=== PATIENT | female | born 2005 | race Caucasian/White ===

== ENCOUNTER 2024-08-23 22:00 | Emergency (ER) | payer BC, SELFPAY ==
[2024-08-23 22:05] VITALS: BP 144/83; PULSE 94; RESP 18; TEMP 36.3; O2SAT 98
--- NOTE | 2024-08-23 22:34 | ED.GENADUL_ITS ---
Discharge Plan Disposition Patient Disposition: Home Condition: Stable Discharge Details Clinical Impression: Allergic reaction Primary Care Provider: МарияLocal ED Provider: Alexandrea Castrejon Home Meds and New Rx's Prescriptions: No Action amitriptyline 50 mg tablet 50 mg PO QHS clomipramine 50 mg capsule 100 mg PO ONCE Discharge Instructions Instructions: Allergic Reaction ED Additional Instructions: You were seen in the emergency department today for evaluation of allergic reaction symptoms likely due to ingestion of gluten. In our department you have a full physical examination performed, received medications for your symptoms and had improvement while observed. It is safe for you to go home and we have provided you with an EpiPen to be used if you have worsening of symptoms such as shortness of breath, hives or rash, vomiting or stomach upset. If you use your EpiPen you need to be seen at an emergency department immediately after to ensure that your symptoms do not come back. I have also provided you with a prescription for an EpiPen which she can fill at your home pharmacy. You need to follow-up with an child development specialist, and have a plan to make a phone call to do that on Sunday. Of course, if your symptoms worsen, you can always return to the emergency department for reevaluation. Thank you for allowing us to be part of your care. HPI General Mode of arrival: ambulatory . Date/Time Provider Initiated Documentation: 08/23/24 22:04 . Limitations to Documentation: no limitations . Information obtained by: patient, family and old records reviewed . HPI Narrative: HPI: This is a 19-year-old female patient with a past medical history significant for gluten allergy as well as a family history of anaphylaxis to bees, who is presenting for evaluation of an allergic reaction. The patient reports that approximately half an hour to 45 minutes prior to arrival at our facility she ate a bite of food and did not realize that it had gluten in it. She states that she was able to spit it out, but developed a sensation of tightness and swelling in her throat and mouth, some shortness of breath, and some abdominal upset in the epigastric region. She reports that she has noted a worsening of her reaction to gluten over time, with symptoms that have increased in severity, especially the throat tightness, as well as duration. She states that she took 50 mg of Benadryl prior to arrival, states that typically this resolves the symptoms but today it did not, and she has not experienced any improvement in her symptoms since being in the emergency department. The patient has not noted any itching or hives, has not had any change in responsiveness. She had a plan to call to make an appointment with an nutrition club ambassador on Sunday. She has historically had a EpiPen as a precaution given her family history of anaphylaxis to bees, has not ever used epi and did not try it to night. Prior to this event the patient was in her normal state of health. She reports that initially she was not sure if she was just feeling anxious over the exposure as she has had similar symptoms in the setting of anxiety, but states that she expected the symptoms to have improved if this was anxiety. Exam: Gen: Awake and alert, in no apparent distress HEENT: Non-icteric sclera, conjunctiva noninjected. Posterior pharynx without erythema, exudate, or other lesions. No significant uvular or posterior pharyngeal swelling. No stridor auscultated. Neck: Supple Lungs: No apparent respiratory distress, normal respiratory effort. Lung sounds clear and equal bilaterally without wheezes, rhonchi, rales CV: Appears well perfused, heart with regular rate and rhythm, no murmurs auscultated Abdomen: Non-distended, soft, minimal tenderness to palpation in the epigastric region without rigidity, rebound, or guarding MSK: Moves 4 extremities without apparent limitation in ROM Skin: Visualized skin without rashes, cyanosis. Neuro: Normal Gait, no obvious focal deficits or facial asymmetry. Speaks in full, clear sentences. Psych: Appropriate for situation. MDM: This is a 19-year-old female patient presenting for evaluation of an allergic reaction. My differential includes but is not limited to anaphylaxis, allergic reaction, sensitivity. Gluten is the leading concerns of the patient recognizes that she will require allergy testing to determine the exact cause of the symptoms. Reassuringly, I see no evidence of angioedema, airway compromise, or hemodynamic instability/shock. I had an extended shared decision-making conversation with the patient and her parents, regarding the next steps in management. The patient does have symptoms relating to 2 organ systems which increases my concern for anaphylaxis (airway involvement with throat swelling, abdominal discomfort) though she is exceptionally well-appearing and has a reassuring physical examination. She is desiring to avoid immediate epinephrine administration, and so we will start treatment with 20 mg famotidine and 125 mg Solu-Medrol, and will monitor here in the emergency department for improvement or worsening of her symptoms. Based on the duration of her symptoms and her physical examination I do not see any indication to proceed with advanced imaging or laboratory studies at this time. ED Course: The patient was observed in our emergency department for 2 hours, and had improvement of her symptoms with no worsening and continued reassuring physical exam and vital signs with no evidence of airway obstruction, shock. The patient was provided with a take-home EpiPen and teaching for how to utilize this medication, including the need to return to the emergency department if it is utilized. I also provided her with a paper prescription for EpiPen as she is returning home to [place] in the next day or so. The patient will reach out to schedule an appointment with an nutrition club ambassador and understands to return to the emergency department if she has recurrence or worsening of her symptoms. At this time, the patient has had a full medical evaluation and is safe for discharge to home. They are hemodynamically stable, ambulatory, and tolerating PO. They are understanding of the follow-up plan and return precautions. They left our facility without incident. Alexandrea Castrejon MD Related Data Home Medications ?Medication ?Instructions ?Recorded ?Confirmed amitriptyline 50 mg tablet 50 mg PO QHS 08/23/24 08/23/24 clomipramine 50 mg capsule 100 mg PO ONCE 08/23/24 08/23/24 Allergies Allergy/AdvReac Type Severity Reaction Status Date / Time gluten Allergy Mild Swelling/Ed Verified 08/23/24 22:04 luda General Stated Complaint: Allergic RAYNA: 3 Course Vital Signs Vital signs: Vital Signs Temperature 36.3 C L 08/23/24 22:05 Pulse 94 H 08/23/24 22:05 Respiratory Rate 18 08/23/24 22:05 Blood Pressure 144/83 H 08/23/24 22:05 Pulse Oximetry 98 08/23/24 22:05 Temperature 36.3 C L 08/23/24 22:05 Temperature Source Temporal Artery Scan 08/23/24 22:05 Pulse 94 H 08/23/24 22:05 Respiratory Rate 18 08/23/24 22:05 Respiratory Effort Normal 08/23/24 22:09 Respiratory Pattern Normal 08/23/24 22:09 Blood Pressure 144/83 H 08/23/24 22:05 Blood Pressure Position Sitting 08/23/24 22:05 Pulse Oximetry 98 08/23/24 22:05 Oxygen Delivery Method Room Air 08/23/24 22:05 Oxygen Flow Rate 0 08/23/24 22:05 Pain Level 0 08/23/24 22:05 Medical Decision Making Quality:SDOH Health Related Social Needs: No Data to Display PFSH All Active Problems (Updated 08/24/24 @ 00:03 by Alexandrea Castrejon MD) Allergic reaction (Acute) Social History Smoking/Tobacco Use Status: Never Smoking risk assessment performed?: Yes Alcohol Intake: current Alcohol Intake frequency: a few times a month Drug use: Never Substance use type: does not use Do you feel safe at home: Yes Do you feel safe in your relationship?: Yes
[2024-08-23] MEDS: methylPREDNISolone SUCC 125 MG VIAL IVP (22:59)
[2024-08-23] MEDS: Famotidine 20 MG/2 ML VIAL IVP (23:00)
--- OUTSIDE RECORDS SUMMARY | 2024-08-23 23:18 | XMS_ITS | Encounter Summary ---
Author Organization [facility] Address [address] [place] [address] Care Team Providers Care Instructional Resource Teacher Name Role Phone No, Pcp LICENSED OPTICAL DISPENSER Primary Care Provider Unavailabl e Reason for Visit * Reason Comments Cough Encounter Details Date Type Department Care Team (Late st Contact Info) Description 08/05/2016 12:35 PM EST Office Visit [id number] [place] [address] Dana Cox NP [address] [place] [address] Acute suppurative otitis media of both ears without spontaneous rupture of tympanic membranes, recurrence not specified (Primary Dx); Upper respiratory infection, acute Social History Tobacco Use Types Packs/Day Years Used Date Smoking Tobacco: Never Alcohol Use Standard Drinks/Week Comments Not Asked 0 (1 standard drink = 0.6 oz pur e alcohol) Comments No Sex and Gender Information Value Date Recorded Sex Assigned at Not on file Legal Sex Female 1:02 PM EST Gender Identity Not on file Sexual Orientation Not on file documented as of this encounter Last Filed Vital Signs Vital Sign Reading Time Taken Comments Blood Pressure 118/68 08/05/2016 12:41 PM EST Pulse 87 08/05/2016 12:41 PM EST Temperature 37.1 ??C (98.7 ??F) 08/05/2016 12:[address] Respiratory Rate 18 08/05/2016 12:41 PM EST Oxygen Saturation 98% 08/05/2016 12:41 PM EST Inhaled Oxygen Concentration - - Weight - - Height - - Body Mass Index - - documented in this encounter Functional Status * Is the person deaf or does he/she have serious difficulty hearing? Answer Date of Assessment Author * Is this person blind or does he/she have serious difficulty seeing even when wearing glasses? Answer Date of Assessment Author * Does this person have serious difficulty walking or climbing stairs? Answer Date of Assessment Author * Does this person have difficulty dressing or bathing? Answer Date of Assessment Author * Because of a physical, mental, or emotional condition, does this person have difficulty doing errands alone such as visiting a doctor's office or shopping? Answer Date of Assessment Author documented as of this encounter Mental Status * Because of a physical, mental, or emotional condition, does this person have serious difficulty concentrating, remembering, or making decisions? Answer Entry Date Author documented in this encounter Patient Instructions * Patient Instructions* Dana Cox NP - 08/05/2016 12:51 PM EST Acute Otitis Media: Follow up with primary care provider immediately if symptoms worsen or if symptoms do not improve in 3-5 days. Seek IMMEDIATE medical attention if you have difficulty breathing, wheezing, chest tightness, high fever, or stiff neck. /[id number] Otitis Media Otitis Media What is Otitis Media (OM)? Otitis media is a viral or bacterial inflammation of the middle ear located behind your ear drum. It is common in children between the ages of 6 months and 3 years, but can occur at any age. It is most often seen during the winter months. What causes OM? Otitis media is often diagnosed after you or your child has had a cold or allergies. Other risk factors include: ? Exposure to cigarette smoke ? Daycare attendance ? Recent antibiotic use ? Facial abnormalities, such as a cleft palate ? Problems with the Eustachian tube (a small passageway that connects the middle ear to the top of the throat) What are the signs/symptoms of otitis media? ? Rapid onset of ear pain ? pulling on ears for younger children ? Fever ? Nose congestion ? Headache ? Lethargy (listlessness) ? Irritability (increased fussiness) ? Difficulty sleeping ? Cough ? Decreased appetite (poor feeding) ? Vomiting and/or diarrhea ? Full sensation in the ear or ear ???popping?? ? Dizziness ? Hearing loss How is otitis media treated? Treatment depends on several factors - age, symptoms, and physical exam. If an antibiotic is prescribed, make sure to take all the pills even if feeling better. In some cases, you may be given a prescription to fill at a later date if symptoms do not improve. This is called a Wait and See prescription. Fill the prescription if your symptoms don???t improve in a day or two. What are the warning signs I should watch for? If any of the following symptoms develop, seek immediate medical attention at an emergency room: ? Temperature over 103.9??F ? Severe ear pain without relief ? Inability to fully open the jaw ? Stiff neck ? Unable to drink or hold fluids down What if I don???t feel better? If you have filled your prescription, and you or your child still does not feel better, you should follow-up with your primary care provider in 48-72 hours. If you were given a Wait and See Prescription, fill the prescription and take as indicated. Other remedies that may help reduce the symptoms include: 1. Apply warm compresses to your ear. Heat will help decrease the pain. 2. Elevate the head of the bed. This helps reduce ear pressure from building up. Raise the head of the crib for infants or use pillows for older children and adults. 3. Consider using nasal saline spray. For both adults and children, squirt two to four sprays into each nostril 3-4 times a day. This helps thin nasal secretions and reduces ear pressure. 4. Distraction often provides relief. Try playing a game or watching a move to redirect your attention. 5. Hold or rock children that are having ear pain. This helps to soothe and comfort the child. 6. Try xzdf-mgh-ueqjohi pain relievers. Acetaminophen (Tylenol??) or ibuprofen (Motrin?? or Advil??) are safe medicines to use. Follow the directions printed on the box. How can I decrease the risk of developing recurrent otitis media? There are several ways to diminish the risk factors for otitis media including the following: ? Feed a child upright if bottle fed ? Avoid pacifier use after 10 months of age ? Limit exposure to large groups of children when possible ? Practice careful hand washing technique ? Avoid exposure to cigarette smoke. If you smoke, quit. ? Keep immunizations up-to-date, including influenza (Flu) and pneumococcal (Prevnar/Pneumovax) Sources: National Institutes of Health, www.nih.gov, [place] [employer], www.aap.org www[facility] I.866.389.NIKI (2727) Rev. 4/ Seek immediate emergency medical attention if you experience severe or worsening abdominal pain, difficulty swallowing, stiff neck, shortness of breath, coughing or vomiting up blood, chest pain, increased fever, unexplained weight loss, or blood in stool. If you are taking rpby-xlw-nsqrspq medication(s) follow the dosing instructions included in the packaging, unless otherwise instructed by your provider. It is important to notify your primary care provider of all medications you are taking, including jlhq-cwm-uwoqrlo medications. Follow up PCP: Follow up with your primary care provider if symptoms worsen within 7 days. /[id number] Upper Respiratory Infection (URI) What is an Upper Respiratory Infection? An Upper Respiratory Infection (URI), sometimes called a ???cold,?? occurs when viruses attack thenose, throat and chest. A URI usually runs its course in 2-14 days, although most people feel better in about a week. Do I need antibiotics? What if my mucus is green? When germs that cause colds first infect the nose and sinuses, the nose makes clear mucus. This helps wash the germs from the nose and sinuses. After two or three days, the body's immune cells fight back, changing the mucus to a white or yellow color. As the bacteria that live in the nose grow back, they may also be found in the mucus, which changes the mucus to a greenish color. This is normal and does not mean you or your child needs antibiotics. Antibiotics are needed only if your healthcare provider tells you that you have a bacterial infection. Your healthcare provider may prescribe other medicine or give tips to help with a cold's symptoms, but antibiotics are not needed to treat a cold or runny nose. How do I prevent spreading a URI to others? To prevent spreading to others, try the following: ??? Stay at home while you are sick ??? Avoid close contact with others, such as hugging, kissing, or shaking hands ??? Move away from people before coughing or sneezing ??? Cough and sneeze into a tissue then throw it away, or cough and sneeze into your upper shirt sleeve, completely covering your mouth and nose ??? Wash your hands after coughing, sneezing, or blowing your nose ??? Disinfect frequently touched surfaces, and objects such as toys and doorknobs How is a URI treated? There is no cure for the common cold. For relief, try ??? Getting plenty of rest ??? Drinking fluids ??? Gargling with warm salt water and using cough drops or throat sprays ??? Taking talb-kgp-pvyfrlj pain or cold medicines. However: o Do not give aspirin to children. And do not give cough medicine to children under four. o Nffb-jcw-ayicfxu medicines may help ease symptoms but will not make your cold go away faster. o ALWAYS read the label and use medications as directed. What if I don???t feel better? Follow up with your primary care provider if: ??? Unusually severe cold symptoms or symptoms that last more than 10 days ??? High fever (greater than 100.4??F) ??? Ear pain or sinus type headache ??? Cough that gets worse while other cold symptoms improve ??? Flare-up of any chronic lung problem, such as asthma ??? If you develop any of the following you should go to the nearest urgent care center or emergency room: o shortness of breath, pain or pressure in the chest, high fever that doesn???t get better with fever reducing medicine, confusion, fainting, severe vomiting, and/or severe facial pain. For more information, visit: ??? U.S. National Library of Medicine: http://www.nlm.nih.gov/medlineplus/ ??? Centers for Disease Control: http://www.cdc.gov/getsmart/antibiotic-use/uri/ Sources: http://www.nlm.nih.gov/medlineplus/commoncold.html and http://www.cdc.gov/getsmart/antibiotic-use/URI/colds.html documented in this encounter Progress Notes * Dana Cox NP - 08/05/2016 12:35 PM EST Subjective: Patient ID: Raine Taylor is a 11 y.o. female. HPI Cough The problem is new. The current episode started 2 weeks. This problem occurs constantly. Since onset, the problem has been gradually worsening. The cough is productive of sputum. Not alleviated by : Advil, homeopathic cough suppressant. Associated symptoms include sore throat, nasal congestion and ear pain (right more paiful than left). Negative for nausea, headaches, vomiting, shortness of breath, rash, paroxysmal nocturnal dyspnea, appetite change, malaise/fatigue, sweats, arthralgias, heartburn/ regurgitation, unintentional weight loss, myalgias, chest pain, epigastric pain, wheezing, chest tightness, sinus pain, post-nasal drip, edema and fever. Last edited by Dana Cox NP on 08/05/2016 12:40 PM. (History) Flu Offering: Have you had your flu shot this year?: No My recommendation would be that we go ahead and immunize you today as part of your healthcare plan:Patient declines ROS Positive for: Constitutional, HENT Last edited by Dana Cox NP on 08/05/2016 12:40 PM. (History) History Smoking Status ??? Never Smoker Smokeless Tobacco ??? Not on file Past Medical History Diagnosis Date ??? Allergic rhinitis History reviewed. No pertinent past surgical history. History reviewed. No pertinent family history. Objective: Physical Exam Constitutional: She appears well-developed and well-nourished. No distress. HENT: Head: Normocephalic and atraumatic. Right Ear: External ear normal. No drainage, swelling or tenderness. Tympanic membrane is bulging. Tympanic membrane is not injected and not erythematous. Tympanic membrane mobility is abnormal. Left Ear: External ear normal. No drainage, swelling or tenderness. Tympanic membrane is erythematous and bulging. Tympanic membrane is not injected. Tympanic membrane mobility is abnormal. Nose: Nose normal. Right sinus exhibits no maxillary sinus tenderness and no frontal sinus tenderness. Left sinus exhibits no maxillary sinus tenderness and no frontal sinus tenderness. Mouth/Throat: Posterior oropharyngeal edema and posterior oropharyngeal erythema present. No oropharyngeal exudate. Neck: Normal range of motion. Neck supple. No JVD (b/l cervical adenopathy; tenderness on palpation. ) present. No tracheal deviation present. No thyromegaly present. Cardiovascular: Normal rate, regular rhythm and normal heart sounds. Exam reveals no gallop and no friction rub. No murmur heard. Pulmonary/Chest: Effort normal and breath sounds normal. No stridor. No respiratory distress. She has no wheezes. She has no rales. Lymphadenopathy: She has cervical adenopathy. Skin: Skin is warm and dry. No rash noted. She is not diaphoretic. No erythema. Assessment/Plan: Acute otitis media Clinical presentation significant for bacterial infection. Antibiotics prescribed in accordance with [facility] guidelines. documented in this encounter Plan of Treatment Not on file documented as of this encounter Visit Diagnoses Diagnosis Acute suppurative otitis media of both ears without spontaneous rupture of tympanic membranes, recurrence not specified- Primary Upper respiratory infection, acute documented in this encounter Care Teams Instructional Resource Teacher Relationship Specialty Start Date End Date No, Pcp, LICENSED OPTICAL DISPENSER N/A Do not use PCP - General 08/05/16 08/31/19 documented as of this encounter
--- OUTSIDE RECORDS SUMMARY | 2024-08-23 23:18 | XMS_ITS | Encounter Summary ---
Author Organization [facility] Address [phone] [facility] [place] [address] Care Team Providers Care Combination Presser Name Role Phone Yamileth Wagner CNP Primary Care Provider Yamileth Wagner FARM PLANNER Unavailable [phone] Reason for Visit * Reason Onset Date Comments Referral To Behavioral Health 06/23/2024 Encounter Details Date Type Department Care Team (Late st Contact Info) Description 06/23/2024 Telephone [facility] [phone] Ethel Isidro [address] [place] [address] [email or web address] Referral To Behavioral Health Social History Tobacco Use Types Packs/Day Years Used Date Smoking Tobacco: Never Smokeless Tobacco: Never Alcohol Use Standard Drinks/Week Comments Yes 0 (1 standard drink = 0.6 oz pur e alcohol) 1x/mo Education Answer Date Recorded Are you interested in more education? Not on jonathan e 12/14/2022 Are you concerned about learning? Not on file 12/14/2022 No 12/14/2022 No 12/14/2022 Digital Access Answer Date Recorded No 01/10/2023 No 01/10/2023 Reliable internet access at home? Not on file 01/10/2023 Device with a working camera? Not on file Intimate Partner Violence Answer Date R ecorded Are you denied basic needs s uch as food, clothing, or medical care? No 06/03/2024 In the past 12 months have y ou been in a relationship with a person who hurts, threatens, or tries to control you? No 06/03/2024 Are you denied basic needs s uch as food, clothing, or medical care? No 06/03/2024 In the past 12 months have y ou been in a relationship with a person who hurts, threatens, or tries to control you? No 06/03/2024 Sex and Gender Information Value Date Recorded Sex Assigned at Not on file Gender Identity Not on file Sexual Orientation Not on file documented as of this encounter Progress Notes * Ethel Isidro - 06/23/2024 7:42 PM EST Update: [facility] was referred by Primary Care team to [facility]. MEDICATION MANAGEMENT- PATIENT UNABLE TO BE REACHED: [facility] Med Services team made outgoing calls to patient to try to schedule an appointment for medication management. Patient did not sampler pickup the phone. [facility] left voicemails with [facility] contact information. Patient has also received letter at time of referral with an overview of [facility] services and contact information. This referral is closed out at this time. Patient may also contact [facility] directly at [phone] (Press 1 for Intake department) to schedule a medication management appointment. *With follow-up questions on referral and services, patient may contact the [facility] Intake team directly at [phone]. documented in this encounter Plan of Treatment Upcoming Encounters Date Type Department Care Team (Late st Contact Info) Description 12/15/2024 9:00 AM EDT Telemedicine [facility] Nikole Harry [address] [facility] [place] [address] Yamileth Wagner, BETTE [address] [facility] [id number] 06/11/2025 1:40 PM EDT Office Visit [facility] Nikole Harry [address] [facility] [place] [address] Yamileth Wagner CNP [address], [place] [address] [email or web address] documented as of this encounter Visit Diagnoses Not on filedocumented in this encounter Additional Health Concerns Assessment Noted Time PHQ-9 Depression Total Score: 16 024 10:58 PM EDT PHQ-2 Depression Total Score: 3 06/03/20 24 10:58 PM EDT documented as of this encounter Care Teams Combination Presser Relationship Specialty Start Date End Date Yamileth Wagner CNP [address] [place] [address] PCP - General Family Medicine 06/28/17 Yamileth Wagner CNP [address] [facility] [place], [place] [address] [email or web address] Insurance Assigned Provider 02/23/24 07/30/24 documented as of this encounter Additional Source Comments The information contained in this document represents components of the legal health record. It is not the complete legal health record.[facility]
--- OUTSIDE RECORDS SUMMARY | 2024-08-23 23:18 | XMS_ITS | Clinical Summary ---
Author Organization [facility] Address [address] [place] [address] Care Team Providers Care Computer Information Systems Instructor Name Role Phone No, Pcp CO FOUNDER AND CHIEF STRATEGY OFFICER Primary Care Provider Unavailabl e Allergies Active Allergy Reactions Criticality Noted Date Comments Lactase GI Intolerance 08/08/2019 Milk Containing Products (Dairy) High 04/2016 Medications clindamycin-iris zoyl peroxide gel APPLY TOPICALLY ONCE FOR 1 DOSE. 1 6 Active VENTOLIN HFA 90 mcg/actuation inhaler INHALE 1-2 PUFFS EVERY 4-6 HOURS NEEDED FOR WHEEZING. DISPENSE SPACER NEEDED. 1 7 Active albuterol (PROVENTIL HFA;VENTOLIN HFA) 90 mcg/actuation inhaler Inhale 1 puff every 6 (six) hours as needed. 9 Active amitriptyline (ELAVIL) 50 MG tablet TAKE 1 TABLET BY MOUTH NIGHTLY AT BEDTIME Active fluticasone propionate (FLONASE) 50 mcg/actuation nasal spray Instill 2 sprays into each nostril daily 4 12/20/19 25 Active Social History Tobacco Use Types Packs/Day Years Used Date Smoking Tobacco: Never Passive Smoke Exposure: Never Smokeless Tobacco: Never Tobacco Cessation:Counseling Given: Not Answered Alcohol Use Standard Drinks/Week Comments Not Asked 0 (1 standard drink = 0.6 oz pur e alcohol) Comments No Sex and Gender Information Value Date Recorded Sex Assigned at Not on file Legal Sex Female 1:02 PM EST Gender Identity Not on file Sexual Orientation Not on file Last Filed Vital Signs Vital Sign Reading Time Taken Comments Blood Pressure 116/72 12/20/2023 10:43 AM EDT Pulse 93 12/20/2023 10:43 AM EDT Temperature 36.7 ??C (98.1 ??F) 12/20/2023 10:43 AM E DT Respiratory Rate 20 12/20/2023 10:43 AM EDT Oxygen Saturation 100% 12/20/2023 10:43 AM EDT Inhaled Oxygen Concentration - - Weight 61 kg (134 lb 8 oz) 08/08/2019 8:24 AM ES T Height 165.1 cm (5' 5) 08/08/2019 8:24 AM EST Body Mass Index 22.38 08/08/2019 8:24 AM EST Plan of Treatment Health Maintenance Due Date Last Done Comments Pneumococcal Vaccination Scr eening: Pts 0-19 & 19-64 yrs of age ([facility]) (1 of 2 - PCV) 2009 Depression: Screening Annual ly using PHQ-2/9 in Adults 18 yrs or above (or HM Modifier)([facility]) 2021 Hepatitis C Virus Infection in Adolescents and Adults: Screening (or Modifier) ([facility]) 2021 Human Immunodeficiency Virus (HIV) Infection: Screening Annually (or Modifier)([facility]) 2021 SDOH Screening Reminder: Glendy geovannyy for all adults ([facility]) 2021 Lipid Screening: Once for Wo men aged 20 to 45 yrs ([facility]) 2023 Cervical Cancer Screenin 1-65 yrs of age (or Modifier) 02/07/2024 Cervical Cancer Screening: P ap every 3 yrs pts age 21-65 02/07/2024 Cervical Cancer: Pap Screeni ng with Modifier timing ([facility]) 02/07/2024 Cervical Cancer: hrHPV alone or with cotesting Pap for Pts 30-65yrs screening every 5yrs ([facility]) 02/07/2024 Flu Vaccination: Yearly for ages 18mos through 64 years (or Modifier)([facility]) 03/20/2024 COVID-19 Vaccine Screening: Initial Series and Booster Status ([facility]) (3 - 2023- season) 2024 12/27/2020, 11/29/2020 DTaP/Tdap/Td Vaccines ([facility]) (2 - Td or Tdap) 05/21/2029 05/21/2019 Zoster/Shingles Vaccine Seri es Screening: Adults aged 18+ yrs (or HM Modifiers)([facility]) (1 of 2) 2053 06/28/2021, 02/11/2021 Medical Devices Not on file Insurance [facility] Care Teams Computer Information Systems Instructor Relationship Specialty Start Date End Date No, Pcp, CO FOUNDER AND CHIEF STRATEGY OFFICER N/A Do not use PCP - General Family Medicine 09/01/19
--- OUTSIDE RECORDS SUMMARY | 2024-08-23 23:18 | XMS_ITS | Encounter Summary ---
Author Organization [facility] Address [address] [place] [address] Care Team Providers Care Lead Burner Name Role Phone No, Pcp RN RECRUITMENT Primary Care Provider Unavailabl e Reason for Visit * Reason Comments Sore Throat Encounter Details Date Type Department Care Team (Late st Contact Info) Description 04/12/2017 4:40 PM EDT Office Visit [facility] [address] [place] [address] Dana Cox NP [address] [place] [address] Acute pharyngitis, unspecified etiology (Primary Dx); Upper respiratory infection, acute Social [...] Sign Reading Time Taken Comments Blood Pressure 112/78 04/12/2017 4:42 PM EDT Pulse 66 04/12/2017 4:42 PM EDT Temperature 37.6 ??C (99.6 ??F) 04/12/2017 4:42 PM ED T Respiratory Rate 18 04/12/2017 4:42 PM EDT Oxygen Saturation 99% 04/12/2017 4:42 PM EDT Inhaled Oxygen Concentration - - Weight - [...] encounter Patient Instructions * Patient Instructions* Dana oCx NP - 04/12/2017 4:50 PM EDT Seek immediate emergency medical attention if you experience severe or worsening abdominal pain, difficulty swallowing, stiff neck, shortness of breath, coughing or vomiting up blood, chest pain, increased fever, unexplained weight loss, or blood in stool. If you are taking laqw-kid-bddlmwc medication(s) follow the dosing instructions included in the packaging, unless otherwise instructed by your provider. It is important to notify your primary care provider of all medications you are taking, including ryca-eyw-sugdmqr medications. Follow up PCP: Follow up with your primary care provider if symptoms worsen within 7 days. /[id number] Upper Respiratory Infection (URI) What is an [...] cough drops or throat sprays ??? Taking dica-clk-easmiff pain or cold medicines. However: o Do not give aspirin to children. And do not give cough medicine to children under four. o Nckn-mtg-vvgndua medicines may help ease symptoms but will [...] Progress Notes * Dana Cox NP - 04/12/2017 4:40 PM EDT Subjective: Patient ID: Raine Taylor is a 12 y.o. female. HPI Sore Throat The problem location is generalized. Sore throat is described as aching. The level of severity moderate. Onset was sudden. This problem has existed for 4 days. This problem occurs constantly. Since onset, the problem has been gradually worsening. The problem is new. Ineffective treatment: Elderberry spray, advil. Associated symptoms include sinus congestion, headaches, voice change, ear pain (worse on right) and cough (productive at times). Negative for fever, neck stiffness, drooling, abdominal pain, swollen glands, oral lesion, adenopathy, heartburn/ regurgitation, rhinorrhea, rash, fatigue, chest pain, chills, trouble swallowing, postnasal drip, eye discharge and arthralgia. Risk factorsinclude exposure to illness. Last edited by Dana Cox NP on 04/12/2017 4:41 PM. (History) Flu Offering: Have you had your flu shot this year?: No ROS Positive for: Constitutional, HENT Last edited by Dana Cox NP on 04/12/2017 4:41 PM. (History) History Smoking Status ??? Never Smoker Smokeless Tobacco ??? Not on file Past Medical History: Diagnosis Date ??? Allergic rhinitis History reviewed. No pertinent surgical history. History reviewed. No pertinent family history. Objective: Physical Exam Constitutional: She appears well-developed and well-nourished. No distress. HENT: Head: Normocephalic and atraumatic. Right Ear: External ear normal. Tympanic membrane is not erythematous and not bulging. Tympanic membrane mobility is normal. No middle ear effusion. Left Ear: External ear normal. Tympanic membrane is injected. Tympanic membrane is not erythematousand not bulging. Tympanic membrane mobility is normal. No middle ear effusion. Nose: Right sinus exhibits maxillary sinus tenderness. Right sinus exhibits no frontal sinus tenderness. Left sinus exhibits maxillary sinus tenderness. Left sinus exhibits no frontal sinus tenderness. Mouth/Throat: Posterior oropharyngeal erythema present. No oropharyngeal exudate or posterior oropharyngeal edema. Neck: Normal range of motion. Neck supple. No tracheal deviation present. No thyromegaly present. Cardiovascular: Normal rate, regular rhythm and normal heart sounds. Exam reveals no gallop and no friction rub. No murmur heard. Pulmonary/Chest: Effort normal and breath sounds normal. No stridor. No respiratory distress. She has no wheezes. She has no rales. Lymphadenopathy: Cervical adenopathy: b/l cervical adenopathy; tenderness on palpation b/l. Skin: Skin is warm and dry. No rash noted. She is not diaphoretic. No erythema. Assessment/Plan: URI Clinical presentation significant for viral infection. Self-care and symptomatic treatment recommended in accordance with [facility] guidelines. documented in this encounter Plan of Treatment Not on file documented as of this encounter Procedures Procedure Name Priority Date/Time Associated Diagnosis Comments STREP RAPID ANTIGEN DETECTION POCT Routine 04/12/2017 4:50 PM EDT Acute pharyngitis, unspecified etiology documented in this encounter Results * Rapid strep A (04/12/2017 4:50 PM EDT) Rapid Strep A Screen Negative Negative INTERNAL CONTROLS VALID Yes--Test working appropriately Expiration Date Lot Number [id number] Throat 04/12/2017 4:50 PM EDT Dana Cox NP POINT OF CARE TEST ORDERABLES Fi nal Result documented in this encounter Visit Diagnoses Diagnosis Acute pharyngitis, unspecified etiology- Primary Upper respiratory infection, acute documented in this encounter Care Teams Lead Burner Relationship Specialty Start Date End Date No, Pcp, RN RECRUITMENT N/A Do not use PCP - General 08/05/16 08/31/19 documented as of this encounter
--- OUTSIDE RECORDS SUMMARY | 2024-08-23 23:18 | XMS_ITS | Encounter Summary ---
Author Organization [facility] Address [phone] [facility] [place] [address] Care Team Providers Care Sales Floor Team Member Name Role Phone Yamileth Wagner DIAGNOSTIC CARDIAC SONOGRAPHER Primary Care Provider Yamileth Wagner DIAGNOSTIC CARDIAC SONOGRAPHER Unavailable [phone] Reason for Visit * Reason Comments Medication Refill Encounter Details Date Type Department Care Team ([facility] st Contact Info) Description 07/09/2024 Refill [facility] [address] [place] [address] Yamileth Wagner, DIAGNOSTIC CARDIAC SONOGRAPHER [address] [place] [address] [email or web address] Medication Refill Social History Tobacco Use Types Packs/Day Years [...] on file documented as of this encounter Plan of Treatment Upcoming Encounters Date Type Department Care Team (Late st Contact Info) Description 12/15/2024 9:00 AM EDT [facility] [address] [place] [address] Yamileth Wagner CNP [address] [facility], [place] [address] [email or web address] 06/11/2025 1:40 PM EDT [facility] [address] [place] [place] [address] Yamileth Wagner CNP [address] [facility], [place] [address] documented as of this encounter Visit Diagnoses Not on filedocumented in this encounter Additional Health Concerns Assessment Noted Time PHQ-9 Depression Total Score: 16 024 10:58 PM EDT PHQ-2 Depression Total Score: 3 06/03/20 24 10:58 PM EDT documented as of this encounter Care Teams Sales Floor Team Member Relationship Specialty Start Date End Date Yamileth Wagner CNP [address] [place] [address] PCP - General Family Medicine 06/28/17 Yamileth Wagner, DIAGNOSTIC CARDIAC SONOGRAPHER [address] [facility], [place] [address] [email or web address] Insurance Assigned Provider 02/23/24 07/30/24 documented as of this encounter Additional Source Comments The information contained in this document represents components of the legal health record. It is not the complete legal health record.[facility]
--- OUTSIDE RECORDS SUMMARY | 2024-08-23 23:18 | XMS_ITS | Encounter Summary ---
Author Organization [facility] Address [address] [address] Care Team Providers Care Master [employer] Y[employer] Name Role Phone No, Pcp SUPERVISOR REFINING Primary Care Provider Unavailabl e Reason for Visit * Reason Comments or Rectal Encounter Details Date Type Department Care Team (Late st Contact Info) Description 09/01/2019 9:20 AM EST Office Visit [facility] [address] [place] [address] Lori Kwon, MIRELLA [address] [place] [phone] Urinary tract infection without hematuria, site unspecified (Primary Dx) Social History Tobacco Use Types Packs/Day Years [...] Sign Reading Time Taken Comments Blood Pressure 110/60 09/01/2019 9:24 AM EST Pulse 62 09/01/2019 9:24 AM EST Temperature 37.4 ??C (99.4 ??F) 09/01/2019 9:24 AM ES T Respiratory Rate 18 09/01/2019 9:24 AM EST Oxygen Saturation 97% 09/01/2019 9:24 AM EST Inhaled Oxygen Concentration - - Weight [...] this encounter Patient Instructions * Patient Instructions* Lori Kwon NP - 09/01/2019 9:20 AM EST Seek immediate emergency medical attention if you experience severe or worsening abdominal pain, difficulty swallowing, stiff neck, shortness of breath, coughing or vomiting up blood, chest pain, increased fever, unexplained weight loss, or blood in stool. Report to the nearest emergency department for any of the following: Fever >99.9??F, flank pain,nausea/vomiting, or abdominal pain. If symptoms do not improve within 2-3 days of treatment or do not fully resolve return to [facility] or primary care provider for re-evaluation. /[id number] Bladder Infection What is a Urinary Tract Infection (Bladder Infection)? UTI stands for Urinary Tract Infection. This means that there are bacteria that have grown on the bladder or urethra (the tube that leads from the bladder to the outside). Those bacteria cause the tissues to become swollen and tender. When the bladder is inflamed, it can feel like you need to go tothe bathroom more often than is really needed, and it is often uncomfortable. Women are more susceptible to UTI???s than men because the urethra is shorter and the opening to the bladder is more exposed. What are the signs and symptoms of Bladder Infection? After urinating, you still feel urgency ??? Burning or pain when going to the bathroom ??? Low-grade fever ??? Mild aching of lower back ??? Mild fullness in the lower part of abdomen ??? Need to ???go?? frequently ??? Small amount of blood on toilet paper How is a bladder infection diagnosed? In most cases, a dipstick urinalysis is performed during the visit, to quickly assess if you have abladder infection. For some patients, a urine culture will also be sent to an outside laboratory. How is a Bladder Infection treated? An antibiotic medication will be prescribed to treat your infection. Take the entire prescription as directed. ??? If you are taking or have taken an oral urinary tract analgesic agent for relief of dysuria, along with antibiotics, for bacterial cystitis, and you think is helping, there is probably no harm tocontinue taking. Follow OTC package directions carefully. ??? Increase a glass of water each waking hour and urinate frequently to help clean out your bladder. ??? Avoid caffeine and alcohol during treatment as these can irritate the bladder lining. What if you still don???t feel better? See your primary provider, nearest urgent care center or emergency room immediately if you develop a high fever, back or pelvic pain or vomiting. ??? If your symptoms do not improve after 3 days, or if you have any symptoms when your antibiotic is finished, please follow up with your primary care provider. ??? If you had blood in your urine at any time, follow up with your primary care provider. How can I prevent Bladder Infections in the future? Drink plenty of fluids and empty your bladder (go to the bathroom) every 2-4 hours. ??? Wear cotton underwear. ??? Avoid bubble baths and take showers instead of tub baths. ??? Empty your bladder after sexual activity to clean the urethra and to prevent infection. If taking topical/injectable/oral contraceptives, use a back up method if prescribed antibiotics. Due to the nature of your medical condition, you are being referred to the nearest Emergency Department for immediate evaluation and management. documented in this encounter Progress Notes * Lori Kwon NP - 09/01/2019 9:20 AM EST Subjective: Patient ID: Raine Taylor is a 14 y.o. female. Pt reports she began experiencing burning with voiding since Sunday. She also reports flank pain since Sunday. Took advil with some effect. 9/10 pain today. Does not report any abnormal vaginal discharge. Unsure if she has had fevers. Does not recall history of UTIs. Review of Systems Social History Tobacco Use Smoking Status Never Smoker Smokeless Tobacco Never Used Past Medical History: Diagnosis Date ??? Allergic rhinitis ??? Asthma History reviewed. No pertinent surgical history. No family history on file. Objective: Physical Exam Constitutional: She is oriented to person, place, and time. She appears well- developed and well-nourished. No distress. Cardiovascular: Normal rate, regular rhythm and normal heart sounds. Pulmonary/Chest: Effort normal and breath sounds normal. Abdominal: There is tenderness. There is CVA tenderness. Neurological: She is alert and oriented to person, place, and time. Skin: Skin is warm and dry. Psychiatric: She has a normal mood and affect. Her behavior is normal. Judgment and thought contentnormal. Assessment/Plan: Clinical presentation significant for bacterial infection. Antibiotics prescribed in accordance with [facility] guidelines. documented in this encounter Plan of Treatment Scheduled Orders Name Type Priority Associated Diagnoses Orde r Schedule Routine Urine and Sensitivity Microbiology Routine Urinary tract infection without hematuria, site unspecified Ordered: 09/01/2019 documented as of this encounter Procedures Procedure Name Priority Date/Time Associated Diagnosis Comments POCT URINALYSIS DIPSTICK Routine 09/01/2019 9:41 AM EST Urinary tract infection without hematuria, site unspecified documented in this encounter Results * (ABNORMAL) POCT urinalysis dipstick (09/01/2019 9:41 AM EST) Color, UA Yellow Clarity, UA Cloudy Glucose, UA Negative <=100 Bilirubin, UA Negative <=0.03 Ketones, UA Negative <=10 Spec Grav, UA 1.015 Blood, UA 6. Hem. Moderate <=0.030 pH, UA 5.0 4.6 - 8.0 Protein, UA 3+ Urobilinogen, UA Normal Nitrite, UA Negative Leukocytes, UA 2+ INTERNAL CONTROLS VALID Yes--Test working appropriately Expiration Date 06/19/20 Lot Number [id number] TEST BRAND NAME _ UA Siemens Multistix 10SG Urine 09/01/2019 9:41 AM EST Lori Kwon NP POINT OF CARE TEST OR DERABLES Final Result documented in this encounter Visit Diagnoses Diagnosis Urinary tract infection without hematuria, site unspecified- Primary documented in this encounter Care Teams Master [employer] Relationship Specialty Start Date End Date No, Pcp, SUPERVISOR REFINING N/A Do not use PCP - General Family Medicine 09/01/19 documented as of this encounter
--- OUTSIDE RECORDS SUMMARY | 2024-08-23 23:18 | XMS_ITS | Encounter Summary ---
Author Organization [facility] Address [address] [place] [address] Care Team Providers Care Fermenter Wine Name Role Phone Joaquina Brunner MD Primary Care Provider [phone] Reason for Visit * Reason Comments Skin complaint Encounter Details Date Type Department Care Team (Late st Contact Info) Description 04/04/2015 11:35 AM EDT Office Visit [facility] [address] [place] [address] Dana Cox NP [address] [place] [address] Impetigo (Primary Dx) Social History Tobacco Use Types Packs/Day Years Used Date Smoking Tobacco: Never Tobacco Cessation:Counseling Given: Yes Alcohol Use Standard Drinks/Week Comments Not Asked [...] Sign Reading Time Taken Comments Blood Pressure 110/68 04/04/2015 11:36 AM EDT Pulse 87 04/04/2015 11:36 AM EDT Temperature 37.1 ??C (98.7 ??F) 04/04/2015 11:36 AM E DT Respiratory Rate 18 04/04/2015 11:36 AM EDT Oxygen Saturation 98% 04/04/2015 11:36 AM EDT Inhaled Oxygen Concentration - - [...] * Patient Instructions* Dana Cox NP - 04/04/2015 11:42 AM EDT Seek immediate emergency medical attention: Seek immediate emergency medical attention for changes in vision, eye pain, sensitivity to light, increased drainage, difficulty swallowing, stiff neck, shortness of breath, coughing up blood, chest pain or increased fever. Follow up with primary care provider or urgent care in 72 hours if no improvement or sooner if symptoms worsen (e.g., fever, purulent drainage, pain). /[id number] Impetigo What is impetigo? Impetigo is a skin infection caused by bacteria. These bacteria enter tiny breaks in the skin and forms sores that crust, scab and often itch. Impetigo can be spread easily from person to person. It is seen more often during the summer months and is more common in children. How is impetigo treated? Treatment of impetigo depends on how severe the infection is. Antibiotic medicine is often prescribed, either as a cream or pills. Other helpful hints include the following: ??? Practice good skin care. Wash twice a day with a mild soap and water. This helps to reduce the amount of bacteria on the skin. ??? Avoid harsh scrubbing of the lesions or crusts. This will cause more skin irritation. ??? If you were prescribed an antibiotic cream, gently soak the crusted sores before applying. Holda wet compress over the affected area and then gently wash to remove the crusts. This allows the cream to be absorbed into the skin. ??? Wash hands frequently. Use a mild, preferably hypoallergenic, soap or cleanser. ??? Trim fingernails short. This prevents scratching and prevents spread of the infection. ??? Do not share personal care products, towels, clothing or razors with other family members. Using your own items prevents the spread of infection to others. ??? Do not return to school or work until 24 hours after treatment has started. You are able to spread the bacteria easily until you start antibiotics. When should I follow up? Follow up with primary care provider or urgent care in 72 hours if no improvement or sooner if symptoms worsen (e.g., fever, pus, pain). Where can I find more information? National Library of Medicine: www.nlm.nih.gov/medlineplus/ency/article/928249.htm ??? National [place] of Allergy and Infectious Diseases: www3.niaid.nih.gov/topics/impetigo/ ??? Kidshealth: http://kidshealth.org/parent/infections/bacterial_viral/impetigo.html documented in this encounter Progress Notes * Dana Cox NP - 04/04/2015 11:40 AM EDT Images from the original note were not included. Subjective: Patient ID: Raine Taylor is a 10 y.o. female. HPI Rash The problem is new. The current episode started 3 days ago. Since onset, the problem has been gradually worsening. Affected locations include face. Symptom characteristics include redness and vesicles. Associated symptoms include Negative for non-blanching rash, cough, fatigue, joint pain, nail changes, shortness of breath, swollen glands, vomiting , sore throat, painful lesions, malaise, fever, diarrhea, anorexia, congestion, facial edema, headache, myalgias, rhinorrhea and stiff neck. Treatments tried: neosporin. Treatments provided no relief. PMH includes Negative for diabetes, psoriasis ,allergies, varicella series, eczema, strep, immunocompromised, MRSA, asthma and mmr series. ROS Positive for: Skin Negative for: Constitutional Objective: Physical Exam Constitutional: She appears well-developed and well-nourished. No distress. Neck: Normal range of motion. Neck supple. No rigidity or adenopathy. Neurological: She is alert. Skin: Skin is warm. Rash: Vesicular rash on right corner of mouth linera, honey crusted color with minimal drainage measuring at 4 in and round vesicular rash above the right corner of upper lip measuring at 2cm. She is not diaphoretic. Assessment/Plan: Impetigo Clinical presentation consistent with bacterial infection. Antibiotics prescribed in accordance with [facility] guidelines. documented in this encounter Plan of Treatment Not on file documented as of this encounter Visit Diagnoses Diagnosis Impetigo- Primary documented in this encounter Care Teams Fermenter Wine Relationship Specialty Start Date End Date Joaquina Brunner MD [address] [place] [address] PCP - General Pediatrics 04/04/15 08/04/16 documented as of this encounter
--- OUTSIDE RECORDS SUMMARY | 2024-08-23 23:18 | XMS_ITS | Encounter Summary ---
Author Organization [facility] Address [address] [place] [address] Care Team Providers Care Private Detective Name Role Phone No, Pcp SOUND RANGING CREWMEMBER Primary Care Provider Unavailabl e Reason for Visit * Reason Comments Sore Throat Encounter Details Date Type Department Care Team (Late st Contact Info) Description 07/04/2018 2:50 PM EST Office Visit [facility] [address] [place] [address] Dana Cox NP [address] [place] [address] Acute pharyngitis, unspecified etiology (Primary Dx); Upper [...] Sign Reading Time Taken Comments Blood Pressure 110/70 07/04/2018 2:57 PM EST Pulse 88 07/04/2018 2:57 PM EST Temperature 37 ??C (98.6 ??F) 07/04/2018 2:57 PM EST Respiratory Rate 18 07/04/2018 2:57 PM EST Oxygen Saturation 96% 07/04/2018 2:57 PM EST Inhaled Oxygen Concentration - - [...] * Patient Instructions* Dana Cox NP - 07/04/2018 2:50 PM EST Seek immediate emergency medical attention if you experience severe or worsening abdominal pain, difficulty swallowing, stiff neck, shortness of breath, coughing or vomiting up blood, chest pain, increased fever, unexplained weight loss, or blood in stool. If you are taking glkw-rfh-gzhbdny medication(s) follow the dosing instructions included in the packaging, unless otherwise instructed by your provider. It is important to notify your primary care provider of all medications you are taking, including zqaq-ryb-xvijvvq medications. Follow up PCP: Follow up with your primary care provider if symptoms worsen within 7 days. /[id number]/[id number] Upper Respiratory Infection (URI) What is an [...] cough drops or throat sprays ??? Taking iqdh-oef-ehksowp pain or cold medicines. However: o Do not give aspirin to children. And do not give cough medicine to children under four. o Qhgg-fub-qsqsrpq medicines may help ease symptoms but will [...] Progress Notes * Dana Cox NP - 07/04/2018 2:50 PM EST Subjective: Patient ID: Raine Taylor is a 13 y.o. female. HPI Sore Throat The problem location is generalized. Sore throat is described as aching. The level of severity moderate. Onset was sudden. This problem has existed for 2 days. This problem occurs constantly. Since onset, the problem has been gradually worsening. The problem is new. Ineffective treatment: advil. Ass ociated symptoms include sinus congestion, headaches, cough (productive), fever, voice change and ear pain. Negative for abdominal pain, drooling, neck stiffness, oral lesion, adenopathy, arthralgia,eye discharge, postnasal drip, trouble swallowing, rash, fatigue, chest pain, shortness of breath, heartburn/ regurgitation, rhinorrhea, chills and swollen glands (b/l.). Risk factors include exposure to illness (schoolmates). Last edited by Dana Cox NP on 07/04/2018 2:55 PM. (History) ROS Positive for: HENT Negative for: Constitutional Last edited by Dana Cox NP on 07/04/2018 2:55 PM. (History) Flu Offering: Flu Offer Have you had your flu shot this season (March 2018-October 2018)?: No Social History Tobacco Use Smoking Status Never Smoker Smokeless Tobacco Never Used Past Medical History: Diagnosis Date ??? Allergic rhinitis History reviewed. No pertinent surgical history. History reviewed. No pertinent family history. Objective: Physical Exam Constitutional: She appears well-developed and well-nourished. No distress. HENT: Head: Normocephalic and atraumatic. Right Ear: External ear normal. No middle ear effusion. Left Ear: External ear normal. No middle ear effusion. Nose: Right sinus exhibits no maxillary sinus tenderness [...] has no wheezes. She has no rales. Genitourinary: No vaginal discharge found. Lymphadenopathy: She has cervical adenopathy (b/l cervical adenopathy; tenderness on palpation). Skin: Skin is warm and dry. No rash noted. She is not diaphoretic. No erythema. Assessment/Plan: Acute Pharyngitis Clinical presentation significant for viral infection. Self-care and symptomatic treatment recommended in accordance with [facility] guidelines. documented in this encounter Plan of Treatment Not on file documented as of this encounter Procedures Procedure Name Priority Date/Time Associated Diagnosis Comments STREP RAPID ANTIGEN DETECTION POCT Routine 07/04/2018 3:04 PM EST Acute pharyngitis, unspecified etiology documented in this encounter Results * Rapid strep A (07/04/2018 3:04 PM EST) Rapid Strep A Screen Negative Negative INTERNAL CONTROLS VALID Yes--Test working appropriately Expiration Date 08/19/2019 Lot Number [id number] Throat 07/04/2018 3:04 PM EST Dana Cox NP POINT OF CARE TEST ORDERABLES Fi nal Result documented in this encounter Visit Diagnoses Diagnosis Acute pharyngitis, unspecified etiology- Primary Upper respiratory infection, acute documented in this encounter Care Teams Private Detective Relationship Specialty Start Date End Date No, Pcp, SOUND RANGING CREWMEMBER N/A Do not use PCP - General 08/05/16 08/31/19 documented as of this encounter
--- OUTSIDE RECORDS SUMMARY | 2024-08-23 23:18 | XMS_ITS | Encounter Summary ---
Author Organization [facility] Address [address] [place] [address] Care Team Providers Care Beck Operator Name Role Phone Joaquina Brunner MD Primary Care Provider [phone] Reason for Visit * Reason Comments Nasal Congestion Encounter Details Date Type Department Care Team ([facility] st Contact Info) Description 03/11/2016 5:05 PM EDT Office Visit [facility] [address] [place] [address] Kendra Billings, HOTBED OPERATOR [address] [place] [address] Mild intermittent asthma without complication (Primary Dx); Epigastric pain Social History Tobacco Use Types Packs/Day Years [...] Sign Reading Time Taken Comments Blood Pressure 90/58 03/11/2016 5:16 PM EDT Pulse 88 03/11/2016 5:16 PM EDT Temperature 37.1 ??C (98.8 ??F) 03/11/2016 5:16 PM ED T Respiratory Rate 14 03/11/2016 5:16 PM EDT Oxygen Saturation 98% 03/11/2016 5:16 PM EDT Inhaled Oxygen Concentration - - [...] this encounter Patient Instructions * Patient Instructions* Kendra Brown, MIRELLA - 03/11/2016 5:33 PM EDT Seek immediate emergency medical attention if you experience severe or worsening abdominal pain, difficulty swallowing, stiff neck, shortness of breath, coughing or vomiting up blood, chest pain, increased fever, unexplained weight loss, or blood in stool. If you are taking over-the counter medication(s): If you are taking coyg-nlo-lzawkoc medication(s) follow the dosing instructions included in the packaging, unless otherwise instructed by your provider. It is important to notify your primary care provider of all medications you are taking, including uicn-pyr-ozwlywx medications. If your symptoms do not improve within 72 hours, follow up with your primary care provider. /[id number] Bronchitis Instructions ?? If your symptoms do not improve within 72 hours, follow up with your primary care provider. Bronchitis Facts What is bronchitis? Bronchitis is inflammation in the tubes (bronchial tubes) that carry air to your lungs. When you get bronchitis, the tubes become irritated and mucus (a thick fluid) is made. Bronchitis usually lasts10 days to 2 weeks, although a slight cough can last longer because of the irritation of the breathing tubes. What causes bronchitis? Most bronchitis (90%) is caused by viral infections that go away on their own. Only 10% is caused by bacteria (antibiotics only work against bacterial infections, not viral ones). Bronchitis may occur just when you think you are getting over a cold, since the same viruses that cause colds can also cause bronchitis. How is bronchitis spread? Bronchitis is spread when the germs are sprayed into the air or onto people???s hands when they cough or sneeze. You can get bronchitis by breathing in the germs or by touching an object or person that is coated with the germs and then touching your nose or mouth. If you smoke or are exposed to smoke or toxic fumes, you are more likely to get bronchitis and have it longer. What are the signs and symptoms of bronchitis? ?? Coughing with or without phlegm ?? Pain with breathing ?? Wheezing (whistling when you breathe) ?? Fever <100.4??F (usually lasts 48 hrs) ?? Cold-like symptoms: stuffy or runny nose, sore or scratchy throat, or muscle aches How is bronchitis treated? Antibiotics are not needed for most people with bronchitis. Treating the symptoms is the best way to feel better. Some self-care remedies include: 1. Try iskf-wzv-dysfkui pain and fever relievers. Acetaminophen (Tylenol??) or ibuprofen (Motrin?? or Advil??) may help reduce pain and low-grade fevers. Follow the directions and precautions printedon the box. Do not take acetaminophen if you also take any other medicine that contains acetaminophen. Never give children aspirin because of its link to Juan???s syndrome. 2. Use a cool mist humidifier. This helps to keep the air moist. Doing so helps thin out your mucus, making it easier to cough it up. Clean the humidifier daily to prevent bacteria and/or fungus fromgrowing. 3. Get extra rest. Sleep helps your body fight the infection. 4. Unless your doctor told you to limit fluid intake, try to drink 8-10 (soda- can sized) glasses ofliquids each day while awake. This helps thin the mucus so it can be coughed up more easily. Avoid caffeinated liquids. 5. Wash your hands frequently and cover your mouth while coughing or sneezing. This will help prevent the spread of infection to other people. 6. Avoid exposure to irritants, such as tobacco smoke. Wear a mask when the air is polluted, or if you???re exposed to irritants at work. How can I prevent bronchitis? ?? Avoid smoking and exposure to secondhand smoke. Smoke prevents your lungs from fighting infection, it raises your risk of getting lung disease such as emphysema and harms the heart and lungs. If you are having trouble quitting, ask your primary care provider or [facility] practitioner for help. ?? Get a flu shot every year. Many cases of bronchitis result from influenza viruses. Getting a flushot every year can help protect you from getting the flu, and in turn, may reduce your risk of bronchitis. ?? Consider getting a pneumonia shot. If you are 65 or older, smoke, or have risk factors such as heart disease, diabetes, asthma or emphysema, the pneumonia shot may help prevent complications from bronchitis. What if I don???t feel better? Bronchitis can turn into a more serious condition such as pneumonia. Follow up with your primary care provider within 72 hours if symptoms do not improve or sooner if any new symptoms develop. Seek immediate medical care if the following symptoms develop: ?? Worsening cough ?? Shortness of breath ?? Difficulty breathing ?? Chest pain ?? Temperature is greater than 100.4??F ?? Breathing fast (24 breaths/min or faster) ?? Heart rate is greater than 100 documented in this encounter Progress Notes * Kendra Brown NP - 03/11/2016 5:25 PM EDT Subjective: Patient ID: Raine Taylor is a 11 y.o. female. HPI Nasal Congestion The patient reports mild pain. This problem occurs intermittently. The problem is recurrent. Symptoms are worsened by activity. PMH includes allergies . Comments C/o inability to breathe with exercise. 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 Also has intermittent epigastric painx 1 1/2- 2 years. Last edited by Kendra Brown NP on 03/11/2016 5:15 PM. (History) ROS Positive for: Respiratory (feeling of air cut off with exercise. ) Negative for: Constitutional, Skin Last edited by Kendra Brown NP on 03/11/2016 5:15 PM. (History) History Smoking Status ??? Never Smoker Smokeless Tobacco ??? Not on file Past Medical History Diagnosis Date ??? Allergic rhinitis History reviewed. No pertinent past surgical history. History reviewed. No pertinent family history. Objective: Physical Exam Constitutional: She appears well-developed and well-nourished. No distress. HENT: Head: Normocephalic. Right Ear: Tympanic membrane, external ear and ear canal normal. Left Ear: Tympanic membrane, external ear and ear canal normal. Nose: Nose normal. Right sinus exhibits no maxillary sinus tenderness and no frontal sinus tenderness. Left sinus exhibits no maxillary sinus tenderness and no frontal sinus tenderness. Mouth/Throat: Uvula is midline, oropharynx is clear and moist and mucous membranes are normal. Neck: Trachea normal and normal range of motion. Neck supple. No edema present. Cardiovascular: Normal rate, regular rhythm and normal heart sounds. Pulmonary/Chest: Effort normal. Abdominal: Soft. Bowel sounds are normal. She exhibits no distension. There is no hepatosplenomegaly. There is no rigidity, no rebound and no guarding. + epigastric tenderness to palpation. Lymphadenopathy: She has no cervical adenopathy. Skin: Skin is warm and dry. No rash noted. Assessment/Plan: Exercise induced asthma Epigastric pain Trial of albuterol inhaler. Patient should F/U with PCP for further evaluation for possible asthma and to evaluate epigastric pain. documented in this encounter Plan of Treatment Not on file documented as of this encounter Visit Diagnoses Diagnosis Mild intermittent asthma without complication (HHS/HCC)- Primary Epigastric pain Abdominal pain, epigastric documented in this encounter Care Teams Beck Operator Relationship Specialty Start Date End Date Joaquina Brunner MD [address] [place] [address] [address] [place] [address] PCP - General Pediatrics 04/04/15 08/04/16 documented as of this encounter
--- OUTSIDE RECORDS SUMMARY | 2024-08-23 23:18 | XMS_ITS | Encounter Summary ---
Author Organization [facility] Address [phone] [facility]ly [facility] [place] [address] Care Team Providers Care Regulatory Analyst Name Role Phone Yamileth Wagner CNP Primary Care Provider Yamileth Wagner WEED THINNER Unavailable [phone] Encounter Details Date Type Department Care Team (Late Contact Info) Description 06/04/2024 E-Consult [facility] [address] [place] [address] Tuyet Carrillo [address] [place] [address] [email or web address] Social History Tobacco Use Types Packs/Day Years [...] as of this encounter Progress Notes * Tuyet Carrillo - 06/04/2024 1:32 PM EDT Referral to [facility] Patient was referred to [facility] for integrated behavioral health ([facility]). Referral sent viae-fax to [facility]. Fax #: Integrated [email or web address]: [email or web address] will contact patient via telephone within 1-2 business days to schedule an initial appointment. Patient may contact [email or web address] directly at [phone] to discuss referral or to schedule appointment. Letter sent to patient via PG letter with overview of [employer] services and contact information. documented in this encounter Plan of Treatment Upcoming Encounters Date Type Department Care Team (Late st Contact Info) Description 12/15/2024 9:00 AM EDT [facility] Nikole Harry [address] [place] [address] Yamileth Wagner CNP [address] [place] [address] [email or web address] 06/11/2025 1:40 PM EDT [facility] Nikole Harry [address] [place] [address] Yamileth Wagner CNP [address] [place] [address] documented as of this encounter Visit Diagnoses Not on filedocumented in this encounter Additional Health Concerns Assessment Noted Time PHQ-9 Depression Total Score: 16 024 10:58 PM EDT PHQ-2 Depression Total Score: 3 06/03/20 24 10:58 PM EDT documented as of this encounter Care Teams Regulatory Analyst Relationship Specialty Start Date End Date Yamileth Wagner CNP [address] [facility], [facility] [place] [place] [address] [email or web address] PCP - General Family Medicine 06/28/17 Yamileth Wagner CNP [address] [facility], [facility] [place] [address] [email or web address] Insurance Assigned Provider 02/23/24 07/30/24 documented as of this encounter Additional Source Comments The information contained in this document represents components of the legal health record. It is not the complete legal health record.[facility]
--- OUTSIDE RECORDS SUMMARY | 2024-08-23 23:18 | XMS_ITS | Clinical Summary ---
Author Organization [facility] Address [phone] Counts include 234 beds at the [facility] [place] [address] Care Team Providers Care Conceptor Name Role Phone BernardYamileth yan Hunter AMOS Primary Care Provider Janette Jules MD Unavailable [phone] Allergies Active Allergy Reactions Criticality Noted Date Comments Milk Containing Products (Dairy) High 04/2016 Medications Medication Sig Dispensed Refills Start Date End Date Status SUMAtriptan (IMITREX) 50 MG tablet Take 1 tablet (50 mg total) by mouth once as needed for migraine. Can repeat dose in 2 hours if needed. Do not exceed 2 doses in a 24 hour period. Max dose 200mg/ day 9 tablet 04/05/2023 Active ibuprofen (ADVIL,MOTRIN) 800 MG tablet Take 1 tablet (800 mg total) by mouth every 6 (six) hours as needed for pain (specific location in comments). 30 tablet 3 04/25/2023 Active butalbital-acetamin ophen-caffeine (FIORICET, ESGIC) 50-325-40 mg per tablet Take 1 tablet by mouth every 4 (four) hours as needed for headache. 20 tablet 2 09/10/2023 Active ondansetron (ZOFRAN) 4 MG tablet Take 1 tablet (4 mg total) by mouth every 8 (eight) hours as needed for nausea. 30 tablet 12/04/2023 Active doxycycline monohydrate (MONODOX) 100 MG capsule TAKE ONE PILL BY MOUTH TWICE DAILY WITH FULL BEVERAGE AND FOOD. AVOID LAYING DOWN FOR 30 MINUTES AFTER TAKING. AVOID TAKING WITH DAIRY. USE SUN PROTECTION. 180 capsule 3 01/30/2024 Active amitriptyline (ELAVIL) 50 MG tablet Take 1 tablet (50 mg total) by mouth nightly at bedtime. 90 tablet 3 03/05/2024 Active EPINEPHrine 0.3 mg/0.3 mL auto-injector Inject 0.3 mL (0.3 mg total) into the muscle as needed for anaphylaxis. 1 each 2 04/02/2024 Active adapalene (DIFFERIN) 0.3 % gel APPLY TOPICALLY NIGHTLY AT BEDTIME. 45 g 3 07/09/2024 Active Active Problems Problem Noted Date Diagnosed Date Left wrist pain 07/16/2024 Weight gain 06/04/2024 Assessment & Plan (06/04/2024 2:01 PM EDT): Diet and exercise as outlined above This is causing her a lot of personal distress Wt Readings from Last 3 Encounters: 06/04/24 83 kg (183 lb) 12/03/23 85.3 kg (188 lb) 04/25/23 81.2 kg (179 lb) Body mass index is 30.45 kg/m??. A/p Discussed individualized goals for patient to maximize wellness and improve obesity-related co-morbidities as outlined in this note She is metabolically healthy but we did decide to check some other metabolic labs today Rec she also continue to work with nutrition and therapy on this We will re-evaluate at next visit. F/u 6 months Complicated migraine 04/05/2023 Overview (06/02/2024): ED visit 04/11 Started Amitriptyline, Imitrex, Fioret prn for severe Dr Sumner Assessment & Plan (06/04/2024 1:59 PM EDT): Last visit Dr Sumner 09/12 Sx: Much better on Amitriptyline Continue current management Pt will let me know if there is any change with this condition F/u neuro Assessment & Plan (04/25/2023 1:58 PM EDT): Sx: Had LOYD for 5 days after Slept through it Has not tried the Amitriptyline - concerned about the s/e rec she try the Enavil - might provide some mood benefit and sleep benefit as well F/u DR Sumner FD to book F/u MRI 4-6 mos Anxiety and depression 11/05/2018 Overview (12/03/2023): Prozac 60 Failed Zoloft a lot of s/e Ativan prn added at [facility] [place] 07/11 Started Buproprion 07/11 Therapy @ [facility] Switched to Lexapro 09/11 Lexapro stopped 05/13 for migraines Assessment & Plan (06/04/2024 1:59 PM EDT): Images from the original note were not included. Mood a lot worse very situational Lost her aunt who she was close to one month ago No longer in therapy due to financial concerns No feelings of self-harm Has been doing more self-care - exercise and meals Which has improved Avoiding drugs and alcohol as this was making her depressed Supports - family at home, friends at school are awesome Has a partner currently who is very supportive 12/03/2023 4:08 PM 06/03/2024 10:56 PM 06/04/2024 1:04 PM Generalized Anxiety Disorder Scale SHE-7 Total Score 19 18 18 04/25/2023 12:23 PM 12/03/2023 4:12 PM 06/03/2024 10:58 PM PHQ Depression Screening Score Little interest or pleasure in doing things Several days Several days Several days Feeling down, depressed, or hopeless Several days Nearly every day More than half of the days Trouble falling or staying asleep, or sleeping too much Nearly every day More than half the days More than half the days Feeling tired or having little energy More than half the days Several days Nearly every day Poor appetite or overeating Not at all Nearly every day More than half the days Feeling bad about yourself - or that you are a failure or have let yourself or your family down Nearly every day Nearly every day Nearly every day Trouble concentrating on things, such as reading the newspaper or watching television Nearly every day More than half the days More than half the days Moving or speaking so slowly that other people could have noticed. Or the opposite - being so fidgety or restless that you have been moving around a lot more than usual More than half the days Several days Several days Thoughts that you would be better off , or of hurting yourself in some way Not at all Not at all Not at all If you checked off any problems, how difficult have these problems made it for you to do your work, take care of things at home, or get along with other people? Very difficult Extremely difficult Extremely difficult PHQ-9 Total Score 15 16 16 A/p Severe anxiety/depression continues She is off the Lexapro per Dr Sumner due to migraines I am placing a referral to for BH, med management and neuropsych Good supports and no suicidality/homocidality by history or exam. Reinforced strengths and offered support Discussed at length role of lifestyle changes including exercise, sleep and diet as well as positive relationship. Close f/u 6 mos Assessment & Plan (12/03/2023 5:31 PM EDT): Images from the original note were not included. Still home on leave of absence from school Still a lot of anxiety Mom and dad both lost their job so a lot of financial stress Busy working and taking online classes Found a therapist - likes her a lot No feelings of self-harm Has been doing more self-care - exercise and meals Which has improved Avoiding drugs and alcohol as this was making her depressed Supports - family at home, friends at school are awesome Has a partner currently who is very supportive 09/21/2022 11:55 AM 04/25/2023 12:23 PM 12/03/2023 4:08 PM Generalized Anxiety Disorder Scale SHE-7 Total Score 9 21 19 09/21/2022 11:55 AM 04/25/2023 12:23 PM 12/03/2023 4:08 PM Generalized Anxiety Disorder Scale SHE-7 Total Score 9 21 19 09/21/2022 11:53 AM 04/25/2023 12:23 PM 12/03/2023 4:12 PM PHQ Depression Screening Score Little interest or pleasure in doing things Several days Several days Several days Feeling down, depressed, or hopeless Several days Several days Nearly every day Trouble falling or staying asleep, or sleeping too much Nearly every day Nearly every day More than half the days Feeling tired or having little energy Nearly every day More than half the days Several days Poor appetite or overeating Several days Not at all Nearly every day Feeling bad about yourself - or that you are a failure or have let yourself or your family down Several days Nearly every day Nearly every day Trouble concentrating on things, such as reading the newspaper or watching television More than half the days Nearly every day More than half the days Moving or speaking so slowly that other people could have noticed. Or the opposite - being so fidgety or restless that you have been moving around a lot more than usual Several days More than half the days Several days Thoughts that you would be better off , or of hurting yourself in some way Not at all Not at all Not at all If you checked off any problems, how difficult have these problems made it for you to do your work, take care of things at home, or get along with other people? Somewhat difficult Very difficult Extremely difficult PHQ-9 Total Score 13 15 16 A/p Severe anxiety/depression now possibly causing somatic sx She is off the Lexapro per Dr Sumner due to migraines Consider Celexa since Lexapro was helpful If neuro thinks any SSRI would cause migraines consider Duloxetine Cont Amitryptyline Good supports and no suicidality/homocidality by history or exam. Reinforced strengths and offered support Discussed at length role of lifestyle changes including exercise, sleep and diet as well as positive relationship. Continue therapy Close f/u 4 weeks Assessment & Plan (04/25/2023 1:57 PM EDT): Images from the original note were not included. Taking a semester off at least from school for mental health and complex migraines Feels good about decision and already feeling better A lot of trauma last year Busy working and taking online classes Found a therapist - likes her a lot No feelings of self-harm Has been doing more self-care - exercise and meals Which has improved Avoiding drugs and alcohol as this was making her depressed Supports - family at home, friends at school are awesome Has a partner currently who is very supportive 08/23/2022 10:58 AM 09/21/2022 11:55 AM 04/25/2023 12:23 PM Generalized Anxiety Disorder Scale SHE-7 Total Score 21 9 21 08/23/2022 10:58 AM 09/21/2022 11:53 AM 04/25/2023 12:23 PM PHQ Depression Screening Score Little interest or pleasure in doing things Nearly every day Several days Several days Feeling down, depressed, or hopeless Nearly every day Several days Several days Trouble falling or staying asleep, or sleeping too much Nearly every day Nearly every day Nearly every day Feeling tired or having little energy Nearly every day Nearly every day More than half the days Poor appetite or overeating Nearly every day Several days Not at all Feeling bad about yourself - or that you are a failure or have let yourself or your family down Nearly every day Several days Nearly every day Trouble concentrating on things, such as reading the newspaper or watching television Nearly every day More than half the days Nearly every day Moving or speaking so slowly that other people could have noticed. Or the opposite - being so fidgety or restless that you have been moving around a lot more than usual Nearly every day Several days More than half the days Thoughts that you would be better off , or of hurting yourself in some way Not at all Not at all Not at all If you checked off any problems, how difficult have these problems made it for you to do your work, take care of things at home, or get along with other people? Extremely difficult Somewhat difficult Very difficult PHQ-9 Total Score 24 13 15 A/p Doing a lot better with the decision to defer school for a semester Will hold on this regimen for now but patient believes Dr Sumner thought the Lexapro might be contributing to her HAs Will reach out to him to determine what he would recommend Rec she start the Amitriptyline - she might gain some therapeutic benefit Good supports and no suicidality/homocidality by history or exam. Reinforced strengths and offered support Discussed at length role of lifestyle changes including exercise, sleep and diet as well as positive relationship. Continue therapy Close f/u 4 weeks Assessment & Plan (01/17/2023 3:34 PM EDT): Images from the original note were not included. Feels better on the Lexapro Still some anxiety but much more manageable Some panic but less Rare ativan Plans to look for therapist when she feels better No feelings of self-harm Has been doing more self-care - exercise and meals Which has improved Avoiding drugs, does drink socially with friends No binge drinking Supports - family at home, friends at school are awesome Has a partner currently NO self harm Has been exercising regularly - swimming and walking helps but has not been able to Rock climbing every day before that 08/09/2022 11:02 AM 08/23/2022 10:58 AM 09/21/2022 11:55 AM Generalized Anxiety Disorder Scale SHE-7 Total Score 18 21 9 08/09/2022 11:02 AM 08/23/2022 10:58 AM 09/21/2022 11:53 AM PHQ Depression Screening Score Little interest or pleasure in doing things More than half of the days Nearly every day Several days Feeling down, depressed, or hopeless Nearly every day Nearly every day Several days Trouble falling or staying asleep, or sleeping too much Nearly every day Nearly every day Nearly every day Feeling tired or having little energy Nearly every day Nearly every day Nearly every day Poor appetite or overeating Nearly every day Nearly every day Several days Feeling bad about yourself - or that you are a failure or have let yourself or your family down Nearly every day Nearly every day Several days Trouble concentrating on things, such as reading the newspaper or watching television Nearly every day Nearly every day More than half the days Moving or speaking so slowly that other people could have noticed. Or the opposite - being so fidgety or restless that you have been moving around a lot more than usual Nearly every day Nearly every day Several days Thoughts that you would be better off , or of hurting yourself in some way Not at all Not at all Not at all If you checked off any problems, how difficult have these problems made it for you to do your work, take care of things at home, or get along with other people? Extremely difficult Somewhat difficult PHQ-9 Total Score 23 24 13 A/p Doing a lot better Will hold on this regimen for now Good supports and no suicidality/homocidality by history or exam. Reinforced strengths and offered support Discussed at length role of lifestyle changes including exercise, sleep and diet as well as positive relationship. Also discussed the role of therapy. More resources given For short term will use a benzodiazepine for acute anxiety and panic. Discussed risks/benefits/habit forming/sedating nature of that. F/u in 3 weeks for check in and medication titration, call sooner if problems. Assessment & Plan (09/21/2022 12:01 PM EST): Feels better on the Lexapro Still some anxiety but much more manageable Some panic but less Using Ativan 1-2x/week Plans to look for therapist when she feels better No feelings of self-harm Has been doing more self-care - exercise and meals Which has improved Avoiding drugs, does drink socially with friends No binge drinking Supports - family at home, friends at school are awesome Has a partner currently NO self harm Has been exercising regularly - swimming and walking helps but has not been able to Rock climbing every day before that Generalized Anxiety Disorder Scale 08/09/2022 08/23/2022 09/21/2022 SHE-7 Total Score 18 21 9 PHQ Depression Screening Score 08/09/2022 08/23/2022 09/21/2022 Little interest or pleasure in doing things More than half of the days Nearly every day Several days Little interest or pleasure in doing things - - - Feeling down, depressed, or hopeless Nearly every day Nearly every day Several days Feeling down, depressed, or hopeless - - - Trouble falling or staying asleep, or sleeping too much Nearly every day Nearly every day Nearly every day Feeling tired or having little energy Nearly every day Nearly every day Nearly every day Poor appetite or overeating Nearly every day Nearly every day Several days Feeling bad about yourself - or that you are a failure or have let yourself or your family down Nearly every day Nearly every day Several days Trouble concentrating on things, such as reading the newspaper or watching television Nearly every day Nearly every day More than half the days Moving or speaking so slowly that other people could have noticed. Or the opposite - being so fidgety or restless that you have been moving around a lot more than usual Nearly every day Nearly every day Several days Thoughts that you would be better off , or of hurting yourself in some way - - - Thoughts that you would be better off , or of hurting yourself in some way Not at all Not at all Not at all PHQ-9 Total Score - - - If you checked off any problems, how difficult have these problems made it for you to do your work, take care of things at home, or get along with other people? - Extremely difficult Somewhat difficult PHQ-9 Total Score 23 24 13 A/p Doing a lot better Will hold on this regimen for now Good supports and no suicidality/homocidality by history or exam. Reinforced strengths and offered support Discussed at length role of lifestyle changes including exercise, sleep and diet as well as positive relationship. Also discussed the role of therapy. More resources given For short term will use a benzodiazepine for acute anxiety and panic. Discussed risks/benefits/habit forming/sedating nature of that. F/u in 3 weeks for check in and medication titration, call sooner if problems. Assessment & Plan (08/23/2022 1:14 PM EST): Feels a lot worse No change in circumstance Still having same issues at school No improvement on the Buproprion No ability to find a therapist Family wont pay for online therapy Feels really drained No feelings of self-harm A lot of anxiety- tightness in chest all the time A lot of panic attacks - multiple times per day sometimes just 1 Feels indifferent on existence numb Talking about a partial hospitalization with her mom Has been doing more self-care - exercise and meals Which has improved Avoiding drugs, does drink socially with friends No binge drinking Supports - family at home, friends at school are awesome Has a partner currently NO self harm Has a therapist at [facility] but that keeps getting rescheduled Has been exercising regularly - swimming and walking helps Generalized Anxiety Disorder Scale 07/10/2022 08/09/2022 08/23/2022 SHE-7 Total Score 18 18 21 PHQ Depression Screening Score 07/10/2022 08/09/2022 08/23/2022 Little interest or pleasure in doing things Several days More than half of the days Nearly every day Little interest or pleasure in doing things - - - Feeling down, depressed, or hopeless More than half of the days Nearly every day Nearly every day Feeling down, depressed, or hopeless - - - Trouble falling or staying asleep, or sleeping too much Nearly every day Nearly every day Nearly every day Feeling tired or having little energy Nearly every day Nearly every day Nearly every day Poor appetite or overeating Several days Nearly every day Nearly every day Feeling bad about yourself - or that you are a failure or have let yourself or your family down More than half the days Nearly every day Nearly every day Trouble concentrating on things, such as reading the newspaper or watching television Nearly every day Nearly every day Nearly every day Moving or speaking so slowly that other people could have noticed. Or the opposite - being so fidgety or restless that you have been moving around a lot more than usual Not at all Nearly every day Nearly every day Thoughts that you would be better off , or of hurting yourself in some way - - - Thoughts that you would be better off , or of hurting yourself in some way Not at all Not at all Not at all PHQ-9 Total Score - - - If you checked off any problems, how difficult have these problems made it for you to do your work, take care of things at home, or get along with other people? - - Extremely difficult PHQ-9 Total Score 15 23 24 A/p Acute anxiety with depression - worse from last visit Very teary today Good supports and no suicidality/homocidality by history or exam. Reinforced strengths and offered support Discussed at length role of lifestyle changes including exercise, sleep and diet as well as positive relationship. Also discussed the role of therapy. More resources given Medication options discussed at length. Will use dual approach. Will switch SSRI to Lexapro to better target anxiety Risks/benefits/side effects of SSRI medication class were discussed, including risk of : nausea, wt gain or loss, rare suicidal thoughts, increased risk of bleeding, insomnia or sedation, possible drug interactions, anxiety, agitation, discontinuation. pt expressed understanding and wishes to proceed w/ tx. For short term will use a benzodiazepine for acute anxiety and panic. Discussed risks/benefits/habit forming/sedating nature of that. F/u in 3 weeks for check in and medication titration, call sooner if problems. Assessment & Plan (08/09/2022 11:37 AM EST): 60mg Prozac No s/e But has not noticed much improvement No change here A lot of anxiety - issues with roommate and neighbor She needs to find new living situation Buspar which was started last month is helping for a short time after she takes it No panic attacks Supports - family at home, friends at school are awesome Has a partner currently NO self harm Has a therapist at [facility] but that keeps getting rescheduled Has been exercising regularly - swimming and walking helps Generalized Anxiety Disorder Scale 04/13/2022 07/10/2022 08/09/2022 SHE-7 Total Score 12 18 18 PHQ Depression Screening Score 04/13/2022 07/10/2022 08/09/2022 Little interest or pleasure in doing things Several days Several days More than half of the days Little interest or pleasure in doing things - - - Feeling down, depressed, or hopeless Several days More than half of the days Nearly every day Feeling down, depressed, or hopeless - - - Trouble falling or staying asleep, or sleeping too much Not at all Nearly every day Nearly every day Feeling tired or having little energy Not at all Nearly every day Nearly every day Poor appetite or overeating Not at all Several days Nearly every day Feeling bad about yourself - or that you are a failure or have let yourself or your family down Not at all More than half the days Nearly every day Trouble concentrating on things, such as reading the newspaper or watching television Nearly every day Nearly every day Nearly every day Moving or speaking so slowly that other people could have noticed. Or the opposite - being so fidgety or restless that you have been moving around a lot more than usual Not at all Not at all Nearly every day Thoughts that you would be better off , or of hurting yourself in some way - - - Thoughts that you would be better off , or of hurting yourself in some way Not at all Not at all Not at all PHQ-9 Total Score - - - If you checked off any problems, how difficult have these problems made it for you to do your work, take care of things at home, or get along with other people? - - - PHQ-9 Total Score 5 15 23 A/p A lot of anxiety and depression Feels safe Inc Buspar to 10mg TID Work on therapy F/u 2 weeks Check in over PG if any issues Support offered Pt agreed with plan Assessment & Plan (07/10/2022 3:17 PM EST): Inc to 60mg Prozac No s/e But has not noticed much improvement A lot of anxiety - issues with roommate and neighbor Having panic attacks that last days which has been very difficult Cant eat Feeling of tightness in chest Very unpleasant Supports - family at home, friends at school are awesome Has a partner currently NO self harm Just started therapy at [facility], next session in a few weeks Has been exercising regularly - swimming and walking helps Generalized Anxiety Disorder Scale 09/29/2021 04/13/2022 07/10/2022 SHE-7 Total Score 7 12 18 PHQ Depression Screening Score 04/13/2022 04/13/2022 07/10/2022 Little interest or pleasure in doing things Not at all Several days Several days Little interest or pleasure in doing things - - - Feeling down, depressed, or hopeless Several days Several days More than half of the days Feeling down, depressed, or hopeless - - - Trouble falling or staying asleep, or sleeping too much - Not at all Nearly every day Feeling tired or having little energy - Not at all Nearly every day Poor appetite or overeating - Not at all Several days Feeling bad about yourself - or that you are a failure or have let yourself or your family down - Not at all More than half the days Trouble concentrating on things, such as reading the newspaper or watching television - Nearly every day Nearly every day Moving or speaking so slowly that other people could have noticed. Or the opposite - being so fidgety or restless that you have been moving around a lot more than usual - Not at all Not at all Thoughts that you would be better off , or of hurting yourself in some way - - - Thoughts that you would be better off , or of hurting yourself in some way - Not at all Not at all PHQ-9 Total Score - - - If you checked off any problems, how difficult have these problems made it for you to do your work, take care of things at home, or get along with other people? - - - PHQ-9 Total Score - 5 15 A/p A lot of anxiety with panic We discussed the Ativan in a phone call last week and I have asked her to limit her use of this medication for severe panic We will start Buspar for anxiety 5mg TID Reviewed instructions how to take, warnings, side effects, precautions of prescribed medications Pt expressed understanding Cont exercise Feels safe Has upcoming therapy appointment F/u 4 weeks Check in over PG in 9 days Pt agreed with plan Assessment & Plan (04/13/2022 3:32 PM EDT): Taking 40mg Prozac No s/e Summer was a little high anxiety as she had a stressfuljob and there were difficult dynamics excited to be headed back to school Supports - family at home, friends at school are awesome NO self harm NO therapist currently - cannot find one that will work in [place] Has been exercising more - works at [employer] and has been working out after very active this summer Walking around campus Generalized Anxiety Disorder Scale 08/23/2021 09/29/2021 04/13/2022 SHE-7 Total Score 14 7 12 PHQ Depression Screening Score 09/29/2021 04/13/2022 04/13/2022 Little interest or pleasure in doing things Not at all Not at all Several days Little interest or pleasure in doing things - - - Feeling down, depressed, or hopeless Several days Several days Several days Feeling down, depressed, or hopeless - - - Trouble falling or staying asleep, or sleeping too much More than half the days - Not at all Feeling tired or having little energy Nearly every day - Not at all Poor appetite or overeating Not at all - Not at all Feeling bad about yourself - or that you are a failure or have let yourself or your family down Several days - Not at all Trouble concentrating on things, such as reading the newspaper or watching television Nearly every day - Nearly every day Moving or speaking so slowly that other people could have noticed. Or the opposite - being so fidgety or restless that you have been moving around a lot more than usual Not at all - Not at all Thoughts that you would be better off , or of hurting yourself in some way - - - Thoughts that you would be better off , or of hurting yourself in some way Not at all - Not at all PHQ-9 Total Score - - - If you checked off any problems, how difficult have these problems made it for you to do your work, take care of things at home, or get along with other people? 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 Supports - family at home, friends at school are awesome NO self harm NO therapist currently - [place] find one that [place] in [place] On a wait list for school therapist - all virtual Has been exercising more - works at [employer] and has been working out after Walking around campus Generalized Anxiety Disorder Scale 02/11/2021 08/23/2021 09/29/2021 SHE-7 Total Score 5 14 7 PHQ Depression Screening Score 02/11/2021 08/23/2021 09/29/2021 Little interest or pleasure in doing things Not at all More than half of the days Not at all Little interest or pleasure in doing things - - - Feeling down, depressed, or hopeless Not at all More than half of the days Several days Feeling down, depressed, or hopeless - - - Trouble falling or staying asleep, or sleeping too much Not at all Nearly every day More than half the days Feeling tired or having little energy Not at all Nearly every day Nearly every day Poor appetite or overeating Not at all Several days Not at all Feeling bad about yourself - or that you are a failure or have let yourself or your family down Not at all More than half the days Several days Trouble concentrating on things, such as reading the newspaper or watching television Not at all More than half the days Nearly every day Moving or speaking so slowly that other people could have noticed. Or the opposite - being so fidgety or restless that you have been moving around a lot more than usual Several days Several days Not at all Thoughts that you would be better off , or of hurting yourself in some way - - - Thoughts that you would be better off , or of hurting yourself in some way Not at all Not at all Not at all PHQ-9 Total Score - - - If you checked off any problems, how difficult have these problems made it for you to do your work, take care of things at home, or get along with other people? - - - PHQ-9 Total Score 1 16 10 A/p Much better on Prozac 60mg Stable Exercising feeling good On wait list for therapist Support offered She is safe F/u 3 mos Assessment & Plan (08/23/2021 10:01 AM EST): Taking 40mg Prozac now, that was the dose she is given ester went really well really fun Towards the end of a lot of pressure and COVID now delayed Transition just hitting her now Supports - family at home, friends at school are awesome Eating and sleeping well now end of was crazy NO self harm NO therapist currently - did have a therapist for a year before she left but got a little more stagnant towards the end Not exercising Generalized Anxiety Disorder Scale 11/10/2019 02/11/2021 08/23/2021 SHE-7 Total Score 2 5 14 PHQ Depression Screening Score 02/11/2021 02/11/2021 08/23/2021 Little interest or pleasure in doing things Not at all Not at all More than half of the days Little interest or pleasure in doing things - - - Feeling down, depressed, or hopeless Not at all Not at all More than half of the days Feeling down, depressed, or hopeless - - - Trouble falling or staying asleep, or sleeping too much - Not at all Nearly every day Feeling tired or having little energy - Not at all Nearly every day Poor appetite or overeating - Not at all Several days Feeling bad about yourself - or that you are a failure or have let yourself or your family down - Not at all More than half the days Trouble concentrating on things, such as reading the newspaper or watching television - Not at all More than half the days Moving or speaking so slowly that other people could have noticed. Or the opposite - being so fidgety or restless that you have been moving around a lot more than usual - Several days Several days Thoughts that you would be better off , or of hurting yourself in some way - - - Thoughts that you would be better off , or of hurting yourself in some way - Not at all Not at all PHQ-9 Total Score - - - If you checked off any problems, how difficult have these problems made it for you to do your work, take care of things at home, or get along with other people? - - - PHQ-9 Total Score - 1 16 A/p Mood is worse at home now but she had dropped down inadvertently to 40mg from 60mg We will go back up to 60mg She will start exercising and will look for a therapist Support offered She is safe F/u 4-6 weeks Assessment & Plan (02/11/2021 1:00 PM EDT): PHQ Depression Screening Score 10/01/2020 02/11/2021 02/11/2021 Little interest or pleasure in doing things Several days Not at all Not at all Little interest or pleasure in doing things - - - Feeling down, depressed, or hopeless Several days Not at all Not at all Feeling down, depressed, or hopeless - - - Trouble falling or staying asleep, or sleeping too much More than half the days - Not at all Feeling tired or having little energy Several days - Not at all Poor appetite or overeating Not at all - Not at all Feeling bad about yourself - or that you are a failure or have let yourself or your family down Several days - Not at all Trouble concentrating on things, such as reading the newspaper or watching television Several days - Not at all Moving or speaking so slowly that other people could have noticed. Or the opposite - being so fidgety or restless that you have been moving around a lot more than usual Not at all - Several days Thoughts that you would be better off , or of hurting yourself in some way - - - Thoughts that you would be better off , or of hurting yourself in some way Not at all - Not at all PHQ-9 Total Score - - - If you checked off any problems, how difficult have these problems made it for you to do your work, take care of things at home, or get along with other people? - - - PHQ-9 Total Score 7 - 1 Doing much better combo medication and no longer in school College in Fall very excited No side effects to meds No therapy No self-harm No substances Sleep has been great - has been on a regular schedule A/p Improved on 60mg Prozac Will hold on this dose for now F/u 46 mos She will ekuk back if worse Assessment & Plan (10/28/2020 3:28 PM EST): PHQ Depression Screening Score 08/25/2020 09/16/2020 10/01/2020 Little interest or pleasure in doing things - Several days Several days Little interest or pleasure in doing things More than half the days - - Feeling down, depressed, or hopeless - Several days Several days Feeling down, depressed, or hopeless Several days - - Trouble falling or staying asleep, or sleeping too much Nearly every day Several days More than half the days Feeling tired or having little energy Nearly every day Nearly every day Several days Poor appetite or overeating Several days Not at all Not at all Feeling bad about yourself - or that you are a failure or have let yourself or your family down More than half the days More than half the days Several days Trouble concentrating on things, such as reading the newspaper or watching television Nearly every day More than half the days Several days Moving or speaking so slowly that other people could have noticed. Or the opposite - being so fidgety or restless that you have been moving around a lot more than usual Not at all Not at all Not at all Thoughts that you would be better off , or of hurting yourself in some way Not at all - - Thoughts that you would be better off , or of hurting yourself in some way - Not at all Not at all PHQ-9 Total Score 15 - - If you checked off any problems, how difficult have these problems made it for you to do your work, take care of things at home, or get along with other people? - - - PHQ-9 Total Score - 10 7 Doing much better Still some depression symptoms but feels manageable Hopeful about the future - planning to go the [facility] Trying to get out a little Dog is helping with anxiety and negative thoughts a lot A/p Improved on 60mg Prozac Will hold on this dose for now F/u 4 mos CPX She will ekuk back if worse Assessment & Plan (10/01/2020 4:59 PM EST): PHQ Depression Screening Score 08/25/2020 09/16/2020 10/01/2020 Little interest or pleasure in doing things - Several days Several days Little interest or pleasure in doing things More than half the days - - Feeling down, depressed, or hopeless - Several days Several days Feeling down, depressed, or hopeless Several days - - Trouble falling or staying asleep, or sleeping too much Nearly every day Several days More than half the days Feeling tired or having little energy Nearly every day Nearly every day Several days Poor appetite or overeating Several days Not at all Not at all Feeling bad about yourself - or that you are a failure or have let yourself or your family down More than half the days More than half the days Several days Trouble concentrating on things, such as reading the newspaper or watching television Nearly every day More than half the days Several days Moving or speaking so slowly that other people could have noticed. Or the opposite - being so fidgety or restless that you have been moving around a lot more than usual Not at all Not at all Not at all Thoughts that you would be better off , or of hurting yourself in some way Not at all - - Thoughts that you would be better off , or of hurting yourself in some way - Not at all Not at all PHQ-9 Total Score 15 - - If you checked off any problems, how difficult have these problems made it for you to do your work, take care of things at home, or get along with other people? - - - PHQ-9 Total Score - 10 7 Doing much better Still some depression symptoms but feels manageable Hopeful about the future - planning college visits Trying to get out a little A/p Improved on 60mg Prozac Will hold on this dose for now F/u 4 mos CPX She will ekuk back if worse Assessment & Plan (09/30/2020 2:42 PM EST): PHQ Depression Screening Score 11/10/2019 08/25/2020 09/16/2020 Little interest or pleasure in doing things Not at all - Several days Little interest or pleasure in doing things - More than half the days - Feeling down, depressed, or hopeless Not at all - Several days Feeling down, depressed, or hopeless - Several days - Trouble falling or staying asleep, or sleeping too much More than half the days Nearly every day Several days Feeling tired or having little energy Not at all Nearly every day Nearly every day Poor appetite or overeating Not at all Several days Not at all Feeling bad about yourself - or that you are a failure or have let yourself or your family down Not at all More than half the days More than half the days Trouble concentrating on things, such as reading the newspaper or watching television Several days Nearly every day More than half the days Moving or speaking so slowly that other people could have noticed. Or the opposite - being so fidgety or restless that you have been moving around a lot more than usual Not at all Not at all Not at all Thoughts that you would be better off , or of hurting yourself in some way - Not at all - Thoughts that you would be better off , or of hurting yourself in some way Not at all - Not at all PHQ-9 Total Score - 15 - If you checked off any problems, how difficult have these problems made it for you to do your work, take care of things at home, or get along with other people? Not difficult at all - - PHQ-9 Total Score 3 - 10 Not sure whether much improvement on the inc dose 3 weeks on this dose Reached out to therapist never heard back Some exercise Great supports A/p Not much improvement on 60-mg Prozac Will give this another 2 weeks Inc exercise Reach out to therapist again F/u 2 weeks virtual to see if concerted efforts above improve mood If no improvement will switch to another agent or add Pt agreed with plan Assessment & Plan (09/16/2020 4:05 PM EST): PHQ Depression Screening Score 11/10/2019 08/25/2020 09/16/2020 Little interest or pleasure in doing things Not at all - Several days Little interest or pleasure in doing things - More than half the days - Feeling down, depressed, or hopeless Not at all - Several days Feeling down, depressed, or hopeless - Several days - Trouble falling or staying asleep, or sleeping too much More than half the days Nearly every day Several days Feeling tired or having little energy Not at all Nearly every day Nearly every day Poor appetite or overeating Not at all Several days Not at all Feeling bad about yourself - or that you are a failure or have let yourself or your family down Not at all More than half the days More than half the days Trouble concentrating on things, such as reading the newspaper or watching television Several days Nearly every day More than half the days Moving or speaking so slowly that other people could have noticed. Or the opposite - being so fidgety or restless that you have been moving around a lot more than usual Not at all Not at all Not at all Thoughts that you would be better off , or of hurting yourself in some way - Not at all - Thoughts that you would be better off , or of hurting yourself in some way Not at all - Not at all PHQ-9 Total Score - 15 - If you checked off any problems, how difficult have these problems made it for you to do your work, take care of things at home, or get along with other people? Not difficult at all - - PHQ-9 Total Score 3 - 10 Not sure whether much improvement on the inc dose 3 weeks on this dose Reached out to therapist never heard back Some exercise Great supports A/p Not much improvement on 60-mg Prozac Will give this another 2 weeks Inc exercise Reach out to therapist again F/u 2 weeks virtual to see if concerted efforts above improve mood If no improvement will switch to another agent or add Pt agreed with plan Assessment & Plan (08/26/2020 1:43 PM EST): PHQ Depression Screening Score 09/22/2019 11/10/2019 08/25/2020 Little interest or pleasure in doing things - Not at all - Little interest or pleasure in doing things Several days - More than half the days Feeling down, depressed, or hopeless - Not at all - Feeling down, depressed, or hopeless More than half the days - Several days Trouble falling or staying asleep, or sleeping too much Nearly every day More than half the days Nearly every day Feeling tired or having little energy Nearly every day Not at all Nearly every day Poor appetite or overeating Not at all Not at all Several days Feeling bad about yourself - or that you are a failure or have let yourself or your family down Nearly every day Not at all More than half the days Trouble concentrating on things, such as reading the newspaper or watching television More than half the days Several days Nearly every day Moving or speaking so slowly that other people could have noticed. Or the opposite - being so fidgety or restless that you have been moving around a lot more than usual Not at all Not at all Not at all Thoughts that you would be better off , or of hurting yourself in some way Not at all - Not at all Thoughts that you would be better off , or of hurting yourself in some way - Not at all - PHQ-9 Total Score 14 - 15 If you checked off any problems, how difficult have these problems made it for you to do your work, take care of things at home, or get along with other people? - Not difficult at all - PHQ-9 Total Score - 3 - Generalized Anxiety Disorder Scale 02/17/2019 09/22/2019 11/10/2019 SHE-7 Total Score 17 17 2 A/p Worsening mood in the setting of COVID We discussed med options at length - switching vs inc We will inc to 60mg Prozac Also strongly rec she restart therapy and inc her activity Pt certainly safe, no red flags Good supports and good relationships F/u 3 weeks Pt agreed with plan Assessment & Plan (11/10/2019 2:23 PM EDT): Taaking meds daily - tolerating well Prozac 40mg Mood much better - saran being out of school Eating and sleeping fine No self-harm Seeing a therapist once per week Still connecting with friends on [employer] She denies any use of illicit drugs, etoh or smoking Sexually active x1 No desire or thoughts to harm self or others PHQ Depression Screening Score 02/17/2019 09/22/2019 11/10/2019 Little interest or pleasure in doing things Not at all Several days - Feeling down, depressed, or hopeless Not at all More than half the days - Trouble falling or staying asleep, or sleeping too much Not at all Nearly every day More than half the days Feeling tired or having little energy Several days Nearly every day Not at all Poor appetite or overeating Not at all Not at all Not at all Feeling bad about yourself - or that you are a failure or have let yourself or your family down Not at all Nearly every day Not at all Trouble concentrating on things, such as reading the newspaper or watching television Several days More than half the days Several days Moving or speaking so slowly that other people could have noticed. Or the opposite - being so fidgety or restless that you have been moving around a lot more than usual More than half the days Not at all Not at all Thoughts that you would be better off , or of hurting yourself in some way Not at all Not at all - PHQ-9 Total Score 4 14 - If you checked off any problems, how difficult have these problems made it for you to do your work, take care of things at home, or get along with other people? - - Not difficult at all PHQ-9 Total Score - - 3 Generalized Anxiety Disorder Scale 02/17/2019 09/22/2019 11/10/2019 SHE-7 Total Score 17 17 2 A/p Much improved on Prozac S/p neuropsych - felt SHE and ADHD [place] treat SHE first and then ADHD if sx not controlled Strongly rec immediate neuropsych evaluation Discussed with mom and patient why this would be helpful to drive treatment options Names given for neuropsych - can also call insurance Also strongly rec therapy Names given - can also call insurance Pt certainly safe, no red flags Good supports and good relationships [place] back if no improvement Mom and patient agree with this plan Assessment & Plan (11/05/2018 3:19 PM EDT): Some inc anxiety related to social issues (had to change friend groups, new friends constitution party and this makes her left out) and school issues (grades in C range, having difficulty focusing) She has not had issues with school in the past Last year was a little bit harder but this year much worse Spaces out when she does not understand the content and then sometimes even when she does but mostly feels she does not understand the content Across all subjects She reached out to her guidance counselor Her mom was also supposed to talk to guidance No meetings yet but mom planning on it Also was disappointed that she cannot go back to her camp as she was not accepted into the [employer] program Things at home are better - she gets along with her parents well [employer]jo[employer] crew - she had taken the winter season off bc of knee pain Plans to re-start Feels her mood and focus are better when she does this Eating and sleeping fine No self-harm Did go to a therapist a few times but was not that helpful so she stopped Has a very good friend through crew, which has been helpful Those kids do not constitution party, which makes her more comfortable But those kids do no go to her school She denies any use of illicit drugs, etoh or smoking Is not sexually active No desire or thoughts to harm self or others 5 on internalizing PSC 17 and 9 on attention PSC 17. A/p Inc anxiety/depression possible ADHD contributing Hard to tell which is influencing which Strongly rec immediate neuropsych evaluation Discussed with mom and patient why this would be helpful to drive treatment options Names given for neuropsych - can also call insurance Also strongly rec therapy Names given - can also call insurance Pt certainly safe, no red flags Good supports and good relationships [place] back if no improvement Mom and patient agree with this plan Acne vulgaris 06/28/2016 Overview (11/05/2018): OCPs and benzoin helped significantly, much improved Assessment & Plan (06/04/2024 1:56 PM EDT): Better off OCP and on Doxy Would like to trial off Doxy Rec she go every other day and then stop and let us know Continue current management Pt will let me know if there is any change with this condition Assessment & Plan (04/25/2023 1:35 PM EDT): Better off OCP Continue current management Pt will let me know if there is any change with this condition Assessment & Plan (01/17/2023 3:33 PM EDT): She thinks the higher dose OCP is making things worse We reviewed that she is on the OCP most recommended for acne control We discussed a trial of Spironalactone or Minocycline She will think about it For now she will continue current management Pt will let me know if there is any change with this condition Assessment & Plan (04/13/2022 3:28 PM EDT): Skin doing well using Doxy and topicals Continue current management Pt will let me know if there is any change with this condition Assessment & Plan (02/11/2021 11:22 AM EDT): Skin doing well Continue with both OCPs and benzoin. Assessment & Plan (11/10/2019 2:19 PM EDT): Skin doing well Continue with both OCPs and benzoin. Assessment & Plan (11/05/2018 10:39 AM EDT): Continue with both OCPs and benzoin. Assessment & Plan (06/28/2017 1:08 PM EST): Resolved on duac and dietary changes Cont to monitor Assessment & Plan (06/28/2016 2:14 PM EST): See HPI A/p Acne vulgaris present throughout face, upper back, chest Reviewed multiple options Currently using benzoyl/salicytic acid - ineffective plus a lot of dry spots Stop current treatments Will refrain from retin-A since skin is very dry, from pool Will try duac gel once daily, thin layer Wash and moisterize face daily Consider minocycline or OCPs in the future Mom and pt expressed understanding Unimmunized 06/28/2016 Assessment & Plan (06/04/2024 2:00 PM EDT): Currently underimmunized Reviewed plan for immunization, importance of immunization and the risks of not immunizing, including communicable disease that can cause severe injury or Recommend: Gardasil, DTaP, Flu, COVID She is refusing all except tdap today Assessment & Plan (04/25/2023 1:52 PM EDT): Currently underimmunized Reviewed plan for immunization, importance of immunization and the risks of not immunizing, including communicable disease that can cause severe injury or Recommend: Gardasil, DTaP, Flu She is refusing today but has agreed to do at 6 month mood f/u Assessment & Plan (04/13/2022 3:29 PM EDT): Currently underimmunized Reviewed plan for immunization, importance of immunization and the risks of not immunizing, including communicable disease that can cause severe injury or Recommend: Gardasil, DTaP She is refusing today but has agreed to do at 6 month mood f/u Assessment & Plan (02/11/2021 1:01 PM EDT): Currently underimmunized Reviewed plan for immunization, importance of immunization and the risks of not immunizing, including communicable disease that can cause severe injury or Recommend: Gardasil, DTaP Varicella done today She will discuss with parents and book NV to start series Assessment & Plan (10/01/2020 5:00 PM EST): Currently underimmunized Reviewed plan for immunization, importance of immunization and the risks of not immunizing, including communicable disease that can cause severe injury or Recommend: Menactra, Gardasil, Varicella - Menactra and Varicella will likely be required for college She will discuss with parents and book NV to start series Assessment & Plan (11/10/2019 2:19 PM EDT): Currently underimmunized Reviewed plan for immunization, importance of immunization and the risks of not immunizing, including communicable disease that can cause severe injury or Recommend: Menactra, Gardasil before 14th bday (January) - will book TDAP, IPV - Summer 2019 Patient and family will discuss this plan and call for scheduling as desired. Assessment & Plan (11/05/2018 3:21 PM EDT): Currently unimmunized Long discussion again today Mom Would Like to discuss with dad Reviewed plan for immunization, importance of immunization and the risks of not immunizing, including communicable disease that can cause severe injury or Recommend: MMR and guardasil before bday (January) Menactra and TDaP over the summer 2018 IPV, MMR2 next year Patient and family will discuss this plan and call for scheduling as desired. Assessment & Plan (06/28/2017 1:09 PM EST): Mom unclear on reasons behind lack of immunizations Doesn't feel good about either decision Feels like decision should be made by pt Feels like the safety is an issue but less so now that patient is 11 and not a baby Definitely concerned about so many vaccinations especially when she was a baby Pt has had no immunizations Released from last perfumer due to refusal to immunize A/p ellicited concerns and answered questions Strongly encouraged starting an immunization schedule, saran for MMR, Gardisil, tdap, menacta, flu Handouts given on all immunizations Mom and pt to consider and will call for nurse visits Information given to take home Assessment & Plan (06/28/2016 2:18 PM EST): Mom unclear on reasons behind lack of immunizations Doesn't feel good about either decision Feels like decision should be made by pt Feels like the safety is an issue but less so now that patient is 11 and not a baby Definitely concerned about so many vaccinations especially when she was a baby Pt has had no immunizations Released from last perfumer due to refusal to immunize A/p ellicited concerns and answered questions Strongly encouraged starting an immunization schedule, saran for MMR, Gardisil Mom and pt to consider Information given to take home Dysmenorrhea 06/28/2016 Overview (06/02/2024): Better on OCP but now on progesterone only Pelvic u/s 05/12 UTERUS: The uterus measures 6.2 cm long axis. The endometrial echocomplex measures 1.1 cm. No focal myometrial or endometrial lesion. OVARIES/ADNEXA: Age-appropriate appearance of bilateral ovaries. No extraovarian adnexal mass. PELVIS: Trace free fluid, within normal limits for premenopausal patient. Assessment & Plan (06/04/2024 1:59 PM EDT): Sx: no issues Treatments none Continue current management Pt will let me know if there is any change with this condition Assessment & Plan (04/25/2023 1:59 PM EDT): Since 10 yrs Severe cramping every period NO heavy bleeding just cramping Also b/l leg numbness No associated GI sx On OCP better but not completely Now needs to go off E2 OCP due to complex migraine with aura She is wondering about a work up for this A/p Chronic dysmenorrhea Check labs and pelvic u/s Switch to Micronor for contraception 800mg ibuprofen for pain Reviewed instructions how to take, warnings, side effects, precautions of prescribed medications Pt expressed understanding Consider gyne consult Pt agreed with plan Assessment & Plan (04/13/2022 3:30 PM EDT): More BTB and cramping last 6 months Was working well before Takes every day within 20 min No N/V No LOYD No calf or chest pain Inc estrogen strength Reviewed instructions how to take, warnings, side effects, precautions of prescribed medications Pt expressed understanding F/u 4 mos as planned Assessment & Plan (08/23/2021 10:00 AM EST): More cramping again LMP 7 days ago Down for a whole day Which has not happened in a while Has been doing the w/d bleed every month rec she give it another month before we inc the dose She has been stable on this dose for a while We will recheck in 4 weeks at our mood f/u scheduled Assessment & Plan (02/11/2021 11:22 AM EDT): Continue on APRI Assessment & Plan (11/09/2019 5:05 PM EDT): Continue on APRI Assessment & Plan (11/05/2018 10:38 AM EDT): Continue on APRI Assessment & Plan (06/28/2017 1:08 PM EST): Resolved with dietary changes Doing well with this Cont to monitor Assessment & Plan (06/28/2016 2:20 PM EST): Heavy periods since started 3 yrs ago Started on a supplement that has helped a lot got through chiropractor Chiropractor very involved in treatment Takes advil menstrual during most severe cramping Heat, rest A/p Cont treatments that are effective Consider start advil 1 day prior to onset of period Consider OCPs at some point if continuing to be difficult Pt and mom agreed Resolved Problems Problem Noted Date Diagnosed Date Resolved Date Loss of appetite 12/03/2023 06/02/2024 Assessment & Plan (12/03/2023 5:27 PM EDT): Suspect secondary to severe anxiety Possible some gastritis/GERD but no acid/no epigastric pain Normal belly exam Check labs Start PPI/probiotics BRAT diet with slow progression Push fluids Treat anxiety - separate note Other chest pain 12/03/2023 06/02/2024 Assessment & Plan (12/03/2023 5:32 PM EDT): Normal EKG No cardiac risk factors and given age do not suspect ACS Suspect anxiety Support offered Acute pain of left knee 04/25/202305/20 Assessment & Plan (06/02/2024 10:46 AM EDT): Interior knee Fell on a dock about 1 mos ago KNee was very bruised from top of calf to lower thigh on inside of knee Still slightly bruised Still a little painful in the knee Exam shows stable joint Likely hematoma Check knee xray Ice, rest Assessment & Plan (04/25/2023 1:59 PM EDT): Interior knee Fell on a dock about 1 mos ago KNee was very bruised from top of calf to lower thigh on inside of knee Still slightly bruised Still a little painful in the knee Exam shows stable joint Likely hematoma Check knee xray Ice, rest Pain in joint of right shoulder 01/18/2018 04/25/2023 Overview (02/11/2021): Tore both rotator cuffs a few years ago, was having trouble with the R + accupuncture Not 100% Assessment & Plan (04/13/2022 8:05 AM EDT): Cont to monitor Assessment & Plan (02/11/2021 11:30 AM EDT): Cont to monitor Assessment & Plan (11/10/2019 2:20 PM EDT): Had been doing PT but with COVID quarantine Now home PT Still hurts Assessment & Plan (11/05/2018 10:25 AM EDT): Now has full rotation back in both shoulders Encounters Date Type Department Care Team Description 08/02/2024 Refill Jabari Sumner M.D. [address] [address] Jabari Sumner MD Medication Refill 07/16/2024 8:00 PM EST Office Visit [facility] - [address] [address] Abimael Camarillo PA-C Left wrist pain (Primary Dx) 07/09/2024 Refill [facility] [address] [place], [place] [id number] Yamileth Wagner CNP Medication Refill 06/23/2024 Telephone [facility] [address] [place] [address] Ethel Isidro Referral To Behavioral Health 06/04/2024 1:00 PM EDT Office Visit [facility] [address] [place] [address] Yamileth Wagner CNP Routine general medical examination at a health care facility (Primary Dx); Acne vulgaris; Acute pain of left knee; Anxiety and depression; Complicated migraine; Dysmenorrhea; Screening for human immunodeficiency virus; Weight gain; Unimmunized 06/04/2024 E-Consult [facility] [address] [place], [place] [phone] Tuyet Carrillo 06/04/2024 E-Consult [facility] [address] [place] [address] Tuyet Carrillo from Last 3 Months Immunizations Name Administration Dates Next Due COVID-19 (Pre-06/11) Pfizer Vaccine, mRNA, PF 12/27/2020,11/29/2020 HPV9 11/02/2020(Deferred: Other - Patient is getting another day) MMR 09/22/2019,01/23/2019 Meningococcal MCV4P 11/02/2020 Tdap 06/04/2024,05/21/2019 Varicella 06/28/2021,,11/02/2020(Defer red: Other - Patient will be getting another day) Family History Medical History Relation Comments Hypertension Father No Known Problems Mother Relation Status Comments Father Alive Mother Alive Social History Tobacco Use Types Packs/Day Years Used Date Smoking Tobacco: Never Smokeless Tobacco: Never Tobacco Cessation:Counseling Given: Not Answered Alcohol Use Standard Drinks/Week Comments Yes 0 [...] Sign Reading Time Taken Comments Blood Pressure 120/74 06/04/2024 1:02 PM EDT Pulse 83 07/16/2024 7:53 PM EST Temperature 36.8 ??C (98.3 ??F) 07/16/2024 7:53 PM ES T Respiratory Rate 20 04/05/2023 7:45 AM EDT Oxygen Saturation 100% 07/16/2024 7:53 PM EST Inhaled Oxygen Concentration - - Weight 70.3 kg (155 lb) 07/16/2024 7:53 PM EST Height 165.1 cm (5' 5) 07/16/2024 7:53 PM EST Body Mass Index 25.79 07/16/2024 7:53 PM EST Plan of Treatment Upcoming Encounters Date Type Department Care Team (Late st Contact Info) Description 12/15/2024 9:00 AM EDT Tele[facility]icine [facility] Nikole Harry [address] [facility] [place] [address] Yamileth Wagner, RN DIGESTIVE [address] [place] [address] 06/11/2025 1:40 PM EDT [facility] [address] [facility] [place] [address] Yamileth Wagner, RN DIGESTIVE [address] [facility], [place] [address] [email or web address] Health Maintenance Due Date Last Done Comments HPV VACCINES (1 - 3-dose series) 2018 HEPATITIS C SCREENING 2021 HIV ONE-TIME SCREENING (18-6 5 YEARS) 2021 HEPATITIS B VACCINES (1 of 3 - 19+ 3-dose series) 2022 INFLUENZA VACCINE (#1) 2024 COVID-19 VACCINE (4 - 2023-2 5 season) 2024 08/17/2021, 12/27/2020, 11/29/2020 REPEAT PHQ 07/04/2024 06/03/2024, 06/03/2024 COMBINED DTaP,Tdap,Td (3 - T d or Tdap) 12/03/2024 06/04/2024, 05/21/2019 DEPRESSION SCREENING 06/03/2025 06/03/2024, 06/03/2024 CHLAMYDIA SCREENING 06/04/2025 06/04/2024, 09/01/2019 SMOKING Hx and SMOKELESS TOBACCO SCREENING 06/04/2025 06/04/2024 PAP SMEAR 06/04/2027 06/04/2024 Adult Td,Tdap Booster 06/04/2034 06/04/2024 , 05/21/2019 MMR VACCINES Completed 09/22/2019, 01/23/2019 MENINGOCOCCAL VACCINES (ACWY) Completed 11/02/2020 ADOLESCENT UNIVERSAL LIPID SCREENING Completed 02/11/2021 HEPATITIS A VACCINES Aged Out No long er eligible based on patient's age to complete this topic HIB VACCINES Aged Out No longer eligi ble based on patient's age to complete this topic PNEUMOCOCCAL VACCINES (0-49 years) Aged Out No longer eligible b ased on patient's age to complete this topic Medical Devices Not on file Procedures Procedure Name Priority Date/Time Associated Diagnosis Comments THINPREP TIS PAP RFX HR HPV DNA AND C. TRACHOMATIS AND N. GONORRHOEAE Routine 06/04/2024 4:07 PM EDT Routine general medical examination at a health care facility LIPID PANEL Routine 02/11/2021 12:11 PM EDT Annual physical exam from Last 3 Months or Most Recently Relevant to Health Maintenance Results * Thinprep Tis Pap Rfx HR HPV DNA And C. Trachomatis And N. Gonorrhoeae (06/04/2024 4:07 PM EDT) Clinical Information: SEE COMMENT [facility] Comment:APOHR,APOHRNG LMP: SEE COMMENT [facility] Comment:NONE GIVEN Prev. Pap: SEE COMMENT [facility] Comment:NONE GIVEN Prev. Bx: SEE COMMENT [facility] Comment:NONE GIVEN Source: SEE COMMENT [facility] Comment:None given Statement of Adequacy SEE COMMENT [facility] Comment: Satisfactory for evaluation. Endocervical/transformation zone component absent. Interpretation/Resu lt SEE COMMENT [facility] Comment: Cytology Results: Negative for intraepithelial lesion or malignancy. Comment SEE COMMENT [facility] Comment: This Pap test has been evaluated with computer assisted technology. Rabbler SEE COMMENT [facility] Comment: ASD, CT(ASCP) CT screening location: ??[facility] [place] [address] Slide preparation performed at: [facility], [address] [place] [id number] CLIA No. ??[id number] Comment SEE COMMENT [facility] Comment: EXPLANATORY NOTE: The Pap is a screening test for cervical cancer. It is not a diagnostic test and is subject to false negative and false positive results. It is most reliable when a satisfactory sample, regularly obtained, is submitted with relevant clinical findings and history, and when the Pap result is evaluated along with historic and current clinical information. Chlamydia trachomatis RNA, TMA NOT DETECTED NOT DETECTED [facility] Neisseria gonorrhoeae RNA, TMA NOT DETECTED NOT DETECTED [facility] (Always message) SEE COMMENT [facility] Comment: The analytical performance characteristics of this assay, when used to test SurePath(TM) specimens have been determined by [facility]. The modifications have not been cleared or approved by the FDA. This assay has been validated pursuant to the CLIA regulations and is used for clinical purposes. For additional information, please refer to https://education.AMSC/faq/BNC286 (This link is being provided for information/ educational purposes only.) 06/04/2024 4:07 PM EDT 06/05/2024 8:56 PM EDT Narrative [facility] - 06/10/2024 12:13 PM EDT FASTING:UNKNOWN FASTING: UNKNOWN Yamileth Wagner RN DIGESTIVE CYTOLOGY ORDER JANELLE [facility] [address] [address], [facility] [phone] [facility] [address], [address] [place] [phone] [facility] [phone] * Lipid panel (02/11/2021 12:11 PM EDT) CHOLESTEROL 180 140 - 200 mg/dL [facility] Comment: Desirable: <200 Borderline: 200-239 High: >239 TRIGLYCERIDES 40 0 - 149 mg/dL [facility] Comment: Normal ?<150 mg/dL Border-High ? 150-199 mg/dL High Triglycerides ?200-499 mg/dL Very High Triglycerides ? >=500 mg/dL HDL 81 >40 mg/dL [facility] Comment: Recommendations according to the National Cholesterol Education Program Guidelines: <40 mg/dL: Low (Major risk factor for CHD) >= 60 mg/dL: High (Negative risk factor for CHD) CALCULATED LDL 91 0 - 129 mg/dL [facility] Comment: LDL levels in terms of risk for coronary heart disease: <100 mg/dL: Optimal 100-129 mg/dL: Near or above optimal 130-159 mg/dL: Borderline high 160-189 mg/dL: High >190 mg/dL: Very High NON-HDL CHOLESTEROL 99 mg/dL [facility] CARDIAC RISK RATIO 2.2 0 - 4.4 N [facility] 02/11/2021 12:1 1 PM EDT 02/11/2021 3:47 PM EDT Yamileth Wagner RN DIGESTIVE LAB BLOOD ORDE SARAH [facility] [address] [place] [address] from Last 3 Months or Most Recently Relevant to Health Maintenance Raine Taylor Personal/Family Self [address] [place] [address] Rylan Taylorjohanna Eaton Personal/Family Mother [address] [place] [address] ANA TAYLOR Personal/Family Father [address] [place] [address] ANA TAYLOR Personal/Family Father [address] [place] [address] ANA TAYLOR Personal/Family Father [address] [place] [address] ANA TAYLOR Personal/Family Father [address] [place] [address] REN TAYLOR [employer] Liability Mother 11/22/1965 [address] [place] [address] BrandonRaine piña Personal/Family Self 2003 [address] [place] [address] Advance Directives Documents on File Type Date Recorded Patient Body Technician/Painter Expl anation Healthcare Proxy 02/11/2021 Healthcare proxy Care Teams Conceptor Relationship Specialty Start Date End Date Yamileth Wagner CNP [address] [place] [phone] [email or web address] PCP - General Family Medicine 06/28/17 Janette Jules MD [address] [place] [id number] Insurance Assigned Provider 07/30/24 Additional Source Comments The information contained in this document represents components of the legal health record. It is not the complete legal health record.[facility]
--- OUTSIDE RECORDS SUMMARY | 2024-08-23 23:18 | XMS_ITS | Encounter Summary ---
Author Organization [facility] Address [address] [place] [address] Care Team Providers Care Supervising Airplane Pilot Name Role Phone No, Pcp BIN CLEANER Primary Care Provider Unavailabl e Reason for Visit * Reason Comments Mouth or throat complaint Encounter Details Date Type Department Care Team (Late st Contact Info) Description 12/20/2023 11:10 AM EDT Office Visit [facility] [place] [address] Swati Horta NP [address] [place] [phone] Acute non-recurrent maxillary sinusitis (Primary Dx); Acute bronchitis, unspecified organism Social History Tobacco Use Types Packs/Day Years [...] this encounter Patient Instructions * Patient Instructions* Swati Horta NP - 12/20/2023 11:10 AM EDT Seek immediate emergency medical attention if you experience severe or worsening abdominal pain, difficulty swallowing, stiff neck, shortness of breath, coughing or vomiting up blood, chest pain, increased fever, unexplained weight loss, or blood in stool. If your symptoms do not improve within 72 hours, follow up with [facility] or your primary care provider. If your symptoms are not resolved within 2 weeks, follow up with your primary care provider. If you are taking osxn-gdw-wkvesby medication(s), follow the dosing instructions included in the packaging, unless otherwise instructed by your provider. It is important to notify your primary care provider of all medications you are taking, including qojh-ppz-ywkogaa medications. /[id number] Sinusitis What is a Sinusitis? Sinusitis is redness, soreness and inflammation (or swelling) of the sinuses. The sinuses are air pockets within the bones of your face (above and below your eyes and in the middle of your forehead).Mucus normally drains out of the sinus space and air circulates through by way of your nose. The inflammation with sinusitis traps the air and mucus allowing bacterial and other germs to grow and possibly cause an infection. Causes of sinusitis Most sinus infections are caused by viruses (colds, upper respiratory infections) or allergies. Less common are infections caused by bacteria. Symptoms of sinusitis The symptoms of sinusitis (facial pain or pressure, headache, cough, feeling tired, etc) are similar if your condition is caused by a viral or bacterial infection. Treatment of sinusitis Most cases of sinusitis are related to a viral infection and resolve on their own within 10 days. Viral infections do not require antibiotic treatment however over the counter medications may be recommended to help relieve symptoms such as acetaminophen or ibuprofen for pain, saline sprays to moisten and clean the sinuses and/or decongestants. Take these medicines only as directed by your health care provider. REMEMBER: Do not give aspirin to children because of the association with Juan???s syndrome and decongestants such as pseudoephedrine (i.e. Sudafed) should not be taken if you have high blood pressure, heart disease, or a history of stroke. Sinusitis caused by a bacterial infection is treated with an antibiotic. These are medicines that will help kill the bacteria causing the infection. Home Care Recommendations: Rest and drink plenty of water/fluids (unless your doctor has told you otherwise) Use a humidifier or run a hot shower to create steam 3-4 times a day for approximately 10 minutes at a time (This helps lessen congestion) Use salt water sprays (saline sprays) as directed Apply a warm, moist washcloth to your face 3-4 times a day If you were prescribed an antibiotic finish it all even if you start to feel better Avoid tobacco smoke and other environmental irritants Seek Medical Care Immediately from your primary care doctor, urgent care center or emergency room, if: You have increasing pain or severe headaches You have nausea, vomiting, or drowsiness You have swelling around your face You have vision problems You have a stiff neck You have trouble breathing You develop a fever of 101.2 or higher. Follow up with your primary care provider if your symptoms get worse or do not improve within 3 to 5 days. Seek immediate emergency medical attention if you experience severe or worsening abdominal pain, difficulty swallowing, stiff neck, shortness of breath, coughing or vomiting up blood, chest pain, increased fever, unexplained weight loss, or blood in stool. If you are taking jegh-qbt-asaayyi medication(s) follow the dosing instructions included in the packaging, unless otherwise instructed by your provider. It is important to notify your primary care provider of all medications you are taking, including juwk-auo-ejcklnm medications. If your symptoms do not improve within 72 hours or if increasing frequency or severity of symptoms occurs, follow up with your primary care provider. Honey is a traditional cough suppressant that may have some benefits for mild coughs. You may consider using it as needed. It is not recommended to give honey to children under 1 year of age. /[id number] Bronchitis Instructions If your symptoms do not improve within [...] are the signs and symptoms of bronchitis? Coughing with or without phlegm Pain with breathing Wheezing (whistling when you breathe) Fever <100.4??F (usually lasts 48 hrs) Cold-like symptoms: stuffy or runny nose, sore or scratchy throat, or muscle aches How is bronchitis treated? Antibiotics are not needed for most people with bronchitis. Treating the symptoms is the best way to feel better. Some self-care remedies include: Try rufg-lbl-yaoeldg pain and fever relievers. Acetaminophen (Tylenol??) or ibuprofen (Motrin?? or Advil??) may help reduce pain and low-grade fevers. Follow the directions and precautions printed onthe box. Do not take acetaminophen if you also take any other medicine that contains acetaminophen. Never give children aspirin because of its link to Juan???s syndrome. Use a cool mist humidifier. This helps to keep the air moist. Doing so helps thin out your mucus, making it easier to cough it up. Clean the humidifier daily to prevent bacteria and/or fungus from growing. Get extra rest. Sleep helps your body fight the infection. Unless your doctor told you to limit fluid intake, try to drink 8-10 (soda-can sized) glasses of liquids each day while awake. This helps thin the mucus so it can be coughed up more easily. Avoid caffeinated liquids. Wash your hands frequently and cover your mouth while coughing or sneezing. This will help prevent the spread of infection to other people. Avoid exposure to irritants, such as tobacco smoke. Wear a mask when the air is polluted, or if you???re exposed to irritants at work. How can I prevent bronchitis? Avoid smoking and exposure to secondhand smoke. Smoke prevents your lungs from fighting infection, it raises your risk of getting lung disease such as emphysema and harms the heart and lungs. If you are having trouble quitting, ask your primary care provider or [facility] practitioner for help. Get a flu shot every year. Many cases of bronchitis result from influenza viruses. Getting a flu shot every year can help protect you from getting the flu, and in turn, may reduce your risk of bronchitis. Consider getting a pneumonia shot. If you [...] medical care if the following symptoms develop: Worsening cough Shortness of breath Difficulty breathing Chest pain Temperature is greater than 100.4??F Breathing fast (24 breaths/min or faster) Heart rate is greater than 100 documented in this encounter Progress Notes * Swati Horta NP - 12/20/2023 11:10 AM EDT Images from the original note were not included. Subjective: Patient ID: Raine Taylor is a 18 y.o. female. Chief Complaint Patient presents with Mouth or throat complaint HPI Pt presenting with cough, sore throat from coughing, nasal congestion, increasing sinus pressure, and ear pain in both ears over the last week. 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 Pt reports she has been on and off sick over the last 2 months. But feels like sx are not improving. Coughing hurts and having more chest pain because of it. Denies any palpitations. Also has hx of asthma, has been using inhaler which has helped. Does not feel like she is having any asthma exacerbation. Mouth or throat complaint Primary Symptom: Fever/Constitutional Symptoms Duration of current symptoms: 1 week Onset quality: slowly over time Associated symptoms: nasal congestion, cough, ear pain, fatigue, a fever (100.6F), headaches, rhinorrhea, chest pain (with coughing), chest tightness and sore throat Associated symptoms: no myalgias, no chills, no appetite change, no diaphoresis, no swollen glands,no postnasal drip, no shortness of breath, no wheezing, no nausea, no diarrhea, no vomiting and no numbness Treatments tried: lygr-kos-rkdgjns medication Treatments tried comment: Maria Eugenia Response to Treatment: Relieved symptoms Relief: Mild relief Special considerations: exposure to illness Review of Systems Constitutional: Positive for fatigue and fever (100.6F). Negative for activity change, appetite change, chills and diaphoresis. HENT: Positive for congestion, ear pain, rhinorrhea, sinus pressure and sore throat. Negative for postnasal drip. Eyes: Negative. Respiratory: Positive for cough and chest tightness. Negative for shortness of breath and wheezing. Cardiovascular: Positive for chest pain (with coughing). Gastrointestinal: Negative. Negative for diarrhea, nausea and vomiting. Musculoskeletal: Negative. Negative for myalgias. Neurological: Positive for headaches. Negative for dizziness, facial asymmetry, light-headedness and numbness. Social History Tobacco Use Smoking Status Never Passive exposure: Never Smokeless Tobacco Never Past Medical History: Diagnosis Date Allergic rhinitis Asthma Past Surgical History: Procedure Laterality Date WISDOM TOOTH EXTRACTION No family history on file. Objective: Physical Exam Constitutional: General: She is not in acute distress. Appearance: Normal appearance. She is not ill-appearing, toxic-appearing or diaphoretic. HENT: Head: Normocephalic and atraumatic. Right Ear: Ear canal and external ear normal. No drainage, swelling or tenderness. A middle ear effusion is present. There is no impacted cerumen. No mastoid tenderness. Tympanic membrane is not injected, erythematous or bulging. Left Ear: Ear canal and external ear normal. No drainage, swelling or tenderness. A middle ear effusion is present. There is no impacted cerumen. No mastoid tenderness. Tympanic membrane is not injected, erythematous or bulging. Nose: Congestion present. Right Sinus: Maxillary sinus tenderness present. No frontal sinus tenderness. Left Sinus: Maxillary sinus tenderness present. No frontal sinus tenderness. Mouth/Throat: Mouth: Mucous membranes are moist. Pharynx: No pharyngeal swelling, oropharyngeal exudate, posterior oropharyngeal erythema or uvula swelling. Tonsils: No tonsillar exudate. Comments: +post-nasal drip Eyes: General: Right eye: No discharge. Left eye: No discharge. Conjunctiva/sclera: Conjunctivae normal. Cardiovascular: Rate and Rhythm: Normal rate and regular rhythm. Pulmonary: Effort: Pulmonary effort is normal. No tachypnea, bradypnea, accessory muscle usage or respiratory distress. Breath sounds: Normal breath sounds and air entry. No stridor. No decreased breath sounds, wheezing, rhonchi or rales. Comments: LS clear and equal bilaterally, no respiratory distress, no use of accessory muscles, no adventitious sounds noted. O2 sat >100% on RA. Chest: Chest wall: Tenderness present. No mass. Comments: Reproducible pain with palpation as noted above Musculoskeletal: Cervical back: Normal range of motion. No rigidity or tenderness. Lymphadenopathy: Head: Right side of head: Submandibular adenopathy present. No submental, tonsillar, preauricular, posterior auricular or occipital adenopathy. Left side of head: Submandibular adenopathy present. No submental, tonsillar, preauricular, posterior auricular or occipital adenopathy. Cervical: No cervical adenopathy. Right cervical: No superficial, deep or posterior cervical adenopathy. Left cervical: No superficial, deep or posterior cervical adenopathy. Neurological: General: No focal deficit present. Mental Status: She is alert and oriented to person, place, and time. Psychiatric: Mood and Affect: Mood normal. Behavior: Behavior normal. Behavior is cooperative. Thought Content: Thought content normal. Judgment: Judgment normal. Assessment/Plan: HPI provided by Self Based on today's visit:history and physical exam only, as no relevant testing deemed necessary patient's visit diagnosis is/includes 1. Acute non-recurrent maxillary sinusitis 2. Acute bronchitis, unspecified organism Patient has a history of chronic conditions and those listed in the visit diagnoses were reviewed today. They are currently stable on medications. Treatment plan includes: Orders Placed: No orders of the defined types were placed in this encounter. Medications ordered this visit Signed Prescriptions Disp Refills fluticasone propionate (FLONASE) 50 mcg/actuation nasal spray Sig: Instill 2 sprays into each nostril daily guaiFENesin (MUCINEX) 600 mg Ta12 Sig: Take 600-1,200 mg by mouth 2 (two) times a day as needed (cough) for up to 7 days Max daily dose: 2400mg. pseudoephedrine (SUDAFED) 60 MG tablet Sig: Take 1 tablet (60 mg total) by mouth every 6 (six) hours as needed for congestion for up to 3 days amoxicillin-clavulanate (AUGMENTIN) 875-125 mg tablet 10 tablet 0 Sig: Take 1 tablet by mouth 2 (two) times a day for 5 days benzonatate (TESSALON) 100 MG capsule 30 capsule 0 Sig: Swallow whole one (100mg) capsule by mouth 3 times a day as needed.Do not break, chew, dissolve, cut or crush. Current medication list and any new medications prescribed or recommended today were reviewed with the patient and specific instructions were provided Yes Provider Recommendations Declined testing in office as only exposure to sick contacts was her miguel angel family and they all tested negative for COVID, strep, and flu. Clinical manifestations and presentation consistent with sinus infection likely bacterial at this time given timeline and sx manifestations. Antibiotics prescribed per guidelines and symptom management advised such as: Saline nasal sprays or a neti pot. Use humidifier or steam to moisten air Put a warm pad or damp towels over your nose, cheeks, and eyes. Sleep with the head of the bed raised up. Stay away from tobacco smoke or cold air. Do not drink alcohol. Try to stay away from high altitudes, such as flying. Drink plenty of fluids to stay hydrated and help thin out phlegm Flonase and OTC decongestants also advised per guidelines. Follow up with PCP if symptoms do not improve or worsen after 48-72 hours. Report to emergency department if symptoms severe, have any difficulty breathing, inability to swallow fluids or drooling saliva from the mouth, temperature > 103F, change in vision, stiff neck or sensitivity to light, facial swelling. Clinical findings and presentation consistent with acute bronchitis. Educated that bronchitis not typically treated with antibiotics as it is typically caused by viral infection and will go away within 1-2 weeks. Can try expectorant and use tessalon perles sparingly. To trial mucinex-D. Symptom management advised: Drink plenty of fluids and get plenty of rest. If inhaler is prescribed take it exactly as prescribed by medical provider. Use a cool mist humidifier in your home, especially at night during sleep. OTC Antihistamines, decongestants, nasal sprays as needed to help with congestion. OTC cough suppressants as needed for cough. OTC motrin or tylenol as needed for pain or fever. Smoking Cessation Recommended if applicable. Proper hand hygiene Avoid sick contacts Get yearly flu shot and pneumonia vaccines Follow up with PCP if symptoms do not improve or worsen. Follow up in ED or UC if: Worsening cough Shortness of breath or breathing fast (24 breaths per minute or faster) Chest pain or fast heart rate (100 beats per minute or faster) Are coughing up blood Have a high fever (greater than 100.4??F) or shaking chills Follow up care instructions were provided and reviewed?with the Patient. All questions were answered. Patient verbalized understanding of plan of care today. documented in this encounter Plan of Treatment Not on file documented as of this encounter Visit Diagnoses Diagnosis Acute non-recurrent maxillary sinusitis- Primary Acute bronchitis, unspecified organism documented in this encounter Care Teams Supervising Airplane Pilot Relationship Specialty Start Date End Date No, Pcp, BIN CLEANER N/A Do not use PCP - General Family Medicine 09/01/19 documented as of this encounter
--- OUTSIDE RECORDS SUMMARY | 2024-08-23 23:18 | XMS_ITS | Encounter Summary ---
Author Organization [facility] Address [phone] [facility] [employer] [place] [address] Care Team Providers Care It Application Support Analyst Name Role Phone Yamileth Wagner Hunter AMOS Primary Care Provider Janette Jules MD Unavailable [phone] Reason for Visit * Reason Comments Medication Refill Encounter Details Date Type Department Care Team ([facility] Contact Info) Description 08/02/2024 Refill Jabari Sumner M.D. [address] [place] [id number] Jabari Sumner MD [address] [place] [id number] [email or web address] Medication Refill Social History Tobacco Use Types [...] Description 12/15/2024 9:00 AM EDT Telemedicine [facility] Nikole Harry [address] [place] [address] Yamileth Wagner CNP [address] [place] [address] 06/11/2025 1:40 PM EDT [facility] Nikole Harry [address] [place] [address] Yamileth Wagner CNP [address] [place] [address] documented as of this encounter Visit Diagnoses Not on filedocumented in this encounter Additional Health Concerns Assessment Noted Time PHQ-9 Depression Total Score: 16 024 10:58 PM EDT PHQ-2 Depression Total Score: 3 06/03/20 24 10:58 PM EDT documented as of this encounter Care Teams It Application Support Analyst Relationship Specialty Start Date End Date Yamileth Wagner CNP [address] [place] [address] PCP - General Family Medicine 06/28/17 Janette Jules MD [address] [place] [address]. [address] [place] [address] Insurance Assigned Provider 07/30/24 documented as of this encounter Additional Source Comments The information contained in this document represents components of the legal health record. It is not the complete legal health record.[facility]
--- OUTSIDE RECORDS SUMMARY | 2024-08-23 23:18 | XMS_ITS | Encounter Summary ---
Author Organization [facility] Address [phone] [facility] [place] [address] Care Team Providers Care Die Maker Electronic Name Role Phone Yamileth Wagner CNP Primary Care Provider Yamileth Wagner IT HELP DESK ASSOCIATE Unavailable [phone] Encounter Details Date Type Department Care Team (Late Contact Info) Description 06/04/2024 E-Consult [facility] [address] [place] [address] Tuyet Carrillo [address] [place] [address] [email or web address] Social History Tobacco Use Types Packs/Day Years [...] as of this encounter Progress Notes * Gerardo Tuyet Shahla - 06/04/2024 1:43 PM EDT Referral to [facility] Patient was referred to [facility] for outpatient medication management and outpatient neuropsych testing. Referral sent via e-fax to [facility]. Fax #: Medication management: [email or web address] Intake department will contact patient via telephone to schedule [facility]. Patient may contact [facility] directly at [phone] and Press 1 to be connected to the Intake department., Neuropsych testing: [email or web address] Intake department will contact patient via telephone within 4 weeks to schedule appointment. If patient has no heard from [email or web address] after 4 weeks, patient may reach out to [facility] directly at [phone]. When prompted please press 1, then 6, then 1 (if patient is calling for an adult referral) or 2 (if you are calling about a pediatric referral). If you contact [facility] directly, please let [facility] know that your Primary Care Provider has already submitted a referral for you and that your Primary Care Provider is affiliated with [facility]. Letter sent to patient via PG letter with overview of [email or web address] services and contact information. documented in this encounter Plan of Treatment Upcoming Encounters Date Type Department Care Team (Late st Contact Info) Description 12/15/2024 9:00 AM EDT Telemedicine [facility] [address] [facility] [place] [address] Yamileth Wagner, IT HELP DESK ASSOCIATE [address] [place] [address] 06/11/2025 1:40 PM EDT [facility] [address] [facility] [place] [address] Yamileth Wagner CNP [address], [place] [address] documented as of this encounter Visit Diagnoses Not on filedocumented in this encounter Additional Health Concerns Assessment Noted Time PHQ-9 Depression Total Score: 16 024 10:58 PM EDT PHQ-2 Depression Total Score: 3 06/03/20 24 10:58 PM EDT documented as of this encounter Care Teams Die Maker Electronic Relationship Specialty Start Date End Date Yamileth Wagner CNP [address], [place] [address] PCP - General Family Medicine 06/28/17 Yamileth Wagner CNP [address], [place] [address] Insurance Assigned Provider 02/23/24 07/30/24 documented as of this encounter Additional Source Comments The information contained in this document represents components of the legal health record. It is not the complete legal health record.[facility]
--- OUTSIDE RECORDS SUMMARY | 2024-08-23 23:18 | XMS_ITS | Encounter Summary ---
Author Organization [facility] Address [address] [place] [address] Care Team Providers Care Voice Over Announcer Name Role Phone No, Pcp FAMILY CONSUMER SCIENTIST Primary Care Provider Unavailabl e Reason for Visit * Reason Comments Ear Complaint Encounter Details Date Type Department Care Team (Late st Contact Info) Description 08/08/2019 8:05 AM EST Office Visit [id number] [address] [place] [address] Shaylee Howell, MIRELLA [address] [place] [id number] Non-recurrent acute serous otitis media of left ear (Primary Dx) Social History Tobacco Use Types [...] Sign Reading Time Taken Comments Blood Pressure 110/78 08/08/2019 8:15 AM EST Pulse 78 08/08/2019 8:15 AM EST Temperature 36.8 ??C (98.3 ??F) 08/08/2019 8:15 AM ES T Respiratory Rate 14 08/08/2019 8:15 AM EST Oxygen Saturation 98% 08/08/2019 8:15 AM EST Inhaled Oxygen Concentration - - Weight 61 kg (134 lb 8 oz) 08/08/2019 8:24 AM ES T Height 165.1 cm (5' 5) 08/08/2019 8:24 AM EST Body Mass Index 22.38 08/08/2019 8:24 AM EST Body Mass Index Percentile 68.86% 08/08/2019 8:2 4 AM EST Growth Chart: [facility] (Girls, 2- 20 Years) documented in this encounter Functional Status * [...] this encounter Patient Instructions * Patient Instructions* Shaylee Howell NP - 08/08/2019 8:05 AM EST For Otitis Media with Effusion: Follow up with Primary Care Provider immediately if symptoms increase, in 2 weeks if symptoms do not improve or in 4-6 weeks for reevaluation to ensure resolution of effusion. Otitis Media with Effusion Otitis media with effusion (OME) is thick or sticky fluid behind the eardrum in the middle ear. It occurs without an ear infection. What causes OME? The Eustachian tube connects the inside of the ear to the back of the throat. This tube helps drainfluid to prevent it from building up in the ear. The fluid drains from the tube and is swallowed. Otitis media with effusion (OME) and ear infections are connected in two ways: ??? After most ear infections have been treated, fluid (an effusion) remains in the middle ear for a few days or weeks. ??? When the Eustachian tube is partially blocked, fluid builds up in the middle ear. Bacteria inside the ear become trapped and begin to grow. This may lead to an ear infection. The following can cause swelling of the Eustachian tube lining that leads to increased fluid: ??? Allergies ??? Irritants (especially cigarette smoke) ??? Respiratory infections The following can cause the Eustachian tube to close or become blocked: ??? Drinking while lying on your back ??? Sudden increases in air pressure (such as descending in an airplane or on a mountain road) Getting water in a baby's ears will not lead to a blocked tube. OME is most common in winter or early spring, but it can occur at any time of year. It can affect people of any age. It occurs most often in children under age 2, but is rare in newborns. Younger children get OME more often than older children or adults for several reasons: ??? The tube is shorter, more horizontal, and straighter, making it easier for bacteria to enter. ??? The tube is floppier, with a tinier opening that's easy to block. ??? Young children get more colds because it takes time for the immune system to be able to recognize and kulkarni off cold viruses. The fluid in OME is often thin and watery. In the past, it was thought that the fluid got thicker the longer it was present in the ear. However, fluid thickness is now thought to be related to the ear itself, rather than to how long the fluid is present. What are the symptoms of OME? Unlike children with an ear infection, children with OME do not act sick. ??? OME often does not have obvious symptoms. ??? Older children and adults often complain of muffled hearing or a sense of fullness in the ear. Younger children may turn up the television volume because of hearing loss. How is OME treated? Most health care providers will not treat OME at first, unless there are also signs of an infection. Instead, they will recheck the problem in 2 to 3 months. Some children who have had repeat ear infections may receive a small, daily dose of antibiotics to prevent new infections. You can make the following changes to help clear up the fluid behind the eardrum: ??? Avoid cigarette smoke ??? Encourage infants to breastfeed ??? Treat allergies by staying away from triggers (such as dust). Adults and older children may be given allergy medications. Most often the fluid will clear on its own. You doctor may suggest watching the condition for a while to see if it is getting worse before recommending treatment. When to Contact a Medical Professional Call your health care provider if new symptoms develop during or after treatment for this disorder. Rev 02/2015 www.[employer] 1.866.389.NIKI (1934) For Otitis Media with Effusion: Follow up with Primary Care Provider immediately if symptoms increase, in 2 weeks if symptoms do not improve or in 4-6 weeks for reevaluation to ensure resolution of effusion. Otitis Media with Effusion Otitis media with effusion (OME) is thick or sticky fluid behind the eardrum in the middle ear. It occurs without an ear infection. What causes OME? The Eustachian tube connects the inside of the ear to the back of the throat. This tube helps drainfluid to prevent it from building up in the ear. The fluid drains from the tube and is swallowed. Otitis media with effusion (OME) and ear infections are connected in two ways: ??? After most ear infections have been treated, fluid (an effusion) remains in the middle ear for a few days or weeks. ??? When the Eustachian tube is partially blocked, fluid builds up in the middle ear. Bacteria inside the ear become trapped and begin to grow. This may lead to an ear infection. The following can cause swelling of the Eustachian tube lining that leads to increased fluid: ??? Allergies ??? Irritants (especially cigarette smoke) ??? Respiratory infections The following can cause the Eustachian tube to close or become blocked: ??? Drinking while lying on your back ??? Sudden increases in air pressure (such as descending in an airplane or on a mountain road) Getting water in a baby's ears will not lead to a blocked tube. OME is most common in winter or early spring, but it can occur at any time of year. It can affect people of any age. It occurs most often in children under age 2, but is rare in newborns. Younger children get OME more often than older children or adults for several reasons: ??? The tube is shorter, more horizontal, and straighter, making it easier for bacteria to enter. ??? The tube is floppier, with a tinier opening that's easy to block. ??? Young children get more colds because it takes time for the immune system to be able to recognize and kulkarni off cold viruses. The fluid in OME is often thin and watery. In the past, it was thought that the fluid got thicker the longer it was present in the ear. However, fluid thickness is now thought to be related to the ear itself, rather than to how long the fluid is present. What are the symptoms of OME? Unlike children with an ear infection, children with OME do not act sick. ??? OME often does not have obvious symptoms. ??? Older children and adults often complain of muffled hearing or a sense of fullness in the ear. Younger children may turn up the television volume because of hearing loss. How is OME treated? Most health care providers will not treat OME at first, unless there are also signs of an infection. Instead, they will recheck the problem in 2 to 3 months. Some children who have had repeat ear infections may receive a small, daily dose of antibiotics to prevent new infections. You can make the following changes to help clear up the fluid behind the eardrum: ??? Avoid cigarette smoke ??? Encourage infants to breastfeed ??? Treat allergies by staying away from triggers (such as dust). Adults and older children may be given allergy medications. Most often the fluid will clear on its own. You doctor may suggest watching the condition for a while to see if it is getting worse before recommending treatment. When to Contact a Medical Professional Call your health care provider if new symptoms develop during or after treatment for this disorder. Rev 02/2015 www.[employer] 1.866.389.NIKI (2727) documented in this encounter Progress Notes * Shaylee Howell NP - 08/08/2019 8:05 AM EST Subjective: Patient ID: Raine Taylor is a 14 y.o. female. Pt reports fevers Mon-Wed of this week (5 days ago). Those have resolved but still feels achy and now with new ear pain. Ear Complaint Laterality: Bilateral (R>L) Mastoid: No abnormality Quality: Throbbing, pressure and dull Pain severity: Moderate pain Onset quality: Gradual Duration: 2 days Frequency: Constant Progression: Gradually worsening Chronicity: New Context comment: None Relieved by: nothing. Associated symptoms: dizziness, ear pain, headaches, sore throat and ringing in ear Associated symptoms: no bleeding from ear, no congestion, no cough, no ear discharge, no elevation change, no fever, no foreign body, no hearing loss, no loud noise, no neck pain, no ear redness, no ear tubes, no rash and no ear swelling Associated symptoms comment: blocked feeling Risk factors: recent illness Review of Systems Constitutional: Negative for fever. HENT: Positive for ear pain, sore throat and tinnitus. Negative for congestion, ear discharge and hearing loss. Respiratory: Negative for cough. Musculoskeletal: Negative for neck pain. Skin: Negative for rash. Neurological: Positive for dizziness and headaches. Social History Tobacco Use Smoking Status Never Smoker Smokeless Tobacco Never Used Past Medical History: Diagnosis Date ??? Allergic rhinitis ??? Asthma History reviewed. No pertinent surgical history. History reviewed. No pertinent family history. Objective: Physical Exam Constitutional: Vital signs are normal. She appears well-developed and well-nourished. HENT: Right Ear: Hearing, tympanic membrane, external ear and ear canal normal. Tympanic membrane is not erythematous and not bulging. No middle ear effusion. Left Ear: Hearing, external ear and ear canal normal. Tympanic membrane is not erythematous and notbulging. A middle ear effusion is present. Nose: Nose normal. Mouth/Throat: Uvula is midline and mucous membranes are normal. No oropharyngeal exudate, posteriororopharyngeal edema, posterior oropharyngeal erythema or tonsillar abscesses. No sinus tenderness Cardiovascular: Normal rate and regular rhythm. Pulmonary/Chest: Breath sounds normal. No accessory muscle usage. No respiratory distress. She has no decreased breath sounds. She has no wheezes. She has no rhonchi. She has no rales. Lymphadenopathy: Head (right side): No tonsillar, no preauricular and no posterior auricular adenopathy present. Head (left side): No tonsillar, no preauricular and no posterior auricular adenopathy present. She has no cervical adenopathy. Neurological: She is alert. Skin: Skin is warm, dry and intact. Assessment/Plan: 1. Non-recurrent acute serous otitis media of left ear - acetaminophen (TYLENOL) 500 MG tablet; Take 1-2 tablets (500-1,000 mg total) by mouth every 6 (six) hours as needed for fever for up to 7 days. Dispense: 30 tablet; Refill: 0 - ibuprofen (ADVIL,MOTRIN) 200 MG tablet; Take 1 tablet (200 mg total) by mouth every 6 (six) hoursas needed for mild pain or fever for up to 7 days. Max 2,400 mg/day. Dispense: 30 tablet; Refill: 0 - fluticasone propionate (FLONASE) 50 mcg/actuation nasal spray; 1 spray into each nostril daily. Dispense: 16 g; Refill: 12 - loratadine (CLARITIN) 10 mg tablet; Take 1 tablet (10 mg total) by mouth daily for 30 days. Dispense: 30 tablet; Refill: 0 Follow-up with PCP or [facility] if symptoms persists or worsen documented in this encounter Plan of Treatment Not on file documented as of this encounter Visit Diagnoses Diagnosis Non-recurrent acute serous otitis media of left ear- Primary documented in this encounter Care Teams Voice Over Announcer Relationship Specialty Start Date End Date No, Pcp, FAMILY CONSUMER SCIENTIST N/A Do not use PCP - General 08/05/16 08/31/19 documented as of this encounter
--- OUTSIDE RECORDS SUMMARY | 2024-08-23 23:19 | XMS_ITS | Encounter Summary ---
Author Organization [facility] Address [phone] [facility] [place] [address] Care Team Providers Care Main Line Station Engineer Name Role Phone Yamileth Wagner MACHINE I ENGRAVER Primary Care Provider Janette Jules MD Unavailable [phone] Reason for Visit * Reason Comments Medication Refill Encounter Details Date Type Department Care Team ([facility] st Contact Info) Description 01/30/2024 Refill [facility] [address] [place] [address] Yamileth Wagner, MACHINE I ENGRAVER [address] [place] [address] [email or web address] Medication Refill Social History Tobacco Use Types Packs/Day Years Used Date Smoking Tobacco: Never Smokeless Tobacco: Never Alcohol Use Standard Drinks/Week Comments Never 0 (1 standard drink = 0.6 oz pur e alcohol) Education Answer Date Recorded Are you interested in more education? Not on jonathan e 12/14/2022 Are you concerned about learning? Not on file 12/14/2022 No 12/14/2022 No 12/14/2022 Digital Access Answer Date Recorded No 01/10/2023 No 01/10/2023 Reliable internet access at home? Not on file 01/10/2023 Device with a working camera? Not on file Sex and Gender Information Value Date Recorded Sex Assigned at Not on file Gender Identity Not on file Sexual Orientation Not on file documented as of this encounter Plan of Treatment Upcoming Encounters Date Type Department Care Team (Late st Contact Info) Description 12/15/2024 9:00 AM EDT Telemedicine [facility] Nikole Harry [address] [place] [address] Yamileth Wagner, BETTE [address], [place] [address] 06/11/2025 1:40 PM EDT Office Visit [facility] Nikole Harry [address] [facility] [place] [address] Yamileth Wagner CNP [address] [place] [address] documented as of this encounter Visit Diagnoses Not on filedocumented in this encounter Additional Health Concerns Assessment Noted Time PHQ-9 Depression Total Score: 16 024 4:12 PM EDT PHQ-2 Depression Total Score: 4 12/03/19 24 4:12 PM EDT documented as of this encounter Care Teams Main Line Station Engineer Relationship Specialty Start Date End Date Yamileth Wagner [place] [address] PCP - General Family Medicine 06/28/17 Janette Jules MD [address] [place] [address] [address] [place] [address] Insurance Assigned Provider 11/24/23 02/23/24 documented as of this encounter Additional Source Comments The information contained in this document represents components of the legal health record. It is not the complete legal health record.[facility]
--- OUTSIDE RECORDS SUMMARY | 2024-08-23 23:19 | XMS_ITS | Encounter Summary ---
Author Organization [facility] Address [phone] [facility] [place] [address] Care Team Providers Care Sleeve Wheel Maker Name Role Phone Yamileth Wagner CNP Primary Care Provider Yamileth Wagner COOPERER Unavailable [phone] Encounter Details Date Type Department Care Team (Late Contact Info) Description 03/05/2024 Orders Only Jabari Sumner M.D. [address] [place] [id number] Jabari Smuner MD [address] [place] [id number] [email or web address] Social History Tobacco Use Types Packs/Day Years [...] Info) Description 12/15/2024 9:00 AM EDT Telemedicine [facility] Nikole Harry [address] [facility] [place] [address] Yamileth Wagner CNP [address], [place] [address] 06/11/2025 1:40 PM EDT Office Visit [facility] Nikole Harry [address] [place] [address] Yamileth Wagner CNP [address], [place] [address] documented as of this encounter Visit Diagnoses Not on filedocumented in this encounter Additional Health Concerns Assessment Noted Time PHQ-9 Depression Total Score: 16 024 4:12 PM EDT PHQ-2 Depression Total Score: 4 12/03/19 24 4:12 PM EDT documented as of this encounter Care Teams Sleeve Wheel Maker Relationship Specialty Start Date End Date Yamileth Wagner CNP [address] [facility], [place] [address] PCP - General Family Medicine 06/28/17 Yamileth Wagner CNP [address] [facility], [place] [address] Insurance Assigned Provider 02/23/24 07/30/24 documented as of this encounter Additional Source Comments The information contained in this document represents components of the legal health record. It is not the complete legal health record.[facility]
--- OUTSIDE RECORDS SUMMARY | 2024-08-23 23:20 | XMS_ITS | Encounter Summary ---
Author Organization [facility] Address [phone] [facility] [place] [address] [address] Prov[address] Care Court Security Officer Name Role Phone Hermelindo Lozano CNP Primary Care Provider Janette Jules MD Unavailable [phone] Reason for Visit * Reason Comments Loss of Appetite Nausea Vomiting Chest Pain Encounter Details Date Type Department Care Team (Late st Contact Info) Description 12/03/2023 4:00 PM EDT Office Visit [facility] [address] [place] [address] Hermelindo Lozano, SENIOR INTERIOR DESIGNER [address] [place] [address] [email or web address] Nausea and vomiting, unspecified vomiting type (Primary Dx); Anxiety and depression; Loss of appetite; Other chest pain Social History Tobacco Use Types Packs/Day [...] Sign Reading Time Taken Comments Blood Pressure 120/76 12/03/2023 4:08 PM EDT Pulse 108 12/03/2023 4:08 PM EDT Temperature 36.4 ??C (97.5 ??F) 12/03/2023 4:08 PM ED T Respiratory Rate - - Oxygen Saturation 99% 12/03/2023 4:08 PM EDT Inhaled Oxygen Concentration - - Weight 85.3 kg (188 lb) 12/03/2023 4:08 PM EDT Height - - Body Mass Index 31.28 04/25/2023 1:09 PM EDT documented in this encounter Patient Instructions * Patient Instructions* Hermelindo Lozano CNP - 12/03/2023 4:00 PM EDT Omeprazole 20mg Probiotic BRAT diet - bananas, apples rice toast Water NO dairy or red meat for 2 weeks documented in this encounter Progress Notes * Hermelindo Lozano CNP - 12/03/2023 4:00 PM EDTAddended by: HERMELINDO LOZANO on: 12/04/2023 09:20 AM Modules accepted: Orders * Hermelindo Lozano CNP - 12/03/2023 4:00 PM EDT Images from the original note were not included. Cc: Chief Complaint Patient presents with Loss of Appetite Nausea Vomiting Chest Pain Pt presents for acute visit HPI Loss of appetite about one week ago Had started new job and taking online courses about a month ago No appetite and also when she does eat can't keep it down + nausea and vomiting No change to worse in the past week Also feeling really anxious Also having some CP consistently + a lot of loose stool No abd pain Exercising OK Stopped Lexapro bc it was contributing to HAs/migraines Stopped about 6 mos ago Using Fioricet for abortive working well + in therapy Taking the PO Doxy every other day before she got sick Vitals: 12/03/23 1608 BP: 120/76 Pulse: (!) 108 Temp: 36.4 ??C (97.5 ??F) SpO2: 99% Current Outpatient Medications: adapalene (DIFFERIN) 0.3 % gel, Apply topically nightly at bedtime., Disp: 45 g, Rfl: 3, Last Dispense: Unknown (outside pharmacy) amitriptyline (ELAVIL) 50 MG tablet, Take 1 tablet (50 mg total) by mouth nightly at bedtime., Disp: 60 tablet, Rfl: 3, Last Dispense: Unknown (outside pharmacy) nfgyqvwxxc-zbbpdvuesyzff-wfcjmibh (FIORICET, ESGIC) 50-325-40 mg per tablet, Take 1 tablet by mouthevery 4 (four) hours as needed for headache., Disp: 20 tablet, Rfl: 2, Last Dispense: Unknown (outside pharmacy) doxycycline monohydrate (MONODOX) 100 MG capsule, Take one pill by mouth twice daily with full beverage and food. Avoid laying down for 30 minutes after taking. Avoid taking with dairy. Use sun protection. (Patient taking differently: Take 100 mg by mouth daily. Take one pill by mouth twice daily with full beverage and food. Avoid laying down for 30 minutes after taking. Avoid taking with dairy. Use sun protection.), Disp: 180 capsule, Rfl: 3, Last Dispense: Unknown (outside pharmacy) ibuprofen (ADVIL,MOTRIN) 800 MG tablet, Take 1 tablet (800 mg total) by mouth every 6 (six) hours as needed for pain (specific location in comments)., Disp: 30 tablet, Rfl: 3, Last Dispense: Unknown (outside pharmacy) SUMAtriptan (IMITREX) 50 MG tablet, Take 1 tablet (50 mg total) by mouth once as needed for migraine. Can repeat dose in 2 hours if needed. Do not exceed 2 doses in a 24 hour period. Max dose 200mg/ day, Disp: 9 tablet, Rfl: 0, Last Dispense: Unknown (outside pharmacy) Patient Active Problem List Diagnosis Acne vulgaris Unimmunized Dysmenorrhea Anxiety and depression Complicated migraine Acute pain of left knee Loss of appetite Other chest pain PE Well appearing, well dressed/groomed, pleasant, cooperative NAD. Makes good eye contact. Speech is normal in tone and is non -pressured, non-tangential and easily followed. Affect is full. Insight is good. There is no suicidal or homicidal intentions. Thought process appears clear and non-delusional. ?PERRLA, EOMI Neck - supple, no LAD, no thyromegaly Heart - RRR, no murmurs/rubs/gallops Lungs - CTA bilaterally, no wheezes/rhales/rhonchi Abd: NABS, soft, NT, ND, no HSM, no rebound tenderness, [place] negative, no guarding Extremities - WWP, no edema, calves equal and symmetric A/p Problem List Items Addressed This Visit Anxiety and depression Overview Prozac 60 Failed Zoloft a lot of s/e [place] [facility] [place] Started Buproprion 07/11 Therapy @ [facility] Switched to Lexapro 09/11 Lexapro stopped 05/13 for migraines Current Assessment & Plan Still home on leave of absence from [...] Nearly every day Nearly every day More thanhalf the days Feeling tired or having little [...] made it for you to do your work,take care of things at home, or get [...] relationship. Continue therapy Close f/u 4 weeks Loss of appetite Current Assessment & Plan Suspect secondary to severe anxiety Possible some gastritis/GERD but no acid/no epigastric pain Normal belly exam Check labs Start PPI/probiotics BRAT diet with slow progression Push fluids Treat anxiety - separate note Other chest pain Current Assessment & Plan Normal EKG No cardiac risk factors and given age do not suspect ACS Suspect anxiety Support offered Other Visit Diagnoses Nausea and vomiting, unspecified vomiting type - Primary Relevant Orders Comprehensive metabolic panel CBC and differential TSH W/Reflex To FT4 Celiac Disease Diagnostic Panel Urinalysis w/reflex Urine Culture Red flags reviewed Pt to return to office or call if sx worsen or do not improve Pt agreed with plan documented in this encounter Miscellaneous Notes * Assessment & Plan Note - Hermelindo Lozano CNP - 12/03/2023 5:31 PM EDT Associated Problem(s): Other chest pain (Resolved 06/02/2024) Normal EKG No cardiac risk factors and given age do not suspect ACS Suspect anxiety Support offered * Assessment & Plan Note - Hermelindo Lozano CNP - 12/03/2023 5:31 PM EDT Associated Problem(s): Anxiety and depression Images from the original note were not [...] Nearly every day Nearly every day More thanhalf the days Feeling tired or having little [...] made it for you to do your work,take care of things at home, or get [...] relationship. Continue therapy Close f/u 4 weeks * Assessment & Plan Note - Hermelindo Lozano CNP - 12/03/2023 5:27 PM EDT Associated Problem(s): Loss of appetite (Resolved 06/02/2024) Suspect secondary to severe anxiety Possible some gastritis/GERD but no acid/no epigastric pain Normal belly exam Check labs Start PPI/probiotics BRAT diet with slow progression Push fluids Treat anxiety - separate note documented in this encounter Plan of Treatment Upcoming Encounters Date Type Department Care Team (Late st Contact Info) Description 12/15/2024 9:00 AM EDT Telemedicine Nikole Chambers [address] [place] [address] Hermelindo Lozano CNP [address] [place] [address] 06/11/2025 1:40 PM EDT Office Visit Balaji Chambers. [address] [place] [address] Hermelindo Lozano CNP [address] [facility] [place] [address] [email or web address] [email or web address] Orders Name Type Priority Associated Diagnoses Orde r Schedule Urinalysis w/reflex Urine Culture Lab Routine Nausea and vomiting, unspecified vomiting type Expected: 12/03/2023, Expires: 12/02/2024 documented as of this encounter Procedures Procedure Name Priority Date/Time Associated Diagnosis Comments ECG 12-LEAD Routine 12/04/2023 9:20 AM EDT Other chest pain TSH W/REFLEX TO FT4 Routine 12/03/2023 1 2:00 AM EDT Nausea and vomiting, unspecified vomiting type HCG, TOTAL, QL Routine 12/03/2023 12:00 AM EDT CELIAC DISEASE DIAGNOSTIC PANEL Routine 12/03/2023 12:00 AM EDT Nausea and vomiting, unspecified vomiting type COMPREHENSIVE METABOLIC PANEL Routine 12/03/2023 12:00 AM EDT Nausea and vomiting, unspecified vomiting type CBC AND DIFFERENTIAL Routine 12/03/2023 12:00 AM EDT Nausea and vomiting, unspecified vomiting type documented in this encounter Results * ECG 12-LEAD (12/04/2023 9:20 AM EDT) Narrative Hermelindo Lozano CNP - 12/04/2023 9:20 AM EDT Type of EKG: Standard. Global (44589). Notes Normal sinus rhythm, normal axis, normal intervals, no ST elevations, nl P waves, no Q waves, no inverted T's Hermelindo Lozano CNP ECG ORDERABLES * HCG, Total, Ql (12/03/2023 12:00 AM EDT) Pathologist [facility] HCG, total, Qualitative NEGATIVE See Note: [employer] Comment: Reference Range: Reference Range Non-: Negative : ? Positive 12/03/2023 12/03/2023 4:5 4 PM EDT Narrative [employer] [facility] - 12/04/2023 10:14 AM EDT FASTING:NO FASTING: NO Hermelindo Lozano SENIOR INTERIOR DESIGNER LAB BLOOD ORDE SARAH [employer] [address] [place] [address],[place] [address], [facility] [phone] [employer] [place] [facility] [address] [place] [phone] * Celiac Disease Diagnostic Panel (12/03/2023 12:00 AM EDT) Pathologist [facility] Tissue Transglutaminase Ab, IgG <1.0 U/mL [employer] Comment: Value ?Interpretation ----- ? <15.0 ?Antibody not detected > or = 15.0 ?Antibody detected Tissue Transglutaminase Ab, IgA <1.0 U/mL [employer] Comment: Value ?Interpretation ----- ? <15.0 ?Antibody not detected > or = 15.0 ?Antibody detected Gliadin (Deamidated) Antibody (IgA) 2.7 U/mL [employer] Comment: Value ?Interpretation ----- ? <15.0 ?Antibody not detected > or = 15.0 ?Antibody detected Gliadin (Deamidated) Ab (IgG) 3.5 U/mL [employer] [place] [facility] Comment: Value ?Interpretation ----- ? <15.0 ?Antibody not detected > or = 15.0 ?Antibody detected Immunoglobulin A 128 47 - 310 mg/dL [employer] [place] [facility] Blood 12/03/2023 12/03/2023 4:5 5 PM EDT Hermelindo Lozano [facility] LAB BLOOD CANDIDO SMITH Performing Organization Address [facility]/State/[facility] [[email or web address]] Co de Phone Number [employer] [address] [place] [address],[place] [address], [facility] [phone] [employer] [place] [facility] [address] [place] [phone] * TSH W/Reflex To FT4 (12/03/2023 12:00 AM EDT) TSH w/reflex to FT4 1.02 mIU/L [facility] Comment: ?Reference Range ?> or = 20 Years ??0.40-4.50 ? Ranges ?First trimester ?0.26-2.66 ?Second trimester ?? 0.55-2.73 ?Third trimester ?0.43-2.91 Blood 12/03/2023 12/03/2023 4:5 4 PM EDT Narrative [employer] - 12/04/2023 10:14 AM EDT FASTING:NO FASTING: NO Hermelindo Lozano SENIOR INTERIOR DESIGNER LAB BLOOD ORDE SARAH [employer]ys [facility] [address] [facility] [address] [facility] [address], [facility] [phone] [employer] [place] [facility] [address] [place] [phone] * CBC and differential (12/03/2023 12:00 AM EDT) WBC 7.7 3.8 - 10.8 Thousand/ uL [facility] Red Blood Cell 4.38 3.80 - 5.10 Million/u L [facility] Hemoglobin 12.4 11.7 - 15.5 g/dL [facility] Hematocrit 37.7 35.0 - 45.0 % [facility] MCV 86.1 80.0 - 100.0 fL [facility] MCH 28.3 27.0 - 33.0 pg [facility] MCHC 32.9 32.0 - 36.0 g/dL [facility] RDW 12.8 11.0 - 15.0 % [facility] Platelet Count 334 140 - 400 Thousand/ uL [facility] MPV 9.9 7.5 - 12.5 fL [facility] Absolute Neutrophils 4,481 1,500 - 7,800 cells/uL [facility] Absolute Lymphocytes 2,564 850 - 3,900 cells/uL [facility] Absolute Monocytes 562 200 - 950 cells/uL [facility] Absolute Eosinophils 69 15 - 500 cells/uL [facility] Absolute Basophils 23 0 - 200 cells/uL [facility] Neutrophils 58.2 % [facility] Lymphocytes 33.3 % [facility] Monocytes 7.3 % [facility] [employer] [facility] Eosinophils 0.9 % [facility] [place] [facility] Basophils 0.3 % [facility] [place] [employer] Blood 12/03/2023 12/03/2023 4:5 4 PM EDT Narrative [facility] 12/04/2023 10:14 AM EDT FASTING:NO FASTING: NO Hermelindo Lozano SENIOR INTERIOR DESIGNER LAB BLOOD ORDE SARAH Responsys [facility] [address] [address], [facility] [phone] [employer] [place] [employer] [address] [place] [phone] * (ABNORMAL) Comprehensive metabolic panel (12/03/2023 12:00 AM EDT) Glucose 94 65 - 139 mg/dL [facility] Comment: ? Non-fasting reference interval Urea Nitrogen (BUN) 4(L) 7 - 25 mg/dL [facility] Creatinine 0.83 0.50 - 0.96 mg/dL [employer] [facility] [facility] EGFR 103 > OR = 60 mL/min/1. 73m2 [employer] [facility] [employer] [facility] BUN/Creatinine Ratio 5(L) 6 - 22 (calc) [facility] Sodium 139 135 - 146 mmol/L [facility] Potassium 4.1 3.5 - 5.3 mmol/L [employer] [facility] [facility] Chloride 103 98 - 110 mmol/L [employer] [facility] [employer] [facility] Carbon Dioxide 28 20 - 32 mmol/L [employer] [facility] [employer] [facility] Calcium 9.6 8.6 - 10.2 mg/dL [employer] [facility] [employer] [facility] Protein, Total 7.0 6.1 - 8.1 g/dL [facility] [facility] Albumin 4.6 3.6 - 5.1 g/dL [employer] [facility] [facility] Globulin 2.4 1.9 - 3.7 g/dL (calc) [employer] [facility] [employer] [facility] Albumin/Globulin Ratio 1.9 1.0 - 2.5 (calc) [facility] Bilirubin, Total 0.3 0.2 - 1.2 mg/dL [facility] Alkaline Phosphatase 90 31 - 125 U/L [facility] AST 22 10 - 30 U/L [facility] ALT 25 6 - 29 U/L [employer] [facility] Blood 12/03/2023 12/03/2023 4:5 4 PM EDT Narrative [facility] - 12/04/2023 10:14 AM EDT FASTING:NO FASTING: NO Hermelindo Lozano CNP LAB BLOOD KRYSTINE SARAH [employer] [address] [place] [address],[facility] [place] [address], [facility] [phone] [employer] [place] [employer] [facility] [address] [place] [phone] documented in this encounter Visit Diagnoses Diagnosis Nausea and vomiting, unspecified vomiting type- Primary Anxiety and depression Loss of appetite Anorexia Other chest pain documented in this encounter Additional Health Concerns Assessment Noted Time PHQ-9 Depression Total Score: 16 024 4:12 PM EDT PHQ-2 Depression Total Score: 4 12/03/19 24 4:12 PM EDT documented as of this encounter Care Teams Court Security Officer Relationship Specialty Start Date End Date Hermelindo Lozano CNP [address] [place] [address] [place] [address] PCP - General Family Medicine 06/28/17 Janette Jules MD [address] [facility]. [address] [place] [address] Insurance Assigned Provider 11/24/23 02/23/24 documented as of this encounter Additional Source Comments The information contained in this document represents components of the legal health record. It is not the complete legal health record.[facility]
--- OUTSIDE RECORDS SUMMARY | 2024-08-23 23:20 | XMS_ITS | Encounter Summary ---
Author Organization [facility] Address [phone] [facility] [place] [address] Care Team Providers Care Racecar Driver Name Role Phone Yamileth Wagner GASOLINE POWER SHOVEL OPERATOR Primary Care Provider Janette Jules MD Unavailable [phone] Encounter Details Date Type Department Care Team ([facility] st Contact Info) Description 12/03/2023 Telephone [facility] [address] [place] [address] Yamileth Wagner, GASOLINE POWER SHOVEL OPERATOR [address] [place] [address] [email or web address] Social History Tobacco Use [...] as of this encounter Progress Notes * Mounika Garibay RN - 12/03/2023 8:40 AM EDT Please call patient to advise she should be evaluated and help her schedule appt. If she is not in state, she could be seen locally at an Urgent Care. * Kirstin Yousif - 12/03/2023 8:15 AM EDT Patient called stating she has had a loss of appetite since last Sunday, and has been feeling ill.Plz call. documented in this encounter Plan of Treatment Upcoming Encounters Date Type Department Care Team (Late st Contact Info) Description 12/15/2024 9:00 AM EDT Telemedicine [facility] [address] [place] [address] Yamileth Wagner CNP [address] [place] [address] 06/11/2025 1:40 PM EDT Office Visit [facility] [address] [place] [address] Yamileth Wagner CNP [address] [place] [address] documented as of this encounter Visit Diagnoses Not on filedocumented in this encounter Additional Health Concerns Assessment Noted Time PHQ-9 Depression Total Score: 16 024 4:12 PM EDT PHQ-2 Depression Total Score: 4 12/03/19 24 4:12 PM EDT documented as of this encounter Care Teams Racecar Driver Relationship Specialty Start Date End Date Yamileth Wagner CNP [address] [place] [address] [email or web address] PCP - General Family Medicine 06/28/17 Janette Jules MD [address] [place] [address]. [address] [place] [phone] Insurance Assigned Provider 11/24/23 02/23/24 documented as of this encounter Additional Source Comments The information contained in this document represents components of the legal health record. It is not the complete legal health record.[facility]
--- OUTSIDE RECORDS SUMMARY | 2024-08-23 23:20 | XMS_ITS | Encounter Summary ---
Author Organization [facility] Address [phone] [facility] [place] [address] Care Team Providers Care Photographic Aide Name Role Phone Yamileth Wagner Hunter CNA INSTRUCTOR Primary Care Provider Janette Jules MD Unavailable [phone] Yamileth Wagner Hunter CNA INSTRUCTOR Unavailable [phone] Janette Jules MD Unavailable [phone] Encounter Details Date Type Department Care Team (Late st Contact Info) Description 04/04/2023 Procedure Pass [facility] - MRI, Main [place] [address] [place] [address] Social History Tobacco Use Types Packs/Day Years [...] Info) Description 12/15/2024 9:00 AM EDT [facility] [address] [place] [address] Yamileth Wagner CNP [address] [place] [address] [email or web address] 06/11/2025 1:40 PM EDT Office Visit [facility]ole Harry [address] [place] [address] Yamileth Wagner CNP [address] [place] [address] [email or web address] documented as of this encounter Visit Diagnoses Not on filedocumented in this encounter Additional Health Concerns Assessment Noted Time PHQ-9 Depression Total Score: 13 023 11:53 AM EST PHQ-2 Depression Total Score: 2 09/21/19 23 11:53 AM EST documented as of this encounter Care Teams Photographic Aide Relationship Specialty Start Date End Date Yamileth Wagner [place] [address] [email or web address] PCP - General Family Medicine 06/28/17 Janette Jules MD [address] [place] [phone] Insurance Assigned Provider 11/24/23 02/23/24 Yamileth Wagner [place] [address] [email or web address] Insurance Assigned Provider 02/23/24 07/30/24 Janette Jules MD [address] [place] [address] [address] [place] [address] Insurance Assigned Provider 07/30/24 documented as of this encounter Additional Source Comments The information contained in this document represents components of the legal health record. It is not the complete legal health record.[facility]
--- OUTSIDE RECORDS SUMMARY | 2024-08-23 23:20 | XMS_ITS | Encounter Summary ---
Author Organization [facility] Address [phone] [facility] [place] [address] Care Team Providers Care State Director Name Role Phone Yamileth Wagner SLITTER CUT OFF OPERATOR Primary Care Provider Janette Jules MD Unavailable [phone] Yamileth Wagner SLITTER CUT OFF OPERATOR Unavailable Janette Jules MD Unavailable [phone] Encounter Details Date Type Department Care Team (Late st Contact Info) Description 05/06/2023 Ancillary Orders [facility] [address] [place] [address] Yamileth Wagner, SLITTER CUT OFF OPERATOR [address] [place] [address] [email or web address] Pelvic pain Social History Tobacco Use Types Packs/Day [...] Upcoming Encounters Date Type Department Care Team ([facility] st Contact Info) Description 12/15/2024 9:00 AM EDT Telemedicine [facility] [address] [place] [facility] [address] Yamileth Wagner CNP [address] [place] [address] [email or web address] 06/11/2025 1:40 PM EDT [facility] [address] [place] [facility] [place] [address] Yamileth Wagner CNP [address] [place] [address] documented as of this encounter Visit Diagnoses Diagnosis Pelvic pain documented in this encounter Additional Health Concerns Assessment Noted Time PHQ-9 Depression Total Score: 15 023 12:23 PM EDT PHQ-2 Depression Total Score: 2 04/25/20 23 12:23 PM EDT documented as of this encounter Care Teams State Director Relationship Specialty Start Date End Date Yamileth Wagner [place] [address] PCP - General Family Medicine 06/28/17 Janette Jules MD [address] [place] [phone] Insurance Assigned Provider 11/24/23 02/23/24 Yamileth Wagner CNP [address] [place] [address] [email or web address] Insurance Assigned Provider 02/23/24 07/30/24 Janette Jules MD [address] [place] [phone] Insurance Assigned Provider 07/30/24 documented as of this encounter Additional Source Comments The information contained in this document represents components of the legal health record. It is not the complete legal health record.[facility]
--- OUTSIDE RECORDS SUMMARY | 2024-08-23 23:20 | XMS_ITS | Encounter Summary ---
Author Organization [facility] Address [phone] [facility] [place] [address] Care Team Providers Care Diesel Engine Mechanic Apprentice Name Role Phone Yamileth Wagner Hunter AMOS Primary Care Provider Reason for Visit * Reason Comments Aural Fullness Hearing Loss Encounter Details Date Type Department Care Team ([facility] Contact Info) Description 03/13/2023 3:30 PM EDT Evaluation [facility] [address] [address] Nora Strong, [address] [address] [email or web address] Ear fullness, right (Primary Dx) Social History Tobacco Use Types [...] Info) Description 12/15/2024 9:00 AM EDT Telemedicine [facility] Nikole Harry [address] [place] [address] Yamileth Wagner CNP [address] [facility] [place] [address] 06/11/2025 1:40 PM EDT Office Visit [facility] Nikole Harry [address] [place] [address] Yamileth Wagner CNP [facility] [place] [address] Scheduled Orders Name Type Priority Associated Diagnoses Orde r Schedule Hearing Test Audiology Routine Decreased hearing of right ear Blocked ear, right Ordered: 03/01/2023 documented as of this encounter Visit Diagnoses Diagnosis Ear fullness, right- Primary documented in this encounter Additional Health Concerns Assessment Noted Time PHQ-9 Depression Total Score: 13 023 11:53 AM EST PHQ-2 Depression Total Score: 2 09/21/19 23 11:53 AM EST documented as of this encounter Care Teams Diesel Engine Mechanic Apprentice Relationship Specialty Start Date End Date Yamileth Wagner [place] [address] PCP - General Family Medicine 06/28/17 documented as of this encounter Additional Source Comments The information contained in this document represents components of the legal health record. It is not the complete legal health record.[facility]
--- OUTSIDE RECORDS SUMMARY | 2024-08-23 23:20 | XMS_ITS | Encounter Summary ---
Author Organization [facility] Address [phone] [facility] [place] [address] Care Team Providers Care Artist Blacksmith Name Role Phone Yamileth Wagner Hunter AMOS Primary Care Provider Reason for Visit * Reason Onset Date Comments Medication Refill 06/19/2023 Encounter Details Date Type Department Care Team (Late st Contact Info) Description 06/19/2023 Refill [facility] [address] [place] [address] Marisa Kramer MA [email or web address] Medication Refill Social History Tobacco Use Types [...] Description 12/15/2024 9:00 AM EDT Telemedicine [facility] Nikole Colmenares [address] [facility] [place] [address] Yamileth Wagnre CNP [address] [place] [address] 06/11/2025 1:40 PM EDT Office Visit [facility] Nikole Colmenares [address] [facility] [place] [address] Yamileth Wagner CNP [address] [place] [address] documented as of this encounter Visit Diagnoses Not on filedocumented in this encounter Additional Health Concerns Assessment Noted Time PHQ-9 Depression Total Score: 15 023 12:23 PM EDT PHQ-2 Depression Total Score: 2 04/25/20 23 12:23 PM EDT documented as of this encounter Care Teams Artist Blacksmith Relationship Specialty Start Date End Date Yam[place] [address] PCP - General Family Medicine 06/28/17 documented as of this encounter Additional Source Comments The information contained in this document represents components of the legal health record. It is not the complete legal health record.[facility]
--- OUTSIDE RECORDS SUMMARY | 2024-08-23 23:20 | XMS_ITS | Encounter Summary ---
Author Organization [facility] Address [phone] [facility] [place] [address] Care Team Providers Care Unit Support Representative Name Role Phone Yamileth Wagner Hunter AMOS Primary Care Provider Reason for Visit * Reason Onset Date Comments Medication Refill 03/01/2023 Encounter Details Date Type Department Care Team (Late st Contact Info) Description 03/01/2023 Refill [facility] [address] [place] [address] Marisa Kramer MA [email or web address] Medication Refill Social History Tobacco Use Types [...] Description 12/15/2024 9:00 AM EDT Telemedicine [facility] [address] [place] [address] Yamileth Wagner CNP [address] [facility] [place] [address] [email or web address] 06/11/2025 1:40 PM EDT Office Visit [facility] Nikole Colmenares [address] [place] [address] Yamileth Wagner CNP [address] [place] [address] [email or web address] documented as of this encounter Visit Diagnoses Not on filedocumented in this encounter Additional Health Concerns Assessment Noted Time PHQ-9 Depression Total Score: 13 023 11:53 AM EST PHQ-2 Depression Total Score: 2 09/21/19 23 11:53 AM EST documented as of this encounter Care Teams Unit Support Representative Relationship Specialty Start Date End Date Yamileth Wagner CNP [address] [facility] [place] [address] [email or web address] PCP - General Family Medicine 06/28/17 documented as of this encounter Additional Source Comments The information contained in this document represents components of the legal health record. It is not the complete legal health record.[facility]
--- OUTSIDE RECORDS SUMMARY | 2024-08-23 23:20 | XMS_ITS | Encounter Summary ---
Author Organization [facility] Address [phone] [facility] [employer] [place] [address] Care Team Providers Care Cyber Systems Operations Specialist Name Role Phone Yamileth Wagner CNP Primary Care Provider Reason for Visit * Auth/Cert (Routine) Specialty Diagnoses / Procedures Referred By Contac t Referred To Contact Diagnoses Complicated migraine Referral ID Status Reason Start Date Expiration Date Visits Re quested Visits Authorized [id number] 1 1 Encounter Details Date Type Department Care Team ([facility] st Contact Info) Description 04/04/2023 9:07 PM EDT - 04/05/2023 3:40 PM EDT Emergency [facility] [address] [place] [address] Lois Pena MD 2013 [facility] Dept of [place] [address] Janelle Spencer MD 2013 [facility] Department [place] [address] Discharge Disposition: Home or Self Care Social History Tobacco Use Types Packs/Day Years [...] Sign Reading Time Taken Comments Blood Pressure 104/61 04/05/2023 7:45 AM EDT Pulse 50 04/05/2023 7:45 AM EDT Temperature 36.9 ??C (98.4 ??F) 04/05/2023 7:45 AM ED T Respiratory Rate 20 04/05/2023 7:45 AM EDT Oxygen Saturation 99% 04/05/2023 7:45 AM EDT Inhaled Oxygen Concentration - - Weight 63.5 kg (139 lb 15.9 oz) 04/05/2023 3:10 AM EDT Height 165.1 cm (5' 5) 04/05/2023 3:10 AM EDT Body Mass Index 23.3 04/05/2023 3:10 AM EDT documented in this encounter Discharge Summaries * Aidee Leroy MD - 04/05/2023 2:08 PM EDT Images from the original note were not included. Physician Discharge Summary Admit date: 04/04/2023 Discharge date: 04/05/2023 Patient Information Raine Taylor, 18 y.o. female ( = 2005) Home Address: [address] [place] [address] (home) Preferred Language: French Written Language: French Needs Wardrobe Consultant: Type of Advance Care Directive(s): None Does patient have a Health Care Proxy form completed?: Patient declines Health Care Agents There are no Health Care Agents on file. Code Status at Discharge: No Order Discharge Order Discharge Patient Discharge Disposition: Home or Self Care Signed by: Janelle Spencer MD Patient/Family/Caregiver discharge preference/goals : Home Historical information Reason for Admission: Complex Migraines Principal Problem: Complicated migraine Resolved Problems: * No resolved hospital problems. * Principal diagnosis at discharge: Complicated migraine Surgical (OR) Procedures: Surgeries this admission None Procedures this admission None Non (OR) Procedures: Items for Post-Hospitalization Follow-Up: Follow up headaches Follow up with neurology Pending Results None Hospital Course Raine is a 18 year-old female admitted for management of her complex migraine. BRIEF SUMMARY: 18 year old admitted for management of her complex migraine. ADMISSION HPI: HPI: Raine is a 18 year old woman with medical hx significant for anxiety, depression, and headaches who presented to the ED with L sided numbness and difficulty speaking. Was in her usual state of health until this evening, when she was at [employer] with her family at around 8pm. She began to feel a 'strange sensation' and sensed some flashing lights, as well as the onset of a headache. Raine then developed numbness of her L side, starting in her feet and legs, moving up to her arm and eventuallyher face. Could still walk and move normally, but felt strange when doing so. Went home and developed difficulty speaking, where she describes knowing what she wanted to say but was having trouble get ting the words out. At this point her parents called 911 and EMS arrived to transport her to the hospital. Raine and her family both note that Raine had very little food intake today, only drinking 2Starbucks beverages. She has also not been sleeping well in general. Did have a fall on a dock 4 days ago, hitting her legs/feet against the dock, but did not hit her head at that time. No fever or other signs of illness. Since coming to the ED Raine's numbness and difficulty speaking have completely resolved. She continues to have a throbbing headache, at one point 9/10, now 6/10 after IV fluids and Tylenol. She describes having almost daily headaches since restarting her Lexapro in the last 1-2 months. She generally manages them by taking Tylenol or Motrin. She is otherwise very happy with the Lexapro, however, feeling much more herself when she is on it, particularly when compared to other SSRIs she has trialed in the past (Prozac, Zoloft) ED Course: Glucose done on arrival and normal. EKG reportedly normal. Initally hypertensive (165/100) on arrival, given Ativan, normalized to 110/65 shortly thereafter. MRI/MRA/MRV of the head/neck performed which was negative for stroke, mass or bleed. Small (2mm) anterior artery outpouching noted, on discussion with Dr. Sumner of neurology this is felt to be likely related to her headache. HOSPITAL COURSE BY PROBLEM: Complex Migraine 18 year old woman with acute onset of unilateral numbness and difficulty speaking with headache, inthe setting of poor sleep and diet intake. Likely this was a complex migraine, which fits with family history as well. Imaging normal except for 2mm outpouching of artery versus aneurysm. Per ED discussion with Dr. Sumner of neurology, likely to be associated with her headache but he will follow upoutpatient. She was admitted for treatment/monitoring with combination of Reglan/Benadrly/Toradol, which was effective. Dr. Sumner of neurology provided recs after discharge, which included amitryptiline as a prevention and amitrex as an abortive for her headaches in the future and to continue neuro follow up. She can continue her current OCPs. IMAGING STUDIES: MRI Brain Result Date: 04/04/2023 MRI BRAIN WITHOUT CONTRAST, MRI ANGIO BRAIN (ARTERIAL & VENOUS PHASES) WITHOUT CONTRAST, MRI ANGIO NECK WITH CONTRAST TECHNIQUE: MRI BRAIN WITHOUT CONTRAST, MRI ANGIO BRAIN (ARTERIAL & VENOUSPHASES) WITHOUT CONTRAST, MRI ANGIO NECK WITH CONTRAST Multi-sequence, multi-planar MRI of the brain was performed without intravenous contrast. MRA of the head was performed utilizing [id number] technique (no gadolinium). Maximal intensity projection 3D angiographic reformatted images were performed. MRA of the neck was performed after the administration of intravenous contrast utilizing bolus triggering and subtraction techniques. Maximal intensity projection 3D angiographic reformatted images were performed. COMPARISON: None. FINDINGS: Brain Parenchyma: Normal. No evidence of acute infarct, mass lesion, or hemorrhage. Ventricular System and Extra-Axial Spaces: Normal. No evidence of midline shift or hydrocephalus. Extracranial Structures: Arterial flow voids in the skull base are present. MRA HEAD: Anterior Circulation: 2 mm focal outpouching of the anterior communicating artery.Normal flow within the intracranial internal carotid arteries, anterior cerebral arteries and the middle cerebral arteries. No severe stenosis, occlusion, or arteriovenous malformation. Posterior Circulation: Normal. Normal flow within the intracranial vertebral arteries, basilar artery and posterior cerebral arteries. No severe stenosis, occlusion, aneurysm or arteriovenous malformation. MRV HEAD: Dominant right transverse sinus. No evidence of stenosis or thrombosis within the major dural venous sinuses or cortical veins. MRA NECK: Aortic Arch and Origin of Major Cervical Vessels: Normal. There is a left-sided, three-vessel aortic arch. The brachiocephalic artery and bilateral subclavian a rteries are patent. Right Common Carotid Artery: Normal. No stenosis, occlusion or dissection. Right Internal Carotid Artery: Normal. No stenosis, occlusion or dissection. Left Common Carotid Artery:Normal. No stenosis, occlusion or dissection. Left Internal Carotid Artery: Normal. No stenosis, occlusion or dissection. External Carotid Arteries: Normal. No stenosis, occlusion or dissection. Right Vertebral Artery: Normal. No stenosis, occlusion or dissection. Left Vertebral Artery: Normal. No stenosis, occlusion or dissection. CAROTID STENOSIS REFERENCE: -Distal internal carotid artery diameter as the denominator for stenosis measurement: MILD = <50% stenosis. MODERATE = 50-69% stenosis. SEVERE = 70-89% stenosis. HAIRLINE/CRITICAL = 90-99% stenosis. OCCLUDED = 100% stenosis. 1. No acute infarct, mass lesion or hemorrhage. 2. No hemodynamically significant stenosis within the arterial vasculature of the head or neck. 3. No evidence of major dural venous sinuses or cortical vein occlusion. 4. 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 MRI Angio Neck Result Date: 04/04/2023 MRI BRAIN WITHOUT CONTRAST, MRI ANGIO BRAIN (ARTERIAL & VENOUS PHASES) WITHOUT CONTRAST, MRI ANGIO NECK WITH CONTRAST TECHNIQUE: MRI BRAIN WITHOUT CONTRAST, MRI ANGIO BRAIN (ARTERIAL & VENOUSPHASES) WITHOUT CONTRAST, MRI ANGIO NECK WITH CONTRAST Multi-sequence, multi-planar MRI of the brain was performed without intravenous contrast. MRA of the head was performed utilizing [id number] technique (no gadolinium). Maximal intensity projection 3D angiographic reformatted images were performed. MRA of the neck was performed after the administration of intravenous contrast utilizing bolus triggering and subtraction techniques. Maximal intensity projection 3D angiographic reformatted images were performed. COMPARISON: None. FINDINGS: Brain Parenchyma: Normal. No evidence of acute infarct, mass lesion, or hemorrhage. Ventricular System and Extra-Axial Spaces: Normal. No evidence of midline shift or hydrocephalus. Extracranial Structures: Arterial flow voids in the skull base are present. MRA HEAD: Anterior Circulation: 2 mm focal outpouching of the anterior communicating artery.Normal flow within the intracranial internal carotid arteries, anterior cerebral arteries and the middle cerebral arteries. No severe stenosis, occlusion, or arteriovenous malformation. Posterior Circulation: Normal. Normal flow within the intracranial vertebral arteries, basilar artery and posterior cerebral arteries. No severe stenosis, occlusion, aneurysm or arteriovenous malformation. MRV HEAD: Dominant right transverse sinus. No evidence of stenosis or thrombosis within the major dural venous sinuses or cortical veins. MRA NECK: Aortic Arch and Origin of Major Cervical Vessels: Normal. There is a left-sided, three-vessel aortic arch. The brachiocephalic artery and bilateral subclavian a rteries are patent. Right Common Carotid Artery: Normal. No stenosis, occlusion or dissection. Right Internal Carotid Artery: Normal. No stenosis, occlusion or dissection. Left Common Carotid Artery:Normal. No stenosis, occlusion or dissection. Left Internal Carotid Artery: Normal. No stenosis, occlusion or dissection. External Carotid Arteries: Normal. No stenosis, occlusion or dissection. Right Vertebral Artery: Normal. No stenosis, occlusion or dissection. Left Vertebral Artery: Normal. No stenosis, occlusion or dissection. CAROTID STENOSIS REFERENCE: -Distal internal carotid artery diameter as the denominator for stenosis measurement: MILD = <50% stenosis. MODERATE = 50-69% stenosis. SEVERE = 70-89% stenosis. HAIRLINE/CRITICAL = 90-99% stenosis. OCCLUDED = 100% stenosis. 1. No acute infarct, mass lesion or hemorrhage. 2. No hemodynamically significant stenosis within the arterial vasculature of the head or neck. 3. No evidence of major dural venous sinuses or cortical vein occlusion. 4. 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 MRI Angio Brain Result Date: 04/04/2023 MRI BRAIN WITHOUT CONTRAST, MRI ANGIO BRAIN (ARTERIAL & VENOUS PHASES) WITHOUT CONTRAST, MRI ANGIO NECK WITH CONTRAST TECHNIQUE: MRI BRAIN WITHOUT CONTRAST, MRI ANGIO BRAIN (ARTERIAL & VENOUSPHASES) WITHOUT CONTRAST, MRI ANGIO NECK WITH CONTRAST Multi-sequence, multi-planar MRI of the brain was performed without intravenous contrast. MRA of the head was performed utilizing [id number] technique (no gadolinium). Maximal intensity projection 3D angiographic reformatted images were performed. MRA of the neck was performed after the administration of intravenous contrast utilizing bolus triggering and subtraction techniques. Maximal intensity projection 3D angiographic reformatted images were performed. COMPARISON: None. FINDINGS: Brain Parenchyma: Normal. No evidence of acute infarct, mass lesion, or hemorrhage. Ventricular System and Extra-Axial Spaces: Normal. No evidence of midline shift or hydrocephalus. Extracranial Structures: Arterial flow voids in the skull base are present. MRA HEAD: Anterior Circulation: 2 mm focal outpouching of the anterior communicating artery.Normal flow within the intracranial internal carotid arteries, anterior cerebral arteries and the middle cerebral arteries. No severe stenosis, occlusion, or arteriovenous malformation. Posterior Circulation: Normal. Normal flow within the intracranial vertebral arteries, basilar artery and posterior cerebral arteries. No severe stenosis, occlusion, aneurysm or arteriovenous malformation. MRV HEAD: Dominant right transverse sinus. No evidence of stenosis or thrombosis within the major dural venous sinuses or cortical veins. MRA NECK: Aortic Arch and Origin of Major Cervical Vessels: Normal. There is a left-sided, three-vessel aortic arch. The brachiocephalic artery and bilateral subclavian a rteries are patent. Right Common Carotid Artery: Normal. No stenosis, occlusion or dissection. Right Internal Carotid Artery: Normal. No stenosis, occlusion or dissection. Left Common Carotid Artery:Normal. No stenosis, occlusion or dissection. Left Internal Carotid Artery: Normal. No stenosis, occlusion or dissection. External Carotid Arteries: Normal. No stenosis, occlusion or dissection. Right Vertebral Artery: Normal. No stenosis, occlusion or dissection. Left Vertebral Artery: Normal. No stenosis, occlusion or dissection. CAROTID STENOSIS REFERENCE: -Distal internal carotid artery diameter as the denominator for stenosis measurement: MILD = <50% stenosis. MODERATE = 50-69% stenosis. SEVERE = 70-89% stenosis. HAIRLINE/CRITICAL = 90-99% stenosis. OCCLUDED = 100% stenosis. 1. No acute infarct, mass lesion or hemorrhage. 2. No hemodynamically significant stenosis within the arterial vasculature of the head or neck. 3. No evidence of major dural venous sinuses or cortical vein occlusion. 4. 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 ALL RESULTS: Results for orders placed or performed during the hospital encounter of 04/04/23 POCT Glucose Collection Time: 04/04/23 9:23 PM Result Value Ref Range Glucose, POCT 91 70 - 100 mg/dL CBC and differential Collection Time: 04/04/23 9:27 PM Specimen: Blood Result Value Ref Range WBC 9.87 4.0 - 11.0 K/uL RBC 4.43 3.9 - 5.03 M/uL HGB 12.9 12 - 15.5 g/dL HCT 40.1 34.9 - 44.5 % PLT 304 135 - 400 K/uL MCV 90.5 80 - 100 fL MCH 29.1 27 - 34 pg MCHC 32.2 31.5 - 36.5 g/dL RDW 13.2 11.9 - 14.8 % MPV 9.7 9.6 - 12 fl NRBC 0.00 0 /100 WBCs DIFF METHOD Auto NEUTS 59.3 % LYMPHS 32.6 % MONOS 6.3 % EOS 1.5 % BASOS 0.2 % Granulocytes, immature (%) 0.1 % ABSOLUTE NEUTS 5.85 1.8 - 8 K/uL ABSOLUTE LYMPHS 3.22 1.5 - 6.5 K/uL ABSOLUTE MONOS 0.62 0.1 - 0.9 K/uL ABSOLUTE EOS 0.15 0 - 0.4 K/uL ABSOLUTE BASOS 0.02 0 - 0.2 K/uL Granulocytes, immature 0.01 0 - 0.1 K/uL Basic metabolic panel Collection Time: 04/04/23 9:27 PM Specimen: Blood Result Value Ref Range SODIUM 139 136 - 145 mmol/L CHLORIDE 101 95 - 106 mmol/L POTASSIUM 4.0 3.5 - 5.2 mmol/L CO2 26 20 - 31 mmol/L BUN 11 9 - 23 mg/dL CREATININE 0.73 0.50 - 1.30 mg/dL GLUCOSE 100 74 - 106 mg/dL CALCIUM 9.8 8.7 - 10.4 mg/dL EGFR >120 >60 mL/min/1.73m2 ANION GAP 12 3 - 17 mmol/L LFTs (hepatic panel) Collection Time: 04/04/23 9:27 PM Specimen: Blood Result Value Ref Range ALBUMIN 4.5 3.5 - 4.8 g/dL TOTAL BILIRUBIN <0.2 0.0 - 1.0 mg/dL DIRECT BILIRUBIN <0.2 0 - 0.4 mg/dL ALKALINE PHOSPHATASE 92 27 - 129 U/L AST 23 6 - 40 U/L ALT 20 10 - 49 U/L TOTAL PROTEIN 7.0 5.7 - 8.2 g/dL GLOBULIN 2.5 1.9 - 4.1 g/dL HCG (Quantitative, Blood) Collection Time: 04/04/23 9:27 PM Specimen: Blood Result Value Ref Range HCG (Quantitative) <1 IU/L PT-INR Collection Time: 04/04/23 9:27 PM Specimen: Blood Result Value Ref Range PT 11.2 9.4 - 12.5 sec INR 1.0 0.9 - 1.1 PTT Collection Time: 04/04/23 9:27 PM Result Value Ref Range APTT 33.3 25.1 - 36.5 sec ECG 12-LEAD Collection Time: 04/04/23 9:40 PM Result Value Ref Range Ventricular Rate EKG/MIN 86 BPM Atrial Rate 86 BPM WV Interval 130 ms QRS Duration 80 ms QT Interval 372 ms QTC Interval 445 ms P [place] 44 degrees R Wave [place] -4 degrees T Wave [place] 21 degrees MEDICATION CHANGES: New Medication at Discharge: Amitryptiline 25 mg nightly Amitrex 15 mg 9 pills/month PRN ITEMS FOR POST-HOSPITALIZATION FOLLOW-UP: Dispo: Raine Taylor was discharged home with Neurology follow up scheduled for 4-6 weeks. Their PCP was called by Santos Nolan MD prior to discharge. Medications Allergies: Milk containing products (dairy) Prior to Admission Medications Prescriptions EPINEPHrine 0.3 mg/0.3 mL auto-injector Sig: Inject 0.3 mL (0.3 mg total) into the muscle as needed for anaphylaxis. Patient not taking: Reported on 04/05/2023 LORazepam (ATIVAN) 0.5 MG tablet Sig: Take 1 tablet (0.5 mg total) by mouth 2 (two) times a day. adapalene (DIFFERIN) 0.3 % gel Sig: Apply a pea sized amount to face. Start every third night and increase to nightly as tolerated Patient not taking: Reported on 04/05/2023 albuterol 90 mcg/actuation inhaler Sig: Inhale 1 puff into the lungs every 6 (six) hours as needed for wheezing. Patient not taking: Reported on 04/05/2023 clindamycin (CLEOCIN T) 1 % lotion Sig: Apply TWICE DAILY to face after washing with benzoyl peroxide wash Patient not taking: Reported on 04/05/2023 doxycycline monohydrate (MONODOX) 100 MG capsule Sig: Take one pill by mouth twice daily with full beverage and food. Avoid laying down for 30 minutes after taking. Avoid taking with dairy. Use sun protection. escitalopram oxalate (LEXAPRO) 20 MG tablet Sig: Take 1 tablet (20 mg total) by mouth daily. methylPREDNISolone (MEDROL DOSEPACK) 4 mg tablet Sig: follow package directions Patient not taking: Reported on 04/05/2023 norgestimate-ethinyl estradioL (ORTHO-CYCLEN) 0.25-0.035 mg per tablet Sig: Take 1 tablet by mouth daily. Facility-Administered Medications: None Medication List STOP taking these medications adapalene 0.3 % gel Commonly known as: DIFFERIN albuterol 90 mcg/actuation inhaler clindamycin 1 % lotion Commonly known as: CLEOCIN T EPINEPHrine 0.3 mg/0.3 mL auto-injector LORazepam 0.5 MG tablet Commonly known as: ATIVAN methylPREDNISolone 4 mg tablet Commonly known as: MEDROL DOSEPACK TAKE these medications Instructions amitriptyline 25 MG tablet Commonly known as: ELAVIL Take 1 tablet (25 mg total) by mouth nightly at bedtime. doxycycline monohydrate 100 MG capsule Commonly known as: MONODOX Last time this was given: April 05, 2023 9:38 AM Take one pill by mouth twice daily with full beverage and food. Avoid laying down for 30 minutes after taking. Avoid taking with dairy. Use sun protection. escitalopram oxalate 20 MG tablet Commonly known as: LEXAPRO Last time this was given: April 05, 2023 9:39 AM Take 1 tablet (20 mg total) by mouth daily. norgestimate-ethinyl estradioL 0.25-0.035 mg per tablet Commonly known as: ORTHO-CYCLEN Take 1 tablet by mouth daily. SUMAtriptan 50 MG tablet Commonly known as: IMITREX Take 1 tablet (50 mg total) by mouth once as needed for migraine. Can repeat dose in 2 hours if needed. Do not exceed 2 doses in a 24 hour period. Max dose 200mg/ day Where to Get Your Medications These medications were sent to [facility]/pharmacy #[id number] - [place] - [address], [place] [address] ?? amitriptyline 25 MG tablet ?? SUMAtriptan 50 MG tablet Hospital Care Team Service: Pediatrics Inpatient Attending: Janelle Spencer MD Attending [facility] phone: Discharge Unit: [address] Primary Care Physician: Yamileth Wagner CNP [phone] Transitional Plan Scheduled appointments: Scheduled Appointments (maximum listed = 10) Provider Department Dept Phone Center Visit Type 04/25/2023 1:00 PM Yamileth Wagner CNP [facility] [phone] [facility] Signed Discharge Orders (From admission, onward) Ordered 04/05/23 1403 Activity as tolerated Comments: Developmentally Appropriate 04/05/23 1403 Discharge Pediatric Diet Question: Diet Type: Answer: Regular 04/05/23 1403 For immediate questions regarding your hospitalization, your medications, and any pending test results please contact your PCP: Yamileth Wagner CNP at [phone]. Comments: For immediate questions regarding your hospitalization, your medications, and any pendingtest results please contact your PCP: Yamileth Wagner CNP at [phone]. Discharge instructions and important events and results DIAGNOSIS & TREATMENT: Raine was seen at [facility] for management of her complex migraine. She was given acombination of pain medications and fluids to help manage her symptoms, and also underwent brain imaging to rule out more serious causes of her headache. The results were reassuring, and her vital signs and labs were normal. She was seen by our neurology team, who agreed that she is in stable condition for discharge. Please call Dr. Sumner's office for neurology follow up in 4-6 weeks. NEW MEDICATIONS: Amytriptyline 25 mg nightly Sumatriptan 50 mg as needed, at onset of migraine WHEN SHOULD YOU SEEK MEDICAL ATTENTION? If Raine is.. - Consistently waking up due to headache - Having nonstop nausea or vomiting - Showing change in mental status - Having neck stiffness - Any new or concerning symptoms Exam Temperature: 36.9 ??C (04/05/23744) Heart Rate: (!) 50 (04/05/23744) BP: 104/61 (04/05/23744) Respiratory Rate: 20 (04/05/23744) SpO2: 99 % (04/05/23744) O2 Device: None (Room air) (04/05/23744) Weight: 63.5 kg (139 lb 15.9 oz) (04/05/23309) Height: 165.1 cm (5' 5) (04/05/23309) BMI (Calculated): 23.3 (04/05/23309) Discharge Exam Significant Discharge Exam Findings: General: NAD, sitting up HEENT: NCAT, PERRLA, EOM intact Neck: No noticeable or palpable swelling, redness, rash Cardiovascular: RRR, no murmurs Lungs: CTAB, no use of accessory muscles Abdomen: Soft, NT/ND, NBS Skin: WWP, no rashes Extremities: No edema, normal ROM, 5/5 strength, no swollen or erythematous joints Neuro: Alert and oriented x3, CN 2-12 grossly intact, sensation/motor/coordination/reflexes grosslyintact, normal gait Speech: (intermittent word finding difficulty) Disability Identity and Disability Accommodations Comments Disability Identity None Data/Results Results are shown for the following tests if performed (CBC, Chem 7, Mg, Coag). If the patient did not have any of these tests, no results will be shown here. Lab Results Component Value Date/Time WBC 9.87 04/04/20232126 RBC 4.43 04/04/20232126 HGB 12.9 04/04/20232126 HCT 40.1 04/04/20232126 MCH 29.1 04/04/20232126 MCV 90.5 04/04/20232126 PLT 304 04/04/20232126 RDW 13.2 04/04/20232126 Lab Results Component Value Date/Time NA 139 04/04/20232126 K 4.0 04/04/20232126 CL 101 04/04/20232126 CO2 26 04/04/20232126 BUN 11 04/04/20232126 CRE 0.73 04/04/20232126 CA 9.8 04/04/20232126 GLU 100 04/04/20232126 GLUPOC 91 04/04/20232122 Lab Results Component Value Date/Time PT 11.2 04/04/20232126 PTINR 1.0 04/04/20232126 PTT 33.3 04/04/20232126 Associated attestation - Jasmin Weaver MD - 04/05/2023 2:49 PM EDT PEDIATRIC HOSPITALIST ATTESTATION NOTE I have seen and evaluated the patient in conjunction with the medical team. I have examined the patient, and discussed this patient's care with the care team and the family at bedside. I have reviewed and agree with the note written by Dr. Leroy with any additions or modifications noted as below. Briefly, this is a 18 yo F with PMHx depression (on Lexapro) who presented for first episode of complex migraine with symptoms of LOYD, difficulty talking, and sensory changes. ED workup negative for stroke. Her labs and EKG were reassuring. Of note, her MRI/MRA/MRV did show a 2 mm vessel redundancy vs aneurysm at the anterior communicating artery (and was otherwise normal). On history, she also endorsed having had daily headaches since starting Lexapro - but also reported she was responding wellto the Lexapro for her depression symptoms. She denied suicidality. She responded well to a migraine cocktail, please see above for details. Seen by pediatric neurologist Dr Sumner in the hospital, who recommended starting amitryptiline and prescribing amitrex as an abortive. He also discussed the 2 mm vessel vs aneurysm finding on MRI with the family, and will follow up outpatient. She is now back at baseline, with a fully normal neuro exam (that I personally repeated today), drinking and eating well, with no further headache. Plan reviewed with parents at bedside, who express understanding and agree with plan. All questionsanswered. Jasmin Weaver MD Pediatric Hospitalist documented in this encounter Discharge Instructions * Discharge Instructions* Aidee Leroy MD - 04/05/2023 1:55 PM EDT DIAGNOSIS & TREATMENT: Raine was seen at [facility] for management of her complex migraine. She was given acombination of pain medications and fluids to help manage her symptoms, and also underwent brain imaging to rule out more serious causes of her headache. The results were reassuring, and her vital signs and labs were normal. She was seen by our neurology team, who agreed that she is in stable condition for discharge. Please call Dr. Sumner's office for neurology follow up in 4-6 weeks. NEW MEDICATIONS: Amytriptyline 25 mg nightly Sumatriptan 50 mg as needed, at onset of migraine WHEN SHOULD YOU SEEK MEDICAL ATTENTION? If aRine is.. - Consistently waking up due to headache - Having nonstop nausea or vomiting - Showing change in mental status - Having neck stiffness - Any new or concerning symptoms documented in this encounter Medications at Time of Discharge Medication Sig Dispensed Refills Start Date End Date SUMAtriptan (IMITREX) 50 MG tablet Take 1 tablet (50 mg total) by mouth once as needed for migraine. Can repeat dose in 2 hours if needed. Do not exceed 2 doses in a 24 hour period. Max dose 200mg/ day 9 tablet 04/05/2023 doxycycline monohydrate (MONODOX) 100 MG capsule Take one pill by mouth twice daily with full beverage and food. Avoid laying down for 30 minutes after taking. Avoid taking with dairy. Use sun protection. 180 capsule 3 01/22/2023 01/30/2024 escitalopram oxalate (LEXAPRO) 20 MG tablet Take 1 tablet (20 mg total) by mouth daily. 90 tablet 3 03/01/2023 12/03/2023 norgestimate-ethinyl estradioL (ORTHO-CYCLEN) 0.25-0.035 mg per tablet Take 1 tablet by mouth daily. 90 tablet 3 01/17/2023 04/25/2023 amitriptyline (ELAVIL) 25 MG tablet Take 1 tablet (25 mg total) by mouth nightly at bedtime. 30 tablet 04/05/2023 05/31/2023 documented as of this encounter Progress Notes Only the most recent of 3 notes is shown. * Alexandra Mohr RN - 04/05/2023 2:21 PM EDT Discharge Note Discharge Time: 1445 Discharge To: home Discharge With: mother Discharge Inst: reviewed with pt/mother concerning home care and follow up care. See disch sheets for specific instructions given Patient/Family Verbalize and Agree with Discharge Plan of Care Alexandra Mohr RN documented in this encounter H&P Notes * Janelle Spencer MD - 04/04/2023 11:49 PM EDT [facility] Pediatrics Admission Name: Raine Taylor : 2005 DOA: 04/04/2023 9:07 PM Admitting Physician: Janelle Spencer MD Admitting Team: [facility] Pediatric Hospitalist PCP: Yamileth Wagner CNP Reason for admission: Complicated migraine Source of history: Patient, Mother, Father and ED physician Dr. Pena HPI: Raine is a 18 year old woman with medical hx significant for anxiety, depression, and headaches who presented to the ED with L sided numbness and difficulty speaking. Was in her usual state of health until this evening, when she was at [employer] with her family at around 8pm. She began to feel a 'strange sensation' and sensed some flashing lights, as well as the onset of a headache. Raine then developed numbness of her L side, starting in her feet and legs, moving up to her arm and eventuallyher face. Could still walk and move normally, but felt strange when doing so. Went home and developed difficulty speaking, where she describes knowing what she wanted to say but was having trouble get ting the words out. At this point her parents called 911 and EMS arrived to transport her to the hospital. Raine and her family both note that Raine had very little food intake today, only drinking 2Starbucks beverages. She has also not been sleeping well in general. Did have a fall on a dock 4 days ago, hitting her legs/feet against the dock, but did not hit her head at that time. No fever or other signs of illness. Since coming to the ED Raine's numbness and difficulty speaking have completely resolved. She continues to have a throbbing headache, at one point 9/10, now 6/10 after IV fluids and Tylenol. She describes having almost daily headaches since restarting her Lexapro in the last 1-2 months. She generally manages them by taking Tylenol or Motrin. She is otherwise very happy with the Lexapro, however, feeling much more herself when she is on it, particularly when compared to other SSRIs she has trialed in the past (Prozac, Zoloft) ED Course: Glucose done on arrival and normal. EKG reportedly normal. Initally hypertensive (165/100) on arrival, given Ativan, normalized to 110/65 shortly thereafter. MRI/MRA/MRV of the head/neck performed which was negative for stroke, mass or bleed. Small (2mm) anterior artery outpouching noted, on discussion with Dr. Sumner of neurology this is felt to be likely related to her headache. Past Medical history: Anxiety/Depression- No SI/HI/SIB, has trialed multiple SSRIs in the past, happy now with Lexapro with the exception of headaches. Acne-takes doxycycline, OCPs Headaches- see above for details, previously were linked more to her menstrual cycle but since beginning Lexapro have been daily. Family History: Paternal grandmother with complex migraines Social History: Lives at home with parents. Was attending college at [employer], is now taking some time off in order tofocus on her health. Previously enjoyed exercise and was very active, has been less so in recent months. Not sleeping well. No alcohol or drug use. Outpatient Medications Marked as Taking for the 04/04/23 encounter (Hospital Encounter) Medication Sig Dispense Refill Last Dispense ??? doxycycline monohydrate (MONODOX) 100 MG capsule Take one pill by mouth twice daily with full beverage and food. Avoid laying down for 30 minutes after taking. Avoid taking with dairy. Use sun protection. 180 capsule 3 Unknown (outside pharmacy) ??? escitalopram oxalate (LEXAPRO) 20 MG tablet Take 1 tablet (20 mg total) by mouth daily. 90 tablet 3 Unknown (outside pharmacy) ??? norgestimate-ethinyl estradioL (ORTHO-CYCLEN) 0.25-0.035 mg per tablet Take 1 tablet by mouth daily. 90 tablet 3 Unknown (outside pharmacy) Allergies Allergen Reactions ??? Milk Containing Products (Dairy) Exam: BP 110/65 Pulse 80 Temp 37.1 ??C (Oral) Resp 18 SpO2 99% Gen: NAD, alert, oriented, cooperative and pleasant HEENT: mmm. ARRON. EOMI. O/p clear. CV: Normal S1/S2. No m/r/g. Lungs: CTA bilaterally Abd: soft, NT/ND. Ext: WWP. Large bruise on L leg noted. Neuro: 5/5 strength throughout. DTRs intact. JO ANN intact. Relevant Studies/Pertinent Findings: Labs: Admission on 04/04/2023 Component Date Value Ref Range Status ??? WBC 04/04/2023 9.87 4.0 - 11.0 K/uL Final ??? RBC 04/04/2023 4.43 3.9 - 5.03 M/uL Final ??? HGB 04/04/2023 12.9 12 - 15.5 g/dL Final ??? HCT 04/04/2023 40.1 34.9 - 44.5 % Final ??? PLT 04/04/2023 304 135 - 400 K/uL Final ??? MCV 04/04/2023 90.5 80 - 100 fL Final ??? MCH 04/04/2023 29.1 27 - 34 pg Final ??? MCHC 04/04/2023 32.2 31.5 - 36.5 g/dL Final ??? RDW 04/04/2023 13.2 11.9 - 14.8 % Final ??? MPV 04/04/2023 9.7 9.6 - 12 fl Final ??? NRBC 04/04/2023 0.00 0 /100 WBCs Final ??? DIFF METHOD 04/04/2023 Auto Final ??? NEUTS 04/04/2023 59.3 % Final ??? LYMPHS 04/04/2023 32.6 % Final ??? MONOS 04/04/2023 6.3 % Final ??? EOS 04/04/2023 1.5 % Final ??? BASOS 04/04/2023 0.2 % Final ??? Granulocytes, immature (%) 04/04/2023 0.1 % Final ??? ABSOLUTE NEUTS 04/04/2023 5.85 1.8 - 8 K/uL Final ??? ABSOLUTE LYMPHS 04/04/2023 3.22 1.5 - 6.5 K/uL Final ??? ABSOLUTE MONOS 04/04/2023 0.62 0.1 - 0.9 K/uL Final ??? ABSOLUTE EOS 04/04/2023 0.15 0 - 0.4 K/uL Final ??? ABSOLUTE BASOS 04/04/2023 0.02 0 - 0.2 K/uL Final ??? Granulocytes, immature 04/04/2023 0.01 0 - 0.1 K/uL Final ??? SODIUM 04/04/2023 139 136 - 145 mmol/L Final ??? CHLORIDE 04/04/2023 101 95 - 106 mmol/L Final ??? POTASSIUM 04/04/2023 4.0 3.5 - 5.2 mmol/L Final ??? CO2 04/04/2023 26 20 - 31 mmol/L Final ??? BUN 04/04/2023 11 9 - 23 mg/dL Final ??? CREATININE 04/04/2023 0.73 0.50 - 1.30 mg/dL Final ??? GLUCOSE 04/04/2023 100 74 - 106 mg/dL Final ??? CALCIUM 04/04/2023 9.8 8.7 - 10.4 mg/dL Final ? ? EGFR 04/04/2023 >120 >60 mL/min/1.73m2 Final Estimated glomerular filtration rate calculated using the CKD-EPI refit equation. ??? ANION GAP 04/04/2023 12 3 - 17 mmol/L Final ??? ALBUMIN 04/04/2023 4.5 3.5 - 4.8 g/dL Final ? ? TOTAL BILIRUBIN 04/04/2023 <0.2 0.0 - 1.0 mg/dL Final ? ? DIRECT BILIRUBIN 04/04/2023 <0.2 0 - 0.4 mg/dL Final ??? ALKALINE PHOSPHATASE 04/04/2023 92 27 - 129 U/L Final ??? AST 04/04/2023 23 6 - 40 U/L Final ??? ALT 04/04/2023 20 10 - 49 U/L Final ??? TOTAL PROTEIN 04/04/2023 7.0 5.7 - 8.2 g/dL Final ??? GLOBULIN 04/04/2023 2.5 1.9 - 4.1 g/dL Final ? ? HCG (Quantitative) 04/04/2023 <1 IU/L Final Comment: Expected Ranges: Negative Less than 5 IU/L 0-1 Week 5-50 IU/L 1-2 Weeks 50-500 IU/L 2-3 Weeks 100-5,000 IU/L 3-4 Weeks 500-10,000 IU/L 4-5 Weeks 1,000-50,000 IU/L 5-6 Weeks 10,000-100,000 IU/L 6-8 Weeks 15,000-200,000 IU/L 2-3 Months 10,000-100,000 IU/L Other conditions, in addition to , may rarely produce consistently elevated HCG results, these may include interfering substances. Clinical correlation is suggested. Ectopic pregnancies may have HCG levels persistently <25. Method: Lizzeth Vicki [id number] Total HCG assay ??? PT 04/04/2023 11.2 9.4 - 12.5 sec Final ??? INR 04/04/2023 1.0 0.9 - 1.1 Final Therapeutic Range 2.0-3.5 ??? Glucose, POCT 04/04/2023 91 70 - 100 mg/dL Final ??? APTT 04/04/2023 33.3 25.1 - 36.5 sec Final Radiology: MRI Brain Result Date: 04/04/2023 MRI BRAIN WITHOUT CONTRAST, MRI ANGIO BRAIN (ARTERIAL & VENOUS PHASES) WITHOUT CONTRAST, MRI ANGIO NECK WITH CONTRAST TECHNIQUE: MRI BRAIN WITHOUT CONTRAST, MRI ANGIO BRAIN (ARTERIAL & VENOUSPHASES) WITHOUT CONTRAST, MRI ANGIO NECK WITH CONTRAST Multi-sequence, multi-planar MRI of the brain was performed without intravenous contrast. MRA of the head was performed utilizing [id number] technique (no gadolinium). Maximal intensity projection 3D angiographic reformatted images were performed. MRA of the neck was performed after the administration of intravenous contrast utilizing bolus triggering and subtraction techniques. Maximal intensity projection 3D angiographic reformatted images were performed. COMPARISON: None. FINDINGS: Brain Parenchyma: Normal. No evidence of acute infarct, mass lesion, or hemorrhage. Ventricular System and Extra-Axial Spaces: Normal. No evidence of midline shift or hydrocephalus. Extracranial Structures: Arterial flow voids in the skull base are present. MRA HEAD: Anterior Circulation: 2 mm focal outpouching of the anterior communicating artery.Normal flow within the intracranial internal carotid arteries, anterior cerebral arteries and the middle cerebral arteries. No severe stenosis, occlusion, or arteriovenous malformation. Posterior Circulation: Normal. Normal flow within the intracranial vertebral arteries, basilar artery and posterior cerebral arteries. No severe stenosis, occlusion, aneurysm or arteriovenous malformation. MRV HEAD: Dominant right transverse sinus. No evidence of stenosis or thrombosis within the major dural venous sinuses or cortical veins. MRA NECK: Aortic Arch and Origin of Major Cervical Vessels: Normal. There is a left-sided, three-vessel aortic arch. The brachiocephalic artery and bilateral subclavian a rteries are patent. Right Common Carotid Artery: Normal. No stenosis, occlusion or dissection. Right Internal Carotid Artery: Normal. No stenosis, occlusion or dissection. Left Common Carotid Artery:Normal. No stenosis, occlusion or dissection. Left Internal Carotid Artery: Normal. No stenosis, occlusion or dissection. External Carotid Arteries: Normal. No stenosis, occlusion or dissection. Right Vertebral Artery: Normal. No stenosis, occlusion or dissection. Left Vertebral Artery: Normal. No stenosis, occlusion or dissection. CAROTID STENOSIS REFERENCE: -Distal internal carotid artery diameter as the denominator for stenosis measurement: MILD = <50% stenosis. MODERATE = 50-69% stenosis. SEVERE = 70-89% stenosis. HAIRLINE/CRITICAL = 90-99% stenosis. OCCLUDED = 100% stenosis. 1. No acute infarct, mass lesion or hemorrhage. 2. No hemodynamically significant stenosis within the arterial vasculature of the head or neck. 3. No evidence of major dural venous sinuses or cortical vein occlusion. 4. 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 MRI Angio Neck Result Date: 04/04/2023 MRI BRAIN WITHOUT CONTRAST, MRI ANGIO BRAIN (ARTERIAL & VENOUS PHASES) WITHOUT CONTRAST, MRI ANGIO NECK WITH CONTRAST TECHNIQUE: MRI BRAIN WITHOUT CONTRAST, MRI ANGIO BRAIN (ARTERIAL & VENOUSPHASES) WITHOUT CONTRAST, MRI ANGIO NECK WITH CONTRAST Multi-sequence, multi-planar MRI of the brain was performed without intravenous contrast. MRA of the head was performed utilizing [id number]-[id number] technique (no gadolinium). Maximal intensity projection 3D angiographic reformatted images were performed. MRA of the neck was performed after the administration of intravenous contrast utilizing bolus triggering and subtraction techniques. Maximal intensity projection 3D angiographic reformatted images were performed. COMPARISON: None. FINDINGS: Brain Parenchyma: Normal. No evidence of acute infarct, mass lesion, or hemorrhage. Ventricular System and Extra-Axial Spaces: Normal. No evidence of midline shift or hydrocephalus. Extracranial Structures: Arterial flow voids in the skull base are present. MRA HEAD: Anterior Circulation: 2 mm focal outpouching of the anterior communicating artery.Normal flow within the intracranial internal carotid arteries, anterior cerebral arteries and the middle cerebral arteries. No severe stenosis, occlusion, or arteriovenous malformation. Posterior Circulation: Normal. Normal flow within the intracranial vertebral arteries, basilar artery and posterior cerebral arteries. No severe stenosis, occlusion, aneurysm or arteriovenous malformation. MRV HEAD: Dominant right transverse sinus. No evidence of stenosis or thrombosis within the major dural venous sinuses or cortical veins. MRA NECK: Aortic Arch and Origin of Major Cervical Vessels: Normal. There is a left-sided, three-vessel aortic arch. The brachiocephalic artery and bilateral subclavian a rteries are patent. Right Common Carotid Artery: Normal. No stenosis, occlusion or dissection. Right Internal Carotid Artery: Normal. No stenosis, occlusion or dissection. Left Common Carotid Artery:Normal. No stenosis, occlusion or dissection. Left Internal Carotid Artery: Normal. No stenosis, occlusion or dissection. External Carotid Arteries: Normal. No stenosis, occlusion or dissection. Right Vertebral Artery: Normal. No stenosis, occlusion or dissection. Left Vertebral Artery: Normal. No stenosis, occlusion or dissection. CAROTID STENOSIS REFERENCE: -Distal internal carotid artery diameter as the denominator for stenosis measurement: MILD = <50% stenosis. MODERATE = 50-69% stenosis. SEVERE = 70-89% stenosis. HAIRLINE/CRITICAL = 90-99% stenosis. OCCLUDED = 100% stenosis. 1. No acute infarct, mass lesion or hemorrhage. 2. No hemodynamically significant stenosis within the arterial vasculature of the head or neck. 3. No evidence of major dural venous sinuses or cortical vein occlusion. 4. 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 MRI Angio Brain Result Date: 04/04/2023 MRI BRAIN WITHOUT CONTRAST, MRI ANGIO BRAIN (ARTERIAL & VENOUS PHASES) WITHOUT CONTRAST, MRI ANGIO NECK WITH CONTRAST TECHNIQUE: MRI BRAIN WITHOUT CONTRAST, MRI ANGIO BRAIN (ARTERIAL & VENOUSPHASES) WITHOUT CONTRAST, MRI ANGIO NECK WITH CONTRAST Multi-sequence, multi-planar MRI of the brain was performed without intravenous contrast. MRA of the head was performed utilizing [id number]-[id number] technique (no gadolinium). Maximal intensity projection 3D angiographic reformatted images were performed. MRA of the neck was performed after the administration of intravenous contrast utilizing bolus triggering and subtraction techniques. Maximal intensity projection 3D angiographic reformatted images were performed. COMPARISON: None. FINDINGS: Brain Parenchyma: Normal. No evidence of acute infarct, mass lesion, or hemorrhage. Ventricular System and Extra-Axial Spaces: Normal. No evidence of midline shift or hydrocephalus. Extracranial Structures: Arterial flow voids in the skull base are present. MRA HEAD: Anterior Circulation: 2 mm focal outpouching of the anterior communicating artery.Normal flow within the intracranial internal carotid arteries, anterior cerebral arteries and the middle cerebral arteries. No severe stenosis, occlusion, or arteriovenous malformation. Posterior Circulation: Normal. Normal flow within the intracranial vertebral arteries, basilar artery and posterior cerebral arteries. No severe stenosis, occlusion, aneurysm or arteriovenous malformation. MRV HEAD: Dominant right transverse sinus. No evidence of stenosis or thrombosis within the major dural venous sinuses or cortical veins. MRA NECK: Aortic Arch and Origin of Major Cervical Vessels: Normal. There is a left-sided, three-vessel aortic arch. The brachiocephalic artery and bilateral subclavian a rteries are patent. Right Common Carotid Artery: Normal. No stenosis, occlusion or dissection. Right Internal Carotid Artery: Normal. No stenosis, occlusion or dissection. Left Common Carotid Artery:Normal. No stenosis, occlusion or dissection. Left Internal Carotid Artery: Normal. No stenosis, occlusion or dissection. External Carotid Arteries: Normal. No stenosis, occlusion or dissection. Right Vertebral Artery: Normal. No stenosis, occlusion or dissection. Left Vertebral Artery: Normal. No stenosis, occlusion or dissection. CAROTID STENOSIS REFERENCE: -Distal internal carotid artery diameter as the denominator for stenosis measurement: MILD = <50% stenosis. MODERATE = 50-69% stenosis. SEVERE = 70-89% stenosis. HAIRLINE/CRITICAL = 90-99% stenosis. OCCLUDED = 100% stenosis. 1. No acute infarct, mass lesion or hemorrhage. 2. No hemodynamically significant stenosis within the arterial vasculature of the head or neck. 3. No evidence of major dural venous sinuses or cortical vein occlusion. 4. 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 Assessment/Plan: 18 year old woman with acute onset of unilateral numbness and difficulty speaking with headache, inthe setting of poor sleep and diet intake. Symptoms initially concerning for stroke, but negative imaging is reassuring against that. Next on differential would be a complex migraine, which fits withfamily history as well. Imaging normal except for 2mm outpouching of artery, awaiting final read for full characterization. Per ED discussion with Dr. Sumner of neurology, likely to be associated with her headache. Plan to admit for monitoring and treatment of migraine. Will start with combination of Reglan/Benadrly/Toradol and evaluate effectiveness. [facility], Raine would benefit from a preventative medication which will make continuing to take Lexapro more feasible. Would hold on OCPs for now in the setting of a complex migraine. Appreciate neurology input, will discuss further pending clinical progression in AM. I have discussed the diagnosis, plan, and expected hospital course with Raine and her parents at bedside. They express understanding and agreement. Janelle Spencer MD Pediatric Hospitalist Pager [phone] I have spent a total of 80 minutes providing care to this patient. This includes a discussion with previous providers, review of records, pertinent lab data and imaging studies, as well as discussingdiagnostic evaluation and work up, planned therapeutic interventions and future disposition of care. Where indicated, the assessment and plan reflect discussion of patient with consultants, other [facility], family members, and additional research needed to obtain further information in formulating the plan of care of this patient. documented in this encounter Consult Notes Only the most recent of 2 notes is shown. * Marisa Pickard LCSW - 04/05/2023 3:25 PM EDTAssociated Order(s): IP CONSULT TO SOCIAL WORK SOCIAL WORK INITIAL CONSULT NOTE Raine Taylor is a 18 y.o. jordanian speaking female who was admitted on 04/04/2023 with chief complaint of Complicated migraine. Patient was referred to social work for per RN request. Critical Details Type of Advance Care Directive(s): None Health Care Proxy Information: Patient declines Raine Taylor is a 18 y.o. yo female presents with focal neurological deficits and severe headache. ?? Impressions Pt polite and receptive to SW. Pt open with this mortgage or loan underwriter regarding mental health challenges and pasthx with trauma. Pt reports she is safe now. Pt interested in a therapist to address her past traumaand work on herself. pt was able to identify safe people and coping mechanisms with this mortgage or loan underwriter and agreed to lean on these healthy coping mechanisms when experiencing mental health symptoms. Pt denies any active or passive SI, HI, AVH, paranoia, delusions, panic attacks or any manic or hypomanic symptoms. Recommendations SW recommends that pt continue to follow medical course. SW recommends that pt makes calls to get on therapists wait list in her area. SW recommends that pt follow up with PCP 1-2 weeks after discharge. Interventions SW provided pt with comprehensive list of therapists covered by her insurance in her area ([place]). SW participated in active listening and provided emotional support. SW also normalized and validated pt's feelings. SW highlights pt's strengths. Follow-Up Plan No further SW needs. RENNY Hogue, JENNIFER This assessment and subsequent recommendations are based on information documented within the Social Work Assessment and review of the medical record. documented in this encounter ED Notes * Lois Pena MD - 04/04/2023 9:21 PM EDT HPI: 18 y.o. female with a history of migraines, anxiety, presents with sudden onset numbness to the left side of the body with difficulty with speech. She was with her family today. She was hungry this evening so dad took her to [employer]. She went to buy macaroni and cheese. While waiting in line there she started to develop a headache. She felt numbness and tingling climb up her left leg all the way up to her face. Then she had difficulty speaking. Her headache worsened when she got home. Her parents called 911. Earlier today she did hit her head but had no loss of consciousness. Did not eat or drink much today. She also had 2 [employer] beverages. She is on OCPs. She denies drug or alcohol use. Pt's immunizations are UTD. Immunization History Administered Date(s) Administered ??? COVID-19 Pfizer Vaccine, mRNA, PF 11/29/2020, 12/27/2020, 08/17/2021 ??? MMR 01/23/2019, 09/22/2019 ??? Meningococcal MCV4P 11/02/2020 ??? Tdap 05/21/2019 ??? Varicella 02/11/2021, 06/28/2021 ROS: Review of Systems Pertinent positives and negatives were detailed in the HPI. All other systems reviewed and are negative. Past Medical History: Past Medical History: Diagnosis Date ??? Anxiety Past Surgical History: No past surgical history on file. Family History Family History Problem Relation Age of Onset ??? Hypertension Father ??? No Known Problems Mother Medications: Current Facility-Administered Medications Medication Dose Route Frequency Provider Last Rate Last Admin ??? sodium chloride 0.9% bolus 1,000 mL 1,000 mL Intravenous Once Lois Pena MD Current Outpatient Medications Medication Sig Dispense Refill Last Dispense ??? adapalene (DIFFERIN) 0.3 % gel Apply a pea sized amount to face. Start every third night and increase to nightly as tolerated 60 g 11 Unknown (outside pharmacy) ??? albuterol 90 mcg/actuation inhaler Inhale 1 puff into the lungs every 6 (six) hours as needed for wheezing. 18 g 3 Unknown (outside pharmacy) ??? clindamycin (CLEOCIN T) 1 % lotion Apply TWICE DAILY to face after washing with benzoyl peroxide wash 60 mL 3 Unknown (outside pharmacy) ??? doxycycline monohydrate (MONODOX) 100 MG capsule Take one pill by mouth twice daily with full beverage and food. Avoid laying down for 30 minutes after taking. Avoid taking with dairy. Use sun protection. 180 capsule 3 Unknown (outside pharmacy) ??? EPINEPHrine 0.3 mg/0.3 mL auto-injector Inject 0.3 mL (0.3 mg total) into the muscle as needed for anaphylaxis. 2 each 2 Unknown (outside pharmacy) ??? escitalopram oxalate (LEXAPRO) 20 MG tablet Take 1 tablet (20 mg total) by mouth daily. 90 tablet 3 Unknown (outside pharmacy) ??? LORazepam (ATIVAN) 0.5 MG tablet Take 1 tablet (0.5 mg total) by mouth 2 (two) times a day. 60 tablet 0 Unknown (outside pharmacy) ??? methylPREDNISolone (MEDROL DOSEPACK) 4 mg tablet follow package directions 21 tablet 0 Unknown (outside pharmacy) ??? norgestimate-ethinyl estradioL (ORTHO-CYCLEN) 0.25-0.035 mg per tablet Take 1 tablet by mouth daily. 90 tablet 3 Unknown (outside pharmacy) Social History: The patient lives at home with family Allergies: Allergies Allergen Reactions ??? Milk Containing Products (Dairy) Physical Exam: BP (!) 165/100 Pulse 88 Resp 18 SpO2 99% GENERAL: Appears anxious. Difficulty with word finding. SKIN: Warm & Dry, no rashes HEAD: Normocephalic, atraumatic. EYES: PERRL without injection, atraumatic, no drainage, cries tears ENT: Moist Mucous membranes without intraoral lesions. normal TMs LUNGS: Clear to auscultation bilaterally without rales, rhonchi or wheezing, no accessory muscle use HEART: RRR. No murmurs, rubs, or gallops. ABDOMEN: Soft, Nontender to palpation. No peritoneal signs. MUSCULOSKELETAL: Normal in appearance, full ROM. Bruising to left leg. NEUROLOGIC: Awake, alert, difficulty with word finding. Cranial nerves II through XII intact. No facial droop. Normal strength and sensation of bilateral upper and lower extremities. Normal rapid alternating movements, [id number] test. PSYCHIATRIC: normally interactive ED Course and Medical Decision-making: I have reviewed the ED nursing notes and prior records. I have reviewed the patient's past medical history/problem list, allergies, social history and medication list. Labs reviewed Results for orders placed or performed during the hospital encounter of 04/04/23 CBC and differential Specimen: Blood Result Value Ref Range WBC 9.87 4.0 - 11.0 K/uL RBC 4.43 3.9 - 5.03 M/uL HGB 12.9 12 - 15.5 g/dL HCT 40.1 34.9 - 44.5 % PLT 304 135 - 400 K/uL MCV 90.5 80 - 100 fL MCH 29.1 27 - 34 pg MCHC 32.2 31.5 - 36.5 g/dL RDW 13.2 11.9 - 14.8 % MPV 9.7 9.6 - 12 fl NRBC 0.00 0 /100 WBCs DIFF METHOD Auto NEUTS 59.3 % LYMPHS 32.6 % MONOS 6.3 % EOS 1.5 % BASOS 0.2 % Granulocytes, immature (%) 0.1 % ABSOLUTE NEUTS 5.85 1.8 - 8 K/uL ABSOLUTE LYMPHS 3.22 1.5 - 6.5 K/uL ABSOLUTE MONOS 0.62 0.1 - 0.9 K/uL ABSOLUTE EOS 0.15 0 - 0.4 K/uL ABSOLUTE BASOS 0.02 0 - 0.2 K/uL Granulocytes, immature 0.01 0 - 0.1 K/uL Basic metabolic panel Specimen: Blood Result Value Ref Range SODIUM 139 136 - 145 mmol/L CHLORIDE 101 95 - 106 mmol/L POTASSIUM 4.0 3.5 - 5.2 mmol/L CO2 26 20 - 31 mmol/L BUN 11 9 - 23 mg/dL CREATININE 0.73 0.50 - 1.30 mg/dL GLUCOSE 100 74 - 106 mg/dL CALCIUM 9.8 8.7 - 10.4 mg/dL EGFR >120 >60 mL/min/1.73m2 ANION GAP 12 3 - 17 mmol/L LFTs (hepatic panel) Specimen: Blood Result Value Ref Range ALBUMIN 4.5 3.5 - 4.8 g/dL TOTAL BILIRUBIN <0.2 0.0 - 1.0 mg/dL DIRECT BILIRUBIN <0.2 0 - 0.4 mg/dL ALKALINE PHOSPHATASE 92 27 - 129 U/L AST 23 6 - 40 U/L ALT 20 10 - 49 U/L TOTAL PROTEIN 7.0 5.7 - 8.2 g/dL GLOBULIN 2.5 1.9 - 4.1 g/dL HCG (Quantitative, Blood) Specimen: Blood Result Value Ref Range HCG (Quantitative) <1 IU/L PT-INR Specimen: Blood Result Value Ref Range PT 11.2 9.4 - 12.5 sec INR 1.0 0.9 - 1.1 PTT Result Value Ref Range APTT 33.3 25.1 - 36.5 sec POCT Glucose Result Value Ref Range Glucose, POCT 91 70 - 100 mg/dL MRI Brain Preliminary Result 1. No acute infarct, mass lesion or hemorrhage. 2. No hemodynamically significant stenosis within the arterial vasculature of the head or neck. 3. No evidence of major dural venous sinuses or cortical vein occlusion. 4. 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 MRI Angio Neck Preliminary Result 1. No acute infarct, mass lesion or hemorrhage. 2. No hemodynamically significant stenosis within the arterial vasculature of the head or neck. 3. No evidence of major dural venous sinuses or cortical vein occlusion. 4. 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 MRI Angio Brain Preliminary Result 1. No acute infarct, mass lesion or hemorrhage. 2. No hemodynamically significant stenosis within the arterial vasculature of the head or neck. 3. No evidence of major dural venous sinuses or cortical vein occlusion. 4. 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 Clinical impression: Stroke versus complicated migraine Attestation: Lois Mccoy MD, have seen this patient primarily. Category 1: Tests, Studies or Independent Historians: Independent Historian: Independent history was obtained by family/guardian. Prior Data Reviewed: Prior notes reviewed. Category 2 and 3: Independent Interpretation of Tests, Consideration of Tests, or External Discussion of Results: Labs: Laboratory studies were interpreted. Radiology: Radiology studies were independently interpreted. Radiology result was discussed with external provider. Consults: The patient was discussed with Neurology and Other Consulting Service, please see their documentation for additional details and recommendations. Risks of Complications, Morbidity, or Mortality: Risks: Risks and benefits of admission to the hospital discussed with patient. A medication was administered that required monitoring. Critical Care: Total Critical Care Time (minutes) 31 is exclusive of otherwise billable procedures. Services: DECALER Indications: The patient???s dysarthria was concerning for an acute cerebrovascular accident with the potential for life-threatening deterioration or permanent disability. Interventions: Patient received continual bedside re-assessment of any signs or symptoms of DECALER deterioration, including altered mental status or stupor, or any new neurologic deficits, or an indication to therapeutically intervene to improve cerebral perfusion. To better definte the potential life-threatening pathology, the patient underwent MRI from the Emergency Department. We emergently consulted the stroke team, to evaluate the patient for reperfusion therapy. We emergently consulted the neurology team, to evaluate the patient for additonal therapies. Course: The patient???s symptoms improved with time. The patient is a 18 y.o. female with acute onset of left-sided numbness tingling and word finding difficulty/inability to speak. Differential diagnosis includes TIA, stroke, complex migraine, anxiety. A code stroke was called. I spoke with the neurologist on the phone who said within normal neurologic exam, even with word finding difficulties, she is not a candidate for tPA so he would defer CTA and instead go right to MRI/MRA of the brain and include an MRV to evaluate for sinus venous thrombosis. He agrees with the diagnosis is most likely complicated migraine. Patient was very anxious about MRI and required 1 mg of Ativan. She also had a fluid bolus. MRI showed no stroke, hemorrhage, mass. There is a small area in the anterior circulation which looks like a redundant vessel but could possibly be an very small 2 mm aneurysm. I reviewed the MRI andthe case with Dr. Huang and from pediatric neurology. He reviewed the images and is unsure if this is an aneurysm or just a redundant vessel. He recommends waiting for the final radiology read in the morning and observing the patient overnight until then. I reevaluated patient. She is normally interactive at this time. She does complain of 6 out of 10 headache. She did had some Tylenol for her headache. I spoke with the pediatric hospitalist who will admit her for observation overnight and give her a migraine cocktail if needed. Disposition: Admit Condition on Admission: Improved Diagnosis/Diagnoses: 1. Complicated migraine Lois Pena MD 04/05/23 0256 * Constance Raya RN - 04/04/2023 9:07 PM EDT JASMYN from home, a/ox4. Per EMS at 2015 sudden onset left arm numbness and tingling with trouble saying words. No slurred speech or extremity weakness. PERRLA, equal strength to all extremities. Reports she had numbness starting in her legs and became all over - since has resolved. She did report she hit her head earlier in the day but did not lose consciousness. Pt reports only eating small amounts today. 20g LAC by EMS, BGL 155. documented in this encounter Miscellaneous Notes * Hospital Course - Aidee Leroy MD - 04/05/2023 8:10 AM EDT BRIEF SUMMARY: 18 year old admitted for management of her complex migraine. ADMISSION HPI: HPI: Raine is a 18 year old woman with medical hx significant for anxiety, depression, and headaches who presented to the ED with L sided numbness and difficulty speaking. Was in her usual state of health until this evening, when she was at [employer] with her family at around 8pm. She began to feel a 'strange sensation' and sensed some flashing lights, as well as the onset of a headache. Raine then developed numbness of her L side, starting in her feet and legs, moving up to her arm and eventuallyher face. Could still walk and move normally, but felt strange when doing so. Went home and developed difficulty speaking, where she describes knowing what she wanted to say but was having trouble get ting the words out. At this point her parents called 911 and EMS arrived to transport her to the hospital. Raine and her family both note that Raine had very little food intake today, only drinking 2Starbucks beverages. She has also not been sleeping well in general. Did have a fall on a dock 4 days ago, hitting her legs/feet against the dock, but did not hit her head at that time. No fever or other signs of illness. Since coming to the ED Raine's numbness and difficulty speaking have completely resolved. She continues to have a throbbing headache, at one point 9/10, now 6/10 after IV fluids and Tylenol. She describes having almost daily headaches since restarting her Lexapro in the last 1-2 months. She generally manages them by taking Tylenol or Motrin. She is otherwise very happy with the Lexapro, however, feeling much more herself when she is on it, particularly when compared to other SSRIs she has trialed in the past (Prozac, Zoloft) ED Course: Glucose done on arrival and normal. EKG reportedly normal. Initally hypertensive (165/100) on arrival, given Ativan, normalized to 110/65 shortly thereafter. MRI/MRA/MRV of the head/neck performed which was negative for stroke, mass or bleed. Small (2mm) anterior artery outpouching noted, on discussion with Dr. Sumner of neurology this is felt to be likely related to her headache. HOSPITAL COURSE BY PROBLEM: Complex Migraine 18 year old woman with acute onset of unilateral numbness and difficulty speaking with headache, inthe setting of poor sleep and diet intake. Likely this was a complex migraine, which fits with family history as well. Imaging normal except for 2mm outpouching of artery versus aneurysm. Per ED discussion with Dr. Sumner of neurology, likely to be associated with her headache but he will follow upoutpatient. She was admitted for treatment/monitoring with combination of Reglan/Benadrly/Toradol, which was effective. Dr. Sumner of neurology provided recs after discharge, which included amitryptiline as a prevention and amitrex as an abortive for her headaches in the future and to continue neuro follow up. She can continue her current OCPs. IMAGING STUDIES: MRI Brain Result Date: 04/04/2023 MRI BRAIN WITHOUT CONTRAST, MRI ANGIO BRAIN (ARTERIAL & VENOUS PHASES) WITHOUT CONTRAST, MRI ANGIO NECK WITH CONTRAST TECHNIQUE: MRI BRAIN WITHOUT CONTRAST, MRI ANGIO BRAIN (ARTERIAL & VENOUSPHASES) WITHOUT CONTRAST, MRI ANGIO NECK WITH CONTRAST Multi-sequence, multi-planar MRI of the brain was performed without intravenous contrast. MRA of the head was performed utilizing [id number] technique (no gadolinium). Maximal intensity projection 3D angiographic reformatted images were performed. MRA of the neck was performed after the administration of intravenous contrast utilizing bolus triggering and subtraction techniques. Maximal intensity projection 3D angiographic reformatted images were performed. COMPARISON: None. FINDINGS: Brain Parenchyma: Normal. No evidence of acute infarct, mass lesion, or hemorrhage. Ventricular System and Extra-Axial Spaces: Normal. No evidence of midline shift or hydrocephalus. Extracranial Structures: Arterial flow voids in the skull base are present. MRA HEAD: Anterior Circulation: 2 mm focal outpouching of the anterior communicating artery.Normal flow within the intracranial internal carotid arteries, anterior cerebral arteries and the middle cerebral arteries. No severe stenosis, occlusion, or arteriovenous malformation. Posterior Circulation: Normal. Normal flow within the intracranial vertebral arteries, basilar artery and posterior cerebral arteries. No severe stenosis, occlusion, aneurysm or arteriovenous malformation. MRV HEAD: Dominant right transverse sinus. No evidence of stenosis or thrombosis within the major dural venous sinuses or cortical veins. MRA NECK: Aortic Arch and Origin of Major Cervical Vessels: Normal. There is a left-sided, three-vessel aortic arch. The brachiocephalic artery and bilateral subclavian a rteries are patent. Right Common Carotid Artery: Normal. No stenosis, occlusion or dissection. Right Internal Carotid Artery: Normal. No stenosis, occlusion or dissection. Left Common Carotid Artery:Normal. No stenosis, occlusion or dissection. Left Internal Carotid Artery: Normal. No stenosis, occlusion or dissection. External Carotid Arteries: Normal. No stenosis, occlusion or dissection. Right Vertebral Artery: Normal. No stenosis, occlusion or dissection. Left Vertebral Artery: Normal. No stenosis, occlusion or dissection. CAROTID STENOSIS REFERENCE: -Distal internal carotid artery diameter as the denominator for stenosis measurement: MILD = <50% stenosis. MODERATE = 50-69% stenosis. SEVERE = 70-89% stenosis. HAIRLINE/CRITICAL = 90-99% stenosis. OCCLUDED = 100% stenosis. 1. No acute infarct, mass lesion or hemorrhage. 2. No hemodynamically significant stenosis within the arterial vasculature of the head or neck. 3. No evidence of major dural venous sinuses or cortical vein occlusion. 4. 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 MRI Angio Neck Result Date: 04/04/2023 MRI BRAIN WITHOUT CONTRAST, MRI ANGIO BRAIN (ARTERIAL & VENOUS PHASES) WITHOUT CONTRAST, MRI ANGIO NECK WITH CONTRAST TECHNIQUE: MRI BRAIN WITHOUT CONTRAST, MRI ANGIO BRAIN (ARTERIAL & VENOUSPHASES) WITHOUT CONTRAST, MRI ANGIO NECK WITH CONTRAST Multi-sequence, multi-planar MRI of the brain was performed without intravenous contrast. MRA of the head was performed utilizing [id number] technique (no gadolinium). Maximal intensity projection 3D angiographic reformatted images were performed. MRA of the neck was performed after the administration of intravenous contrast utilizing bolus triggering and subtraction techniques. Maximal intensity projection 3D angiographic reformatted images were performed. COMPARISON: None. FINDINGS: Brain Parenchyma: Normal. No evidence of acute infarct, mass lesion, or hemorrhage. Ventricular System and Extra-Axial Spaces: Normal. No evidence of midline shift or hydrocephalus. Extracranial Structures: Arterial flow voids in the skull base are present. MRA HEAD: Anterior Circulation: 2 mm focal outpouching of the anterior communicating artery.Normal flow within the intracranial internal carotid arteries, anterior cerebral arteries and the middle cerebral arteries. No severe stenosis, occlusion, or arteriovenous malformation. Posterior Circulation: Normal. Normal flow within the intracranial vertebral arteries, basilar artery and posterior cerebral arteries. No severe stenosis, occlusion, aneurysm or arteriovenous malformation. MRV HEAD: Dominant right transverse sinus. No evidence of stenosis or thrombosis within the major dural venous sinuses or cortical veins. MRA NECK: Aortic Arch and Origin of Major Cervical Vessels: Normal. There is a left-sided, three-vessel aortic arch. The brachiocephalic artery and bilateral subclavian a rteries are patent. Right Common Carotid Artery: Normal. No stenosis, occlusion or dissection. Right Internal Carotid Artery: Normal. No stenosis, occlusion or dissection. Left Common Carotid Artery:Normal. No stenosis, occlusion or dissection. Left Internal Carotid Artery: Normal. No stenosis, occlusion or dissection. External Carotid Arteries: Normal. No stenosis, occlusion or dissection. Right Vertebral Artery: Normal. No stenosis, occlusion or dissection. Left Vertebral Artery: Normal. No stenosis, occlusion or dissection. CAROTID STENOSIS REFERENCE: -Distal internal carotid artery diameter as the denominator for stenosis measurement: MILD = <50% stenosis. MODERATE = 50-69% stenosis. SEVERE = 70-89% stenosis. HAIRLINE/CRITICAL = 90-99% stenosis. OCCLUDED = 100% stenosis. 1. No acute infarct, mass lesion or hemorrhage. 2. No hemodynamically significant stenosis within the arterial vasculature of the head or neck. 3. No evidence of major dural venous sinuses or cortical vein occlusion. 4. 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 MRI Angio Brain Result Date: 04/04/2023 MRI BRAIN WITHOUT CONTRAST, MRI ANGIO BRAIN (ARTERIAL & VENOUS PHASES) WITHOUT CONTRAST, MRI ANGIO NECK WITH CONTRAST TECHNIQUE: MRI BRAIN WITHOUT CONTRAST, MRI ANGIO BRAIN (ARTERIAL & VENOUSPHASES) WITHOUT CONTRAST, MRI ANGIO NECK WITH CONTRAST Multi-sequence, multi-planar MRI of the brain was performed without intravenous contrast. MRA of the head was performed utilizing [id number] technique (no gadolinium). Maximal intensity projection 3D angiographic reformatted images were performed. MRA of the neck was performed after the administration of intravenous contrast utilizing bolus triggering and subtraction techniques. Maximal intensity projection 3D angiographic reformatted images were performed. COMPARISON: None. FINDINGS: Brain Parenchyma: Normal. No evidence of acute infarct, mass lesion, or hemorrhage. Ventricular System and Extra-Axial Spaces: Normal. No evidence of midline shift or hydrocephalus. Extracranial Structures: Arterial flow voids in the skull base are present. MRA HEAD: Anterior Circulation: 2 mm focal outpouching of the anterior communicating artery.Normal flow within the intracranial internal carotid arteries, anterior cerebral arteries and the middle cerebral arteries. No severe stenosis, occlusion, or arteriovenous malformation. Posterior Circulation: Normal. Normal flow within the intracranial vertebral arteries, basilar artery and posterior cerebral arteries. No severe stenosis, occlusion, aneurysm or arteriovenous malformation. MRV HEAD: Dominant right transverse sinus. No evidence of stenosis or thrombosis within the major dural venous sinuses or cortical veins. MRA NECK: Aortic Arch and Origin of Major Cervical Vessels: Normal. There is a left-sided, three-vessel aortic arch. The brachiocephalic artery and bilateral subclavian a rteries are patent. Right Common Carotid Artery: Normal. No stenosis, occlusion or dissection. Right Internal Carotid Artery: Normal. No stenosis, occlusion or dissection. Left Common Carotid Artery:Normal. No stenosis, occlusion or dissection. Left Internal Carotid Artery: Normal. No stenosis, occlusion or dissection. External Carotid Arteries: Normal. No stenosis, occlusion or dissection. Right Vertebral Artery: Normal. No stenosis, occlusion or dissection. Left Vertebral Artery: Normal. No stenosis, occlusion or dissection. CAROTID STENOSIS REFERENCE: -Distal internal carotid artery diameter as the denominator for stenosis measurement: MILD = <50% stenosis. MODERATE = 50-69% stenosis. SEVERE = 70-89% stenosis. HAIRLINE/CRITICAL = 90-99% stenosis. OCCLUDED = 100% stenosis. 1. No acute infarct, mass lesion or hemorrhage. 2. No hemodynamically significant stenosis within the arterial vasculature of the head or neck. 3. No evidence of major dural venous sinuses or cortical vein occlusion. 4. 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 ALL RESULTS: Results for orders placed or performed during the hospital encounter of 04/04/23 POCT Glucose Collection Time: 04/04/23 9:23 PM Result Value Ref Range Glucose, POCT 91 70 - 100 mg/dL CBC and differential Collection Time: 04/04/23 9:27 PM Specimen: Blood Result Value Ref Range WBC 9.87 4.0 - 11.0 K/uL RBC 4.43 3.9 - 5.03 M/uL HGB 12.9 12 - 15.5 g/dL HCT 40.1 34.9 - 44.5 % PLT 304 135 - 400 K/uL MCV 90.5 80 - 100 fL MCH 29.1 27 - 34 pg MCHC 32.2 31.5 - 36.5 g/dL RDW 13.2 11.9 - 14.8 % MPV 9.7 9.6 - 12 fl NRBC 0.00 0 /100 WBCs DIFF METHOD Auto NEUTS 59.3 % LYMPHS 32.6 % MONOS 6.3 % EOS 1.5 % BASOS 0.2 % Granulocytes, immature (%) 0.1 % ABSOLUTE NEUTS 5.85 1.8 - 8 K/uL ABSOLUTE LYMPHS 3.22 1.5 - 6.5 K/uL ABSOLUTE MONOS 0.62 0.1 - 0.9 K/uL ABSOLUTE EOS 0.15 0 - 0.4 K/uL ABSOLUTE BASOS 0.02 0 - 0.2 K/uL Granulocytes, immature 0.01 0 - 0.1 K/uL Basic metabolic panel Collection Time: 04/04/23 9:27 PM Specimen: Blood Result Value Ref Range SODIUM 139 136 - 145 mmol/L CHLORIDE 101 95 - 106 mmol/L POTASSIUM 4.0 3.5 - 5.2 mmol/L CO2 26 20 - 31 mmol/L BUN 11 9 - 23 mg/dL CREATININE 0.73 0.50 - 1.30 mg/dL GLUCOSE 100 74 - 106 mg/dL CALCIUM 9.8 8.7 - 10.4 mg/dL EGFR >120 >60 mL/min/1.73m2 ANION GAP 12 3 - 17 mmol/L LFTs (hepatic panel) Collection Time: 04/04/23 9:27 PM Specimen: Blood Result Value Ref Range ALBUMIN 4.5 3.5 - 4.8 g/dL TOTAL BILIRUBIN <0.2 0.0 - 1.0 mg/dL DIRECT BILIRUBIN <0.2 0 - 0.4 mg/dL ALKALINE PHOSPHATASE 92 27 - 129 U/L AST 23 6 - 40 U/L ALT 20 10 - 49 U/L TOTAL PROTEIN 7.0 5.7 - 8.2 g/dL GLOBULIN 2.5 1.9 - 4.1 g/dL HCG (Quantitative, Blood) Collection Time: 04/04/23 9:27 PM Specimen: Blood Result Value Ref Range HCG (Quantitative) <1 IU/L PT-INR Collection Time: 04/04/23 9:27 PM Specimen: Blood Result Value Ref Range PT 11.2 9.4 - 12.5 sec INR 1.0 0.9 - 1.1 PTT Collection Time: 04/04/23 9:27 PM Result Value Ref Range APTT 33.3 25.1 - 36.5 sec ECG 12-LEAD Collection Time: 04/04/23 9:40 PM Result Value Ref Range Ventricular Rate EKG/MIN 86 BPM Atrial Rate 86 BPM WV Interval 130 ms QRS Duration 80 ms QT Interval 372 ms QTC Interval 445 ms P [place] 44 degrees R Wave [place] -4 degrees T Wave [place] 21 degrees MEDICATION CHANGES: New Medication at Discharge: Amitryptiline 25 mg nightly Amitrex 15 mg 9 pills/month PRN ITEMS FOR POST-HOSPITALIZATION FOLLOW-UP: Dispo: Raine Taylor was discharged home with Neurology follow up scheduled for 4-6 weeks. Their PCP was called by Santos Nolan MD prior to discharge. documented in this encounter Plan of Treatment Upcoming Encounters Date Type Department Care Team (Late st Contact Info) Description 12/15/2024 9:00 AM EDT [facility] Kamryn[facility]ole [address] [place] [address] Bernard Yamilethmelquiades Harrison, ELEMENTARY TEACHER [address] [place] [address] [email or web address] 06/11/2025 1:40 PM EDT [facility] [address], [place] [address] Yamileth Wagner, ELEMENTARY TEACHER [address] [place] [address] [email or web address] documented as of this encounter Procedures Procedure Name Priority Date/Time Associated Diagnosis Comments TOXICOLOGY SCREEN, URINE STAT 04/05/2023 10:51 AM EDT MRI BRAIN WITHOUT CONTRAST Routine 04/04/2023 10:49 PM EDT MRA NECK WITH CONTRAST Routine 04/04/2023 10:49 PM EDT MRI ANGIO BRAIN (ARTERIAL & VENOUS PHASES) WITHOUT CONTRAST Routine 04/04/2023 10:45 PM EDT ECG 12-LEAD STAT 04/04/2023 9:40 PM EDT LFTS (HEPATIC PANEL) STAT 04/04/2023 9:27 PM EDT PTT STAT 04/04/2023 9:27 PM EDT PT-INR STAT 04/04/2023 9:27 PM EDT CBC AND DIFFERENTIAL STAT 04/04/2023 9:27 PM EDT HCG (QUANTITATIVE, BLOOD) STAT 04/04/2023 9:27 PM EDT BASIC METABOLIC PANEL STAT 04/04/2023 9:27 PM EDT POCT GLUCOSE Routine 04/04/2023 9:23 PM EDT documented in this encounter Results * Toxicology screen, urine (04/05/2023 10:51 AM EDT) URINE BENZODIAZEPINE Negative Negative [facility] Comment: CUT OFF VALUE FOR POSITIVE RESULTS: 200 NG/ML Unconfirmed results, FOR MEDICAL SCREENING PURPOSES ONLY. URINE COCAINE METAB Negative Negative [facility] Comment: Cut off value for positive results: 300 ng/mL Unconfirmed results, FOR MEDICAL SCREENING PURPOSES ONLY. URINE AMPHETAMINES Negative Negative [facility] Comment: CUT OFF VALUE FOR POSITIVE RESULTS: 1000 NG/ML Unconfirmed results, FOR MEDICAL SCREENING PURPOSES ONLY. URINE CANNABINOIDS Negative Negative [facility] Comment: CUT OFF VALUE FOR POSITIVE RESULTS: 50 NG/ML Unconfirmed results, FOR MEDICAL SCREENING PURPOSES ONLY. URINE OPIATES Negative Negative [facility] Comment: Cut off value for positive results: 300 ng/mL Unconfirmed results, FOR MEDICAL SCREENING PURPOSES ONLY. URINE BARBITURATES Negative Negative [facility] Comment: CUT OFF VALUE FOR POSITIVE RESULTS: 200 NG/ML Unconfirmed results, FOR MEDICAL SCREENING PURPOSES ONLY. URINE OXYCODONE Negative Negative [facility] Comment: CUT OFF VALUE FOR POSITIVE RESULTS: 100 NG/ML Unconfirmed results, FOR MEDICAL SCREENING PURPOSES ONLY. UR TRICYCLICS Negative Negative [facility] Comment: Cut off value for positive results: 300 ng/mL Unconfirmed results, FOR MEDICAL SCREENING PURPOSES ONLY. URINE METHADONE Negative Negative [facility] Comment: Cut off value for positive results: 300 ng/mL Unconfirmed results, FOR MEDICAL SCREENING PURPOSES ONLY. URINE BUPRENORPHINE Negative Negative [facility] Comment: Cut-off concentration for Urine Buprenorphine is 5 ng/mL. Unconfirmed results, FOR MEDICAL SCREENING PURPOSES ONLY. Fentanyl, urine Negative Negative [facility] Comment: Cut-off concentration for Urine Fentanyl is 2 ng/mL. Unconfirmed results, FOR MEDICAL SCREENING PURPOSES ONLY. Urine (Urine) 04/05/2023 10: 51 AM EDT 04/05/2023 10:58 AM EDT Lois Pena MD URINE ORDERABLES [facility] [address] [place] [address] * MRA NECK WITH CONTRAST (04/04/2023 10:49 PM EDT) Anatomical Region Laterality Modality Neck Magnetic Resonan ce 04/04/2023 10:5 9 PM EDT Impressions 04/05/2023 10:47 AM EDT 1. ??No acute infarct, mass lesion or hemorrhage. 2. ??No hemodynamically significant stenosis within the arterial vasculature of the head or neck. 3. ??No evidence of major dural venous sinuses or cortical vein occlusion. 4. ??Genu/vessel redundancy versus small 2 mm aneurysm involving the anterior communicating artery. ATTESTATION: I, Dr. Toño Matos as teaching physician, have reviewed the images for this case and if necessary edited the report originally created by Miguel Mena. Narrative 04/05/2023 10:47 AM EDT MRI BRAIN WITHOUT CONTRAST, MRI ANGIO BRAIN (ARTERIAL & VENOUS PHASES) WITHOUT CONTRAST, MRI ANGIO NECK WITH CONTRAST TECHNIQUE: MRI BRAIN WITHOUT CONTRAST, MRI ANGIO BRAIN (ARTERIAL & VENOUS PHASES) WITHOUT CONTRAST, MRI ANGIO NECK WITH CONTRAST Multi-sequence, multi-planar MRI of the brain was performed without intravenous contrast. MRA with MRV of the head was performed utilizing [id number]-ly-vyqvaz technique (no gadolinium). Maximal intensity projection 3D angiographic reformatted images were performed. ?? MRA of the neck was performed after the administration of intravenous contrast utilizing bolus triggering and subtraction techniques. Maximal intensity projection 3D angiographic reformatted images were performed. COMPARISON: None. FINDINGS: Brain Parenchyma: No evidence of acute infarct, mass lesion, or hemorrhage. Ventricular System and Extra-Axial Spaces: No evidence of midline shift or hydrocephalus. Extracranial Structures: Arterial flow voids in the skull base are present. MRA HEAD: Anterior Circulation: Apparent genu versus tiny 2 mm posteriorly projecting outpouching arising from the anterior communicating artery (see screenshot series 1000). Normal flow within the intracranial internal carotid arteries, anterior cerebral arteries and the middle cerebral arteries. No severe stenosis, occlusion, or arteriovenous malformation. ?? Posterior Circulation: Normal. Normal flow within the intracranial vertebral arteries, basilar artery and posterior cerebral arteries. No severe stenosis, occlusion, aneurysm or arteriovenous malformation. MRV HEAD: Dominant right transverse sinus. No evidence of stenosis or thrombosis within the major dural venous sinuses or cortical veins. MRA NECK: Aortic Arch and Origin of Major Cervical Vessels: Normal. There is a left-sided, three-vessel aortic arch. The brachiocephalic artery and bilateral subclavian arteries are patent. Right Common Carotid Artery: No stenosis, occlusion or dissection. Right Internal Carotid Artery: No stenosis, occlusion or dissection. Left Common Carotid Artery: ??No stenosis, occlusion or dissection. Left Internal Carotid Artery: No stenosis, occlusion or dissection. External Carotid Arteries: No stenosis, occlusion or dissection. Right Vertebral Artery: No stenosis, occlusion or dissection. Left Vertebral Artery: No stenosis, occlusion or dissection. Procedure Note Toño Matos MD - 04/05/2023 MRI BRAIN WITHOUT CONTRAST, MRI ANGIO BRAIN (ARTERIAL & VENOUS PHASES)WITHOUT CONTRAST, MRI ANGIO NECK WITH CONTRAST TECHNIQUE: MRI BRAIN WITHOUT CONTRAST, MRI ANGIO BRAIN (ARTERIAL & VENOUSPHASES) WITHOUT CONTRAST, MRI ANGIO NECK WITH CONTRAST Multi-sequence, multi-planar MRI of the brain was performed withoutintravenous contrast. MRA with MRV of the head was performed utilizing [id number]-[id number] technique(no gadolinium). Maximal intensity projection 3D angiographic reformattedimages were performed. MRA of the neck was performed after the administration of intravenouscontrast utilizing bolus triggering and subtraction techniques. Maximalintensity projection 3D angiographic reformatted images were performed. COMPARISON: None. FINDINGS: Brain Parenchyma: No evidence of acute infarct, mass lesion, orhemorrhage. Ventricular System and Extra-Axial Spaces: No evidence of midline shift orhydrocephalus. Extracranial Structures: Arterial flow voids in the skull base arepresent. MRA HEAD: Anterior Circulation: Apparent genu versus tiny 2 mm posteriorlyprojecting outpouching arising from the anterior communicating artery (seescreenshot series 1000). Normal flow within the intracranial internalcarotid arteries, anterior cerebral arteries and the middle cerebralarteries. No severe stenosis, occlusion, or arteriovenous malformation. Posterior Circulation: Normal. Normal flow within the intracranialvertebral arteries, basilar artery and posterior cerebral arteries. Nosevere stenosis, occlusion, aneurysm or arteriovenous malformation. MRV HEAD: Dominant right transverse sinus. No evidence of stenosis or thrombosiswithin the major dural venous sinuses or cortical veins. MRA NECK: Aortic Arch and Origin of Major Cervical Vessels: Normal. There is aleft-sided, three-vessel aortic arch. The brachiocephalic artery and bilateral subclavian arteries are patent. Right Common Carotid Artery: No stenosis, occlusion or dissection. Right Internal Carotid Artery: No stenosis, occlusion or dissection. Left Common Carotid Artery: No stenosis, occlusion or dissection. Left Internal Carotid Artery: No stenosis, occlusion or dissection. External Carotid Arteries: No stenosis, occlusion or dissection. Right Vertebral Artery: No stenosis, occlusion or dissection. Left Vertebral Artery: No stenosis, occlusion or dissection. IMPRESSION: 1. No acute infarct, mass lesion or hemorrhage. 2. No hemodynamically significant stenosis within the arterialvasculature of the head or neck. 3. No evidence of major dural venous sinuses or cortical veinocclusion. 4. Genu/vessel redundancy versus small 2 mm aneurysm involving theanterior communicating artery. ATTESTATION: I, Dr. Toño Matos as teaching physician, have reviewed theimages for this case and if necessary edited the report originally createdby Miguel Mena. Lois EDDY MR HEAD/NECK * MRI BRAIN WITHOUT CONTRAST (04/04/2023 10:49 PM EDT) Anatomical Region Laterality Modality Head Magnetic Resonan ce 04/04/2023 10:5 9 PM EDT Impressions 04/05/2023 10:47 AM EDT 1. ??No acute infarct, mass lesion or hemorrhage. 2. ??No hemodynamically significant stenosis within the arterial vasculature of the head or neck. 3. ??No evidence of major dural venous sinuses or cortical vein occlusion. 4. ??Genu/vessel redundancy versus small 2 mm aneurysm involving the anterior communicating artery. ATTESTATION: I, Dr. Toño Matos as teaching physician, have reviewed the images for this case and if necessary edited the report originally created by Miguel Mena. Narrative 04/05/2023 10:47 AM EDT MRI BRAIN WITHOUT CONTRAST, MRI ANGIO BRAIN (ARTERIAL & VENOUS PHASES) WITHOUT CONTRAST, MRI ANGIO NECK WITH CONTRAST TECHNIQUE: MRI BRAIN WITHOUT CONTRAST, MRI ANGIO BRAIN (ARTERIAL & VENOUS PHASES) WITHOUT CONTRAST, MRI ANGIO NECK WITH CONTRAST Multi-sequence, multi-planar MRI of the brain was performed without intravenous contrast. MRA with MRV of the head was performed utilizing [id number]-kc-[id number] technique (no gadolinium). Maximal intensity projection 3D angiographic reformatted images were performed. ?? MRA of the neck was performed after the administration of intravenous contrast utilizing bolus triggering and subtraction techniques. Maximal intensity projection 3D angiographic reformatted images were performed. COMPARISON: None. FINDINGS: Brain Parenchyma: No evidence of acute infarct, mass lesion, or hemorrhage. Ventricular System and Extra-Axial Spaces: No evidence of midline shift or hydrocephalus. Extracranial Structures: Arterial flow voids in the skull base are present. MRA HEAD: Anterior Circulation: Apparent genu versus tiny 2 mm posteriorly projecting outpouching arising from the anterior communicating artery (see screenshot series 1000). Normal flow within the intracranial internal carotid arteries, anterior cerebral arteries and the middle cerebral arteries. No severe stenosis, occlusion, or arteriovenous malformation. ?? Posterior Circulation: Normal. Normal flow within the intracranial vertebral arteries, basilar artery and posterior cerebral arteries. No severe stenosis, occlusion, aneurysm or arteriovenous malformation. MRV HEAD: Dominant right transverse sinus. No evidence of stenosis or thrombosis within the major dural venous sinuses or cortical veins. MRA NECK: Aortic Arch and Origin of Major Cervical Vessels: Normal. There is a left-sided, three-vessel aortic arch. The brachiocephalic artery and bilateral subclavian arteries are patent. Right Common Carotid Artery: No stenosis, occlusion or dissection. Right Internal Carotid Artery: No stenosis, occlusion or dissection. Left Common Carotid Artery: ??No stenosis, occlusion or dissection. Left Internal Carotid Artery: No stenosis, occlusion or dissection. External Carotid Arteries: No stenosis, occlusion or dissection. Right Vertebral Artery: No stenosis, occlusion or dissection. Left Vertebral Artery: No stenosis, occlusion or dissection. Procedure Note Toño Matos MD - 04/05/2023 MRI BRAIN WITHOUT CONTRAST, MRI ANGIO BRAIN (ARTERIAL & VENOUS PHASES)WITHOUT CONTRAST, MRI ANGIO NECK WITH CONTRAST TECHNIQUE: MRI BRAIN WITHOUT CONTRAST, MRI ANGIO BRAIN (ARTERIAL & VENOUSPHASES) WITHOUT CONTRAST, MRI ANGIO NECK WITH CONTRAST Multi-sequence, multi-planar MRI of the brain was performed withoutintravenous contrast. MRA with MRV of the head was performed utilizing [id number]-cn-[id number] technique(no gadolinium). Maximal intensity projection 3D angiographic reformattedimages were performed. MRA of the neck was performed after the administration of intravenouscontrast utilizing bolus triggering and subtraction techniques. Maximalintensity projection 3D angiographic reformatted images were performed. COMPARISON: None. FINDINGS: Brain Parenchyma: No evidence of acute infarct, mass lesion, orhemorrhage. Ventricular System and Extra-Axial Spaces: No evidence of midline shift orhydrocephalus. Extracranial Structures: Arterial flow voids in the skull base arepresent. MRA HEAD: Anterior Circulation: Apparent genu versus tiny 2 mm posteriorlyprojecting outpouching arising from the anterior communicating artery (seescreenshot series 1000). Normal flow within the intracranial internalcarotid arteries, anterior cerebral arteries and the middle cerebralarteries. No severe stenosis, occlusion, or arteriovenous malformation. Posterior Circulation: Normal. Normal flow within the intracranialvertebral arteries, basilar artery and posterior cerebral arteries. Nosevere stenosis, occlusion, aneurysm or arteriovenous malformation. MRV HEAD: Dominant right transverse sinus. No evidence of stenosis or thrombosiswithin the major dural venous sinuses or cortical veins. MRA NECK: Aortic Arch and Origin of Major Cervical Vessels: Normal. There is aleft-sided, three-vessel aortic arch. The brachiocephalic artery and bilateral subclavian arteries are patent. Right Common Carotid Artery: No stenosis, occlusion or dissection. Right Internal Carotid Artery: No stenosis, occlusion or dissection. Left Common Carotid Artery: No stenosis, occlusion or dissection. Left Internal Carotid Artery: No stenosis, occlusion or dissection. External Carotid Arteries: No stenosis, occlusion or dissection. Right Vertebral Artery: No stenosis, occlusion or dissection. Left Vertebral Artery: No stenosis, occlusion or dissection. IMPRESSION: 1. No acute infarct, mass lesion or hemorrhage. 2. No hemodynamically significant stenosis within the arterialvasculature of the head or neck. 3. No evidence of major dural venous sinuses or cortical veinocclusion. 4. Genu/vessel redundancy versus small 2 mm aneurysm involving theanterior communicating artery. ATTESTATION: I, Dr. Toño Matos as teaching physician, have reviewed theimages for this case and if necessary edited the report originally createdby Miguel Mena. Lois Pena MD IMG MR HEAD/NECK * MRI ANGIO BRAIN (ARTERIAL & VENOUS PHASES) WITHOUT CONTRAST (04/04/2023 10:45 PM EDT) Anatomical Region Laterality Modality Head Magnetic Resonan ce 04/04/2023 10:5 9 PM EDT Impressions 04/05/2023 10:47 AM EDT 1. ??No acute infarct, mass lesion or hemorrhage. 2. ??No hemodynamically significant stenosis within the arterial vasculature of the head or neck. 3. ??No evidence of major dural venous sinuses or cortical vein occlusion. 4. ??Genu/vessel redundancy versus small 2 mm aneurysm involving the anterior communicating artery. ATTESTATION: I, Dr. Toño Matos as teaching physician, have reviewed the images for this case and if necessary edited the report originally created by Miguel Mena. Narrative 04/05/2023 10:47 AM EDT MRI BRAIN WITHOUT CONTRAST, MRI ANGIO BRAIN (ARTERIAL & VENOUS PHASES) WITHOUT CONTRAST, MRI ANGIO NECK WITH CONTRAST TECHNIQUE: MRI BRAIN WITHOUT CONTRAST, MRI ANGIO BRAIN (ARTERIAL & VENOUS PHASES) WITHOUT CONTRAST, MRI ANGIO NECK WITH CONTRAST Multi-sequence, multi-planar MRI of the brain was performed without intravenous contrast. MRA with MRV of the head was performed utilizing ohlw-yv-asnaqy technique (no gadolinium). Maximal intensity projection 3D angiographic reformatted images were performed. ?? MRA of the neck was performed after the administration of intravenous contrast utilizing bolus triggering and subtraction techniques. Maximal intensity projection 3D angiographic reformatted images were performed. COMPARISON: None. FINDINGS: Brain Parenchyma: No evidence of acute infarct, mass lesion, or hemorrhage. Ventricular System and Extra-Axial Spaces: No evidence of midline shift or hydrocephalus. Extracranial Structures: Arterial flow voids in the skull base are present. MRA HEAD: Anterior Circulation: Apparent genu versus tiny 2 mm posteriorly projecting outpouching arising from the anterior communicating artery (see screenshot series 1000). Normal flow within the intracranial internal carotid arteries, anterior cerebral arteries and the middle cerebral arteries. No severe stenosis, occlusion, or arteriovenous malformation. ?? Posterior Circulation: Normal. Normal flow within the intracranial vertebral arteries, basilar artery and posterior cerebral arteries. No severe stenosis, occlusion, aneurysm or arteriovenous malformation. MRV HEAD: Dominant right transverse sinus. No evidence of stenosis or thrombosis within the major dural venous sinuses or cortical veins. MRA NECK: Aortic Arch and Origin of Major Cervical Vessels: Normal. There is a left-sided, three-vessel aortic arch. The brachiocephalic artery and bilateral subclavian arteries are patent. Right Common Carotid Artery: No stenosis, occlusion or dissection. Right Internal Carotid Artery: No stenosis, occlusion or dissection. Left Common Carotid Artery: ??No stenosis, occlusion or dissection. Left Internal Carotid Artery: No stenosis, occlusion or dissection. External Carotid Arteries: No stenosis, occlusion or dissection. Right Vertebral Artery: No stenosis, occlusion or dissection. Left Vertebral Artery: No stenosis, occlusion or dissection. Procedure Note Toño Matos MD - 04/05/2023 MRI BRAIN WITHOUT CONTRAST, MRI ANGIO BRAIN (ARTERIAL & VENOUS PHASES)WITHOUT CONTRAST, MRI ANGIO NECK WITH CONTRAST TECHNIQUE: MRI BRAIN WITHOUT CONTRAST, MRI ANGIO BRAIN (ARTERIAL & VENOUSPHASES) WITHOUT CONTRAST, MRI ANGIO NECK WITH CONTRAST Multi-sequence, multi-planar MRI of the brain was performed withoutintravenous contrast. MRA with MRV of the head was performed utilizing [id number]-[id number] technique(no gadolinium). Maximal intensity projection 3D angiographic reformattedimages were performed. MRA of the neck was performed after the administration of intravenouscontrast utilizing bolus triggering and subtraction techniques. Maximalintensity projection 3D angiographic reformatted images were performed. COMPARISON: None. FINDINGS: Brain Parenchyma: No evidence of acute infarct, mass lesion, orhemorrhage. Ventricular System and Extra-Axial Spaces: No evidence of midline shift orhydrocephalus. Extracranial Structures: Arterial flow voids in the skull base arepresent. MRA HEAD: Anterior Circulation: Apparent genu versus tiny 2 mm posteriorlyprojecting outpouching arising from the anterior communicating artery (seescreenshot series 1000). Normal flow within the intracranial internalcarotid arteries, anterior cerebral arteries and the middle cerebralarteries. No severe stenosis, occlusion, or arteriovenous malformation. Posterior Circulation: Normal. Normal flow within the intracranialvertebral arteries, basilar artery and posterior cerebral arteries. Nosevere stenosis, occlusion, aneurysm or arteriovenous malformation. MRV HEAD: Dominant right transverse sinus. No evidence of stenosis or thrombosiswithin the major dural venous sinuses or cortical veins. MRA NECK: Aortic Arch and Origin of Major Cervical Vessels: Normal. There is aleft-sided, three-vessel aortic arch. The brachiocephalic artery and bilateral subclavian arteries are patent. Right Common Carotid Artery: No stenosis, occlusion or dissection. Right Internal Carotid Artery: No stenosis, occlusion or dissection. Left Common Carotid Artery: No stenosis, occlusion or dissection. Left Internal Carotid Artery: No stenosis, occlusion or dissection. External Carotid Arteries: No stenosis, occlusion or dissection. Right Vertebral Artery: No stenosis, occlusion or dissection. Left Vertebral Artery: No stenosis, occlusion or dissection. IMPRESSION: 1. No acute infarct, mass lesion or hemorrhage. 2. No hemodynamically significant stenosis within the arterialvasculature of the head or neck. 3. No evidence of major dural venous sinuses or cortical veinocclusion. 4. Genu/vessel redundancy versus small 2 mm aneurysm involving theanterior communicating artery. ATTESTATION: I, Dr. Toño Matos as teaching physician, have reviewed theimages for this case and if necessary edited the report originally createdby Miguel Mena. Lois Pena MD IMG MR HEAD/NECK * ECG 12-LEAD (04/04/2023 9:40 PM EDT) Ventricular Rate EKG/MIN 86 BPM [facility] Atrial Rate 86 BPM [facility] WV Interval 130 ms [facility] QRS Duration 80 ms [facility] QT Interval 372 ms [facility] QTC Interval 445 ms [facility] P [place] 44 degrees [facility] R Wave [place] -4 degrees [facility] T Wave [place] 21 degrees [facility] 04/04/2023 9:40 PM EDT Narrative [facility] - 04/05/2023 5:35 PM EDT NORMAL SINUS RHYTHM SINUS ARRHYTHMIA NONSPECIFIC ST ABNORMALITY NO PREVIOUS ECGS AVAILABLE Lois Pena MD ECG ORDERABLES [facility] * PTT (04/04/2023 9:27 PM EDT) APTT 33.3 25.1 - 36.5 sec [facility] 04/04/2023 9:27 PM EDT 04/04/2023 9:31 PM EDT Lois Pena MD LAB BLOOD ORDERABLES Performing Organization Address [facility] Co de Phone Number [facility] [address] [place] [address] * PT-INR (04/04/2023 9:27 PM EDT) Pathologist [facility] PT 11.2 9.4 - 12.5 sec [facility] INR 1.0 0.9 - 1.1 [facility] Comment:Therapeutic Range 2. 0-3.5 Blood 04/04/2023 9:27 PM EDT 04/04/2023 9:31 PM EDT Lois Pena MD LAB BLOOD ORDERABLES Performing Organization Address [facility] de Phone Number [facility] [address] [place] [address] * HCG (Quantitative, Blood) (04/04/2023 9:27 PM EDT) Pathologist [facility] HCG (Quantitative) <1 IU/L [facility] Comment: Expected Ranges: ? Negative ? Less than 5 IU/L 0-1 Week ? 5-50 IU/L 1-2 Weeks ?50-500 IU/L 2-3 Weeks ?100-5,000 IU/L 3-4 Weeks ?500-10,000 IU/L 4-5 Weeks ?1,000-50,000 IU/L 5-6 Weeks ?10,000-100,000 IU/L 6-8 Weeks ?15,000-200,000 IU/L 2-3 Months ?? 10,000-100,000 IU/L Other conditions, in addition to ? , may rarely produce ? consistently elevated HCG results, these may include interfering substances. ? Clinical correlation is suggested. ? Ectopic pregnancies may have HCG levels persistently <25. ? Method: Lizzeth Vicki [id number] Total HCG assay Blood 04/04/2023 9:27 PM EDT 04/04/2023 10:44 PM EDT Lois Pena MD LAB BLOOD ORDERABLES Performing Organization Address [facility] de Phone Number [facility] [address] [place] [address] * LFTs (hepatic panel) (04/04/2023 9:27 PM EDT) ALBUMIN 4.5 3.5 - 4.8 g/dL [facility] TOTAL BILIRUBIN <0.2 0.0 - 1.0 mg/dL [facility] DIRECT BILIRUBIN <0.2 0 - 0.4 mg/dL [facility] ALKALINE PHOSPHATASE 92 27 - 129 U/L [facility] AST 23 6 - 40 U/L [facility] ALT 20 10 - 49 U/L [facility] TOTAL PROTEIN 7.0 5.7 - 8.2 g/dL [facility] GLOBULIN 2.5 1.9 - 4.1 g/dL [facility] Blood 04/04/2023 9:27 PM EDT 04/04/2023 10:44 PM EDT Lois Pena MD LAB BLOOD ORDERABLES Performing Organization Address [facility] de Phone Number [facility] [address] [place] [address] * Basic metabolic panel (04/04/2023 9:27 PM EDT) SODIUM 139 136 - 145 mmol/L [facility] [facility] 101 95 - 106 mmol/L [facility] POTASSIUM 4.0 3.5 - 5.2 mmol/L [facility] CO2 26 20 - 31 mmol/L [facility] BUN 11 9 - 23 mg/dL [facility] CREATININE 0.73 0.50 - 1.30 mg/dL [facility] GLUCOSE 100 74 - 106 mg/dL [facility] CALCIUM 9.8 8.7 - 10.4 mg/dL [facility] EGFR >120 >60 mL/min/1.7 3m2 [facility] Comment:Estimated glomerular filtration rate calculated using the CKD-EPI refit equation. ANION GAP 12 3 - 17 mmol/L [facility] Blood 04/04/2023 9:27 PM EDT 04/04/2023 10:44 PM EDT Lois Pena MD LAB BLOOD ORDERABLES [facility] [address] [place] [address] * CBC and differential (04/04/2023 9:27 PM EDT) WBC 9.87 4.0 - 11.0 K/uL [facility] RBC 4.43 3.9 - 5.03 M/uL [facility] HGB 12.9 12 - 15.5 g/dL [facility] HCT 40.1 34.9 - 44.5 % [facility] PLT 304 135 - 400 K/uL [facility] MCV 90.5 80 - 100 fL [facility] MCH 29.1 27 - 34 pg [facility] MCHC 32.2 31.5 - 36.5 g/dL [facility] RDW 13.2 11.9 - 14.8 % [facility] MPV 9.7 9.6 - 12 fl [facility] NRBC 0.00 0 /100 WBCs [facility] DIFF METHOD Auto [facility] NEUTS 59.3 % [facility] LYMPHS 32.6 % [facility] MONOS 6.3 % [facility] EOS 1.5 % [facility] BASOS 0.2 % [facility] Granulocytes, immature (%) 0.1 % [facility] ABSOLUTE NEUTS 5.85 1.8 - 8 K/uL [facility] ABSOLUTE LYMPHS 3.22 1.5 - 6.5 K/uL [facility] ABSOLUTE MONOS 0.62 0.1 - 0.9 K/uL [facility] ABSOLUTE EOS 0.15 0 - 0.4 K/uL [facility] ABSOLUTE BASOS 0.02 0 - 0.2 K/uL [facility] Granulocytes, immature 0.01 0 - 0.1 K/uL [facility] Blood 04/04/2023 9:27 PM EDT 04/04/2023 9:40 PM EDT Lois Pena MD LAB BLOOD ORDERABLES Performing Organization Address [facility] Co de Phone Number [facility] [address] [place] [address] * POCT Glucose (04/04/2023 9:23 PM EDT) Glucose, POCT 91 70 - 100 mg/dL [facility] 04/04/2023 9:23 PM EDT 04/04/2023 9:25 PM EDT Lois Pena MD POINT OF CARE TEST O RDERABLES Performing Organization Address [facility] Co de Phone Number [facility] [address] [place] [address] documented in this encounter Visit Diagnoses Diagnosis Complicated migraine- Primary Migraine, unspecified, without mention of intractable migraine without mention of status migrainosus Complicated migraine Migraine, unspecified, without mention of intractable migraine without mention of status migrainosus documented in this encounter Admitting Diagnoses Diagnosis Complicated migraine Migraine, unspecified, without mention of intractable migraine without mention of status migrainosus documented in this encounter Administered Medications Inactive Administered Medications - up to 3 most recent administrations Medication Order MAR Action Action Date Dose Rate Site acetaminophen (TYLENOL) tablet 1,000 mg 1,000 mg, Oral, Once, On Sun04/04/23 at 2330, For 1 dose Given 04/04/2023 11:34 PM EDT 1,000 mg diphenhydrAMINE (BENADRYL) injection 25 mg 25 mg, Intravenous, Once, On Sun04/05/23 at 0215, For 1 dose Given 04/05/2023 3:12 AM EDT 25 mg doxycycline monohydrate (MONODOX) capsule 100 mg 100 mg, Oral, 2 times daily, First dose on Sun04/05/23 at 0900, Administer at least 1-2 hours before multivalent cation-containing products (e.g. aluminum, calcium, magnesium)., Indication: Empiric, Infection Source: Other, Specify Other Infection Source: home medication for acne Given 04/05/2023 9:38 AM EDT 100 mg escitalopram oxalate (LEXAPRO) tablet 20 mg 20 mg, Oral, Daily, First dose on Sun04/05/23 at 0900 Given 04/05/2023 9:39 AM EDT 20 mg gadoterate meglumine (DOTAREM/CLARISCAN) 0.5 mmol/mL (376.9 mg/mL) injection 13 mL 13 mL, Intravenous, Once as needed, imaging, Starting on Sun04/04/23 at 2246, For 1 dose, Procedural Contrast/Med Active Now Given 04/04/2023 10:50 PM EDT 13 mL ketorolac (TORADOL) injection 15 mg 15 mg, Intravenous, Once, On Sun04/05/23 at 0215, For 1 dose Given 04/05/2023 3:10 AM EDT 15 mg LORazepam (ATIVAN) tablet 1 mg 1 mg, Oral, Once, On Sun04/04/23 at 2145, For 1 dose Given 04/04/2023 9:46 PM EDT 1 mg metoclopramide HCl (REGLAN) injection 10 mg 10 mg, Intravenous, Once, On Sun04/05/23 at 0215, For 1 dose Given 04/05/2023 3:07 AM EDT 10 mg sodium chloride 0.9% bolus 1,000 mL 1,000 mL, Intravenous, Administer over 30 Minutes, at 2,000 mL/hr, Once, On Sun04/04/23 at 2130, For 1 dose New Bag 04/04/2023 9:46 PM EDT 1,000 mL 2000 mL/hr sodium chloride 0.9% bolus 500 mL 500 mL, Intravenous, Administer over 20 Minutes, at 1,500 mL/hr, Once, On Sun04/05/23 at 0215, For 1 dose New Bag 04/05/2023 3:06 AM EDT 500 mL 900 mL/hr documented in this encounter Active and Recently Administered Medications Times are shown in EDT. Scheduled Medication Order 04/03/2023 04/04/202304/0504/05/2023 acetaminophen (TYLENOL) tablet 1,000 mg (COMPLETED) 1,000 mg, Oral, Once, On Sun04/04/23 at 2330, For 1 dose 233 (Given - Provider: Constance Raya RN) diphenhydrAMINE (BENADRYL) injection 25 mg (COMPLETED) 25 mg, Intravenous, Once, On Sun04/05/23 at 0215, For 1 dose 031 (Given - Provid er: Eugenia Mix RN) doxycycline monohydrate (MONODOX) capsule 100 mg 100 mg, Oral, 2 times daily, First dose on Sun04/05/23 at 0900, Administer at least 1-2 hours before multivalent cation-containing products (e.g. aluminum, calcium, magnesium)., Indication: Empiric, Infection Source: Other, Specify Other Infection Source: home medication for acne 0938 (Given - Provid er: Alexandra Mohr RN) escitalopram oxalate (LEXAPRO) tablet 20 mg 20 mg, Oral, Daily, First dose on Sun04/05/23 at 0900 0939 (Given - Provid er: Alexandra Mohr RN) ketorolac (TORADOL) injection 15 mg (COMPLETED) 15 mg, Intravenous, Once, On Sun04/05/23 at 0215, For 1 dose 031 (Given - Provid er: Eugenia Mix RN) LORazepam (ATIVAN) tablet 1 mg (COMPLETED) 1 mg, Oral, Once, On Sun04/04/23 at 2145, For 1 dose 2145 (Given - Provider: Constance Raya RN) metoclopramide HCl (REGLAN) injection 10 mg (COMPLETED) 10 mg, Intravenous, Once, On Sun04/05/23 at 0215, For 1 dose 0307 (Given - Provid er: Eugenia Mix RN) sodium chloride 0.9% bolus 1,000 mL (COMPLETED) 1,000 mL, Intravenous, Administer over 30 Minutes, at 2,000 mL/hr, Once, On Sun04/04/23 at 2130, For 1 dose 214 (New Bag - Provider: Constance Raya RN) 0035 (Stopped - Provider: Constance Brandee Raya, RN) sodium chloride 0.9% bolus 500 mL (COMPLETED) 500 mL, Intravenous, Administer over 20 Minutes, at 1,500 mL/hr, Once, On Bela 04/05/23 at 0215, For 1 dose 0306 (New Bag - Provider: Eugenia Mix, EMETERIO) PRN Medication Order 04/03/2023 04/04/2023 04/05/2023 gadoterate meglumine (DOTAREM/CLARISCAN) 0.5 mmol/mL (376.9 mg/mL) injection 13 mL (COMPLETED) 13 mL, Intravenous, Once as needed, imaging, Starting on 04/04/23 at 2246, For 1 dose, Procedural Contrast/Med Active Now 2250 (Given - Provider: Emani Connolly) documented in this encounter Additional Health Concerns Assessment Noted Time PHQ-9 Depression Total Score: 13 023 11:53 AM EST PHQ-2 Depression Total Score: 2 09/21/19 23 11:53 AM EST documented as of this encounter Care Teams Cyber Systems Operations Specialist Relationship Specialty Start Date End Date Yamileth Wagner, ELEMENTARY TEACHER [address] [place] [phone] [email or web address] PCP - General Family Medicine 06/28/17 documented as of this encounter Additional Source Comments The information contained in this document represents components of the legal health record. It is not the complete legal health record.[facility]
--- OUTSIDE RECORDS SUMMARY | 2024-08-23 23:20 | XMS_ITS | Encounter Summary ---
Author Organization [facility] Address [phone] Formerly [facility] [address] [place] [address] Care Team Providers Care Supervisor Shipping Name Role Phone Yamileth Wagner Hunter AMOS Primary Care Provider Encounter Details Date Type Department Care Team (Late st Contact Info) Description 05/31/2023 Orders Only Jabari Sumner M.D. [address] [address] Jabari Sumner MD [address] [address] Social History Tobacco Use Types Packs/Day Years [...] Info) Description 12/15/2024 9:00 AM EDT Telemedicine [facility] [address] [place] [address] Yamileth Wagner CNP [address] [facility] [place] [address] 06/11/2025 1:40 PM EDT Office Visit [facility] Nikole Harry [address] [place] [address] Yamileth Wagner CNP [address] [place] [address] [email or web address] documented as of this encounter Visit Diagnoses Not on filedocumented in this encounter Additional Health Concerns Assessment Noted Time PHQ-9 Depression Total Score: 15 023 12:23 PM EDT PHQ-2 Depression Total Score: 2 04/25/20 23 12:23 PM EDT documented as of this encounter Care Teams Supervisor Shipping Relationship Specialty Start Date End Date Yamileth [place] [address] [email or web address] PCP - General Family Medicine 06/28/17 documented as of this encounter Additional Source Comments The information contained in this document represents components of the legal health record. It is not the complete legal health record.[facility]
--- OUTSIDE RECORDS SUMMARY | 2024-08-23 23:20 | XMS_ITS | Encounter Summary ---
Author Organization [facility] Address [phone] [facility]ly [facility] [place] [address] Care Team Providers Care Brand Marketing Coordinator Name Role Phone Yamileth Wagner Hunter SCALE CLERK Primary Care Provider Janette Jules MD Unavailable [phone] Yamileth Wagner Hunter SCALE CLERK Unavailable [phone] Janette Jules MD Unavailable [phone] Encounter Details Date Type Department Care Team (Late st Contact Info) Description 04/04/2023 Procedure Pass [facility] Imaging - MRI, Main [place] [address] [place] [address] Social History Tobacco Use Types [...] Info) Description 12/15/2024 9:00 AM EDT [facility] [address] [place] [address] Yamileth Wagner CNP [address] [place] [address] [email or web address] 06/11/2025 1:40 PM EDT Office Visit [facility] Nikole Harry [address] [place] [facility] [place] [address] Yamileth Wagner CNP [address] [place] [address] [email or web address] documented as of this encounter Visit Diagnoses Not on filedocumented in this encounter Additional Health Concerns Assessment Noted Time PHQ-9 Depression Total Score: 13 023 11:53 AM EST PHQ-2 Depression Total Score: 2 09/21/19 23 11:53 AM EST documented as of this encounter Care Teams Brand Marketing Coordinator Relationship Specialty Start Date End Date Yamileth Wagner CNP [address] [place] [address] [email or web address] PCP - General Family Medicine 06/28/17 Janette Jules MD [address] [place] [phone] Insurance Assigned Provider 11/24/23 02/23/24 Yamileth Wagner CNP [address] [place] [address] [email or web address] Insurance Assigned Provider 02/23/24 07/30/24 Janette Jules MD [address] [place] [address] [address] [place] [address] Insurance Assigned Provider 07/30/24 documented as of this encounter Additional Source Comments The information contained in this document represents components of the legal health record. It is not the complete legal health record.[facility]
--- OUTSIDE RECORDS SUMMARY | 2024-08-23 23:20 | XMS_ITS | Encounter Summary ---
Author Organization [facility] Address [phone] [facility] [address] [place] [address] Care Team Providers Care Weatherization Crew Leader Name Role Phone Yamileth Wagner CNP Primary Care Provider Encounter Details Date Type Department Care Team (Latest Contact Info) Description 05/10/2023 10:58 AM EDT - 05/10/2023 10:59 AM EDT Hospital Encounter [facility] [address] [place] [address] Yamileth Wagner, ELECTROMECHANICAL ENGINEER [address] [place] [phone] [email or web address] Discharge Disposition: Home or Self Care Social [...] on file documented as of this encounter Medications at Time of Discharge Medication Sig Dispensed Refills Start Date End Date ibuprofen (ADVIL,MOTRIN) 800 MG tablet Take 1 tablet (800 mg total) by mouth every 6 (six) hours as needed for pain (specific location in comments). 30 tablet 3 04/25/2023 SUMAtriptan (IMITREX) 50 MG tablet Take 1 tablet (50 mg total) by mouth once as needed for migraine. Can repeat dose in 2 hours if needed. Do not exceed 2 doses in a 24 hour period. Max dose 200mg/ day 9 tablet 04/05/2023 amitriptyline (ELAVIL) 25 MG tablet Take 1 tablet (25 mg total) by mouth nightly at bedtime. 30 tablet 04/05/2023 05/31/2023 doxycycline monohydrate (MONODOX) 100 MG capsule Take one pill by mouth twice daily with full beverage and food. Avoid laying down for 30 minutes after taking. Avoid taking with dairy. Use sun protection. 180 capsule 3 01/22/2023 01/30/2024 escitalopram oxalate (LEXAPRO) 20 MG tablet Take 1 tablet (20 mg total) by mouth daily. 90 tablet 3 03/01/2023 12/03/2023 norethindrone (MICRONOR) 0.35 mg tablet Take 1 tablet (0.35 mg total) by mouth daily. 90 tablet 3 04/25/2023 12/03/2023 documented as of this encounter Plan of Treatment Upcoming Encounters Date Type Department Care Team (Late st Contact Info) Description 12/15/2024 9:00 AM EDT Telemedicine [facility] Nikole Colmenares 145 [place] [address] Yamileth Wagner, ELECTROMECHANICAL ENGINEER [address] [place] [address] [email or web address] 06/11/2025 1:40 PM EDT Office Visit [facility] Nikole Colmenares 145 [facility] [place] [address] Yamileth Wagner, ELECTROMECHANICAL ENGINEER [address] [place] [address] [phone] (work) [email or web address] documented as of this encounter Procedures Procedure Name Priority Date/Time Associated Diagnosis Comments US PELVIS TRANSABDOMINAL PLUS TRANSVAGINAL Routine 05/10/2023 11:24 AM EDT Pelvic pain documented in this encounter Results * US PELVIS TRANSABDOMINAL PLUS TRANSVAGINAL (05/10/2023 11:24 AM EDT) Anatomical Region Laterality Modality Pelvis, Uterus/Adnexa Ultrasound 05/10/2023 1:07 PM EDT Impressions 05/10/2023 1:11 PM EDT Impression: No cause for abnormal bleeding identified. Narrative 05/10/2023 1:11 PM EDT US PELVIS TRANSABDOMINAL PLUS TRANSVAGINAL TECHNIQUE: Pelvic Ultrasound Transabdominal performed for global imaging of the pelvis. Pelvic Ultrasound Transvaginal performed for detailed imaging of the endometrium and/or adnexa. COMPARISON: None Findings: UTERUS: ??The uterus measures 6.2 cm long axis. ??The endometrial echocomplex measures 1.1 cm. No focal myometrial or endometrial lesion. OVARIES/ADNEXA: Age-appropriate appearance of bilateral ovaries. No extraovarian adnexal mass. PELVIS: ??Trace free fluid, within normal limits for premenopausal patient. Procedure Note Eddie Deleon MD - 05/10/2023 US PELVIS TRANSABDOMINAL PLUS TRANSVAGINAL TECHNIQUE: Pelvic Ultrasound Transabdominal performed for global imagingof the pelvis. Pelvic Ultrasound Transvaginal performed for detailedimaging of the endometrium and/or adnexa. COMPARISON: None Findings: UTERUS: The uterus measures 6.2 cm long axis. The endometrialechocomplex measures 1.1 cm. No focal myometrial or endometrial lesion. OVARIES/ADNEXA: Age-appropriate appearance of bilateral ovaries. Noextraovarian adnexal mass. PELVIS: Trace free fluid, within normal limits for premenopausalpatient. IMPRESSION: Impression: No cause for abnormal bleeding identified. Yamileth EDDY US PELVIS documented in this encounter Visit Diagnoses Diagnosis Pelvic pain documented in this encounter Additional Health Concerns Assessment Noted Time PHQ-9 Depression Total Score: 15 023 12:23 PM EDT PHQ-2 Depression Total Score: 2 04/25/20 23 12:23 PM EDT documented as of this encounter Care Teams Weatherization Crew Leader Relationship Specialty Start Date End Date Yamileth Wagner, ELECTROMECHANICAL ENGINEER [address] [place] [address] [email or web address] PCP - General Family Medicine 06/28/17 documented as of this encounter Additional Source Comments The information contained in this document represents components of the legal health record. It is not the complete legal health record.[facility]
--- OUTSIDE RECORDS SUMMARY | 2024-08-23 23:20 | XMS_ITS | Encounter Summary ---
Author Organization [facility] Address [phone] [facility] [place] [address] Care Team Providers Care Automobiles Salesperson Name Role Phone Yamileth Wagner FARMWORKER MACHINE Primary Care Provider Encounter Details Date Type Department Care Team ([facility] st Contact Info) Description 03/16/2023 Telephone [facility] [address] [place] [address] Yamileth Wagner, FARMWORKER MACHINE [address] [place] [address] [email or web address] Social History Tobacco [...] as of this encounter Progress Notes * Marisa Kramer - 03/16/2023 2:03 PM EDT Spoke with patient Experiencing UTI symptoms Took home test which showed up positive However, explained to patient that we would need a urine sample and visit with her to rx abx No appts available Strongly encouraged visit to urgent care for treatment Patient understands and agrees with plan * Melissa Carrillo - 03/16/2023 9:35 AM EDT DOD Pt feels she has a uti took over the counter test and was positive (will upload picture to documented in this encounter Plan of Treatment Upcoming Encounters Date Type Department Care Team (Late st Contact Info) Description 12/15/2024 9:00 AM EDT Telemedicine [facility] PTedCTed [address] [place] [address] Yamileth Wagner CNP 145 [facility], [place] [address] 06/11/2025 1:40 PM EDT [facility] [address] [facility] [place] [address] Yamileth Wagner CNP [address], [place] [address] documented as of this encounter Visit Diagnoses Not on filedocumented in this encounter Additional Health Concerns Assessment Noted Time PHQ-9 Depression Total Score: 13 023 11:53 AM EST PHQ-2 Depression Total Score: 2 09/21/19 23 11:53 AM EST documented as of this encounter Care Teams Automobiles Salesperson Relationship Specialty Start Date End Date Yamileth Wagner CNP [address], [place] [address] [email or web address] PCP - General Family Medicine 06/28/17 documented as of this encounter Additional Source Comments The information contained in this document represents components of the legal health record. It is not the complete legal health record.[facility]
--- OUTSIDE RECORDS SUMMARY | 2024-08-23 23:20 | XMS_ITS | Encounter Summary ---
Author Organization [facility] Address [phone] [facility] [place] [address] Care Team Providers Care Cost Specialist Name Role Phone Yamileth Wagner Hunter AMOS Primary Care Provider Reason for Visit * Reason Comments Med Change Request Encounter Details Date Type Department Care Team (Late Contact Info) Description 04/30/2023 Refill [facility] [address] [address] Aidee Leroy MD [address] [place] [address] [email or web address] Med Change Request Social History Tobacco Use Types Packs/Day Years [...] Encounters Date Type Department Care Team (Late Contact Info) Description 12/15/2024 9:00 AM EDT [facility] Nikole Harry [address] [place] [address] Yamileth Wagner CNP [address] [facility] [address] 06/11/2025 1:40 PM EDT [facility] Nikole Harry [address] [place] [address] Yamileth Wagner CNP [address], [place] [address] [email or web address] documented as of this encounter Visit Diagnoses Not on filedocumented in this encounter Additional Health Concerns Assessment Noted Time PHQ-9 Depression Total Score: 15 023 12:23 PM EDT PHQ-2 Depression Total Score: 2 04/25/20 23 12:23 PM EDT documented as of this encounter Care Teams Cost Specialist Relationship Specialty Start Date End Date Yamileth [place] [address] [email or web address] PCP - General Family Medicine 06/28/17 documented as of this encounter Additional Source Comments The information contained in this document represents components of the legal health record. It is not the complete legal health record.[facility]
--- OUTSIDE RECORDS SUMMARY | 2024-08-23 23:20 | XMS_ITS | Encounter Summary ---
Author Organization [facility] Address [phone] [facility] [place] [address] Care Team Providers Care Termite Exterminator Helper Name Role Phone Yamileth Wagner Hunter AMOS Primary Care Provider Encounter Details Date Type Department Care Team ([facility] st Contact Info) Description 05/30/2023 Telephone Jabari Sumner M.D. [address] [place] [address] Jabari Sumner MD [address] [address] [email or web address] Social History Tobacco Use Types Packs/Day Years [...] as of this encounter Progress Notes * Jabari Sumner MD - 05/31/2023 8:59 AM EDT Hi, Prescription refill has been sent to the pharmacy. Thanks * Aby Dixon - 05/30/2023 2:51 PM EDT Patient was seen at [facility] in March, we received a call from her PCP to schedule a follow up but we weren't able to get her in until 05/31/23 then she had to reschedule to 06/18/23 due to work. Patient called, she has 3 amitriplyine pills left and is asking for a refill because it is really helping her migraines. She was prescribed a one month supply by the hospital. She uses [facility] [place]. documented in this encounter Plan of Treatment Upcoming Encounters Date Type Department Care Team (Late st Contact Info) Description 12/15/2024 9:00 AM EDT Telemedicine [facility] Nikole Harry [address] [place] [address] Yamileth Wagner CNP 145 [place] [address] [email or web address] 06/11/2025 1:40 PM EDT [facility] [address] [place] [address] Yamileth Wagner CNP 145 [place] [address] [email or web address] documented as of this encounter Visit Diagnoses Not on filedocumented in this encounter Additional Health Concerns Assessment Noted Time PHQ-9 Depression Total Score: 15 023 12:23 PM EDT PHQ-2 Depression Total Score: 2 04/25/20 23 12:23 PM EDT documented as of this encounter Care Teams Termite Exterminator Helper Relationship Specialty Start Date End Date Yamileth Wagner CNP 145 [place] [facility] [place] [address] [email or web address] PCP - General Family Medicine 06/28/17 documented as of this encounter Additional Source Comments The information contained in this document represents components of the legal health record. It is not the complete legal health record.[facility]
--- OUTSIDE RECORDS SUMMARY | 2024-08-23 23:20 | XMS_ITS | Encounter Summary ---
Author Organization [facility] Address [phone] [facility] [place] [address] Care Team Providers Care Jackaroo Name Role Phone Yamileth Wagner Hunter AMOS Primary Care Provider Encounter Details Date Type Department Care Team ([facility] Contact Info) Description 06/18/2023 9:00 AM EDT Telemedicine Jabari Sumner M.D. [address] [place] [id number] Jabari Sumner MD [address] [place] [address] [email or web address] Complicated migraine (Primary Dx) Social History Tobacco Use Types [...] Progress Notes * Jabari Sumner MD - 06/18/2023 9:00 AM EDT Images from the original note were not included. ? ? JABARI SUMNER M.D., F.A.A.P. ?Diplomate, [place] [employer] and Neurology Neurology with Special Qualification in Child Neurology ? [address] [place] [address] [address] ?[place] [address] [email or web address] ? Email: [email or web address] ? PEDIATRIC NEUROLOGY CONSULTATION ?Patient Name: ??Raine Taylor : ??2005?? Age: 18 y.o. Date of Visit: ??06/18/2023 [Clinical encounter conducted by telehealth due to COVID-19 guidelines.] This real-time, interactive virtual clinical encounter between provider and patient was conducted using Zoom &/or telephone telehealth technology. Patient location: home. Encounter conducted via provider land-line or internet for video encounters. Greater than 50% of the time spent was devoted to counseling and coordinating care including review of records, pertinent lab data and studies, as well as discussing diagnostic evaluation and work up, planned therapeutic interventions and future disposition of care. This includes counseling the patient about the medical condition and diagnosis as well as any additional research needed to obtain further information in formulating the plan of care of this patient. Consent for virtual care, including informing the patient that insurance will bebilled, was discussed at the time of scheduling. Yamileth Wagner, NEWS ASSISTANT [address] [facility] [place], [address] [facility] [address] Wagner : Thank you for referring ??Raine ??, a ??18 y.o. seen for headaches. ? HPI: Raine Taylor is a 18 y.o. yo female who presented 04/05/2023 at [facility] ED with focal neurological deficits and severe headache. ?? ED course:The patient presented with onset of word finding difficulty, dysphasia, and jossue-sensory loss. Because of the focal nature of her deficits initial stroke evaluation was called. She was evaluated with MRI and MRA that was reassuring without evidence of infarct, mass or hemorrhage. There was a question of possible out-pouching of the anterior communicating artery which raised a question of a 2 mm aneurysm. ?? Raine was admitted for evaluation and management of complex migraine. Once the possibility of infarct was ruled out by MRI, patient was treated with a migraine cocktail in the emergency room which was effective, along with intravenous fluids. The headache completely resolved and her mental status and speech returned to normal. Word finding difficulty resolved and hemisensory loss resolved as well. She was discharged from [facility] with complete resolution of presenting symptoms. Since discharge from [facility], she reports amitriptyline has been very effective. No recurrent migraine episodes have occurred. She reports she missed taking amitriptyline in the first week after discharge from the hospital, but has been adherent since then. She feels amitriptyline has also benefited her sleep, getting more restful night's sleep which contributes to reduced headache frequency. She is very pleased. Headaches:? much improved. No recurrence of complex migraine. Frequency: Daily [ ] Weekly [ ] Monthly [ ] Onset: Duration: Intensity 1 2 3 4 5 6 7 8 9 10 Location: Frontal [ ] Temporal [ ] Orbital [ ] Posterior [ ] Generalized [ ] L [ ] R [ ] Character: Throbbing [ ] Pressure/squeezing [ ] Sharp [ ] Dull ache [ ] Neuro/visual sx: None [ ] Blurred vis [ ] Diplopia [ ] Photophobia [ ] Phonophobia [ ] Visual guevara [ ] Visual spots [ ] Dizziness [ ] Sensory sx [ ] Motor/weakness [ ] GI sx: None [ ] Nausea [ ] Vomiting [ ] Stomachache [ ] Sleep: Normal [ ] Decreased [ ] Increased [ ] Awakened by h/a at night [ ] Early AM h/a [ ] Other: Family history of headache: ?History of Head injury: ? Medications: Amitriptyline has been refilled, but [facility] erroneously notes that as discontinued. Current Outpatient Medications on File Prior to Visit Medication Sig Dispense Refill Last Dispense ??? [...] 90 tablet 3 Unknown (outside pharmacy) ??? ibuprofen (ADVIL,MOTRIN) 800 MG tablet Take 1 tablet (800 mg total) by mouth every 6 (six) hours as needed for pain (specific location in comments). 30 tablet 3 Unknown (outside pharmacy) ??? norethindrone (MICRONOR) 0.35 mg tablet Take 1 tablet (0.35 mg total) by mouth daily. 90 tablet3 Unknown (outside pharmacy) ??? SUMAtriptan (IMITREX) 50 MG tablet Take 1 tablet (50 mg total) by mouth once as needed for migraine. Can repeat dose in 2 hours if needed. Do not exceed 2 doses in a 24 hour period. Max dose 200mg/ day 9 tablet 0 Unknown (outside pharmacy) ??? [DISCONTINUED] amitriptyline (ELAVIL) 25 MG tablet Take 1 tablet (25 mg total) by mouth nightlyat bedtime. (Patient not taking: Reported on 04/25/2023) 30 tablet 0 Unknown (outside pharmacy) ??? [DISCONTINUED] amitriptyline (ELAVIL) 25 MG tablet Take 1 tablet (25 mg total) by mouth nightlyat bedtime. 30 tablet 0 Unknown (outside pharmacy) No current facility-administered medications on file prior to visit. Med Effectiveness: Side Effects: Allergies: ? Allergies Allergen Reactions ??? Milk Containing Products (Dairy) Lab Results: CT [ ] MRI [ ] EEG [ ] MRA: 04/05/23 Anterior Circulation: Apparent genu versus tiny 2 mm posteriorly projecting outpouching arising from the anterior communicating artery (see screenshot series 1000). Normal flow within the intracranial internal carotid arteries, anterior cerebral arteries and the middle cerebral arteries. No severe stenosis, occlusion, or arteriovenous malformation ?? Blood work: PMH/ROS: See medical information form in chart. Academic/cognitive function: Home behavior: FH: Review of Systems Constitutional: Negative for fever, chills, diaphoresis, activity change, appetite change, fatigue and unexpected weight change. HENT: Negative for hearing loss Eyes: Negative for visual disturbance. Respiratory: Negative for snoring, cough and shortness of breath. Cardiovascular: Negative for chest pain and palpitations. Gastrointestinal: Negative for nausea, vomiting, abdominal pain, diarrhea Endocrine: Negative for polydipsia, polyphagia and polyuria. Genitourinary: Negative for dysuria Musculoskeletal: Negative for myalgias, back pain, joint swelling and arthralgias. Skin: Negative for rash Neurological: see HPI. Psychiatric/Behavioral: Negative for sleep disturbance, dysphoric mood and decreased concentration unless otherwise indicated in HPI. ? Exam: By live video: There were no vitals taken for this visit. Wt Readings from Last 1 Encounters: 04/25/23 81.2 kg (179 lb) Temp Readings from Last 1 Encounters: 04/05/23 36.9 ??C (98.4 ??F) (Oral) BP Readings from Last 1 Encounters: 04/25/23 128/70 Pulse Readings from Last 1 Encounters: 04/25/23 94 Wt Readings from Last 3 Encounters: 04/25/23 81.2 kg (179 lb) 04/05/23 63.5 kg (139 lb 15.9 oz) 01/17/23 63.5 kg (140 lb) (69 %, Z= 0.49)* * Growth percentiles are based on [facility] (Girls, 2-20 Years) data. Ht Readings from Last 3 Encounters: 04/25/23 165.1 cm (5' 5) 04/05/23 165.1 cm (5' 5) 01/17/23 165.1 cm (5' 5) (61 %, Z= 0.27)* * Growth percentiles are based on CDC (Girls, 2-20 Years) data. Neurologic Exam: GENERAL EXAM: No acute distress. No dysmorphic features; skin clear. HEAD: Normocephalic. MENTAL STATUS: Alert, oriented x3; speech & language nl. for age. CRANIAL NERVES: Pupils equal, EOMI, no nystagmus, hearing nl., face symmetric , neck supple. MOTOR: Normal tone, power, & muscle bulk bilaterally. SENSORY: Intact CEREBELLAR: No tremor or dysmetria, no incoordination, gait normal. SKIN: no visible neuro-cutaneous lesions. ? Impression: ICD-10-CM 1. Complicated migraine G43.109 ? Assessment (Medical decision making): Based on the severity, frequency, and complex characteristics, the headaches are most likely in the migraine category. We discussed environmental triggers. ?Complex decision making process based on management of headaches, migraine with monitoring of progress and management options, response to treatment, management and potential side effects of medications. ? ? Plan: Diagnostic studies: Consider follow up MRI/MRA at least 6 mos after previous in March. We can decide if this is necessary at the follow up in 4 mos. ? ?Medications: We will continue preventative medication with amitriptyline. Current Outpatient Medications: ??? amitriptyline (ELAVIL) 25 MG tablet, Take 1 tablet (25 mg total) by mouth nightly at bedtime., Disp: 90 tablet, Rfl: 3, Last Dispense: Unknown (outside pharmacy) ??? doxycycline monohydrate (MONODOX) 100 MG capsule, Take one pill by mouth twice daily with full beverage and food. Avoid laying down for 30 minutes after taking. Avoid taking with dairy. Use sun protection., Disp: 180 capsule, Rfl: 3, Last Dispense: Unknown (outside pharmacy) ??? escitalopram oxalate (LEXAPRO) 20 MG tablet, Take 1 tablet (20 mg total) by mouth daily., Disp:90 tablet, Rfl: 3, Last Dispense: Unknown (outside pharmacy) ??? ibuprofen (ADVIL,MOTRIN) 800 MG tablet, Take 1 tablet (800 mg total) by mouth every 6 (six) hours as needed for pain (specific location in comments)., Disp: 30 tablet, Rfl: 3, Last Dispense: Unknown (outside pharmacy) ??? norethindrone (MICRONOR) 0.35 mg tablet, Take 1 tablet (0.35 mg total) by mouth daily., Disp: 90 tablet, Rfl: 3, Last Dispense: Unknown (outside pharmacy) ??? SUMAtriptan (IMITREX) 50 MG tablet, Take 1 tablet (50 mg total) by mouth once as needed for migraine. Can repeat dose in 2 hours if needed. Do not exceed 2 doses in a 24 hour period. Max dose 200mg/ day, Disp: 9 tablet, Rfl: 0, Last Dispense: Unknown (outside pharmacy) Monitor symptoms with log/calendar ? Return visit: 4 mos or sooner if needed. ?? Thank you again for your kind referral. ? Jabari Sumner M.D. Administrative note: More than fifty percent of 60 min encounter was devoted to counseling and documenting about the diagnosis, treatment and management of the primary condition.? This note was created utilizing [employer] speech recognition software. Errors due to voice recognition technology may occur in this note despite editing. documented in this encounter Plan of Treatment Upcoming Encounters Date Type Department Care Team (Late st Contact Info) Description 12/15/2024 9:00 AM EDT Telemedicine [facility] Nikole Harry [address] [place] [address] Yamileth Wagner CNP [address], [place] [address] 06/11/2025 1:40 PM EDT Office Visit [facility] Nikole Harry [address] [place] [address] Yamileth Wagner CNP [address] [facility], [place] [address] documented as of this encounter Visit Diagnoses Diagnosis Complicated migraine- Primary Migraine, unspecified, without mention of intractable migraine without mention of status migrainosus documented in this encounter Additional Health Concerns Assessment Noted Time PHQ-9 Depression Total Score: 15 023 12:23 PM EDT PHQ-2 Depression Total Score: 2 04/25/20 23 12:23 PM EDT documented as of this encounter Care Teams Jackaroo Relationship Specialty Start Date End Date Yamileth Wagner [place] [address] PCP - General Family Medicine 06/28/17 documented as of this encounter Additional Source Comments The information contained in this document represents components of the legal health record. It is not the complete legal health record.[facility]
--- OUTSIDE RECORDS SUMMARY | 2024-08-23 23:20 | XMS_ITS | Encounter Summary ---
Author Organization [facility] Address [phone] [facility] [place] [address] Care Team Providers Care Diamond Blender Name Role Phone Yamileth Wagner SENIOR GEOTECHNICAL ENGINEER Primary Care Provider Encounter Details Date Type Department Care Team ([facility] st Contact Info) Description 04/05/2023 Telephone [facility] [address] [place] [address] Yamileth Wagner, SENIOR GEOTECHNICAL ENGINEER [address] [facility] [place] [address] [email or web address] Social History Tobacco Use Types Packs/Day Years [...] as of this encounter Progress Notes * Alona Shaw MD - 04/05/2023 2:50 PM EDT New hx depression Started on lexapro recently Mood seems to be improving a little bit Acute onset of complex migraine Had word finding issues and could not talk. Sensory changes unilaterally MRA/MRI/MRV mostly normal 2 mm vessel redunancy vs aneursym? Follow up with neurology- with Dr Sumner. Appt needs to be made. Started amitriptyline daily, and imitrex for abortive Continue OCPs, counseled about increased risk of stroke. Neuro felt like it was ok though. Social work seeing her Repeat MRI in 6-12 mo. Needs Follow up for mood. Has appt with PCP on 04/25. * Marisa Peterson - 04/05/2023 2:08 PM EDT [facility] Pediatric Inpatient called to do a pass off to a provider here. She said she needs to talk with a medical provider. Please give her a call when you get a chance. [phone] documented in this encounter Plan of Treatment Upcoming Encounters Date Type Department Care Team (Late st Contact Info) Description 12/15/2024 9:00 AM EDT Telemedicine [facility] Nikole Harry [address] [place] [address] Yamileth Wagner, SENIOR GEOTECHNICAL ENGINEER [address] [facility] [place] [address] 06/11/2025 1:40 PM EDT Office Visit [facility] Nikole Colmenares [address] [facility] [place] [address] Yamileth Wagner, BETTE [address] [facility], [place] [address] documented as of this encounter Visit Diagnoses Not on filedocumented in this encounter Additional Health Concerns Assessment Noted Time PHQ-9 Depression Total Score: 13 023 11:53 AM EST PHQ-2 Depression Total Score: 2 09/21/19 23 11:53 AM EST documented as of this encounter Care Teams Diamond Blender Relationship Specialty Start Date End Date Yamileth Wagner, BETTE [address] [facility] [place] [address] [email or web address] PCP - General Family Medicine 06/28/17 documented as of this encounter Additional Source Comments The information contained in this document represents components of the legal health record. It is not the complete legal health record.[facility]
--- OUTSIDE RECORDS SUMMARY | 2024-08-23 23:20 | XMS_ITS | Encounter Summary ---
Author Organization [facility] Address [phone] [place] [address] Care Team Providers Care Wellness Director Name Role Phone Yamileth Wagner WAREHOUSE MATERIAL HANDLER Primary Care Provider Reason for Visit * Reason Comments Annual Exam Encounter Details Date Type Department Care Team (Latest Contact Info) Description 04/25/2023 1:00 PM EDT Office Visit [facility] [address] [place] [address] Yamileth Wagner, WAREHOUSE MATERIAL HANDLER [address] [place] [address] [email or web address] Annual physical exam (Primary Dx); Acne vulgaris; Unimmunized; Dysmenorrhea; Anxiety and depression; Complicated migraine; Pelvic pain; Acute pain of left knee; Screening for human immunodeficiency virus; Need for hepatitis C screening test Social History Tobacco Use Types Packs/Day Years [...] Sign Reading Time Taken Comments Blood Pressure 128/70 04/25/2023 1:09 PM EDT Pulse 94 04/25/2023 1:09 PM EDT Temperature - - Respiratory Rate - - Oxygen Saturation 99% 04/25/2023 1:09 PM EDT Inhaled Oxygen Concentration - - Weight 81.2 kg (179 lb) 04/25/2023 1:09 PM EDT Height 165.1 cm (5' 5) 04/25/2023 1:09 PM EDT Body Mass Index 29.79 04/25/2023 1:09 PM EDT documented in this encounter Progress Notes * Yamileth Wagner, WAREHOUSE MATERIAL HANDLER - 04/25/2023 1:00 PM EDT Images from the original note were not included. Patient presents for annual physical Discussed patients current lifestyle including alcohol intake, smoking, drug use, sleep, stress, diet and exercise. PHQ-9 and AUDIT alcohol misuse screenings completed and reviewed today for a total time spent minimum of 8 minutes each Score PHQ2 Flowsheet Row Office Visit from 04/25/2023 in [facility] PHQ-2 Score 2 08/23/2022 10:58 AM 09/21/2022 11:53 AM 04/25/2023 [...] along with other people? Extremely difficult Somewhat difficultVery difficult PHQ-9 Total Score 24 13 15 04/13/2022 1:58 PM 04/05/2023 3:00 AM 04/25/2023 12:23 PM Alcohol Use Disorders Identification Test Audit-C Score 2 0 0 Brief intervention done on chamorro areas of potential improvements to maximize firearms expert health and daily wellness. Health Maintenance reviewed, updated as necessary and counseled on what is due: Health Maintenance Topic Date Due ??? HEPATITIS B VACCINES (1 of 3 - 3-dose series) Never done ??? HPV VACCINES (1 - 2-dose series) Never done ??? COMBINED DTaP,Tdap,Td (2 - Td or Tdap) 06/18/2019 ??? HEPATITIS C SCREENING Never done ??? HIV ONE-TIME SCREENING (18-65 YEARS) Never done ??? COVID-19 VACCINE (4 - Pfizer series) 10/12/2021 ??? INFLUENZA VACCINE (1) Never done ??? REPEAT PHQ 05/25/2023 ??? DEVELOPMENTAL/BEHAVIORAL SCREENING (PHQ, PSC, or SWYC) 04/25/2024 ??? DEPRESSION SCREENING 04/25/2024 ??? SMOKING Hx and SMOKELESS TOBACCO SCREENING 04/25/2024 ??? ADOLESCENT UNIVERSAL LIPID SCREENING Completed ??? MMR VACCINES Completed ??? VARICELLA VACCINES Completed ??? MENINGOCOCCAL VACCINES (ACWY) Completed ??? PNEUMOCOCCAL VACCINES (0-64 years) Aged Out ??? HIB VACCINES Aged Out ??? HEPATITIS A VACCINES Aged Out Immunization History Administered Date(s) Administered ??? COVID-19 Pfizer Vaccine, mRNA, PF 11/29/2020, 12/27/2020, 08/17/2021 ??? MMR 01/23/2019, 09/22/2019 ??? Meningococcal MCV4P 11/02/2020 ??? Tdap 05/21/2019 ??? Varicella 02/11/2021, 06/28/2021 Social History reviewed: Social History Social History Narrative Mom Ren and dad Roldan. 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 Anxiety ??? Pain in joint of right shoulder 01/18/2018 Tore both rotator cuffs a few years ago, was having trouble with the R + accupuncture Not 100% No past surgical history on file. Family history reviewed: Family History Problem Relation Age of Onset ??? Hypertension Father ??? No Known Problems Mother Visit Vitals: Vitals: 04/25/23 1309 BP: 128/70 Pulse: 94 SpO2: 99% Chronic problems and new concerns addressed below. Problem List Items Addressed This Visit Acne vulgaris Overview OCPs and benzoin helped significantly, much improved Current Assessment & Plan Better off OCP Continue current management Pt will let me know if there is any change with this condition Unimmunized Current Assessment & Plan Currently underimmunized Reviewed plan for immunization, importance of immunization and the risks of not immunizing, including communicable disease that can cause severe injury or Recommend: Gardasil, DTaP, Flu She is refusing today but has agreed to do at 6 month mood f/u Dysmenorrhea Overview On OCPs Much better Current Assessment & Plan Since 10 yrs Severe cramping every period [...] Consider gyne consult Pt agreed with plan Anxiety and depression Overview Prozac 60 Failed Zoloft a lot of s/e Ativan prn added at [facility] 07/11 Started Buproprion 07/11 Therapy @ [facility] Switched to Lexapro 09/11 Current Assessment & Plan Taking a semester off at least from [...] along with other people? Extremely difficult Somewhat difficultVery difficult PHQ-9 Total Score 24 13 15 A/p Doing a lot better with the decision to defer school for a semester Will hold on this regimen for now but patient believes Dr Sumner thought the Lexaprwily might be contributing to her HAs Will [...] relationship. Continue therapy Close f/u 4 weeks Complicated migraine Overview ED visit 04/11 Started Amitriptyline, Imitrex Dr Sumner Possible aneurysm on brain MRI Dr Sumner rec repeat 6 mos, suspect congenital abnormality Current Assessment & Plan Sx: Had LOYD for 5 days after Slept through it Has not tried the Amitriptyline - concerned about the s/e rec she try the Enavil - might provide some mood benefit and sleep benefit as well F/u DR Sumner FD to book F/u MRI 4-6 mos Relevant Medications ibuprofen (ADVIL,MOTRIN) 800 MG tablet Acute pain of left knee Current Assessment & Plan Interior knee Fell on a dock about 1 mos ago KNee was very bruised from top of calf to lower thigh on inside of knee Still slightly bruised Still a little painful in the knee Exam shows stable joint Likely hematoma Check knee xray Ice, rest Relevant Orders XR Knee (Left) RESOLVED: Pain in joint of right shoulder Overview Tore both rotator cuffs a few years ago, was having trouble with the R + accupuncture Not 100% Other Visit Diagnoses Annual physical exam - Primary Relevant Orders Lipid panel TSH with reflex Pelvic pain Relevant Orders US Pelvis (Completed) Screening for human immunodeficiency virus Relevant Orders HIV-1/2 antigen/antibody Need for hepatitis C screening test Relevant Orders Hepatitis C antibody, qualitative Review of Systems Constitutional: Negative for activity change, appetite change, chills, diaphoresis, fatigue, fever and unexpected weight change. HENT: Negative. Negative for congestion, dental problem, ear pain, changes in hearing, mouth sores,postnasal drip, sinus pressure, sore throat, trouble swallowing and voice change. Eyes: Negative for photophobia, pain, discharge, redness, itching and unexpected vision change. Respiratory: Negative for apnea, cough, choking, chest tightness, shortness of breath, wheezing andstridor. Cardiovascular: Negative for chest pain, palpitations and leg swelling. Gastrointestinal: Negative for abdominal distention, abdominal pain, anal bleeding, blood in stool,constipation, diarrhea, heartburn, nausea, rectal pain and vomiting. Endocrine: Negative. Negative for cold intolerance, heat intolerance, polydipsia, polyphagia and polyuria. Genitourinary: Negative for bladder incontinence, decreased urine volume, problems with urination, pain with intercourse, dysuria, enuresis, flank pain, frequency, genital sores, blood in urine, menstrual problem, nocturia, pelvic pain, urgency, vaginal bleeding, vaginal discharge and vaginal pain. Allergic/Immunologic: Negative. Negative for environmental allergies, food allergies and immunocompromised state. Neurological: Positive for dizziness and headaches. Negative for tremors, seizures, syncope, facialasymmetry, speech difficulty, weakness, light- headedness and numbness. Hematological: Negative. Negative for adenopathy. Does not bruise/bleed easily. Psychiatric/Behavioral: Negative. Negative for agitation, behavioral problems, confusion, decreasedconcentration, dysphoric mood, hallucinations, self-injury, sleep disturbance and suicidal ideas. The patient is not nervous/anxious and is not hyperactive. All other systems reviewed and are negative. Skin: Negative. Negative for color change, pallor, persistent rash, wound and breast concerns. Musculoskeletal: Negative for joint pain, back pain, gait problem, joint swelling, myalgias and neck pain. Physical Exam Vitals reviewed. Constitutional: Appearance: She is well-developed. HENT: Head: Normocephalic and atraumatic. Right Ear: Tympanic membrane, ear canal and external ear normal. Left Ear: Tympanic membrane, ear canal and external ear normal. Nose: Nose normal. Mouth/Throat: Pharynx: No oropharyngeal exudate. Eyes: General: No scleral icterus. Right eye: No discharge. Left eye: No discharge. Conjunctiva/sclera: Conjunctivae normal. Pupils: Pupils are equal, round, and reactive to light. Neck: Thyroid: No thyromegaly. Cardiovascular: Rate and Rhythm: Normal rate and regular rhythm. Heart sounds: No murmur heard. No friction rub. No gallop. Pulmonary: Effort: Pulmonary effort is normal. No respiratory distress. Breath sounds: Normal breath sounds. No wheezing or rales. Chest: Chest wall: No tenderness. Breasts: Breasts are symmetrical. Right: No inverted nipple, mass, nipple discharge, skin change or tenderness. Left: No inverted nipple, mass, nipple discharge, skin change or tenderness. Abdominal: General: Bowel sounds are normal. There is no distension. Palpations: Abdomen is soft. There is no mass. Tenderness: There is no abdominal tenderness. There is no guarding or rebound. Musculoskeletal: General: No tenderness. Normal range of motion. Cervical back: Normal range of motion and neck supple. Skin: General: Skin is warm and dry. Coloration: Skin is not pale. Findings: No erythema or rash. Neurological: Mental Status: She is alert and oriented to person, place, and time. Deep Tendon Reflexes: Reflexes are normal and symmetric. Psychiatric: Behavior: Behavior normal. Thought Content: Thought content normal. Judgment: Judgment normal. documented in this encounter Miscellaneous Notes * Assessment & Plan Note - Yamileth Wagner CNP - 04/25/2023 1:30 PM EDT Associated Problem(s): Acute pain of left knee (Resolved 06/02/2024) Interior knee Fell on a dock about 1 mos ago KNee was very bruised from top of calf to lower thigh on inside of knee Still slightly bruised Still a little painful in the knee Exam shows stable joint Likely hematoma Check knee xray Ice, rest * Assessment & Plan Note - Yamileth Wagner CNP - 04/25/2023 2:50 AM EDT Associated Problem(s): Complicated migraine Sx: Had LOYD for 5 days after Slept through it Has not tried the Amitriptyline - concerned about the s/e rec she try the Enavil - might provide some mood benefit and sleep benefit as well F/u DR Burak DEAN to book F/u MRI 4-6 mos * Assessment & Plan Note - Yamileth Wagner CNP - 04/25/2023 2:48 AM EDT Associated Problem(s): Anxiety and depression Images [...] along with other people? Extremely difficult Somewhat difficultVery difficult PHQ-9 Total Score 24 13 15 [...] weeks * Assessment & Plan Note - Yamileth Wagner CNP - 04/25/2023 2:47 AM EDT Associated Problem(s): Dysmenorrhea Since 10 yrs Severe cramping every period [...] Consider gyne consult Pt agreed with plan * Assessment & Plan Note - Yamileth Wagner CNP - 04/25/2023 2:47 AM EDT Associated Problem(s): Unimmunized Currently underimmunized Reviewed plan for immunization, importance of immunization and the risks of not immunizing, including communicable disease that can cause severe injury or Recommend: Gardasil, DTaP, Flu She is refusing today but has agreed to do at 6 month mood f/u * Assessment & Plan Note - Yamileth Wagner CNP - 04/25/2023 2:47 AM EDT Associated Problem(s): Acne vulgaris Better off OCP Continue current management Pt will let me know if there is any change with this condition documented in this encounter Plan of Treatment Upcoming Encounters Date Type Department Care Team (Late st Contact Info) Description 12/15/2024 9:00 AM EDT [facility] [address] [facility] [place] [address] Yamileth Wagner, WAREHOUSE MATERIAL HANDLER [address] [facility], [place] [address] 06/11/2025 1:40 PM EDT Office [facility] [address] [facility] [place] [address] Yamileth Wagner, WAREHOUSE MATERIAL HANDLER [address] [facility], [place] [address] documented as of this encounter Results * US PELVIS TRANSABDOMINAL [...] No cause for abnormal bleeding identified. Yamileth Wagner CNP IMG US PELVIS documented in this encounter Visit Diagnoses Diagnosis Annual physical exam- Primary Routine general medical examination at a health care facility Acne vulgaris Other acne Unimmunized Dysmenorrhea Anxiety and depression Complicated migraine Migraine, unspecified, without mention of intractable migraine without mention of status migrainosus Pelvic pain Acute pain of left knee Screening for human immunodeficiency virus Special screening examination for other specified viral diseases Need for hepatitis C screening test Special screening examination for other specified viral diseases Pelvic pain documented in this encounter Additional Health Concerns Assessment Noted Time PHQ-9 Depression Total Score: 15 023 12:23 PM EDT PHQ-2 Depression Total Score: 2 04/25/20 23 12:23 PM EDT documented as of this encounter Care Teams Wellness Director Relationship Specialty Start Date End Date Yamileth Wagner CNP [address] [place] [id number] [email or web address] PCP - General Family Medicine 06/28/17 documented as of this encounter Additional Source Comments The information contained in this document represents components of the legal health record. It is not the complete legal health record.[facility]
--- OUTSIDE RECORDS SUMMARY | 2024-08-23 23:20 | XMS_ITS | Encounter Summary ---
Author Organization [facility] Address [phone] [facility] [place] [address] Care Team Providers Care Wet Room Supervisor Name Role Phone Yamileth Wagner Hunter AMOS Primary Care Provider Encounter Details Date Type Department Care Team ([facility] Contact Info) Description 09/10/2023 10:30 AM EST Telemedicine Jabari Sumner M.D. [address] [place] [id number] Jabari Sumner MD [address] [place], [place] [id number] [email or web address] Complicated migraine (Primary Dx) Social History Tobacco [...] Progress Notes * Jabari Sumner MD - 09/10/2023 10:30 AM EST Images from the original note were not included. JABARI SUMNER M.D. [address] [place] [address] [address] ?[place] [address] Neurology Office Note Patient Name: ??Raine Taylor? : ??2005 Age: 18 y.o. Date of Visit: 09/10/2023 [Clinical encounter conducted by telehealth due to [...] was discussed at the time of scheduling. ? Diagnosis: Headache Interval History: Recent headache frequency: Headaches have improved overall but increased somewhat recently. May have blurred vision but no recurrence of word finding, dysphasia, or hemisensory change. Amitriptyline definitely helps. Migraines incr premenstrual. Current medications: amitriptyline 25mg sumatriptan. Medication effectiveness: good, but we discussed increasing amitriptyline to 50mg ? Headaches: Frequency: Daily [ ] Weekly [3x ] Monthly [ ] premenstrual Onset: Duration: varies Intensity 1 2 3 4 5 6 7 8 9 10 Location: Frontal [ ] Temporal [ ] Orbital [ ] Posterior [ ] Generalized [ ] L [ ] R [ ] Character: Throbbing [ x] Pressure/squeezing [ ] Sharp [ ] Dull ache [ ] Neuro/visual sx: None [ ] Blurred vis [ ] Diplopia [ ] Photic [ ] Dizzy [ ] Sensory [ ] Motor [ ] GI sx: None [ ] Nausea [ ] Vomiting [ ] Stomachache [ ] Sleep: Normal [ ] Decreased [ ] Increased [ ] Awakened by h/a in noc [ ] Early AM h/a [ ] Other: ROS: General: neg; Neuro: see HPI; ENT: neg; Skin: neg; CV: neg; GI: neg; : neg; Ortho: neg Current Medications: No longer taking BCP Current Outpatient Medications on File Prior to Visit Medication Sig Dispense Refill Last Dispense adapalene (DIFFERIN) 0.3 % gel Apply topically nightly at bedtime. 45 g 3 Unknown (outside pharmacy) doxycycline monohydrate (MONODOX) 100 MG capsule Take one pill by mouth twice daily with full beverage and food. Avoid laying down for 30 minutes after taking. Avoid taking with dairy. Use sun protection. 180 capsule 3 Unknown (outside pharmacy) escitalopram oxalate (LEXAPRO) 20 MG tablet Take 1 tablet (20 mg total) by mouth daily. 90 tablet 3Unknown (outside pharmacy) ibuprofen (ADVIL,MOTRIN) 800 MG tablet Take 1 tablet (800 mg total) by mouth every 6 (six) hours asneeded for pain (specific location in comments). 30 tablet 3 Unknown (outside pharmacy) norethindrone (MICRONOR) 0.35 mg tablet Take 1 tablet (0.35 mg total) by mouth daily. 90 tablet 3 Unknown (outside pharmacy) SUMAtriptan (IMITREX) 50 MG tablet Take 1 tablet (50 mg total) by mouth once as needed for migraine. Can repeat dose in 2 hours if needed. Do not exceed 2 doses in a 24 hour period. Max dose 200mg/ day 9 tablet 0 Unknown (outside pharmacy) [DISCONTINUED] amitriptyline (ELAVIL) 25 MG tablet Take 1 tablet (25 mg total) by mouth nightly at bedtime. 90 tablet 3 Unknown (outside pharmacy) No current facility-administered medications on file prior to visit. Med Effectiveness: Side Effects: Allergies: Allergies Allergen Reactions Milk Containing Products (Dairy) Lab Results: CT [ ] MRI [ ] EEG [ ] Blood work: PMH/ROS: Allergies: Milk containing products (dairy) Academic/cognitive function: Home behavior: FH: Review of [...] decreased concentration unless otherwise indicated in HPI. Exam: Neurologic Exam: By live video GENERAL EXAM: No acute distress. No dysmorphic features; skin clear. HEAD: Normocephalic. MENTAL STATUS: Alert, oriented x3; speech & language nl. for age. CRANIAL NERVES:Pupils equal, EOMI, no nystagmus,, hearing nl., face symmetric, neck supple. MOTOR: Normal tone, power, & muscle bulk bilaterally. SENSORY: Intact CEREBELLAR: No tremor or dysmetria, no incoordination, gait normal. SKIN: no visible neuro-cutaneous lesions. Impression: Migraine, somewhat increased recently, saran premenstrual headaches ICD-10-CM 1. Complicated migraine G43.109 Plan: Incr amitriptyline to 50mg qd Add Fiorcet prn severe migraine. Remain off BCP sumatriptan prn at onset of migraine May try ibuprofen premenstrual. Current Outpatient Medications: adapalene (DIFFERIN) 0.3 % gel, Apply topically nightly at bedtime., Disp: 45 g, Rfl: 3, Last Dispense: Unknown (outside pharmacy) amitriptyline (ELAVIL) 50 MG tablet, Take 1 tablet (50 mg total) by mouth nightly at bedtime., Disp: 60 tablet, Rfl: 3, Last Dispense: Unknown (outside pharmacy) ebvbyywrko-ettedpengfxpt-ztqewaug (FIORICET, ESGIC) 50-325-40 mg per tablet, Take [...] Rfl: 3, Last Dispense: Unknown (outside pharmacy) escitalopram oxalate (LEXAPRO) 20 MG tablet, Take 1 tablet (20 mg total) by mouth daily., Disp: 90 tablet, Rfl: 3, Last Dispense: Unknown (outside pharmacy) ibuprofen (ADVIL,MOTRIN) 800 MG tablet, Take 1 tablet (800 mg total) by mouth every 6 (six) hours as needed for pain (specific location in comments)., Disp: 30 tablet, Rfl: 3, Last Dispense: Unknown (outside pharmacy) norethindrone (MICRONOR) 0.35 mg tablet, Take 1 [...] Rfl: 0, Last Dispense: Unknown (outside pharmacy) Return visit: 6-8 wks. ? ? Jabari Sumner M.D. Administrative note: More than fifty percent of time spent was devoted to counseling about the diagnosis, treatment and management of the primary condition. This note was created utilizing speech recognition technology. Errors due to voice recognition technology may occur in this note despite editing. documented in this encounter Plan of Treatment Upcoming Encounters Date Type Department Care Team (Late st Contact Info) Description 12/15/2024 9:00 AM EDT Telemedicine [facility] Nikole Colmenares [address] [facility] [place] [address] Yamileth Wagner, SALES PROJECT ENGINEER [address] [facility], [facility] [place] [address] [email or web address] 06/11/2025 1:40 PM EDT Office Visit [facility] Nikole Colmenares [address] [facility] [place] [address] Yamileth Wagner, BETTE [address] [facility], [place] [address] [email or web address] documented as of this encounter Visit Diagnoses Diagnosis Complicated migraine- Primary Migraine, unspecified, without mention of intractable migraine without mention of status migrainosus documented in this encounter Additional Health Concerns Assessment Noted Time PHQ-9 Depression Total Score: 15 023 12:23 PM EDT PHQ-2 Depression Total Score: 2 04/25/20 23 12:23 PM EDT documented as of this encounter Care Teams Wet Room Supervisor Relationship Specialty Start Date End Date Yamileth Wagner, SALES PROJECT ENGINEER [address] [facility], [facility] [place] [address] [email or web address] PCP - General Family Medicine 06/28/17 documented as of this encounter Additional Source Comments The information contained in this document represents components of the legal health record. It is not the complete legal health record.[facility]
--- OUTSIDE RECORDS SUMMARY | 2024-08-23 23:20 | XMS_ITS | Encounter Summary ---
Author Organization [facility] Address [phone] [facility] [place] [address] Care Team Providers Care Electrical Manufacturing Engineer Name Role Phone Yamileth Wagner Hunter EPIC ANALYST Primary Care Provider Janette Jules MD Unavailable [phone] Yamileth Wagner Hunter EPIC ANALYST Unavailable + [phone] Janette Jules MD Unavailable [phone] Encounter Details Date Type Department Care Team (Late st Contact Info) Description 04/04/2023 Procedure Pass [facility] - MRI, Main [place] [address] [place] [address] Social History Tobacco Use Types [...] Info) Description 12/15/2024 9:00 AM EDT [facility] [address] [place] [address] Yamileth Wagner CNP [address] [place] [address] [email or web address] 06/11/2025 1:40 PM EDT Office Visit [facility] Nikole Harry [address] [place] [address] Yamileth Wagner CNP [address] [place] [address] [email or web address] documented as of this encounter Visit Diagnoses Not on filedocumented in this encounter Additional Health Concerns Assessment Noted Time PHQ-9 Depression Total Score: 13 023 11:53 AM EST PHQ-2 Depression Total Score: 2 09/21/19 23 11:53 AM EST documented as of this encounter Care Teams Electrical Manufacturing Engineer Relationship Specialty Start Date End Date Yamileth Wagner [place] [address] [email or web address] PCP - General Family Medicine 06/28/17 Janette Jules MD [address] [place] [id number] Insurance Assigned Provider 11/24/23 02/23/24 Yamileth Wagner [place] [address] [email or web address] Insurance Assigned Provider 02/23/24 07/30/24 Janette Jules MD [address] [place] [address] [address] [place] [address] Insurance Assigned Provider 07/30/24 documented as of this encounter Additional Source Comments The information contained in this document represents components of the legal health record. It is not the complete legal health record.[facility]
--- OUTSIDE RECORDS SUMMARY | 2024-08-23 23:21 | XMS_ITS | Encounter Summary ---
Author Organization [facility] Address [phone] [facility] [place] [address] Care Team Providers Care Olive Picker Name Role Phone BernardYamileth yan Hunter AMOS Primary Care Provider Reason for Visit * Reason Onset Date Comments lmom- needs repeat kidney u/s 10/09/2019 Encounter Details Date Type Department Care Team (Late st Contact Info) Description 10/09/2019 Telephone [facility] [address] [place] [address] Marisa Kramer MA [email or web address] lmom- needs repeat kidney u/s Social History Tobacco Use Types Packs/Day Years Used Date Smoking Tobacco: Never Smokeless Tobacco: Never Alcohol Use Standard Drinks/Week Comments Never 0 (1 standard drink = 0.6 oz pur e alcohol) Sex and Gender Information Value Date Recorded Sex Assigned at Not on file Gender Identity Not on file Sexual Orientation Not on file documented as of this encounter Progress Notes * Marisa Kramer - 10/09/2019 10:13 AM EST Spoke with patients mom - said she already had kidney u/s Raine feeling better There is one ordered from 09/05/19 in the chart - unsure of why? But will touch base w/ JRS when kinga SS documented in this encounter Plan of Treatment Upcoming Encounters Date Type Department Care Team (Late st Contact Info) Description 12/15/2024 9:00 AM EDT Tele[facility]icine [facility] Nikole Harry [address] [place] [address] Yamileth Wagner CNP [address] [facility] [place] [address] [email or web address] 06/11/2025 1:40 PM EDT Office Visit [facility] Nikole Harry [address] [place] [address] Yamileth Wagner CNP [address] [place] [address] documented as of this encounter Visit Diagnoses Not on filedocumented in this encounter Additional Health Concerns Assessment Noted Time PHQ-9 Depression Total Score: 14 020 12:00 PM EST documented as of this encounter Care Teams Olive Picker Relationship Specialty Start Date End Date Yamileth Wagner CNP [address] [place] [address] [email or web address] PCP - General Family Medicine 06/28/17 documented as of this encounter Additional Source Comments The information contained in this document represents components of the legal health record. It is not the complete legal health record.[facility]
--- OUTSIDE RECORDS SUMMARY | 2024-08-23 23:21 | XMS_ITS | Encounter Summary ---
Author Organization [facility] Address [phone] [facility] [place] [address] Care Team Providers Care Divine Healer Name Role Phone Yamileth Wagner ICU REGISTERED NURSE Primary Care Provider Reason for Visit * Reason Comments Follow Up Visit Encounter Details Date Type Department Care Team ([facility] st Contact Info) Description 08/23/2021 9:40 AM EST Telemedicine [facility] [address] [place] [address] Yamileth Wagner, ICU REGISTERED NURSE [address] [place] [address] [email or web address] Depressed mood; Dysmenorrhea Social History Tobacco Use Types Packs/Day Years [...] Sign Reading Time Taken Comments Blood Pressure - - Pulse 62 08/23/2021 9:33 AM EST Temperature - - Respiratory Rate - - Oxygen Saturation - - Inhaled Oxygen Concentration - - Weight 61.2 kg (135 lb) 08/23/2021 9:33 AM EST Height 165.1 cm (5' 5) 08/23/2021 9:33 AM EST Body Mass Index 22.47 08/23/2021 9:33 AM EST Body Mass Index Percentile 61.98% 08/23/2021 9:3 3 AM EST Growth Chart: [facility] (Girls, 2- 20 Years) documented in this encounter Patient Instructions * Patient Instructions* Yamileth Wagner, ICU REGISTERED NURSE - 08/23/2021 9:40 AM EST Behavioral Health Resources Resources include: ? Tools for finding a local behavioral health provider ? Peer Support Warmline ? Virtual behavioral health providers ? Phone based applications ? Additional specialized behavioral health resources (including resources for Substance Use Disorder and eating disorders) Tools for Finding a Local Behavioral Health Provider (may provide virtual and/or in-person appointments) Therapy Radiagraph Operator Website: https://therapymatcher.LigerTail/ Therapy Radiagraph Operator provides free, personalized, and confidential referrals to licensed social workers across [place]. If you're in need of a qualified therapist, call Therapy Radiagraph Operator at [phone] or email Therapy Radiagraph Operator at Leave a message with your name and phone number, and a nephrology social worker will call you back to learn more about your needs and recommend several potential therapists. Eber Davide INTERFACE Referral Service Website: https://interface.[facility]/ [facility] Referral Service is a mental health and wellness referral Helpline available Sunday through Sunday, 9 am-5 pm, at [phone] (toll free). This is a free, confidential referral service for residents of participating [facility]. Callers from these participating [facility] are matched with licensed mental health providers, on average, within 2 weeks of their call to INTERFACE. Psychology Today Therapy Directory Website: https://www.psychologytoday.com/us/therapists Psychology Today's Therapy Directory lists clinical professionals, psychiatrists and treatment centers who provide mental health services in the [place] and internationally. Users can search by geography,specialty and insurance to see what providers may be available. If you need additional help identifying resources, please call [phone] to speak with a [facility] Bar Machine Operator Production. You may also fill out an online form at [email or web address].[email or web address] to request resources. A Bar Machine Operator Production will contact you in 1-2 weeks. Peer Support Warmline [facility] Peer Support Warmline Website: https://namimass.org/vddkcs-axh-syioy-support-options/#9080401591025-z2wfo151-bm 27 Warmlines are numbers that people can call to get support when they are feeling lonely, anxious, sad, etc., or simply need someone to talk to. They can also provide resources to callers. To find the phone number and hours of operation for your geographic area, please visit the website above. Virtual Behavioral Health Providers [employer] Website: https://www.ListRunner/ [employer] is the largest online counseling platform worldwide. [employer] makes professional counseling available anytime, anywhere, through a computer, tablet or smartphone. [employer] offers access to licensed, trained, experienced, and accredited psychologists (PhD / PsyD), marriage and family therapists (ACCOUNTING MANAGER), clinical social workers (CERTIFIED FRAUD EXAMINER / HAND BINDERY ASSEMBLY WORKER), and board licensed professional counselors(SCHOOL TRANSPORTATION DIRECTOR). Cynny Website: https://www.4Tech/ [employer] is an online and mobile therapy company. Provides online therapy and psychiatry. Accepts many insurances. With [employer], you can send a therapist text messages, audio messages, as well as picture and video messages in a private, text-based chat room. Phone Based Apps Headspace Provides guided meditations, animations, articles and videos. Calm Pawel for Sleep, Meditation and Relaxation CBT Though Diary Mood Journal and Thought Record for Cognitive Behavioral Therapy (CBT) What's Up? A Mental Health Pawel Uses Cognitive Behavioral Therapy (CBT) and Acceptance Commitment Therapy (ACT) methods to help youcope with Depression, Anxiety, Stress, and more. Insight Timer Pawel for sleep, anxiety and stress 10% Happier Offers guided meditations and practical teachings CBT-i Reconciliation Clerk (CBT for insomnia) Pawel for people who are engaged in CBT-I with a health provider, or who have experienced symptoms ofinsomnia and would like to improve their sleep habits. documented in this encounter Progress Notes * Yamileth Wagner CNP - 08/23/2021 9:40 AM EST Patient ID: Raine Taylor is a 16 y.o. female HPI Presents for follow-up, problems addressed below Problem List Items Addressed This Visit Dysmenorrhea Overview On OCPs Much better Current Assessment & Plan More cramping again LMP 7 days ago Down for a whole day Which has not happened in a while Has been doing the w/d bleed every month rec she give it another month before we inc the dose She has been stable on this dose for a while We will recheck in 4 weeks at our mood f/u scheduled Depressed mood Overview Prozac 60 Failed Zoloft a lot of s/e No therapy currently Current Assessment & Plan Taking 40mg Prozac now, that was the [...] offered She is safe F/u 4-6 weeks ROS No Fatigue, No Wt. change No Fevers, chills, night sweats No CP, SOB, palpitations No calf pain or swelling No Breast Masses, Tenderness, Discharge No abdominal pain No chronic Constipation or Diarrhea No GERD, Blood in stool No new skin lesions/rashes +++ Mood changes No HAs, dizziness, vision changes, hearing loss No Urinary incontinence, Nocturia, Hesitancy, Urgency No genital Symptoms No Arthralgias, Myalgias, Back Pain No violence at home PE Well appearing, NAD PERRLA, EOMI Neck - supple, no LAD, no thyromegaly Heart - RRR, no murmurs/rubs/gallops Lungs - CTA bilaterally, no wheezes/rhales/rhonchi Abd: NABS, soft, NT, ND, no HSM, no rebound tenderness, [place] negative, no guarding Extremities - WWP, no edema, calves equal and symmetric I personally spent a total of 20 minutes on care for this patient on the date of the encounter. This includes onca-hx-habf time during the visit as well as non ehbz-kc-ozas time spent on chart review, documentation, and care coordination documented in this encounter Miscellaneous Notes * Assessment & Plan Note - Yamileth Wagner CNP - 08/23/2021 9:52 AM EST Associated Problem(s): Dysmenorrhea More cramping again LMP 7 days ago Down for a whole day Which has not happened in a while Has been doing the w/d bleed every month rec she give it another month before we inc the dose She has been stable on this dose for a while We will recheck in 4 weeks at our mood f/u scheduled * Assessment & Plan Note - Yamileth Wagner CNP - 08/22/2021 6:20 PM EST Associated Problem(s): Anxiety and depression Taking 40mg Prozac now, that was the [...] offered She is safe F/u 4-6 weeks documented in this encounter Plan of Treatment Upcoming Encounters Date Type Department Care Team (Late st Contact Info) Description 12/15/2024 9:00 AM EDT Tele[facility]icine [facility] Nikole Harry [address] [facility] [place] [address] Yamileth Wagner CNP [address] [facility], [place] [address] 06/11/2025 1:40 PM EDT Office Visit [facility] Nikole Harry [address] [place] [address] Yamileth Wagner CNP [address], [place] [address] documented as of this encounter Visit Diagnoses Diagnosis Depressed mood Dysmenorrhea documented in this encounter Additional Health Concerns Assessment Noted Time PHQ-9 Depression Total Score: 16 022 8:57 AM EST PHQ-2 Depression Total Score: 4 08/23/19 22 8:57 AM EST documented as of this encounter Care Teams Divine Healer Relationship Specialty Start Date End Date Yamileth Wagner CNP [address] [place] [address] PCP - General Family Medicine 06/28/17 documented as of this encounter Additional Source Comments The information contained in this document represents components of the legal health record. It is not the complete legal health record.[facility]
--- OUTSIDE RECORDS SUMMARY | 2024-08-23 23:21 | XMS_ITS | Encounter Summary ---
Author Organization [facility] Address [phone] [facility] [place] [address] Care Team Providers Care Superannuation Clerk Name Role Phone Yamileth Wagner CNP Primary Care Provider Reason for Visit * Reason Comments Medication Refill Encounter Details Date Type Department Care Team ([facility] st Contact Info) Description 08/05/2020 Refill [facility] [address] [place] [address] Yamileth Wagner, OFFICE SERVICES ASSISTANT [address] [place] [address] [email or web address] Medication Refill Social History Tobacco Use Types [...] as of this encounter Progress Notes * Yoselyn Jean - 08/05/2020 12:07 PM EST [id number] 0.18/0.215/0.25 mg-25 mcg Tab [[id number]] ?? Order Details Dose, Route, Frequency: As Directed Dispense Quantity: 84 tablet Refills: 2 Fills remaining: -- ?? Sig: TAKE 1 TABLET BY MOUTH EVERY DAY ?? Written Date: 11/03/19 Expiration Date: 11/02/20 Start Date: 11/03/19 End Date: -- ?? Ordering Provider: Yamileth Wagner CNP Last telemedicine 11/10/19 Last ov 09/22/19 Future Appointments Date Time Provider Department Center 09/22/2020 4:00 PM Johana Lanza MD, [email or web address] None documented in this encounter Plan of Treatment Upcoming Encounters Date Type Department Care Team (Late st Contact Info) Description 12/15/2024 9:00 AM EDT Telemedicine [facility] [place] [address] Yamileth Wagner CNP [address], [place] [address] [email or web address] 06/11/2025 1:40 PM EDT Office Visit [facility] [address] [place] [address] Yamileth Wagner CNP [address] [place] [address] [employer]book [email or web address] documented as of this encounter Visit Diagnoses Not on filedocumented in this encounter Additional Health Concerns Assessment Noted Time PHQ-9 Depression Total Score: 3 11/10/19 20 1:37 PM EDT PHQ-2 Depression Total Score: 0 11/10/19 20 1:37 PM EDT documented as of this encounter Care Teams Superannuation Clerk Relationship Specialty Start Date End Date Yamileth Wagner CNP [address] [place] [address] [employer]book [email or web address] PCP - General Family Medicine 06/28/17 documented as of this encounter Additional Source Comments The information contained in this document represents components of the legal health record. It is not the complete legal health record.[facility]
--- OUTSIDE RECORDS SUMMARY | 2024-08-23 23:21 | XMS_ITS | Encounter Summary ---
Author Organization [facility] Address [phone] [facility] [place] [address] Care Team Providers Care Spiral Tube Winder Name Role Phone Yamileth Wagner CNP Primary Care Provider Reason for Visit * Reason Comments Follow-up Encounter Details Date Type Department Care Team (Late st Contact Info) Description 07/10/2022 2:50 PM EST Office Visit [facility] [address] [place] [address] Yamileth Wagner, STORE STOCK HELP [address] [place] [address] [email or web address] Anxiety and depression Social History Tobacco Use Types Packs/Day Years Used Date Smoking Tobacco: Never Smokeless Tobacco: Never Tobacco Cessation:Counseling Given: Not Answered Alcohol Use Standard Drinks/Week Comments Never 0 (1 standard drink = 0.6 oz pur e alcohol) Sex and Gender Information Value Date Recorded Sex Assigned at Not on file Gender Identity Not on file Sexual Orientation Not on file documented as of this encounter Last Filed Vital Signs Vital Sign Reading Time Taken Comments Blood Pressure 130/70 07/10/2022 2:41 PM EST Pulse 63 07/10/2022 2:41 PM EST Temperature 36.8 ??C (98.3 ??F) 07/10/2022 2:41 PM ES T Respiratory Rate - - Oxygen Saturation 99% 07/10/2022 2:41 PM EST Inhaled Oxygen Concentration - - Weight 75.3 kg (166 lb) 07/10/2022 2:41 PM EST Height - - Body Mass Index 27.62 04/13/2022 2:53 PM EDT documented in this encounter Progress Notes * Yamileth Wagner, STORE STOCK HELP - 07/10/2022 2:50 PM EST Patient ID: Raine Taylor is a 17 y.o. female HPI Mood f/u Problem List Items Addressed This Visit Anxiety and depression Overview Prozac 60 Failed Zoloft a lot of s/e Ativan pr[place] [facility] [place]11 Started Buproprion 07/11 Therapy @ [facility] Current Assessment & Plan Inc to 60mg Prozac No s/e But has not noticed much improvement A lot of anxiety - issues with roommate and neighbor Having panic attacks that last days which has been very difficult Cant eat Feeling of tightness in chest Very unpleasant Supports - family at home, friends at school are awesome Has a partner currently NO self harm Just started therapy at [facility], next session in a few weeks Has [...] in 9 days Pt agreed with plan Relevant Medications busPIRone (BUSPAR) 5 MG tablet ROS No Fatigue, No Wt. change No [...] No violence at home PE Well appearing, well dressed/groomed, pleasant, cooperative [...] murmurs/rubs/gallops Lungs - CTA bilaterally, no wheezes/rhales/rhonchi Extremities - WWP, no edema, calves equal and symmetric I personally spent a total of 27 minutes on care for this patient on the date of the encounter. This includes qlji-up-izvg time during the visit as well as non acwn-uc-dokj time spent on chart review, documentation, and care coordination documented in this encounter Miscellaneous Notes * Assessment & Plan Note - Yamileth Wagner CNP - 07/10/2022 3:05 PM EST Associated Problem(s): Anxiety and depression Inc to 60mg Prozac No s/e But has not noticed much improvement A lot of anxiety - issues with roommate and neighbor Having panic attacks that last days which has been very difficult Cant eat Feeling of tightness in chest Very unpleasant Supports - family at home, friends at school are awesome Has a partner currently NO self harm Just started therapy at [facility], next session in a few weeks Has [...] in 9 days Pt agreed with plan documented in this encounter Plan of Treatment Upcoming Encounters Date Type Department Care Team (Late st Contact Info) Description 12/15/2024 9:00 AM EDT Telemedicine [facility] Nikole Harry [address] [place] [address] Yamileth Wagner CNP [address] [place] [address] [email or web address] 06/11/2025 1:40 PM EDT Office Visit [facility] Nikole Harry [address] [place] [address] Yamileth Wagner CNP [address] [place] [address] [email or web address] documented as of this encounter Visit Diagnoses Diagnosis Anxiety and depression documented in this encounter Additional Health Concerns Assessment Noted Time PHQ-9 Depression Total Score: 15 022 2:46 PM EST PHQ-2 Depression Total Score: 3 07/10/20 22 2:46 PM EST documented as of this encounter Care Teams Spiral Tube Winder Relationship Specialty Start Date End Date Yamileth Wagner CNP [address] [place] [address] PCP - General Family Medicine 06/28/17 documented as of this encounter Additional Source Comments The information contained in this document represents components of the legal health record. It is not the complete legal health record.[facility]
--- OUTSIDE RECORDS SUMMARY | 2024-08-23 23:21 | XMS_ITS | Encounter Summary ---
Author Organization [facility] Address [phone] [place] [address] Care Team Providers Care Wool Shearer Name Role Phone Yamileth Wagner CNP Primary Care Provider Reason for Visit * Reason Onset Date Comments Cough 05/19/2022 Encounter Details Date Type Department Care Team (Late st Contact Info) Description 05/19/2022 Telephone [facility] [address] [place] [address] Kathy Mckoy [address] [place] [id number] [email or web address] Social History Tobacco Use Types Packs/Day Years Used Date Smoking Tobacco: Never Smokeless Tobacco: Never Alcohol Use Standard Drinks/Week Comments Never 0 (1 standard drink = 0.6 oz pur e alcohol) Sex and Gender Information Value Date Recorded Sex Assigned at Not on file Gender Identity Not on file Sexual Orientation Not on file documented as of this encounter Progress Notes * Yamileth Wagner CNP - 05/19/2022 5:40 PM EDT Can I suggest that she also start Flonase twice a day for a week * Marisa Kramer - 05/19/2022 5:27 PM EDT Per JRS Notified pt that she is willing to order chest xray Can report to [facility] over the weekend to have this done and will f/u when results are back in Patient said she will talk it over with her mom and decide over the weekend if she will have cxr done SS * Marisa Kramer - 05/19/2022 4:47 PM EDT Patient called to report: covid dx 04/25 Still not feeling well Took paxlovid Testing negative currently Still coughing, dry cough in the beginning but now coughing up phlegm + nasal congestion, fatigue, lightheaddedness Denies fever Denies chest pain Some difficulty breathing Currently home until she goes back to school this weekend Looking for advice/next steps Please advise No appt's left for the day, would you add on for virtual? Best practice to have lungs listened to, needs in person eval Health clinic at school or urgent care, no appointments left for the day Patient said she has been to health clinic and they rx'ed cough suppressant only Encouraged to revisit for another eval or urgent care over the weekend as [facility] is closed over the weekend - earliest we could eval pt would be Sunday and patient leaving to go back to school Sundayor Sunday Push fluids and rest until then SS * Kathy Mckoy - 05/19/2022 3:23 PM EDT Pt tested positive for Covid on 04/25 - she still has a cough, fatigue and congestion. I offered appointment for Sunday but she will be in school in [place]. She would like some advise documented in this encounter Plan of Treatment Upcoming Encounters Date Type Department Care Team (Late st Contact Info) Description 12/15/2024 9:00 AM EDT Telemedicine [facility] [address] [place] [address] Yamileth Wagner, CATALYST OPERATOR GASOLINE [address] [place] [address] 06/11/2025 1:40 PM EDT [facility] [address] [place] [address] Yamileth Wagner CNP [address] [place] [address] documented as of this encounter Visit Diagnoses Diagnosis Viral upper respiratory tract infection- Primary Acute upper respiratory infections of unspecified site documented in this encounter Additional Health Concerns Assessment Noted Time PHQ-9 Depression Total Score: 5 04/13/20 22 1:59 PM EDT PHQ-2 Depression Total Score: 2 04/13/20 22 1:59 PM EDT documented as of this encounter Care Teams Wool Shearer Relationship Specialty Start Date End Date Yamileth Wagner CNP [address] [place] [id number] PCP - General Family Medicine 06/28/17 documented as of this encounter Additional Source Comments The information contained in this document represents components of the legal health record. It is not the complete legal health record.[facility]
--- OUTSIDE RECORDS SUMMARY | 2024-08-23 23:21 | XMS_ITS | Encounter Summary ---
Author Organization [facility] Address [phone] [facility] [place] [address] Care Team Providers Care Personnel Administrator Name Role Phone Yamileth aWgner Hunter AMOS Primary Care Provider Reason for Visit * Reason Comments Acne Encounter Details Date Type Department Care Team (Late st Contact Info) Description 11/16/2021 11:45 AM EDT Office Visit [facility] [address] [address] Johana Lanza MD, MD [address] [address] [email or web address] Acne vulgaris (Primary Dx) Social History Tobacco Use Types [...] as of this encounter Progress Notes * Johana Lanza MD, MD - 11/16/2021 11:45 AM EDT Images from the original note were not included. ?MD Johana Quiroz MD Steven Smith, MD Pamela K. Weinfeld, MD Deon Wolpowitz, MD, PhD ?[address] [address] FAX [phone] [email or web address] ?Date of last visit: 08/26/20 telemed Consult requested by: BETTE Amin HISTORY: Chief complaint: spots HPI: 16 y.o. female reports tender pink bumps on the face present. Pt says that her acne is flaring since LV on her face with new active lesions. Today is a bad day for her acne. In the morning, Pt uses agentle wash. Pt is using BP wash, clindamycin lotion daily, differin 0.03% nightly every day or every other day (she alternates). Pt says she has not seen progress with any of these treatments. She is using Purehaven moisturizer. Otherwise denies changing moles, new growths, itchy, painful, or bleeding skin lesions. PREVIOUS: She notes that the face has been doing worse and flaring in the last few days and it has been slowly getting worse. She is washing the face with the BP wash in the morning and then she lucinda put the clindamycin lotion and then again mid day. Sometimes she will put some makeup on but she wears very ligh only if she is in school that day. She will wash face with gentle cleanser and every other night she will put the adapalene on. At night she uses a pure haven light aloe- vera lotion. The chin area is sore and tender Otherwise denies changing moles, new growths, itchy, painful, or bleeding skin lesions. PREVIOUS presents with pink bumps around mouth present x weeks. Tender She reports there is a lot of rednessto the area and different levels of bumps She has been using pure haven face wash. If she touches area, it hurts. No flares that she can recall aside from during her periods. No one in household with something similar. Otherwise denies changing moles, new growths, itchy, painful, or bleeding skin lesions. PREVIOUS with bumps on the face present x months She notes mostly skin colored bumps, occasionally pink bumps too She saw an senior business analyst who said she had clogged pores She is wondering if it is acne or a rash She is using duac gel QHS, it is not too drying She uses a face wash from [employer], she has many different ones but are not medicated with acne treatments She uses an oil moisturizer from [employer] She notes it has improved but never fully clears She denies new products She gets regular periods, every 24-27 days She notes it gets worse around her period, more pink bumps around period versus clogged pores Today is a good day No issues with hair loss or excess hair ???Patient seen today with mom Otherwise denies changing moles, new growths, itchy, painful, or bleeding skin lesions. SOCIAL HISTORY: Who lives with you at home: mom, dad Occupation: student Active Smoker_x_no __yes Previous Smoker_x_no __yes History of sundamage and sun protection _no__Multiple sunburns _no__Blistering sunburns _no__ Used a tanning amaral Approx number of times: _sometimes__ Wears sunblock: ? Additional risk factors: (relevant family and social history)? ?_no__h/o UV (light) or XRT (radiation) treatments?? 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 Family history of skin cancer _x_no __yes Multiple dysplastic nevi _x_no __yes psoriasis _x_no __yes Relevant Past Medical History (see encounter for additional info) _no__ h/o malignancy: _no__ h/o cardiovascular, renal, or hepatic disease: _no__ h/o diabetes, autoimmune disease: Other: ? Past Medical History/Medications/allergies: as listed and reviewed in the Epic encounter Outpatient Medications Marked as Taking for the 11/16/21 encounter (Office Visit) with Johana Lanza MD, MD Medication Sig Dispense Refill Last Dispense ??? [...] 60 mL 3 Unknown (outside pharmacy) ??? EPINEPHrine 0.3 mg/0.3 mL auto-injector Inject 0.3 mL (0.3 mg total) into the muscle as needed for anaphylaxis. 1 Device 2 Unknown (outside pharmacy) ??? FLUoxetine (PROZAC) 20 MG capsule Take with 40mg capsule for total of 60mg 90 capsule 3 Unknown(outside pharmacy) ??? FLUoxetine (PROZAC) 40 MG capsule TAKE 1 CAPSULE (40 MG TOTAL) BY MOUTH DAILY. TAKE WITH 20MG TABLETS FOR TOTAL DOSE 60MG 90 capsule 3 Unknown (outside pharmacy) ??? norgestimate-ethinyl estradioL (ERQ-GC-VUCBKO) 0.18/0.215/0.25 mg-25 mcg Tab Take 1 tablet by mouth daily. 84 tablet 3 Unknown (outside pharmacy) Allergies Allergen Reactions ??? Milk Containing Products ? ?Review Of Systems: ?? _x__ Feels well overall on 11/16/21 _NO__ ___Planning ___ Nursing ? ? _NO_ Electronic implanted equipment (ie/Pacemaker, Defibrillator, Hearing Implant, Nerve stimulator, Bladder stimulator) ??_x__ All negative on 11/16/2021 except as BOLDED __Fevers, chills, Stomach pains,Unexplained bleeding/bruising problems,Unexplained Weight Loss, Vision problems, hearing problems, Mouth sores, Lumps/bumps, Muscle/joint aches, anxiety/depression/mood changes ? ?Physical Exam:? Well-developed, well-nourished, alert with an appropriate mood, oriented and in no apparent distress. Exam conducted with dermoscopy ?-A focused skin examination was performed including the following areas : head/face, chest, neck, back, RUE, LUE -The exam was normal with the exception of the findings listed below:? ?Diagnosis: Acne vulgaris ?Exam: pink papules on forehead nose, cheeks, chin, xerosis more on Left>. Right cheek, comedones on chin and upper back clear LAB: HAVEN negative on Left cheek today Previous: fine pink papules on forehead, cheeks Few comedones on chin Angels nodules an dscale crust on chin Assessment/Plan:? ?Discussed etiology, pathogenesis, and treatment options including no treatment. Stressed importance of consistent use of medication for effectiveness. Discussed risk of progressive scarring with undertreatment Discussed importance of finding a retinoid pt can tolerate for success of acne therapy Discussed increasing use of topical medications in order to minimize use of oral antibiotics. Discussed balancing of drying effect of retinoid with moisturizing effect of topical antibiotic lotion and moisturizers. Discussed dietary triggers. She notes she avoids dairy Discussed topical aczone. They decline and will consider ?Proper use and potential side effects of doxycycline reviewed including but not limited to irritation, rash, GI upset, reflux, photosensitivity, pill esophagitis, ulcer, dyspigmentation, nausea, or allergic reaction. Discontinue if any issue or irritation, or plans for and contact office. Sun protection emphasized. Proper use and potential side effects of topical dapsone reviewed including but not limited to irritation, skin discoloration, blood problems or allergy. Discontinue if any issue or irritation and contact office. Stop until dryness resolves: Benzoyl peroxide wash 1-2x per week Proper use and potential side effects reviewed including but not limited to dryness, irritation, and allergy, as well as bleaching of fabrics. Discontinue if any issue or irritation, or plans for and contact office. Stop: Clindamycin lotion TWICE DAILY Proper use and potential side effects reviewed including but not limited to irritation or allergy. Discontinue if any issue or irritation and contact office. Continue use: ?Differin 0.3% gel Apply pea-sized amount, start every third night and increase to nightly as tolerated. Proper use and potential side effects of retinoids reviewed including but not limited to irritation, dryness, skin sensitivity, photosensitivity and allergy. Discontinue if any issue or plans for and contact office. Emphasized importance of sun protection and stopping retinoids 5-7 days prior to facial procedures or waxing. Written instructions given. Reviewed side effects including dryness, sensitivity, and peeling. Use non- comedogenic moisturizer at least twice daily, with a sunscreen in the morning. Discussed that retinoids are best used as a preventative and not as a spot treatment for acne. For females discussed discontinuing acne treatments if /plans for and contact office. Discussed dietary products that may flare acne Discussed options of starting multivitamin with zinc. ?? Risks and benefits of oral antibiotics reviewed. Will start oral antibiotics due to severity of acne. Start: Doxycycline 100mg PO bid, risks reviewed including nausea, esophageal erosion, photosensitivity, allergic reaction. Take with full beverage and food. Avoid laying down for 60 minutes after taking. Avoid taking with dairy. Use sun protection. Discontinue medications if any issues and contact office. All of the patient's questions were answered and she and her mother are agreeable to the treatment plan. Return:? _6 weeks acne f/u_ Return promptly with any new, symptomatic, or changing lesions or worsening issues. - Johana Lanza M.D. ? See full encounter for additional information reviewed and documented on chief complaint/reason(s) for visit, past medical history including family and social history, medications, and allergies Johana Lanza M.D. ?Abbreviation list: ACD-allergic contact dermatitis, AK- actinic keratosis, ?BCC-basal cell carcinoma, BP- benzoyl peroxide wash (</=5%), CNH- chondrodermatitis nodularis helices, DF-dermatofibroma, FSE-full skin exam, HSV- herpes simplex virus, LM-lentigo maligna, LP-lichen planus, LPP-lichen plan opilaris, LSC-lichen simplex chronicus, MMIS-melanoma in situ, MM-melanoma, NOS- neoplasm otherwise unspecified, NER-no evidence of recurrence, NUB-neoplasm unknown behavior, SCC-squamous cell carcinoma, SD-seborrheic dermatitis, SK- seborrheic keratosis, VV-verruca vulgaris documented in this encounter Plan of Treatment Upcoming Encounters Date Type Department Care Team (Late st Contact Info) Description 12/15/2024 9:00 AM EDT Telemedicine [facility] [address] [place] [address] Yamileth Wagner, SENIOR MANUFACTURING SUPERVISOR 145 [facility] [place] [address] [email or web address] 06/11/2025 1:40 PM EDT [facility] [address] [place] [address] Yamileth Wagner CNP [address] [place] [address] [email or web address] documented as of this encounter Visit Diagnoses Diagnosis Acne vulgaris- Primary Other acne documented in this encounter Additional Health Concerns Assessment Noted Time PHQ-9 Depression Total Score: 022 2:31 PM EST PHQ-2 Depression Total Score: 09/29/19 22 2:31 PM EST documented as of this encounter Care Teams Personnel Administrator Relationship Specialty Start Date End Date Yamileth Wagner CNP [address] [place] [address] [email or web address] PCP - General Family Medicine 06/28/17 documented as of this encounter Additional Source Comments The information contained in this document represents components of the legal health record. It is not the complete legal health record.[facility]
--- OUTSIDE RECORDS SUMMARY | 2024-08-23 23:21 | XMS_ITS | Encounter Summary ---
Author Organization [facility] Address [phone] [facility] [place] [address] Care Team Providers Care Textile Machinery Instructor Name Role Phone Yamileth Wagner AUTO DRIVER Primary Care Provider Reason for Visit * Reason Comments Med Change Request Encounter Details Date Type Department Care Team (Late st Contact Info) Description 08/05/2022 Refill [facility] [address] [place] [address] Yamileth Wagner, AUTO DRIVER [address] [place] [address] [email or web address] Med Change Request Social History Tobacco Use [...] encounter Progress Notes * Marisa Kramer - 08/07/2022 10:22 AM EST Requesting buspirone to [facility] Last OV 07/10/2022 Next OV 08/08/2022 documented in this encounter Plan of Treatment Upcoming Encounters Date Type Department Care Team (Late st Contact Info) Description 12/15/2024 9:00 AM EDT [facility] [address] [place] [address] Yamileth Wagner CNP [facility] [place] [address] [email or web address] 06/11/2025 1:40 PM EDT Office Visit [facility] Nikole Harry [address] [place] [address] Yamileth Wagner CNP [address] [facility] [place] [address] [email or web address] documented as of this encounter Visit Diagnoses Not on filedocumented in this encounter Additional Health Concerns Assessment Noted Time PHQ-9 Depression Total Score: 15 022 2:46 PM EST PHQ-2 Depression Total Score: 3 07/10/20 22 2:46 PM EST documented as of this encounter Care Teams Textile Machinery Instructor Relationship Specialty Start Date End Date Yamileth Wagner CNP [facility] [place] [address] [email or web address] PCP - General Family Medicine 06/28/17 documented as of this encounter Additional Source Comments The information contained in this document represents components of the legal health record. It is not the complete legal health record.[facility]
--- OUTSIDE RECORDS SUMMARY | 2024-08-23 23:21 | XMS_ITS | Encounter Summary ---
Author Organization [facility] Address [phone] [facility] [place] [address] Care Team Providers Care Sprinkler Driver Name Role Phone Yamileth Wagner CNP Primary Care Provider Reason for Visit * Reason Comments Follow-up Encounter Details Date Type Department Care Team ([facility] st Contact Info) Description 09/16/2020 3:30 PM EST Telemedicine [facility] [address] [place] [address] Yamileth Wagner CNP [address] [place] [address] [email or web address] Depressed mood Social History Tobacco Use Types Packs/Day Years [...] Taken Comments Blood Pressure - - Pulse 68 09/16/2020 3:30 PM EST Temperature - - Respiratory Rate - - Oxygen Saturation - - Inhaled Oxygen Concentration - - Weight 59 kg (130 lb) 09/16/2020 3:30 PM EST Height - - Body Mass Index - - documented in this encounter Progress Notes * Yamileth Wagner CNP - 09/16/2020 3:30 PM EST Patient presents for a Virtual Video Visit: This is being used during the COVID- [address] of an in-person exam HPI: Mood f/u ROS No Fatigue, No Wt. change No Fevers, chills, night sweats No CP, SOB, palpitations No calf pain or swelling No Breast Masses, Tenderness, Discharge No abdominal pain No chronic Constipation or Diarrhea No GERD, Blood in stool No new skin lesions/rashes No Mood changes No HAs, dizziness, vision changes, hearing loss No Urinary incontinence, Nocturia, Hesitancy, Urgency No genital Symptoms No Arthralgias, Myalgias, Back Pain No violence at home Physical Exam: Vitals: Vitals: 09/16/20 1530 Pulse: 68 Gen: NAD, Well-kempt HEENT: NCAT, EOMI, OP clear via video Neck: Patient denies swollen or tender lymph nodes on exam Chest: Respiratory rate is regular, no retractions, no cough noted Cardiac: Patient reports radial pulse is regular Abd: No tenderness on self-exam : Not indicated Extremities: No cyanosis, clubbing, edema Neuro: A&O, bale stacker 2-12 grossly intact Psych: Behavior appropriate, normal mood and affect Skin: No lesions noted by patient or video Assessment and Plan: Problem List Items Addressed This Visit Depressed mood Overview Prozac 60 Failed Zoloft a lot of s/e No therapy currently Current Assessment & Plan PHQ Depression Screening Score 11/10/2019 08/25/2020 09/16/2020 [...] have let yourself or your family down Notat all More than half the days More [...] agent or add Pt agreed with plan A virtual visit was used during the COVID-[address] of an in-person visit. This real-time, interactive virtual clinical encounter was conducted using videoconferencing technology from clinic or home office. The patient participated in the visit from home/temporary residenceor other location as specified below. Consent for virtual care, including informing the patient that insurance will be billed, and that in-person care is available in case of emergencies or as neededotherwise, was discussed at the time of scheduling. documented in this encounter Miscellaneous Notes * Assessment & Plan Note - Yamileth Wagner CNP - 09/16/2020 3:50 PM EST Associated Problem(s): Anxiety and depression PHQ Depression Screening Score 11/10/2019 08/25/2020 09/16/2020 [...] have let yourself or your family down Notat all More than half the days More [...] agent or add Pt agreed with plan documented in this encounter Plan of Treatment Upcoming Encounters Date Type Department Care Team (Late st Contact Info) Description 12/15/2024 9:00 AM EDT Telemedicine [facility] Nikole Colmenares [address] [facility] [place] [address] Yamileth Wagner CNP [address] [place] [address] 06/11/2025 1:40 PM EDT Office Visit [facility] [place] [address] Yamileth Wagner CNP [address] [place] [address] [email or web address] documented as of this encounter Visit Diagnoses Diagnosis Depressed mood documented in this encounter Additional Health Concerns Assessment Noted Time PHQ-9 Depression Total Score: 10 021 3:00 PM EST PHQ-2 Depression Total Score: 2 09/16/19 21 3:00 PM EST documented as of this encounter Care Teams Sprinkler Driver Relationship Specialty Start Date End Date Yamileth Wagner CNP [address] [place] [address] [email or web address] PCP - General Family Medicine 06/28/17 documented as of this encounter Additional Source Comments The information contained in this document represents components of the legal health record. It is not the complete legal health record.[facility]
--- OUTSIDE RECORDS SUMMARY | 2024-08-23 23:21 | XMS_ITS | Encounter Summary ---
Author Organization [facility] Address [phone] [place] [place] [address] Care Team Providers Care Setter Molding And Coremaking Machines Name Role Phone Yamileth Wagner Hunter AMOS Primary Care Provider Encounter Details Date Type Department Care Team (Latest Contact Info) Description 03/01/2023 9:00 AM EDT Office Visit [facility] Otolaryngology [place] [address] [place] [address] [address] [place] [address] Bryson Chandler MD, MPH [address] [facility] [address] [place] [address] [email or web address] Decreased hearing of right ear (Primary Dx); Blocked ear, right; History of COVID-19 Social History Tobacco Use Types Packs/Day Years [...] as of this encounter Progress Notes * Bryson Chandler MD, MPH - 03/01/2023 9:00 AM EDT Images from the original note were not included. OTOLARYNGOLOGY, HEAD AND NECK SURGERY Bryson Chandler MD, MPH, FACS CHIEF COMPLAINT: The patient is seen in consultation for AN EAR INFECTION AND HEARING LOSS at the request of Yamileth Wagner CNP. HISTORY 03/01/2023: The patient is a 18 y.o. female . 20 mins late HAD COVID19 INFECTION AND FLU AROUND 09/2022 WOKE UP WITH SEARING PAIN OF R EAR IN SEP 2022. STUDENT HEALTH RECOMMENDED HER TO USE HOT COMPRESS,SHE HAD COVID AT THE SAME TIME. SHE REPORTS HAVING FREQUENT POPPING IN EAR, FEELING OF BLOCKAGE. 1 WEEK LATER TESTED NEGATIVE FOR COVID, POPPING RESOLVED BUT HEARING LOSS DID NOT RESOLVE. NO POPPING WITH CHANGES IN ELEVATION H/O FREQUENT EAR INFECTIONS, SWIMMER'S EAR IN HER YOUTH REPORTS SUBJECTIVE MILD TO MODERATE HEARING LOSS IN RIGHT EAR. SHE NOTES SOME DIFFICULTY ONLY IN LOUD ENVIRONMENTS AND CROWDS. MEDICATIONS: ON LEXAPRA ON DOXYCLINE FOR ACNE, OCP Occupation: STUDENT AT [employer] ROS: Hearing loss, ringing in ears or vertigo? Nasal blockage or sinus problems? Sneezing, itching or immune problems? SOB, wheezing, chronic cough? Trouble swallowing or voice change? Heartburn, throat clearing? Easy bleeding/bruising or anemia? Migraine or paralysis? Patient Active Problem List Diagnosis ??? Acne vulgaris ??? Unimmunized ??? Dysmenorrhea ??? Pain in joint of right shoulder ??? Anxiety and depression ??? Mixed conductive and sensorineural hearing loss of right ear No past surgical history on file. Current Outpatient Medications on File Prior to [...] 60 tablet 0 Unknown (outside pharmacy) ??? norgestimate-ethinyl estradioL (ORTHO-CYCLEN) 0.25-0.035 mg per tablet Take 1 tablet by mouth daily. 90 tablet 3 Unknown (outside pharmacy) No current facility-administered medications on file prior to visit. Allergies as of 03/01/2023 - Reviewed 01/11/2023 Allergen Reaction Noted ??? Milk containing products (dairy) 06/28/2016 Family History Problem Relation Age of Onset ??? Hypertension Father ??? No Known Problems Mother reports that she has never smoked. She has never used smokeless tobacco. She reports that she does not drink alcohol and does not use drugs. PHYSICAL EXAM: General appearance: well-groomed, normal body habitus?. Ability to communicate: fluent speech, normal vocal quality?. Mental status: alert, oriented to person, place, and time?. Mood/affect: pleasant, cooperative?. Head and face: normocephalic, normal facial features?. Facial strength: symmetric, without weakness?. External ears and nose: symmetric, without swelling, erythema, or tenderness?. Ears: AD: EAC: ?clear. TM: INTACT WITHOUT ERYTHEMA OR VISIBLE MIDDLE EAR EFFUSION. : EAC: ?clear.TM: clear and mobile?. SELLERS TO THE LEFT. RINNE AC>BC BILATERALLY Nose: mucosa moist and pink, septum straight, turbinates normal?. Oral cavity: lips without lesions; dentition in good repair; gingiva without erythema or swelling. Floor of mouth, anterior tongue, buccal mucosa, hard palate: without lesions, erythema, swelling?. Oropharynx: Normal soft palate, uvula, posterior tongue, tonsils? 1+ MP1, NO PND. Posterior pharynx: moist, pink mucosa, without lesions, erythema, or swelling. Larynx/hypopharynx (via indirect laryngoscopy): limited due to gagging ?Parotid and submandibular glands: no enlargement, masses, or tenderness?. Neck: no masses, symmetric, trachea midline?. Thyroid gland: no enlargement, masses, or tenderness to palpation.. Cervical lymph nodes: no enlarged or tender lymph nodes?? IMPRESSION: ?1. RIGHT SIDED EAR BLOCKAGE AND DECREASED HEARING WITH ONSET IN 09/2022. NORMAL OTOSCOPIC EXAM. DIFFERENTIAL INCLUDES ACUTE SENSORINEURAL HEARING LOSS POST EAR INFECTION IN 09/2022, EUSTACHIAN TUBE CONGESTION. SHE HAS TRIED FLONASE WITHOUT BENEFIT. FURTHER TESTING REQUIRED #. H/O COVID IN SEP 2022. RECOMMENDATIONS: 1. SCHEDULE AUDIOGRAM AND TYMPANOMETRY, RESULTS VIA PG 2. MEDROL DOSE DAVE Potential side effects of corticosteroids discussed include insomnia, irritability or psychiatric effects, hyperglycemia, elevated blood pressure, GI ulcer, muscle or joint aches, weight gain, 3. FOLLOW UP TO BE DETERMINED. ? ?Bryson Chandler MD, MPH, FACS The information above was documented by Silvia Kc as a scribe for Dr. Chandler. I was present while this encounter was recorded and agree that the information entered by my scribeis complete and accurate. documented in this encounter Plan of Treatment Upcoming Encounters Date Type Department Care Team (Late st Contact Info) Description 12/15/2024 9:00 AM EDT Telemedicine [facility] 145 [place] [address] Yamileth Wagner, SENIOR ENVIRONMENTAL SCIENTIST [address] [facility], [facility] [place] [address] [email or web address] 06/11/2025 1:40 PM EDT Office Visit [facility] Nikole Harry [address] [place] [address] Yamileth Wagner, BETTE [address] [facility] [address] [email or web address] Scheduled Orders Name Type Priority Associated Diagnoses Orde r Schedule Hearing Test Audiology Routine Decreased hearing of right ear Blocked ear, right Ordered: 03/01/2023 documented as of this encounter Visit Diagnoses Diagnosis Decreased hearing of right ear- Primary Blocked ear, right History of COVID-19 documented in this encounter Additional Health Concerns Assessment Noted Time PHQ-9 Depression Total Score: 13 023 11:53 AM EST PHQ-2 Depression Total Score: 2 09/21/19 23 11:53 AM EST documented as of this encounter Care Teams Setter Molding And Coremaking Machines Relationship Specialty Start Date End Date Yamileth Wagner, BETTE [address] [place] [address] [email or web address] PCP - General Family Medicine 06/28/17 documented as of this encounter Additional Source Comments The information contained in this document represents components of the legal health record. It is not the complete legal health record.[facility]
--- OUTSIDE RECORDS SUMMARY | 2024-08-23 23:21 | XMS_ITS | Encounter Summary ---
Author Organization [facility] Address [phone] [facility] [place] [address] Care Team Providers Care Nut Tightener Name Role Phone BernardYamileth yan Hunter AMOS Primary Care Provider Reason for Visit * Reason Onset Date Comments Medication Refill 01/22/2023 Encounter Details Date Type Department Care Team (Late st Contact Info) Description 01/22/2023 Refill [facility] [address] [place] [address] Marisa Kramer MA Medication Refill Social History Tobacco Use Types [...] encounter Progress Notes * Marisa Kramer - 01/22/2023 8:34 AM EDT req doxycycline to [facility] Last OV 01/17/2023 Next OV 04/25/2023 documented in this encounter Plan of Treatment Upcoming Encounters Date Type Department Care Team (Late st Contact Info) Description 12/15/2024 9:00 AM EDT [facility] [address] [facility] [place] [address] Yamileth Wagner CNP [address], [place] [address] [email or web address] 06/11/2025 1:40 PM EDT Office Visit [facility] Nikole Harry [address] [facility] [place] [address] Yamileth Wagner CNP [address] [facility], [place] [address] [email or web address] documented as of this encounter Visit Diagnoses Not on filedocumented in this encounter Additional Health Concerns Assessment Noted Time PHQ-9 Depression Total Score: 13 023 11:53 AM EST PHQ-2 Depression Total Score: 2 09/21/19 23 11:53 AM EST documented as of this encounter Care Teams Nut Tightener Relationship Specialty Start Date End Date Yamileth [place] [address] [email or web address] PCP - General Family Medicine 06/28/17 documented as of this encounter Additional Source Comments The information contained in this document represents components of the legal health record. It is not the complete legal health record.[facility]
--- OUTSIDE RECORDS SUMMARY | 2024-08-23 23:21 | XMS_ITS | Encounter Summary ---
Author Organization [facility] Address [phone] [facility] [place] [address] Care Team Providers Care Weaver Axminster Name Role Phone Yamileth Wagner Hunter AMOS Primary Care Provider Encounter Details Date Type Department Care Team ([facility] st Contact Info) Description 03/01/2023 Telephone [facility] [address] [place] [address] Marisa Kramer MA [email or web address] Social History Tobacco Use Types [...] encounter Progress Notes * Marisa Kramer - 03/01/2023 8:53 AM EDT Reached out to patient LMOM instructing call back regarding where to send PT order SS documented in this encounter Plan of Treatment Upcoming Encounters Date Type Department Care Team (Late st Contact Info) Description 12/15/2024 9:00 AM EDT Telemedicine [facility] Nikole Harry [address] [place], [place] [address] Yamileth Wagner, BETTE [address] [place] [address] 06/11/2025 1:40 PM EDT Office Visit [facility] Nikole Harry [address] [place] [address] Yamileth Wagner, BETTE [address] [place] [address] documented as of this encounter Visit Diagnoses Not on filedocumented in this encounter Additional Health Concerns Assessment Noted Time PHQ-9 Depression Total Score: 13 023 11:53 AM EST PHQ-2 Depression Total Score: 2 09/21/19 23 11:53 AM EST documented as of this encounter Care Teams Weaver Axminster Relationship Specialty Start Date End Date Yamileth Wagner CNP [address], Suite [facility] [place] [address] PCP - General Family Medicine 06/28/17 documented as of this encounter Additional Source Comments The information contained in this document represents components of the legal health record. It is not the complete legal health record.[facility]
--- OUTSIDE RECORDS SUMMARY | 2024-08-23 23:21 | XMS_ITS | Encounter Summary ---
Author Organization [facility] Address [phone] [place] [address] Care Team Providers Care Geological Aide Name Role Phone Yamileth Wagner CNP Primary Care Provider Yamileth Wagner COMPANY ACCOUNTANT Unavailable + [phone] Encounter Details Date Type Department Care Team (Latest Contact Info) Description 02/11/2021 12:11 PM EDT - 02/11/2021 11:59 PM EDT Hospital Encounter [facility] [address] [place], [place] [id number] Yamileth Wagner, COMPANY ACCOUNTANT [address] [place] [address] [email or web address] Discharge Disposition: Home or Self Care Social [...] Sig Dispensed Refills Start Date End Date adapalene (DIFFERIN) 0.3 % gel Apply a pea sized amount to face. Start every third night and increase to nightly as tolerated 60 g 11 08/04/2020 03/14/2021 albuterol 90 mcg/actuation inhaler INHALE 1 PUFF INTO THE LUNGS EVERY 6 (SIX) HOURS NEEDED FOR WHEEZING. 8.5 Inhaler 1 04/28/2019 04/13/2021 clindamycin (CLEOCIN T) 1 % lotion Apply TWICE DAILY to face after washing with benzoyl peroxide wash 60 mL 11 08/04/2020 07/08/2021 FLUoxetine (PROZAC) 40 MG capsule TAKE 1 CAPSULE (40 MG TOTAL) BY MOUTH DAILY. TAKE WITH 20MG TABLETS FOR TOTAL DOSE 60MG 90 capsule 3 11/23/2020 04/13/2022 norgestimate-ethinyl estradioL (XQY-TS-KICLDL) 0.18/0.215/0.25 mg-25 mcg Tab Take 1 tablet by mouth daily. 84 tablet 2 08/05/2020 05/02/2021 documented as of this encounter Plan of Treatment Upcoming Encounters Date Type Department Care Team (Late st Contact Info) Description 12/15/2024 9:00 AM EDT Telemedicine [facility] Nikole Harry 145 [facility] [place] [address] Yamileth Wagner, COMPANY ACCOUNTANT [address] [place] [address] [email or web address] 06/11/2025 1:40 PM EDT Office Visit [facility] Nikole Harry 145 [facility] [place] [address] Yamileth Wagner CNP [address] [place] [address] [email or web address] documented as of this encounter Procedures Procedure Name Priority Date/Time Associated Diagnosis Comments CBC Routine 02/11/2021 12:11 PM EDT Annual physical exam TSH Routine 02/11/2021 12:11 PM EDT Annual physical exam LIPID PANEL Routine 02/11/2021 12:11 PM EDT Annual physical exam BASIC METABOLIC PANEL Routine 02/11/2021 12:11 PM EDT Annual physical exam documented in this encounter Results * TSH (02/11/2021 12:11 PM EDT) TSH 1.07 0.55 - 4.78 uIU/mL [facility] 02/11/2021 12:1 1 PM EDT 02/11/2021 3:47 PM EDT [facility] ORDE SARAH Performing Organization Address City/[facility] Co de Phone Number [facility] [address] [phone] * CBC (02/11/2021 12:11 PM EDT) WBC 8.72 4.0 - 11.0 K/uL [facility] RBC 4.32 3.9 - 5.03 M/uL [facility] HGB 12.7 12 - 15.5 g/dL [facility] HCT 38.8 34.9 - 44.5 % [facility] PLT 326 135 - 400 K/uL [facility] MCV 89.8 80 - 100 fL [facility] MCH 29.4 27 - 34 pg [facility] MCHC 32.7 31.5 - 36.5 g/dL [facility] RDW 13.2 11.9 - 14.8 % [facility] MPV 10.4 9.6 - 12 fl [facility] NRBC 0.00 0 /100 WBCs [facility] 02/11/2021 12:1 1 PM EDT 02/11/2021 3:37 PM EDT [facility]luh [facility]LO[facility] ORDE SARAH Performing Organization Address [facility]/ZIP Co de Phone Number [facility] [address] [phone] * Lipid panel (02/11/2021 12:11 PM EDT) CHOLESTEROL 180 140 - 200 mg/dL [facility] Comment: Desirable: <200 Borderline: 200-239 High: >239 TRIGLYCERIDES 40 0 - 149 mg/dL [facility] Comment: Normal ?<150 mg/dL Border-High ? 150-199 mg/dL High Triglycerides ?200-499 mg/dL Very High Triglycerides ? >=500 mg/dL HDL 81 >40 mg/dL [facility] Comment: Recommendations according to the National Cholesterol Education Program Guidelines: <40 mg/dL: Low (Major risk factor for CHD) >= 60 mg/dL: High (Negative risk factor for CHD) CALCULATED LDL 91 0 - 129 mg/dL [facility] Comment: LDL levels in terms of risk for coronary heart disease: <100 mg/dL: Optimal 100-129 mg/dL: Near or above optimal 130-159 mg/dL: Borderline high 160-189 mg/dL: High >190 mg/dL: Very High NON-HDL CHOLESTEROL 99 mg/dL [facility] CARDIAC RISK RATIO 2.2 0 - 4.4 N [facility] 02/11/2021 12:1 1 PM EDT 02/11/2021 3:47 PM EDT Yamileth Wagner COMPANY ACCOUNTANT LAB BLOOD CANDIDO SMITH [facility] [address] [place] [address] * (ABNORMAL) Basic metabolic panel (02/11/2021 12:11 PM EDT) SODIUM 139 136 - 145 mmol/L [facility] CHLORIDE 102 95 - 106 mmol/L [facility] POTASSIUM 4.1 3.5 - 5.2 mmol/L [facility] CO2 27 20 - 31 mmol/L [facility] BUN 7(L) 9 - 23 mg/dL [facility] CREATININE 0.73 0.50 - 1.30 mg/dL [facility] GLUCOSE 66(L) 74 - 106 mg/dL [facility] CALCIUM 9.6 8.7 - 10.4 mg/dL [facility] EGFR >120 >60 mL/min/1.7 3m2 [facility] Comment:Estimated glomerular filtration rate calculated using the CKD-EPI equation. ANION GAP 10 3 - 17 mmol/L [facility] 02/11/2021 12:1 1 PM EDT 02/11/2021 3:47 PM EDT Yamileth Wagner CNP LAB BLOOD CANDIDO SMITH [facility] [address] [place] [address] documented in this encounter Visit Diagnoses Diagnosis Annual physical exam Routine general medical examination at a health care facility documented in this encounter Additional Health Concerns Assessment Noted Time PHQ-9 Depression Total Score: 1 02/12/20 11:11 AM EDT PHQ-2 Depression Total Score: 0 02/12/20 11:11 AM EDT documented as of this encounter Care Teams Geological Aide Relationship Specialty Start Date End Date Yamileth Wagner CNP [address] [place] [address], [place] [address] PCP - General Family Medicine 06/28/17 Yamileth Wagner CNP [address] [facility], [facility] [place] [address] Insurance Assigned Provider 09/25/20 08/05/21 documented as of this encounter Additional Source Comments The information contained in this document represents components of the legal health record. It is not the complete legal health record.[facility]
--- OUTSIDE RECORDS SUMMARY | 2024-08-23 23:21 | XMS_ITS | Encounter Summary ---
Author Organization [facility] Address [phone] [facility], [facility] [place] [address] Care Team Providers Care Multiple Games Dealer Name Role Phone Yamileth Wagner CNP Primary Care Provider Yamileth Wagner PUBLICATION SPECIALIST Unavailable + [phone] Reason for Visit * Reason Onset Date Comments Medication Refill 05/02/2021 Encounter Details Date Type Department Care Team (Late st Contact Info) Description 05/02/2021 Refill [facility] [address] [place] [address] Alysa Salazar MA Medication Refill Social History Tobacco Use [...] as of this encounter Progress Notes * Alysa Salazar - 05/02/2021 2:06 PM EDT Last filled 08/05/20 norgestimate-ethinyl estradioL ([facility]-TDWE[facility]) 0.18/0.215/0.25 mg-25 mcg Tab [[id number]] ?? Order Details Dose: 1 tablet Route: Oral Frequency: Daily Dispense Quantity: 84 tablet Refills: 2 ?? Sig: Take 1 tablet by mouth daily. Last ov 02/11/21 Future Appointments Date Time Provider Department Center 08/23/2021 9:40 AM Yamileth Wagner CNP [facility] 03/02/2022 1:40 PM BETTE [email or web address] [facility] documented in this encounter Plan of Treatment Upcoming Encounters Date Type Department Care Team (Late st Contact Info) Description 12/15/2024 9:00 AM EDT Telemedicine [facility] PTedCTed [address] [facility] [address] Yamileth Wagner CNP [address] [place] [address] [email or web address] 06/11/2025 1:40 PM EDT [facility] [address] [facility] [place] [address] Yamileth Wagner CNP [address] [place] [address] [email or web address] documented as of this encounter Visit Diagnoses Not on filedocumented in this encounter Additional Health Concerns Assessment Noted Time PHQ-9 Depression Total Score: 1 02/12/20 21 11:11 AM EDT PHQ-2 Depression Total Score: 0 02/12/20 21 11:11 AM EDT documented as of this encounter Care Teams Multiple Games Dealer Relationship Specialty Start Date End Date Yamileth Wagner CNP [address] [place] [address] [email or web address] PCP - General Family Medicine 06/28/17 Yamileth Wagner CNP [address] [place] [address] ([email or web address]) [email or web address] Insurance Assigned Provider 09/25/20 08/05/21 documented as of this encounter Additional Source Comments The information contained in this document represents components of the legal health record. It is not the complete legal health record.[facility]
--- OUTSIDE RECORDS SUMMARY | 2024-08-23 23:21 | XMS_ITS | Encounter Summary ---
Author Organization [facility] Address [phone] [facility] [place] [address] Care Team Providers Care Director Business Development Name Role Phone Yamileth Wagner PAINT TESTER Primary Care Provider Yamileth Wagner PAINT TESTER Unavailable + [phone] Reason for Visit * Reason Comments Medication Refill Encounter Details Date Type Department Care Team ([facility] st Contact Info) Description 05/17/2021 Refill [facility] [address] [place] [address] Yamileth Wagner, PAINT TESTER [address] [place] [address] [email or web address] [...] as of this encounter Progress Notes * Beth Ely - 05/17/2021 8:35 AM EDT Requesting norgestimate-ethnyl estradiol 0.25 mg -25 to [facility] pharmacy [facility] Last OV 02/11/21 Next OV 08/23/21 ZO documented in this encounter Plan of Treatment Upcoming Encounters Date Type Department Care Team (Late st Contact Info) Description 12/15/2024 9:00 AM EDT Telemedicine [facility] Nikole Harry [address] [place] [address] Yamileth Wagner, BETTE [address] [place] [address] [email or web address] 06/11/2025 1:40 PM EDT Office Visit Nicolasnatalia [facility] Nikole Harry [address] [place] [address] Yamileth Wagner CNP [address] [place] [address] [email or web address] documented as of this encounter Visit Diagnoses Not on filedocumented in this encounter Additional Health Concerns Assessment Noted Time PHQ-9 Depression Total Score: 1 02/12/20 11:11 AM EDT PHQ-2 Depression Total Score: 0 02/12/20 11:11 AM EDT documented as of this encounter Care Teams Director Business Development Relationship Specialty Start Date End Date Yamileth Wagner CNP [address] [place] [address] [email or web address] PCP - General Family Medicine 06/28/17 Yamileth Wagner CNP [address] [place] [address] [email or web address] Insurance Assigned Provider 09/25/20 08/05/21 documented as of this encounter Additional Source Comments The information contained in this document represents components of the legal health record. It is not the complete legal health record.[facility]
--- OUTSIDE RECORDS SUMMARY | 2024-08-23 23:21 | XMS_ITS | Encounter Summary ---
Author Organization [facility] Address [phone] Formerly [facility], [facility] [place] [address] Care Team Providers Care Lieutenant/Deputy Name Role Phone Yamileth Wagner Hunter AMOS Primary Care Provider Encounter Details Date Type Department Care Team (Late st Contact Info) Description 08/26/2020 5:15 PM EST Telemedicine [facility] [address] [phone] Johana Lanza MD, MD [address] [address] [email or web address] Acne vulgaris (Primary Dx) Social History Tobacco [...] as of this encounter Progress Notes * Daisy Higuera M - 08/26/2020 5:15 PM EST Images from the original note were not included. This space was used for pre-visit planning. MD Johana Quiroz MD Pamela K. Weinfeld, MD Deon Wolpowitz, MD, PhD ?10 [facility] [address] [place] [address] ? FAX [phone] [email or web address] ? ?Date of last visit: 08/04/2020 Consult requested by: Yamileth Wagner CNP DERM HISTORY: Chief complaint: spots HPI: 15 y.o. female reports tender pink bumps on the face present x months/years ?She has been using BP wash, clindamycin lotion, differin Better/worse/same Otherwise denies changing moles, new growths, itchy, [...] occasionally pink bumps too She saw an appeals nurse who said she had clogged pores She is wondering if it is acne or a rash She is using duac gel QHS, it is not too drying She uses a face wash from [employer], she has many different ones but are not medicated with acne treatments She uses an oil moisturizer from [employer] She notes it has improved but never [...] or XRT (radiation) treatments?? 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 Allergies Allergen Reactions ??? Milk Containing Products ?Review Of Systems: ?_x_ All negative on 08/25/2020 except ones checked: ?Constitutional: _x_Feels well overall __Fevers,chills Gastrointestinal: ___ Stomach pains Hematologic: ___ Bleeding problems Integumentary: ___New or changing , itchy, painful, or bleeding, lesions ? ?? ___Unexplained Weight Loss ?HEENT: ___Vision problems ___Hearing problems ___Mouth sores ?Cardiovascular?: ?___Artificial Valve, Pacemaker, or Defibrillator ___Bleeding problems/unexplained bruising ?Genitourinary/Gynecologic: ___ ___Planning ___ Nursing ? ? Musculoskeletal/rheumatologic: ___ Muscle aches ___ Joint aches ?? Psychiatric: ___Anxiety ___Depression ___ Mood changes?Physical Exam:? Well-developed, well-nourished, alert with an appropriate mood, oriented and in no apparent distress. -Focused examination of the following areas was performed: face, upper chest, upper back ??Please see significant findings below: ?Diagnosis: Acne vulgaris ?Exam: fine pink papules on forehead, cheeks Few comedones on chin Assessment/Plan:? ?Discussed etiology, pathogenesis, and [...] dietary triggers. She notes she avoids dairy Start: Benzoyl peroxide wash 1-2x per week Proper use and potential side effects reviewed including but not limited to dryness, irritation, and allergy, as well as bleaching of fabrics. Discontinue if any issue or irritation, or plans for and contact office. Start: Clindamycin lotion TWICE DAILY Proper use and potential side effects reviewed including but not limited to irritation or allergy. Discontinue if any issue or irritation and contact office. Restart: ?Differin 0.3% gel Apply pea-sized amount, start every third night and increase to nightlyas tolerated. Proper use and potential side effects [...] treatments if /plans for and contact office. ?? All of the patient's questions were answered and she and her mother are agreeable to the treatment plan. Return:? _2 mo f/u_ Return promptly with any new, symptomatic, or changing lesions or worsening issues. - Johana Lanza M.D. ? See full encounter for additional information reviewed and documented on chief complaint/reason(s) for visit, past medical history including family and social history, medications, and allergies This patient visit was conducted virtually using HIPAA compliant videoconferencing technology. The patient gave permission for a virtual video visit, which was conducted to reduce risk of infectionby COVID-19. The patient understands that virtual video visits are by their nature more limited than an in-person visit, and that this visit was conducted by virtual video because the risks of anin-person visit outweigh other risks at this time. The patient will contact our office with any questions or concerns that arise after this visit is complete. Johana Lanza M.D. ?Abbreviation list: ACD-allergic contact [...] SD-seborrheic dermatitis, SK- seborrheic keratosis, VV-verruca vulgaris * Johana Lanza MD, MD - 08/26/2020 5:15 PM EST MD Johana Quiroz MD Pamela K. Weinfeld, MD Deon Wolpowitz, MD, PhD ?[address] [place] [address] ? FAX [phone] [email or web address] ??Video virtual visit: 08/26/2020 As the patient requested, this patient visit was conducted virtually using HIPAA compliant videoconferencing technology. The patient gave permission for a virtual video visit, which was conducted to reduce risk of infection by COVID- 19. The patient understands that virtual video visits are by their nature more limited than an in-person visit, and that this visit was conducted by virtual video because the risks of an in-person visit outweigh other risks at this time. The patient will contact our office with any questions or concerns that arise after this visit is complete. ?Patient's location: home Dr. Lanza's location: clinic ? ?Date of last visit: 08/04/2020 Consult requested by: Yamileth Wagner CNP DERM HISTORY: Chief complaint: spots HPI: 15 y.o. female reports tender pink bumps on the face present x months/years She notes that the face has been [...] occasionally pink bumps too She saw an appeals nurse who said she had clogged pores She is wondering if it is acne or a rash She is using duac gel QHS, it is not too drying She uses a face wash from [employer], she has many different ones but are not medicated with acne treatments She uses an oil moisturizer from [employer] She notes it has improved but never [...] or XRT (radiation) treatments?? 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 adapalene (DIFFERIN) 0.3 % gel Apply a pea sized amount to face. Start every third night and increase to nightly as tolerated 60 g 11 Unknown (outside pharmacy) ??? albuterol 90 mcg/actuation inhaler INHALE 1 PUFF INTO THE LUNGS EVERY 6 (SIX) HOURS NEEDED FOR WHEEZING. 8.5 Inhaler 1 Unknown (outside pharmacy) ??? clindamycin (CLEOCIN T) 1 % lotion Apply TWICE DAILY to face after washing with benzoyl peroxide wash 60 mL 11 Unknown (outside pharmacy) ??? FLUoxetine (PROZAC) 20 MG capsule Take 1 capsule (20 mg total) by mouth daily. 180 capsule 3 Unknown (outside pharmacy) ??? FLUoxetine (PROZAC) 40 MG capsule Take 1 capsule (40 mg total) by mouth daily. Take with 20mg tablets for total dose 60mg 30 capsule 2 Unknown (outside pharmacy) ??? norgestimate-ethinyl estradioL (TIR-SF-OQGLUS) 0.18/0.215/0.25 mg-25 mcg Tab Take 1 tablet by mouth daily. 84 tablet 2 Unknown (outside pharmacy) Allergies Allergen Reactions ??? Milk Containing Products ?Review Of Systems: ?_x_ All negative on 08/26/2020 except ones checked: ?Constitutional: _x_Feels well overall __Fevers,chills Gastrointestinal: ___ Stomach pains Hematologic: ___ Bleeding problems Integumentary: ___New or changing , itchy, painful, or bleeding, lesions ? ?? ___Unexplained Weight Loss ?HEENT: ___Vision problems ___Hearing problems ___Mouth sores ?Cardiovascular?: ?___Artificial Valve, Pacemaker, or Defibrillator ___Bleeding problems/unexplained bruising ?Genitourinary/Gynecologic: ___ ___Planning ___ Nursing ? ? Musculoskeletal/rheumatologic: ___ Muscle aches ___ Joint aches ?? Psychiatric: ___Anxiety ___Depression ___ Mood changes?Physical Exam:? Well-developed, well-nourished, alert with an appropriate mood, oriented and in no apparent distress. -Focused examination of the following areas was performed: face, upper chest, upper back ??Please see significant findings below: ?Diagnosis: Acne vulgaris ?Exam: fine pink papules on forehead, cheeks Few comedones on chin [place] nodules an dscale crust on chin Assessment/Plan:? [...] triggers. She notes she avoids dairy Discussed adding doxycyline, they decline for now Discussed topical aczone. They decline and will [...] any issue or irritation and contact office. Start: Benzoyl peroxide wash 1-2x per week Proper use and potential side effects reviewed including but not limited to dryness, irritation, and allergy, as well as bleaching of fabrics. Discontinue if any issue or irritation, or plans for and contact office. Start: Clindamycin lotion TWICE DAILY Proper use and potential side effects reviewed including but not limited to irritation or allergy. Discontinue if any issue or irritation and contact office. Restart: ?Differin 0.3% gel Apply pea-sized amount, start every third night and increase to nightlyas tolerated. Proper use and potential side effects [...] treatments if /plans for and contact office. ?? All of the patient's questions were answered and she and her mother are agreeable to the treatment plan. Return:? _2 mo f/u_ Return promptly with any new, symptomatic, or changing lesions or worsening issues. - Johana Lanza M.D. ? See full encounter for additional information reviewed and documented on chief complaint/reason(s) for visit, past medical history including family and social history, medications, and allergies This patient visit was conducted virtually using HIPAA compliant videoconferencing technology. The patient gave permission for a virtual video visit, which was conducted to reduce risk of infectionby COVID-19. The patient understands that virtual video visits are by their nature more limited than an in-person visit, and that this visit was conducted by virtual video because the risks of anin-person visit outweigh other risks at this time. The patient will contact our office with any questions or concerns that arise after this visit is complete. Johana Lanza M.D. ?Abbreviation list: ACD-allergic contact [...] Info) Description 12/15/2024 9:00 AM EDT Tele[facility]icine [facility] [address] [place] [address] Yamileth Wagner, NEWS INTERN [address] [place] [address] [email or web address] 06/11/2025 1:40 PM EDT Office Visit [facility] Nikole Harry [address] [place] [address] Yamileth Wagner, BETTE [address] [place] [address] documented as of this encounter Visit Diagnoses Diagnosis Acne vulgaris- Primary Other acne documented in this encounter Additional Health Concerns Assessment Noted Time PHQ-9 Depression Total Score: 15 021 12:00 PM EST PHQ-2 Depression Total Score: 0 11/10/19 20 1:37 PM EDT documented as of this encounter Care Teams Lieutenant/Deputy Relationship Specialty Start Date End Date Yamileth Wagner, NEWS INTERN [address] [place] [address] [email or web address] PCP - General Family Medicine 06/28/17 documented as of this encounter Additional Source Comments The information contained in this document represents components of the legal health record. It is not the complete legal health record.[facility]
--- OUTSIDE RECORDS SUMMARY | 2024-08-23 23:21 | XMS_ITS | Encounter Summary ---
Author Organization [facility] Address [phone] [facility] [place] [address] Care Team Providers Care Econometrics Professor Name Role Phone Yaimleth Wagner Hunter AMOS Primary Care Provider Reason for Visit * Reason Onset Date Comments After Hours Call: anxiety/panic attack Encounter Details Date Type Department Care Team (Late st Contact Info) Description 06/23/2022 Nurse Triage [facility] [address] [address] Ronny Jones FNP [address] [facility] [place], [place] [phone] [email or web address] After Hours Call: anxiety/panic attack Social History Tobacco Use Types Packs/Day Years Used Date Smoking Tobacco: Never Smokeless Tobacco: Never Alcohol Use Standard Drinks/Week Comments Never 0 (1 standard drink = 0.6 oz pur e alcohol) Sex and Gender Information Value Date Recorded Sex Assigned at Not on file Gender Identity Not on file Sexual Orientation Not on file documented as of this encounter Progress Notes * Ronny Jones FNP - 06/23/2022 10:34 PM EDT After Hours Call Note 06/23/2022 10:00 PM Caller: patient Chief complaint: anxiety/panic attack HPI: patient reports feeling very anxious since yesterday which worsened today. 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 She is experiencing intermittent chest pain/tightness with associated shortness of breath. She is crying.She denies ever feeling this way before. She takes prozac daily since March. Patient denies SI/HI.She is speaking in full sentences. Plan: advised patient to proceed to ER for evaluation and treatment as indicated. Suggested following up with PCP on Sunday. She will have her mom or dad take her to [facility] or [place]. Medications prescribed: NA Nurse Triage Encounter Note Reason for Triage Rainelani Taylor contacted office for Call Disposition Go To Ed Now (Or Pcp Triage) Patient/caregiver understands and will follow disposition: Patient/caregiver understands and will follow care advice: Yes, Plans To Follow Advice Disposition Comments: Protocols used: Anxiety And Panic Syzcoo-Qtggc-Zf Care Advice Given Care Advice Patient/Caregiver understands and will follow care advice?: Yes, plans to follow advice GO TO ED NOW (OR PCP TRIAGE): * IF NO PCP (PRIMARY CARE PROVIDER) SECOND-LEVEL TRIAGE: You need to be seen within the next hour. Go to the ED/UCC at local Hospital. Leave as soon as you can. * IF PCP SECOND-LEVEL TRIAGE REQUIRED: You may need to be seen. Your doctor (or LEAD DATA ENTRY OPERATOR/PA) will want totalk with you to decide what's best. I'll page the provider on-call now. If you haven't heard from the provider (or me) within 30 minutes, go directly to the ED/UCC at local [facility]. ANOTHER ADULT SHOULD DRIVE: * It is better and safer if another adult drives instead of you. BRING MEDICINES: * Bring a list of your current medicines when you go to the Emergency Department (ER). * Bring the pill bottles too. This will help the doctor (or LEAD DATA ENTRY OPERATOR/PA) to make certain you are taking the right medicines and the right dose. CARE ADVICE given per Anxiety and Panic Attack (Adult) guideline. Patient will call back with additional questions or if symptoms change or worsen ANNA Mckeon Reason for Disposition and Assessment Reason for Disposition ??? Patient sounds very sick or weak to the triager Protocols used: ANXIETY AND PANIC [id number] documented in this encounter Plan of Treatment Upcoming Encounters Date Type Department Care Team (Late st Contact Info) Description 12/15/2024 9:00 AM EDT [facility] Nik[facility] [address] [place] [address] Yamileth Wagner, BETTE [address] [place] [address] 06/11/2025 1:40 PM EDT Office Visit [facility] Nikole Harry [address] [place] [address] Yamileth Wagner CNP [address], [place] [address] documented as of this encounter Visit Diagnoses Not on filedocumented in this encounter Additional Health Concerns Assessment Noted Time PHQ-9 Depression Total Score: 5 04/13/20 22 1:59 PM EDT PHQ-2 Depression Total Score: 2 04/13/20 22 1:59 PM EDT documented as of this encounter Care Teams Econometrics Professor Relationship Specialty Start Date End Date Yamileth Wagner CNP [facility] [place] [address] PCP - General Family Medicine 06/28/17 documented as of this encounter Additional Source Comments The information contained in this document represents components of the legal health record. It is not the complete legal health record.[facility]
--- OUTSIDE RECORDS SUMMARY | 2024-08-23 23:21 | XMS_ITS | Encounter Summary ---
Author Organization [facility] Address [phone] [place] [address] Care Team Providers Care Supervisor Rides Name Role Phone Yamileth Wagner FLIGHT DATA TECHNICIAN Primary Care Provider Reason for Visit * Reason Comments Follow-up Encounter Details Date Type Department Care Team (Late st Contact Info) Description 09/29/2021 2:20 PM EST Telemedicine [facility] [address] [place] [address] Yamileth Wagner, FLIGHT DATA TECHNICIAN [address] [place] [address] [email or web address] Depressed mood; Encounter for other contraceptive management Social History Tobacco Use Types Packs/Day Years [...] Taken Comments Blood Pressure - - Pulse 92 09/29/2021 2:25 PM EST Temperature - - Respiratory Rate - - Oxygen Saturation - - Inhaled Oxygen Concentration - - Weight 61.2 kg (135 lb) 09/29/2021 2:25 PM EST Height - - Body Mass Index 22.47 08/23/2021 9:33 AM EST Body Mass Index Percentile 61.67% 09/29/2021 2:2 5 PM EST Growth Chart: [facility] (Girls, 2- 20 Years) documented in this encounter Progress Notes * Yamileth Wagner, FLIGHT DATA TECHNICIAN - 09/29/2021 2:20 PM EST Patient presents for a Virtual Video Visit: This is being used during the COVID- [address] an in-person exam HPI: Mood/contraception f/u ROS No Fatigue, No Wt. change [...] violence at home Physical Exam: Vitals: Vitals: 09/29/21 1425 Pulse: 92 Gen: NAD, Well-kempt HEENT: NCAT, EOMI, OP clear via video Neck: Patient denies swollen or tender lymph nodes on exam Chest: Respiratory rate is regular, no retractions, no cough noted Cardiac: Patient reports radial pulse is regular Abd: No tenderness on self-exam : Not indicated Extremities: No cyanosis, clubbing, edema Neuro: A&O, per diem nurse 2-12 grossly intact Psych: Behavior appropriate, normal mood and affect Skin: No lesions noted by patient or video Assessment and Plan: Problem List Items Addressed This Visit Depressed mood Overview Prozac 60 Failed Zoloft a lot of s/e No therapy currently Current Assessment & Plan Taking 60mg Prozac No s/e Semester going well 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 options reviewed : including IUD, condoms, Depo/implanon, OCPs, nuva ring Reviewed pros/cons/risks of IUD Pt is considering She will call to book if interested Virtual Visit Attestation Modality: Video Provider Location: Practice location Patient State: [place] I personally spent a total of 20 minutes on care for this patient on the date of the encounter. This includes ovdj-ni-nwsm time during the visit as well as non izup-ms-utep time spent on chart review, documentation, and care coordination. documented in this encounter Miscellaneous Notes * Assessment & Plan Note - Yamileth Wagner CNP - 09/29/2021 2:52 PM EST Associated Problem(s): Encounter for other contraceptive management (Deleted) Currently on OCPs Takes every day but not always good about same time Wondering about IUD for college for convenience Contraceptive Counselling ? 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 Supports - family at home, friends at school are awesome NO self harm NO therapist currently - cannot find one that will work in [place] and [place] On a wait list for school therapist - all virtual Has been exercising more - works at [email or web address] and has been working out after Walking [...] Notat all More than half the days Several [...] offered She is safe F/u 3 mos documented in this encounter Plan of Treatment Upcoming Encounters Date Type Department Care Team (Late st Contact Info) Description 12/15/2024 9:00 AM EDT [facility] Nikole Harry [address] [place] [address] Yamileth Wagner CNP [address] [place] [address] [email or web address] 06/11/2025 1:40 PM EDT Office Visit [facility] Nikole Harry [address] [place] [address] Yamileth Wagner CNP [address] [place] [address] documented as of this encounter Visit Diagnoses Diagnosis Depressed mood Encounter for other contraceptive management documented in this encounter Additional Health Concerns Assessment Noted Time PHQ-9 Depression Total Score: 10 022 2:31 PM EST PHQ-2 Depression Total Score: 1 09/29/19 22 2:31 PM EST documented as of this encounter Care Teams Supervisor Rides Relationship Specialty Start Date End Date Yamileth Wagner, FLIGHT DATA TECHNICIAN [address] [facility] [place] [address] [email or web address] PCP - General Family Medicine 06/28/17 documented as of this encounter Additional Source Comments The information contained in this document represents components of the legal health record. It is not the complete legal health record.[facility]
--- OUTSIDE RECORDS SUMMARY | 2024-08-23 23:21 | XMS_ITS | Encounter Summary ---
Author Organization [facility] Address [phone] Formerly [facility] [place] [address] Care Team Providers Care Manager Private Name Role Phone Yamileth Wagner CNP Primary Care Provider Yamileth Wagner OFFICIAL COURT INTERPRETER Unavailable [phone] INTERPRETER Unavailable + [phone] Janette Jules MD Unavailable [phone] INTERPRETER Unavailable [phone] Janette Jules MD Unavailable [phone] Encounter Details Date Type Department Care Team (Late st Contact Info) Description 09/22/2019 Transcribe Orders [facility] [address] [place] [address] Yamileth Wagner, OFFICIAL COURT INTERPRETER [address] [place] [address] [email or web address] Social History Tobacco [...] Info) Description 12/15/2024 9:00 AM EDT Telemedicine [facility] 145 [facility] [place] [address] Yamileth Wagner CNP [address] [place] [address] [email or web address] 06/11/2025 1:40 PM EDT [facility] [address] [facility] [place] [address] Yamileth Wagner CNP [address] [place] [address] [email or web address] documented as of this encounter Visit Diagnoses Not on filedocumented in this encounter Additional Health Concerns Assessment Noted Time PHQ-9 Depression Total Score: 14 020 12:00 PM EST documented as of this encounter Care Teams Manager Private Relationship Specialty Start Date End Date Yamileth Wagner CNP [address], [place] [address] [email or web address] PCP - General Family Medicine 06/28/17 Yamileth Wagner CNP [address], [place] [address] Insurance Assigned Provider 12/24/19 02/22/20 Yamileht Wagner CNP [address], [place] [address] [email or web address] Insurance Assigned Provider 09/25/20 08/05/21 Janette Jules MD [address] [place] [id number] Insurance Assigned Provider 11/24/23 02/23/24 Yamileth Wagner CNP 145 [facility] [place] [address] [email or web address] Insurance Assigned Provider 02/23/24 07/30/24 Janette Jules MD [address] [id number] Insurance Assigned Provider 07/30/24 documented as of this encounter Additional Source Comments The information contained in this document represents components of the legal health record. It is not the complete legal health record.[facility]
--- OUTSIDE RECORDS SUMMARY | 2024-08-23 23:21 | XMS_ITS | Encounter Summary ---
Author Organization [facility] Address [phone] Formerly [facility] [place] [address] Care Team Providers Care Simulation Specialist Name Role Phone Yamileth Wagner CNP Primary Care Provider Encounter Details Date Type Department Care Team ([facility] st Contact Info) Description 07/06/2022 Telephone [facility] [address] [place] [address] Yamileth Wagner CNP 145 [place] [address] [email or web address] Social History Tobacco Use Types Packs/Day Years [...] Progress Notes * Yamileth Wagner CNP - 07/06/2022 4:52 PM EST TC with pt She is having a lot of inc anxiety A lot of panic attacks A lot of chest tightness No self harm Having some safety issues with her apartment Working with [facility] therapist but not getting many appointments Next one Dec 6 She is taking the Ativan which is helping a lot for frequent panic We discussed my concerns about that medication She understands We will increase her Prozac to 60mg I gave her 10 emergency Ativcan Thinking we can switch her SSRI and/or add Buspar for anxiety Pt agreed with plan * Melissa Carrillo - 07/06/2022 3:03 PM EST Pt requesting refill for Lorazepam .5mg was prescribed at [facility] but he is now fully out. Offered appt for tomorrow but pt is away at school in [place]. Please advise. documented in this encounter Plan of Treatment Upcoming Encounters Date Type Department Care Team (Late st Contact Info) Description 12/15/2024 9:00 AM EDT Telemedicine [facility] PTedCTed [address] [place] [facility] [place] [address] Yamileth Wagner CNP [address] [facility], [place] [address] [email or web address] 06/11/2025 1:40 PM EDT Office Visit [facility] PTedCTed [address] [place] [facility] [place] [address] Yamileth Wagner CNP [address] [place] [address] documented as of this encounter Visit Diagnoses Not on filedocumented in this encounter Additional Health Concerns Assessment Noted Time PHQ-9 Depression Total Score: 5 04/13/20 22 1:59 PM EDT PHQ-2 Depression Total Score: 2 04/13/20 22 1:59 PM EDT documented as of this encounter Care Teams Simulation Specialist Relationship Specialty Start Date End Date Yamileth Wagner CNP [address] [facility], [place] [address] PCP - General Family Medicine 06/28/17 documented as of this encounter Additional Source Comments The information contained in this document represents components of the legal health record. It is not the complete legal health record.[facility]
--- OUTSIDE RECORDS SUMMARY | 2024-08-23 23:21 | XMS_ITS | Encounter Summary ---
Author Organization [employer] [facility] Address [phone] [facility] [place] [address] Care Team Providers Care Martial Arts Instructor Name Role Phone Yamileth Wagner Hunter AMOS Primary Care Provider Reason for Visit * Reason Onset Date Comments Medication Refill 07/06/2022 Encounter Details Date Type Department Care Team (Late st Contact Info) Description 07/06/2022 Refill [facility] [address] [place] [address] Marisa Kramer [place] Medication Refill Social History [...] encounter Progress Notes * Marisa Kramer - 07/06/2022 4:16 PM EST lorazapam to [facility] Last OV: 04/13/2022 Date of future appointment: 07/10/2022 [employer] verification Last refilled: 06/24/2022 Last prescriber: Alejandro Otero at urgent care Other prescribers: N/A documented in this encounter Plan of Treatment Upcoming Encounters Date Type Department Care Team (Late st Contact Info) Description 12/15/2024 9:00 AM EDT [facility] Nikole Harry [address] [place] [address] Yamileth Wagner CNP [address] [place] [address] [email or web address] 06/11/2025 1:40 PM EDT Office Visit [facility] Nikole Harry [address] [place] [address] Yamileth Wagner CNP [address], [place] [address] [email or web address] documented as of this encounter Visit Diagnoses Not on filedocumented in this encounter Additional Health Concerns Assessment Noted Time PHQ-9 Depression Total Score: 5 04/13/20 22 1:59 PM EDT PHQ-2 Depression Total Score: 2 04/13/20 22 1:59 PM EDT documented as of this encounter Care Teams Martial Arts Instructor Relationship Specialty Start Date End Date Yamileth Wagner [place] [address] [email or web address] PCP - General Family Medicine 06/28/17 documented as of this encounter Additional Source Comments The information contained in this document represents components of the legal health record. It is not the complete legal health record.[facility]
--- OUTSIDE RECORDS SUMMARY | 2024-08-23 23:21 | XMS_ITS | Encounter Summary ---
Author Organization [facility] Address [phone] [facility] [place] [address] Care Team Providers Care Senior Data Architect Name Role Phone Yamileth Wagner TECHNOLOGY SPECIALIST Primary Care Provider Yamileth Wagner TECHNOLOGY SPECIALIST Unavailable [phone] Reason for Visit * Reason Comments Head Injury Encounter Details Date Type Department Care Team (Late st Contact Info) Description 12/01/2020 2:40 PM EDT Office Visit [facility] [address] [place] [address] Yamileth Wagner, TECHNOLOGY SPECIALIST [address] [place] [address] [email or web address] New daily persistent headache Social History Tobacco Use Types Packs/Day Years [...] Sign Reading Time Taken Comments Blood Pressure 100/60 12/01/2020 3:08 PM EDT Pulse 68 12/01/2020 3:08 PM EDT Temperature 36.9 ??C (98.5 ??F) 12/01/2020 3:08 PM ED T Respiratory Rate - - Oxygen Saturation 100% 12/01/2020 3:08 PM EDT Inhaled Oxygen Concentration - - Weight 70.7 kg (155 lb 12.8 oz) 12/01/2020 3:08 PM EDT Height - - Body Mass Index - - documented in this encounter Patient Instructions * Patient Instructions* Yamileth Wagner, TECHNOLOGY SPECIALIST - 12/01/2020 2:40 PM EDT Images from the original note were not included. Neck Spasm: Exercises Introduction Here are some examples of exercises for you to try. The exercises may be suggested for a condition or for rehabilitation. Start each exercise slowly. Ease off the exercises if you start to have pain. You will be told when to start these exercises and which ones will work best for you. How to do the exercises Levator scapula stretch 1. Sit in a firm chair, or stand up straight. 2. Gently tilt your head toward your left shoulder. 3. Turn your head to look down into your armpit, bending your head slightly forward. Let the weightof your head stretch your neck muscles. 4. Hold for 15 to 30 seconds. 5. Return to your starting position. 6. Follow the same instructions above, but tilt your head toward your right shoulder. 7. Repeat 2 to 4 times toward each shoulder. Upper trapezius stretch 1. Sit in a firm chair, or stand up straight. 2. This stretch works best if you keep your shoulder down as you lean away from it. To help you remember to do this, start by relaxing your shoulders and lightly holding on to your thighs or your chair. 3. Tilt your head toward your shoulder and hold for 15 to 30 seconds. Let the weight of your head stretch your muscles. 4. If you would like a little added stretch, place your arm behind your back. Use the arm opposite of the direction you are tilting your head. For example, if you are tilting your head to the left, place your right arm behind your back. 5. Repeat 2 to 4 times toward each shoulder. Neck rotation 1. Sit in a firm chair, or stand up straight. 2. Keeping your chin level, turn your head to the right, and hold for 15 to 30 seconds. 3. Turn your head to the left, and hold for 15 to 30 seconds. 4. Repeat 2 to 4 times to each side. Chin tuck 1. Lie on the floor with a rolled-up towel under your neck. Your head should be touching the floor. 2. Slowly bring your chin toward the front of your neck. 3. Hold for a count of 6, and then relax for up to 10 seconds. 4. Repeat 8 to 12 times. Forward neck flexion 1. Sit in a firm chair, or stand up straight. 2. Bend your head forward. 3. Hold for 15 to 30 seconds, then return to your starting position. 4. Repeat 2 to 4 times. Follow-up care is a chamorro part of your treatment and safety. Be sure to make and go to all appointments, and call your doctor if you are having problems. It's also a good idea to know your test resultsand keep a list of the medicines you take. Where can you learn more? Please login or enroll in??Patient Locust: [email or web address] Select the Resources icon from the Header & then select??Search [employer] Enter P962 in the search box to learn more about 'Neck Spasm: Exercises.' Current as of: July 05, 2020?Content Version: 12.8 ?? [employer]. Care instructions adapted under license by your healthcare professional. If you have questions about a medical condition or this instruction, always ask your healthcare professional. [employer] disclaims any warranty or liability for your use of this information. documented in this encounter Progress Notes * Yamileth Wagner CNP - 12/01/2020 2:40 PM EDT Cc: Chief Complaint Patient presents with ??? Head Injury Pt presents for acute visit HPI Hit head 2 weeks ago ON concrete pole Throwing her head back when laughing Had LOYD when it happened Still have a LOYD in the back of head where she hit it and on the side Worse in the morning Better during the day when ignoring it Exhausted Got the COVID vaccine 2 days ago Now more exhausted last few days from that No N/V Some lightheadedness No LOC Some neck pain in the sides and back No mental confusion Or fogginess Some sleep problems, falling asleep a little worse No personality changes Vitals: 12/01/20 1508 BP: 100/60 Pulse: 68 Temp: 36.9 ??C (98.5 ??F) SpO2: 100% Current Outpatient Medications: ??? adapalene (DIFFERIN) 0.3 % gel, Apply a pea sized amount to face. Start every third night and increase to nightly as tolerated, Disp: 60 g, Rfl: 11, Last Dispense: Unknown (outside pharmacy) ??? albuterol 90 mcg/actuation inhaler, INHALE 1 PUFF INTO THE LUNGS EVERY 6 (SIX) HOURS NEEDED FOR WHEEZING., Disp: 8.5 Inhaler, Rfl: 1, Last Dispense: Unknown (outside pharmacy) ??? clindamycin (CLEOCIN T) 1 % lotion, Apply TWICE DAILY to face after washing with benzoyl peroxide wash, Disp: 60 mL, Rfl: 11, Last Dispense: Unknown (outside pharmacy) ??? FLUoxetine (PROZAC) 40 MG capsule, TAKE 1 CAPSULE (40 MG TOTAL) BY MOUTH DAILY. TAKE WITH 20MG TABLETS FOR TOTAL DOSE 60MG, Disp: 90 capsule, Rfl: 3, Last Dispense: Unknown (outside pharmacy) ??? norgestimate-ethinyl estradioL (IRF-OD-DXJUFV) 0.18/0.215/0.25 mg-25 mcg Tab, Take 1 tablet by mouth daily., Disp: 84 tablet, Rfl: 2, Last Dispense: Unknown (outside pharmacy) Patient Active Problem List Diagnosis ??? Acne vulgaris ??? Unimmunized ??? Dysmenorrhea ??? Pain in joint of right shoulder ??? Depressed mood ??? New daily persistent headache PE Well appearing, NAD Neuro CN 2-12 intact, nl facial muscles, nl shoulder shrug nl ocular mvmts, smooth tracking, no nystagmus nl Upper extremity strength b/l symmetric nl Lower extremity strength b/l symmetric nl DTRs upper and lower negative romberg test, nl gait, nl finger to nose testing. ? Neck: Supple, no LAD, no thyromegaly No deformities, edema or erythema No cervical spinal tenderness +++ b/l paraspinal tenderness, spasm elicited Full ROM without pain, radicular sx Neg Spurlings sign Full UE DTRs, no hyperflexia, hypertonia Full strength UE, soft boarder strength intact Heart - RRR, no murmurs/rubs/gallops Lungs - CTA bilaterally, no wheezes/rhales/rhonchi Extremities - WWP, no edema, calves equal and symmetric A/p Problem List Items Addressed This Visit New daily persistent headache Current Assessment & Plan Possible mild concussion More likely related to cervical spasm from injury Normal neuro exam, reassuring Cervical/trapezius/scapular muscle spasm rec wet heat Gentle stretch - handout given Red flags reviewed Pt to return to office or call if sx worsen or do not improve Pt agreed with plan Red flags reviewed Pt to return to office or call if sx worsen or do not improve Pt agreed with plan documented in this encounter Miscellaneous Notes * Assessment & Plan Note - Yamileth Wagner CNP - 12/01/2020 3:56 PM EDT Associated Problem(s): New daily persistent headache (Deleted) Possible mild concussion More likely related to cervical spasm from injury Normal neuro exam, reassuring Cervical/trapezius/scapular muscle spasm rec wet heat Gentle stretch - handout given Red flags reviewed Pt to return to office or call if sx worsen or do not improve Pt agreed with plan documented in this encounter Plan of Treatment Upcoming Encounters Date Type Department Care Team (Late st Contact Info) Description 12/15/2024 9:00 AM EDT Telemedicine [facility] Nikole Colmenares 145 [place] [address] Yamileth Wagner CNP 145 [facility] [place] [address] [email or web address] 06/11/2025 1:40 PM EDT Office Visit [facility] Nikole Colmenares 145 [facility] [place] [address] Yamileth Wagner CNP [address], [facility] [place] [address] [email or web address] documented as of this encounter Visit Diagnoses Diagnosis New daily persistent headache documented in this encounter Additional Health Concerns Assessment Noted Time PHQ-9 Depression Total Score: 7 10/01/19 21 8:00 AM EST PHQ-2 Depression Total Score: 2 10/01/19 21 8:00 AM EST documented as of this encounter Care Teams Senior Data Architect Relationship Specialty Start Date End Date Yamileth Wagner CNP [address], [place] [address] [email or web address] PCP - General Family Medicine 06/28/17 Yamileth Wagner CNP [address], [facility] [place] [address] [email or web address] Insurance Assigned Provider 09/25/20 08/05/21 documented as of this encounter Additional Source Comments The information contained in this document represents components of the legal health record. It is not the complete legal health record.[facility]
--- OUTSIDE RECORDS SUMMARY | 2024-08-23 23:21 | XMS_ITS | Encounter Summary ---
Author Organization [facility] Address [phone] [facility] [place] [address] Care Team Providers Care Weed Inspector Name Role Phone Yamileth Wagner CNP Primary Care Provider Yamileth Wagner SCOURING TRAIN OPERATOR CHIEF Unavailable [phone] Reason for Visit * Reason Comments Immunizations Menactra per patient Encounter Details Date Type Department Care Team (Late st Contact Info) Description 11/02/2020 3:40 PM EDT Nurse Only [facility] 145 [place] [address] Immunization due (Primary Dx) Social History Tobacco Use Types [...] as of this encounter Progress Notes * Alfreda Knox - 11/02/2020 3:40 PM EDT Patient presents today for administration of State supplied Menactra vaccination administered in right deltoid. Pt only wanted to have 1 vaccine administered today. Patient provided consent prior to administration. Patient tolerated well. documented in this encounter Plan of Treatment Upcoming Encounters Date Type Department Care Team (Late st Contact Info) Description 12/15/2024 9:00 AM EDT Telemedicine [facility] Nikole Harry [address] [place] [address] Yamileth Wagner CNP [address] [place] [address] 06/11/2025 1:40 PM EDT Office Visit [facility] Nikole Harry [address] [place] [address] Yamileth Wagner CNP [address] [place] [address] documented as of this encounter Visit Diagnoses Diagnosis Immunization due- Primary documented in this encounter Additional Health Concerns Assessment Noted Time PHQ-9 Depression Total Score: 7 10/01/19 8:00 AM EST PHQ-2 Depression Total Score: 2 10/01/19 8:00 AM EST documented as of this encounter Care Teams Weed Inspector Relationship Specialty Start Date End Date [place] [address] PCP - General Family Medicine 06/28/17 Yamileth Wagner CNP [address], [place] [address] Insurance Assigned Provider 09/25/20 08/05/21 documented as of this encounter Additional Source Comments The information contained in this document represents components of the legal health record. It is not the complete legal health record.[facility]
--- OUTSIDE RECORDS SUMMARY | 2024-08-23 23:21 | XMS_ITS | Encounter Summary ---
Author Organization [facility] Address [phone] [facility] [place] [address] Care Team Providers Care Mainframe Systems Engineer Name Role Phone Yamileth Wagner GREENHOUSE MANAGER Primary Care Provider Yamileth Wagner GREENHOUSE MANAGER Unavailable + [phone] Reason for Visit * Reason Comments Annual Exam Encounter Details Date Type Department Care Team ([facility] st Contact Info) Description 02/11/2021 11:00 AM EDT Office Visit [facility] [address] [place] [address] Yamileth Wagner, GREENHOUSE MANAGER [address] [place] [address] [email or web address] Annual physical exam (Primary Dx); Depressed mood; Acne vulgaris; Dysmenorrhea; New daily persistent headache; Pain in joint of right shoulder; Unimmunized; Encounter for other contraceptive management Social History [...] Sign Reading Time Taken Comments Blood Pressure 100/70 02/11/2021 11:04 AM EDT Pulse 80 02/11/2021 11:04 AM EDT Temperature 36.6 ??C (97.9 ??F) 02/11/2021 11:04 AM E DT Respiratory Rate - - Oxygen Saturation 99% 02/11/2021 11:04 AM EDT Inhaled Oxygen Concentration - - Weight 68.9 kg (152 lb) 02/11/2021 11:04 AM EDT Height 165.1 cm (5' 5) 02/11/2021 11:04 AM EDT Body Mass Index 25.29 02/11/2021 11:04 AM EDT Body Mass Index Percentile 83.41% 02/11/2021 11: 04 AM EDT Growth Chart: [facility] (Girls, 2- 20 Years) documented in this encounter Patient Instructions * Patient Instructions* Yamileth Wagner, GREENHOUSE MANAGER - 02/11/2021 11:00 AM EDT Intrauterine Devices (IUDs) What is an IUD? An IUD is a small device shaped like a T that goes in your uterus to prevent . There aretwo types: ?? Copper IUD - The copper IUD goes by the brand name ParaGard. It can stay in your uterus for up to 10 years. ?? Hormonal IUD - There are two hormonal IUDs. The Mirena IUD can stay in your uterus for up to 5 years. The Tiana IUD is a newer version which is slightly smaller and has a lower dose of hormones. It can stay in for 3 years. How does an IUD work? The IUD works by preventing sperm from joining with an egg. The copper IUD releases a small amount of copper into the uterus. Copper interferes with the sperms' ability to reach the egg. The hormonalIUDs work by releasing a hormone called progestin into the uterus. This hormone (which is commonly used in control pills) thickens cervical mucus, creating a barrier so that sperm cannot get through to the egg. Where can I get an IUD? A doctor or nurse inserts the IUD, often at the time of your menstrual period or just after. It costs around $500 for the IUD. Most health insurance plans cover these costs, leaving you to pay just your usual co-pay. When does the IUD start protecting against ? The IUD starts protecting against as soon as it is inserted. What are the advantages of the IUD? ?? The IUD is very effective (99%) against . ?? It is convenient and easy to use. You don't have to remember to take a control pill every day or insert a diaphragm before having sex. ?? It is comfortable. Neither you nor your partner can feel it. ?? Mothers who use an IUD can breastfeed safely. ?? The hormonal IUDs (Mirena and Tiana) lessen menstrual flow and can be used to treat heavy periods. After a few months, many women don't get a period at all, or only occasional spotting. ?? It can be removed at any time. What are the disadvantages? ?? The IUD doesn't protect against sexually transmitted diseases. ?? It needs to be inserted by a health care provider. ?? The copper IUD can have side effects such as cramping, longer and/or heavier menstrual periods, and spotting between periods. ?? Hormonal IUDs can cause unpredictable spotting which some women find bothersome. ?? Rarely, it can fall out or, in very rare cases, can puncture the uterus. ?? There is a slightly higher risk for infection in the few weeks after insertion. Can any woman use the IUD? The IUD is best for a woman who is in a steady relationship with one sexual partner who is also faithful and has no sexually transmitted diseases. Although women who have had children may be more likely to choose this method of control, IUDS can be used by women who have not had children. Because it is smaller and shorter acting, the Tiana IUD is a good option for these women. It is important for all women using IUDs to continue to use condoms with new partners to lessen the risk of getting STDs. You should not use an IUD if you: ?? Are ?? Are allergic to copper (copper IUD only) ?? Have an abnormal uterus ?? Have an artificial heart valve ?? Are at risk for getting a sexually transmitted disease ?? Have a recent history of pelvic inflammatory disease or STDs ?? Have cervical, endometrial or ovarian cancer that needs treatment Can I continue my normal activities while I am using the IUD? Yes. After the IUD has been inserted, you may swim, exercise, use tampons, and have sex as soon as you want to. This document is intended to provide health related information so that you may be better informed.It is not a substitute for your doctor's medical advice and should not be relied upon for treatmentfor specific medical conditions. ?? 2015 [employer] Primary Care Operations Improvement Site prepared by the [facility] Laboratory of [employer] documented in this encounter Progress Notes * Yamileth Wagner CNP - 02/11/2021 11:00 AM EDT Patient presents for annual physical Discussed patients current lifestyle including alcohol intake, smoking, drug use, sleep, stress, diet and exercise. PHQ-9 and AUDIT alcohol misuse screenings completed and reviewed today for a total time spent minimum of 8 minutes each Score PHQ2 Office Visit from 02/11/20[facility] in [facility] PHQ-2 Score 0 PHQ Depression Screening Score 10/01/2020 02/11/2021 02/11/2021 [...] - PHQ-9 Total Score 7 - 1 Alcohol Use Disorders Identification Test 02/11/2021 Audit-C Score 0 Brief intervention done on chamorro areas of potential improvements to maximize terminal operations manager health and daily wellness. Health Maintenance reviewed, updated as necessary and counseled on what is due: Health Maintenance Topic Date Due ??? HEPATITIS B VACCINES (1 of 3 - 3-dose primary series) Never done ??? HEPATITIS A VACCINES (1 of 2 - 2-dose series) Never done ??? HPV VACCINES (1 - 2-dose series) Never done ??? COMBINED DTaP,Tdap,Td (2 - Td) 06/18/2019 ??? ADOLESCENT UNIVERSAL LIPID SCREENING Never done ??? BMI ASSESSMENT 11/09/2020 ??? HEPATITIS C SCREENING Never done ??? HIV ONE-TIME SCREENING (18-65 YEARS) Never done ??? VARICELLA VACCINES (2 of 2 - 13+ 2-dose series) 03/11/2021 ??? SMOKING Hx and SMOKELESS TOBACCO SCREENING 10/27/2021 ??? COVID-19 VACCINE Completed ??? MMR VACCINES Completed ??? MENINGOCOCCAL VACCINES (ACWY) Completed ??? PNEUMOCOCCAL VACCINES (0-64 years) Aged Out ??? HIB VACCINES Aged Out ??? IPV VACCINES Aged Out Immunization History Administered Date(s) Administered ??? COVID-19 Pfizer, mRNA, PF, 30mcg/0.3 mL 11/29/2020, 12/27/2020 ??? MMR 01/23/2019, 09/22/2019 ??? Meningococcal MCV4P 11/02/2020 ??? Tdap 05/21/2019 ??? Varicella 02/11/2021 Social History reviewed: Social History Social History Narrative Mom Ren and dad Roldan. Education: headed to [employer] in the Fall Eating: Healthy, a lot of salads Activities: Photography, art, swimming this summer, [employer] 2x/wk, home workouts Drugs: No tobacco use, no alcohol use, no other drug use Sexuality: 1 lifetime partner, used a condom Sleep: Good Past medical history reviewed: Past Medical History: Diagnosis Date ??? Anxiety No past surgical history on file. Family history reviewed: Family History Problem Relation Age of Onset ??? Hypertension Father ??? No Known Problems Mother Visit Vitals: Vitals: 02/11/21 1104 BP: 100/70 Pulse: 80 Temp: 36.6 ??C (97.9 ??F) SpO2: 99% Chronic problems and new concerns addressed below. Problem List Items Addressed This Visit Acne vulgaris Overview OCPs and benzoin helped significantly, much improved Current Assessment & Plan Skin doing well Continue with both OCPs and benzoin. Depressed mood Overview Prozac 60 Failed Zoloft a lot of s/e No therapy currently Current Assessment & Plan PHQ Depression Screening Score 10/01/2020 02/11/2021 02/11/2021 [...] for now F/u 46 mos She will [place] back if worse Dysmenorrhea Overview On OCPs Much better Current Assessment & Plan Continue on APRI Encounter for other contraceptive management Current Assessment & Plan Currently on OCPs Takes every day but not always good about same time Wondering about IUD for [employer] for convenience Contraceptive Counselling ? options reviewed : including IUD, condoms, Depo/implanon, OCPs, nuva ring Reviewed pros/cons/risks of IUD Pt is considering, more info given at checkout She will call to book if interested New daily persistent headache Current Assessment & Plan Possible mild concussion More likely related to cervical spasm from injury Normal neuro exam, reassuring Cervical/trapezius/scapular muscle spasm rec wet heat Gentle stretch - handout given Red flags reviewed Pt to return to office or call if sx worsen or do not improve Pt agreed with plan Pain in joint of right shoulder Overview Tore both rotator cuffs a few years ago, was having trouble with the R + accupuncture Not 100% Current Assessment & Plan Cont to monitor Unimmunized Current Assessment & Plan Currently underimmunized Reviewed plan for immunization, importance of immunization and the risks of not immunizing, including communicable disease that can cause severe injury or Recommend: Gardasil, DTaP Varicella done today She will discuss with parents and book NV to start series Other Visit Diagnoses Annual physical exam - Primary Relevant Orders Basic metabolic panel Lipid panel CBC TSH Review of Systems Constitutional: Negative for unexpected weight change. HENT: Negative for hearing loss. Eyes: Negative for visual disturbance. Respiratory: Negative for cough and shortness of breath. Cardiovascular: Negative for chest pain and palpitations. Gastrointestinal: Negative for abdominal pain, constipation and diarrhea. Genitourinary: Negative for difficulty urinating. Musculoskeletal: Negative for arthralgias. Skin: Negative for rash. Neurological: Positive for headaches. Negative for dizziness. Hematological: Negative for adenopathy. Does not bruise/bleed easily. Psychiatric/Behavioral: Negative for confusion and sleep disturbance. Physical Exam Constitutional: She is oriented to person, place, and time. She appears well- developed and well-nourished. HENT: Head: Normocephalic and atraumatic. Right Ear: Tympanic membrane, external ear and ear canal normal. Left Ear: Tympanic membrane, external ear and ear canal normal. Nose: Nose normal. Mouth/Throat: Oropharynx is clear and moist. No oropharyngeal exudate. Eyes: Pupils are equal, round, and reactive to light. Conjunctivae and EOM are normal. Right eye exhibits no discharge. Left eye exhibits no discharge. No scleral icterus. Neck: No thyromegaly present. Cardiovascular: Normal rate, regular rhythm and intact distal pulses. Exam reveals no gallop and nofriction rub. No murmur heard. Pulmonary/Chest: Effort normal and breath sounds normal. No respiratory distress. She has no wheezes. She has no rales. She exhibits no tenderness. Right breast exhibits no inverted nipple, no mass, no nipple discharge, no skin change and no tenderness. Left breast exhibits no inverted nipple, no mass, no nipple discharge, no skin change and no tenderness. Breasts are symmetrical. Abdominal: Soft. Bowel sounds are normal. She exhibits no distension and no mass. There is no hepatosplenomegaly. There is no abdominal tenderness. There is no rebound, no guarding and no CVA tenderness. Musculoskeletal: General: No tenderness or edema. Normal range of motion. Cervical back: Normal range of motion and neck supple. Neurological: She is alert and oriented to person, place, and time. She has normal reflexes. Skin: Skin is warm and dry. No rash noted. No erythema. No pallor. Psychiatric: She has a normal mood and affect. Her behavior is normal. Judgment and thought contentnormal. Vitals reviewed. documented in this encounter Miscellaneous Notes * Assessment & Plan Note - Yamileth Wagner CNP - 02/11/2021 1:02 PM EDT Associated Problem(s): Encounter for other contraceptive management (Deleted) Currently on OCPs Takes every day but not always good about same time Wondering about IUD for [facility] for convenience Contraceptive Counselling ? options reviewed : including IUD, condoms, Depo/implanon, OCPs, nuva ring Reviewed pros/cons/risks of IUD Pt is considering, more info given at checkout She will call to book if interested * Assessment & Plan Note - Yamileth Wagner CNP - 02/11/2021 11:30 AM EDT Associated Problem(s): Unimmunized Currently underimmunized Reviewed plan for immunization, importance of immunization and the risks of not immunizing, including communicable disease that can cause severe injury or Recommend: Gardasil, DTaP Varicella done today She will discuss with parents and book NV to start series * Assessment & Plan Note - Yamileth Wagner CNP - 02/11/2021 11:30 AM EDT Associated Problem(s): Pain in joint of right shoulder (Resolved 04/25/2023) Cont to monitor * Assessment & Plan Note - Yamileth Wagner CNP - 02/11/2021 11:22 AM EDT Associated Problem(s): New daily persistent headache (Deleted) Possible mild concussion More likely related to cervical spasm from injury Normal neuro exam, reassuring Cervical/trapezius/scapular muscle spasm rec wet heat Gentle stretch - handout given Red flags reviewed Pt to return to office or call if sx worsen or do not improve Pt agreed with plan * Assessment & Plan Note - Yamileth Wagner CNP - 02/11/2021 11:22 AM EDT Associated Problem(s): Dysmenorrhea Continue on APRI * Assessment & Plan Note - Yamileth Wagner CNP - 02/11/2021 11:22 AM EDT Associated Problem(s): Acne vulgaris Skin doing well Continue with both OCPs and benzoin. * Assessment & Plan Note - Yamileth Wagner CNP - 02/11/2021 11:20 AM EDT Associated Problem(s): Anxiety and depression PHQ Depression Screening Score 10/01/2020 02/11/2021 02/11/2021 [...] for now F/u 46 mos She will [place] back if worse documented in this encounter Plan of Treatment Upcoming Encounters Date Type Department Care Team (Late st Contact Info) Description 12/15/2024 9:00 AM EDT Telemedicine [facility] [address] [place] [address] Yamileth Wagner CNP [address], [place] [address] 06/11/2025 1:40 PM EDT [facility] [address] [place] [address] Yamileth Wagner CNP [address], [place] [address] [email or web address] documented as of this encounter Results * TSH (02/11/2021 12:11 PM EDT) TSH 1.07 0.55 - 4.78 uIU/mL [facility] 02/11/2021 12:1 1 PM EDT 02/11/2021 3:47 PM EDT Yamileth Wagner CNP LAB BLOOD CANDIDO SMITH [facility] [address] [place] [address] * CBC (02/11/2021 12:11 PM EDT) WBC 8.72 4.0 - 11.0 K/uL [facility] RBC 4.32 3.9 - 5.03 M/uL [facility] HGB 12.7 12 - 15.5 g/dL [facility] HCT 38.8 34.9 - 44.5 % [facility] PLT 326 135 - 400 K/uL [facility] MCV 89.8 80 - 100 fL [facility] MCH 29.4 27 - 34 pg [facility] MCHC 32.7 31.5 - 36.5 g/dL [facility] RDW 13.2 11.9 - 14.8 % [facility] MPV 10.4 9.6 - 12 fl [facility] NRBC 0.00 0 /100 WBCs [facility] 02/11/2021 12:1 1 PM EDT 02/11/2021 3:37 PM EDT Yamileth Wagner [facility] LAB BLOOD ORDE SARAH Performing Organization Address City/[facility]/ZIP Co de Phone Number [facility] [address] [place] [address] * Lipid panel (02/11/2021 12:11 PM EDT) CHOLESTEROL 180 140 - 200 mg/dL [facility] Comment: Desirable: <200 Borderline: 200-239 High: >239 TRIGLYCERIDES 40 0 - 149 mg/dL [facility] Comment: Normal ?<150 mg/dL Border-High ? 150-199 mg/dL High Triglycerides ?200-499 mg/dL Very High Triglycerides ? >=500 mg/dL HDL 81 >40 mg/dL [facility] Comment: Recommendations according to the National Cholesterol Education Program Guidelines: <40 mg/dL: Low (Major risk factor for CHD) >= 60 mg/dL: High (Negative risk factor for CHD) CALCULATED LDL 91 0 - 129 mg/dL [facility] Comment: LDL levels in terms of risk for coronary heart disease: <100 mg/dL: Optimal 100-129 mg/dL: Near or above optimal 130-159 mg/dL: Borderline high 160-189 mg/dL: High >190 mg/dL: Very High NON-HDL CHOLESTEROL 99 mg/dL [facility] CARDIAC RISK RATIO 2.2 0 - 4.4 N [facility] 02/11/2021 12:1 1 PM EDT 02/11/2021 3:47 PM EDT Yamileth Wagner [facility] LAB BLOOD ORDE YESENIAJUAN R Performing Organization Address City/[facility]/ZIP Co de Phone Number [facility] [address] [place] [address] * (ABNORMAL) Basic metabolic panel (02/11/2021 12:11 PM EDT) SODIUM 139 136 - 145 mmol/L [facility] CHLORIDE 102 95 - 106 mmol/L [facility] POTASSIUM 4.1 3.5 - 5.2 mmol/L [facility] CO2 27 20 - 31 mmol/L [facility] BUN 7(L) 9 - 23 mg/dL [facility] CREATININE 0.73 0.50 - 1.30 mg/dL [facility] GLUCOSE 66(L) 74 - 106 mg/dL [facility] CALCIUM 9.6 8.7 - 10.4 mg/dL [facility] EGFR >120 >60 mL/min/1.7 3m2 [facility] Comment:Estimated glomerular filtration rate calculated using the CKD-EPI equation. ANION GAP 10 3 - 17 mmol/L [facility] 02/11/2021 12:1 1 PM EDT 02/11/2021 3:47 PM EDT Yamileth Wagner CNP LAB BLOOD ORDE SARAH [facility] [address] [place] [address] documented in this encounter Visit Diagnoses Diagnosis Annual physical exam- Primary Routine general medical examination at a health care facility Depressed mood Acne vulgaris Other acne Dysmenorrhea New daily persistent headache Pain in joint of right shoulder Unimmunized Encounter for other contraceptive management documented in this encounter Additional Health Concerns Assessment Noted Time PHQ-9 Depression Total Score: 1 02/12/20 21 11:11 AM EDT PHQ-2 Depression Total Score: 0 02/12/20 21 11:11 AM EDT documented as of this encounter Care Teams Mainframe Systems Engineer Relationship Specialty Start Date End Date Yamileth Wagner CNP [address] [place] [address] [email or web address] PCP - General Family Medicine 06/28/17 Yamileth Wagner CNP [address] [facility] [place] [address] [email or web address] Insurance Assigned Provider 09/25/20 08/05/21 documented as of this encounter Additional Source Comments The information contained in this document represents components of the legal health record. It is not the complete legal health record.[facility]
--- OUTSIDE RECORDS SUMMARY | 2024-08-23 23:21 | XMS_ITS | Encounter Summary ---
Author Organization [facility] Address [phone] [facility] [place] [address] Care Team Providers Care Parts Consultant Name Role Phone Yamileth Wagner CNP Primary Care Provider Reason for Visit * Reason Comments Follow-up Encounter Details Date Type Department Care Team (Late st Contact Info) Description 01/17/2023 3:00 PM EDT Telemedicine [facility] [address] [place] [address] Yamileth Wagner, MICROSOFT EXCHANGE ADMINISTRATOR [address] [place] [address] [email or web address] Acne vulgaris; Anxiety and depression Social History Tobacco Use [...] Taken Comments Blood Pressure - - Pulse 76 01/17/2023 8:20 AM EDT Temperature - - Respiratory Rate - - Oxygen Saturation - - Inhaled Oxygen Concentration - - Weight 63.5 kg (140 lb) 01/17/2023 8:20 AM EDT Height 165.1 cm (5' 5) 01/17/2023 8:20 AM EDT Body Mass Index 23.3 01/17/2023 8:20 AM EDT documented in this encounter Patient Instructions * Patient Instructions* Yamlieth Wagner, BETTE - 01/17/2023 3:00 PM EDT Behavioral Health Resources Finding a therapist, psychiatrist or testing center can be challenging. This list should serve as a nice starting point for you to choose. There is a general web based directory that you may search: Psychology Today Therapy Directory Website: https://www.UsTrendy/us/therapists Psychology Today's Therapy Directory lists clinical professionals, psychiatrists and treatment centers who provide mental health services in the and internationally. Users can search by geography,specialty and insurance to see what providers may be available. [facility] 12/03 clinical Behavioral Health Help Line. The help line offers a single point of contact for residents to receive real-time support, initial clinical assessment, and connection to the right mental health and substance use disorder evaluation and treatment, regardless of insurance status or abilityto pay. The phone and chat line offer real-time clinical triage and service navigation in more mprv950 languages to help individuals and families access the range of treatment for mental health and addiction offered in the [facility], including outpatient, urgent, and immediate crisis intervention. Every call, text, or chat conversation will include clinical follow up. The help line is available through phone or text at [phone]), as well as by chat online at groSolar. We also have a list that you can start with, but we can't guarantee they take your insurance or even have openings(in no particular order) [facility] [phone] [facility] [phone] [facility] [place] [phone] [facility] [phone] [facility] [place] [phone] [facility] [phone] [facility] [place] [phone] psych [place] [phone], [place] [phone] [facility] [phone] [facility] [phone] [facility] Max Ambriz [place], Sarah [phone] Wellness Room [facility] (multiple locations) [phone] [facility] (medication management) [email or web address] Individuals Gustavo Rueda [phone] Bisi Tom[place] Diana [phone] Humaira Santana [phone] Vilma Kimberly Santana Lizbeth Galinaflo Valenzuelapasqualenatalia [phone] Carlota Stevensrobby Santana [phone] Catherine Santana [phone] Swati Mazariegos [place] [phone] David Santana [phone] Tools for Finding a Local Behavioral Health Provider (may provide virtual and/or in-person appointments) [facility] Resource Coordinators If you need additional help identifying resources, please call [phone] a [facility] Shower Maid. You may also fill out an online form at [email or web address] to request resources. A Shower Maid will contact you in 1-2 weeks. Therapy Horse Farm Manager Website: https://therapymatcher.V[employer]/ Therapy Horse Farm Manager provides free, personalized, and confidential referrals to licensed social workers across [place]. If you're in need of a qualified therapist, call Therapy Horse Farm Manager at [phone] or email Therapy Horse Farm Manager at [email or web address] Leave a message with your name and phone number, and a public health social worker will call you back to learn more about your needs and recommend several potential therapists. Eber Augustine INTERFACE Referral Service Website: https://imelda.[facility]/ The Eber Augustine INTERFACE Referral Service is a mental health and wellness referral Helpline available Sunday through Sunday, 9 am-5 pm, at [phone] (toll free). This is a free, confidential referral service for residents of participating [facility]. Callers from these participating communities are matched with licensed mental health providers, on average, within 2 weeks of their call to INTERFACE. The 988 Suicide & Crisis Lifeline https://Payoffline.org/ Provides free and confidential emotional support to people in suicidal crisis or emotional hours a day, 7 days a week, across the [place]. To reach the Lifeline, call 988 or chat cm136dfvilbua.org. A trained crisis counselor at a local center will answer the phone. This person will listen to the caller, work to understand what the caller is experiencing, provide support, and collaborate with the caller on ways to feel better and connect with any needed help or resources. Peer Support Warmline [facility] Peer Support Warmline Website: https://[facility].org/eeutwa-aqi-zgghm-support-options/#8257572516625-e8pqc512-rm 27 Warmlines are numbers that people can call to get support when they are feeling lonely, anxious, sad, etc., or simply need someone to talk to. They can also provide resources to callers. To find the phone number and hours of operation for your geographic area, please visit the website above. Virtual Behavioral Health Providers Totsy Website: https://www.Resumesimo.com/ Totsy is the largest online counseling platform worldwide. Totsy makes professional counseling available anytime, anywhere, through a computer, tablet or smartphone. Totsy offers access to licensed, trained, experienced, and accredited psychologists (PhD / PsyD), marriage and family therapists (OUTSOLE MOLDER), clinical social workers (MATE FISHING VESSEL / HUMAN RESOURCE INTERNSHIP), and board licensed professional counselors(SENIOR SUSTAINABILITY CONSULTANT). Quality Systems Website: https://www.Orqis Medical/ ZapMe is an online and mobile therapy company. Provides online therapy and psychiatry. Accepts many insurances. With ZapMe, you can send a therapist text messages, audio messages, as well as picture and video messages in a private, text-based chat room. Phone Based Apps Headspace Provides guided meditations, animations, articles and videos. CBT Thought Diary Mood Journal and Thought Record for Cognitive Behavioral Therapy (CBT) What's Up? A Mental Health Pawel Uses Cognitive Behavioral Therapy (CBT) and Acceptance Commitment Therapy (ACT) methods to help youcope with Depression, Anxiety, Stress, and more. Insight Timer Pawel for sleep, anxiety and stress 10% Happier Offers guided meditations and practical teachings CBT-i Char Filter Operator Helper (CBT for insomnia) Pawel for people who are engaged in CBT-I with a health provider, or who have experienced symptoms ofinsomnia and would like to improve their sleep habits. Additional specialized behavioral health resources [place] Substance Use Helpline https://helplinema.org/ Available 12/03 Statewide, public resource for finding substance use treatment, recovery, and problem gambling services. Helpline services are free and confidential. Trained specialists will help patients understandthe treatment system and available options. Multi-Service Eating Disorder Association (RONNIE) https://www.medainc.org/ RONNIE offers a variety of services to support individuals and loved ones through the various stages of their journey. Through their network of Treatment Providers and Treatment Centers, RONNIE connects patients with the best care for their needs. DBT group through [employer] Dialectical-Behavioral Therapy (DBT) Skills Group is a structured 20-week group that follows the empirically supported curriculum of Dr. Keerthi Roque. The groups are virtual and will be 1-1.5 hoursa week- future specific days of the week and times is all TBD. The groups are all closed groups with 6-8 clients. This group would really be for those clients who struggle with emotional dysregulation and/or relationships. It runs like a course and is not a support group format. We run through 4 modules: Mindfulness, Distress Tolerance, Emotion Regulation, and Interpersonal Effectiveness. In each module, clients are led through psychoeducation, skill teaching, and hands-on practice. There is homework for every week and it is a 5 month commitment. This group will be hard to access for our clients who particularly struggle with attendance/engagement. https://www.psychologyExtreme Reach (formerly BrandAds)day.com/us/treatment-rehab/ssdlsq-pxetxipnut-hifeprqs-[facility]wayyqvjl-jmtbtjl-th/981140?aia=420339 documented in this encounter Progress Notes * Yamileth Wagner CNP - 01/17/2023 3:00 PM EDT Images from the original note were not included. Patient presents for a Virtual Video Visit: This is being used during the COVID- [address] an in-person exam HPI: At home for summer She will be working and hanging out with friends Skin has been worse since starting new OCPs Has goten a lot worse for a while Mood also feels unstable OCP was changed 04/10 for BTB and cramping Still gets cramps BTB is improved but the acne got worse Mood and stress there Still having really bad panic attacks Not as often as they used to be also helping she is not at school which is a big trigger Needs to get a therapist has not be successful in finding one Used a few different sources for therapy in [place] either not someone she connected with or didn't respond Also struggling with motivation to find one Had started the Buspar she did not like it much She feels she needs therapy ROS No Fatigue, No Wt. change No [...] violence at home Physical Exam: Vitals: Vitals: 01/17/23 0820 Pulse: 76 Gen: NAD, Well-kempt HEENT: NCAT, EOMI, OP clear via video Neck: Patient denies swollen or tender lymph nodes on exam Chest: Respiratory rate is regular, no retractions, no cough noted Cardiac: Patient reports radial pulse is regular Abd: No tenderness on self-exam : Not indicated Extremities: No cyanosis, clubbing, edema Neuro: A&O, hcc coders 2-12 grossly intact Psych: Behavior appropriate, normal mood and affect Skin: No lesions noted by patient or video Assessment and Plan: Problem List Items Addressed This Visit Acne vulgaris Overview OCPs and benzoin helped significantly, much improved Current Assessment & Plan She thinks the higher dose OCP is making things worse We reviewed that she is on the OCP most recommended for acne control We discussed a trial of Spironalactone or Minocycline She will think about it For now she will continue current management Pt will let me know if there is any change with this condition Anxiety and depression Overview Prozac 60 Failed Zoloft a lot of s/e Ativan prn added at [facility] 07/11 Started Buproprion 07/11 Therapy @ [facility] Switched to Lexapro 09/11 Current Assessment & Plan Feels better on the Lexapro Still some [...] and medication titration, call sooner if problems. Virtual Visit Attestation Modality: video Provider Location: practice location Patient Location: home Patient State: [place] documented in this encounter Miscellaneous Notes * Assessment & Plan Note - Yamileth Wagner CNP - 01/17/2023 3:33 PM EDT Associated Problem(s): Anxiety and depression [...] and medication titration, call sooner if problems. * Assessment & Plan Note - Yamileth Wagner CNP - 01/17/2023 3:19 PM EDT Associated Problem(s): Acne vulgaris She thinks the higher dose OCP is [...] Info) Description 12/15/2024 9:00 AM EDT [facility]icine [facility] Nikole Harry [address] [place] [address] [place] [address] [email or web address] 06/11/2025 1:40 PM EDT Office Visit [facility] Nikole Harry [address] [place] [address] [place] [address] [email or web address] documented as of this encounter Visit Diagnoses Diagnosis Acne vulgaris Other acne Anxiety and depression documented in this encounter Additional Health Concerns Assessment Noted Time PHQ-9 Depression Total Score: 13 023 11:53 AM EST PHQ-2 Depression Total Score: 2 09/21/19 23 11:53 AM EST documented as of this encounter Care Teams Parts Consultant Relationship Specialty Start Date End Date Yam[place] [address] [email or web address] PCP - General Family Medicine 06/28/17 documented as of this encounter Additional Source Comments The information contained in this document represents components of the legal health record. It is not the complete legal health record.[facility]
--- OUTSIDE RECORDS SUMMARY | 2024-08-23 23:21 | XMS_ITS | Encounter Summary ---
Author Organization [facility] Address [phone] [facility] [place] [address] Care Team Providers Care Mica Splitter Name Role Phone Yamileth Wagner CAKE INSPECTOR Primary Care Provider Yamileth Wagner CAKE INSPECTOR Unavailable + [phone] Encounter Details Date Type Department Care Team (Late st Contact Info) Description 08/17/2020 Telephone [facility] [address] [place] [address] Yamileth Wagner, CAKE INSPECTOR [address] [place] [address] [email or web address] Social History Tobacco Use Types Packs/Day Years [...] encounter Progress Notes * Beth Ely - 08/17/2020 1:11 PM EST Patient has a UTI Sx since yesterday Patient having burning sensation and light pelvic pain She gota UTI OTC tested it show inconclusive. Patient states can bring a urine to office to be send Please advice ZO * Milli Gilbert - 08/17/2020 12:47 PM EST Pt called this time last year had a kidney infection. Feels as if she is having some of the same symptoms again. Took an at home UTI test and was inconclusive. Asking for a call from someone. To go over symptoms documented in this encounter Plan of Treatment Upcoming Encounters Date Type Department Care Team (Late st Contact Info) Description 12/15/2024 9:00 AM EDT Telemedicine [facility] [address] [place] [address] Yamileth Wagner CNP [address] [place] [address] [email or web address] 06/11/2025 1:40 PM EDT Office Visit [facility] [address] [place] [address] Yamileth Wagner CNP [address] [place] [address] [email or web address] documented as of this encounter Visit Diagnoses Not on filedocumented in this encounter Additional Health Concerns Assessment Noted Time PHQ-9 Depression Total Score: 3 11/10/19 20 1:37 PM EDT PHQ-2 Depression Total Score: 0 11/10/19 20 1:37 PM EDT documented as of this encounter Care Teams Mica Splitter Relationship Specialty Start Date End Date Yamileth Wagner CNP [address] [place] [address] [email or web address] PCP - General Family Medicine 06/28/17 Yamileth Wagner CNP [address] [place] [address] (work) [email or web address] Insurance Assigned Provider 09/25/20 08/05/21 documented as of this encounter Additional Source Comments The information contained in this document represents components of the legal health record. It is not the complete legal health record.[facility]
--- OUTSIDE RECORDS SUMMARY | 2024-08-23 23:21 | XMS_ITS | Encounter Summary ---
Author Organization [facility] Address [phone] [facility] [place] [address] Care Team Providers Care Mixer Driver Name Role Phone Yamileth Wagner AUTOMATIC SILK SCREEN PRINTER Primary Care Provider Yamileth Wagner AUTOMATIC SILK SCREEN PRINTER Unavailable + [phone] Encounter Details Date Type Department Care Team (Late st Contact Info) Description 06/14/2021 Documentation [facility] [address] [place], [place] [phone] Yamileth Wagner, AUTOMATIC SILK SCREEN PRINTER [address] [place] [address] [email or web address] Social History Tobacco Use [...] encounter Progress Notes * Marisa Kramer - 06/14/2021 4:44 PM EDT Erroneous SS documented in this encounter Plan of Treatment Upcoming Encounters Date Type Department Care Team (Late st Contact Info) Description 12/15/2024 9:00 AM EDT Telemedicine [facility] [address] [place] [address] Yamileth Wagner CNP [address] [place] [address] 06/11/2025 1:40 PM EDT Office Visit [facility] Nikole Harry [address] [place] [address] Yamileth Wagner CNP [address] [place] [address] documented as of this encounter Visit Diagnoses Not on filedocumented in this encounter Additional Health Concerns Assessment Noted Time PHQ-9 Depression Total Score: 1 02/12/20 11:11 AM EDT PHQ-2 Depression Total Score: 0 02/12/20 11:11 AM EDT documented as of this encounter Care Teams Mixer Driver Relationship Specialty Start Date End Date [place] [address] PCP - General Family Medicine 06/28/17 Yamileth Wagner [place] [address] Insurance Assigned Provider 09/25/20 08/05/21 documented as of this encounter Additional Source Comments The information contained in this document represents components of the legal health record. It is not the complete legal health record.[facility]
--- OUTSIDE RECORDS SUMMARY | 2024-08-23 23:21 | XMS_ITS | Encounter Summary ---
Author Organization [facility] Address [phone] [facility] [place] [address] Care Team Providers Care Inspector Electromechanical Name Role Phone Yamileth Wagner CNP Primary Care Provider Encounter Details Date Type Department Care Team (Late st Contact Info) Description 05/19/2022 Telephone [facility] [address] [place] [address] Marisa Kramer [place] [email or web address] Social History Tobacco Use Types Packs/Day Years Used Date Smoking Tobacco: Never Smokeless Tobacco: Never Alcohol Use Standard Drinks/Week Comments Never 0 (1 standard drink = 0.6 oz pur e alcohol) Sex and Gender Information Value Date Recorded Sex Assigned at Not on file Gender Identity Not on file Sexual Orientation Not on file documented as of this encounter Progress Notes * Marisa Krmaer - 05/19/2022 5:45 PM EDT Per JRS Instructed pt to try flonase Also stated she is going to try to go to urgent care this evening near her home SS documented in this encounter Plan of Treatment Upcoming Encounters Date Type Department Care Team (Late st Contact Info) Description 12/15/2024 9:00 AM EDT Telemedicine [facility] [address] [place] [address] Yamileth Wagner CNP [address] [facility], [place] [address] [email or web address] 06/11/2025 1:40 PM EDT [facility] [address] [place] [address] Yamileth Wagner CNP [address] [facility], [place] [address] documented as of this encounter Visit Diagnoses Not on filedocumented in this encounter Additional Health Concerns Assessment Noted Time PHQ-9 Depression Total Score: 5 04/13/20 22 1:59 PM EDT PHQ-2 Depression Total Score: 2 04/13/20 22 1:59 PM EDT documented as of this encounter Care Teams Inspector Electromechanical Relationship Specialty Start Date End Date Yamileth [place] [address] [email or web address] PCP - General Family Medicine 06/28/17 documented as of this encounter Additional Source Comments The information contained in this document represents components of the legal health record. It is not the complete legal health record.[facility]
--- OUTSIDE RECORDS SUMMARY | 2024-08-23 23:21 | XMS_ITS | Encounter Summary ---
Author Organization [facility] Address [phone] Critical access [place] [address] Care Team Providers Care Magisterial District Judge Name Role Phone Yamileth Wagner CNP Primary Care Provider Reason for Visit * Reason Comments Follow-up Encounter Details Date Type Department Care Team ([facility] st Contact Info) Description 08/26/2020 1:20 PM EST Telemedicine [facility] [address] [place] [address] Yamileth Wagner CNP [address] [place] [address] [email or web address] Depressed mood Social History Tobacco [...] Taken Comments Blood Pressure - - Pulse 64 08/25/2020 12:17 PM EST Temperature - - Respiratory Rate - - Oxygen Saturation - - Inhaled Oxygen Concentration - - Weight 59 kg (130 lb) 08/25/2020 12:17 PM EST Height - - Body Mass Index - - documented in this encounter Progress Notes * Yamileth Wagner CNP - 08/26/2020 1:20 PM EST Patient presents for a Virtual Video Visit: This is being used during the COVID- [address] an in-person exam HPI: A lot more depression and anxiety with COVID, college process Affecting sleep, sleeping a lot worse Wakes up with puppy but also having a lot of trouble falling asleep Dreams are weirder than usual - more nightmares Both more depressed and anxious Feels a little disassociated in general Not feeling anything as much Anxiety and stress and anger are her most notable emotions More reactive to things than usual Affecting some of relationships, pulling back from friends Angry at BF for no reason Started about 4 mos ago although has been like this before Applying to art school[employer] Eating ok - maybe a little more No self-harm No drugs or alcohol Not much social interaction Tested once a week with school Sees boyfriend and social distance with best friend On 40mg of Prozac at night ROS No Fatigue, No Wt. change No [...] violence at home Physical Exam: Vitals: Vitals: 08/25/20 1217 Pulse: 64 Gen: NAD, Well-kempt HEENT: NCAT, EOMI, OP clear via video Neck: Patient denies swollen or tender lymph nodes on exam Chest: Respiratory rate is regular, no retractions, no cough noted Cardiac: Patient reports radial pulse is regular Abd: No tenderness on self-exam : Not indicated Extremities: No cyanosis, clubbing, edema Neuro: A&O, retail consultant 2-12 grossly intact Psych: Behavior appropriate, normal mood and affect Skin: No lesions noted by patient or video Assessment and Plan: Problem List Items Addressed This Visit Depressed mood Overview Prozac 40 Failed Zoloft a lot of s/e No therapy currently Current Assessment & Plan PHQ Depression Screening Score 09/22/2019 11/10/2019 08/25/2020 [...] F/u 3 weeks Pt agreed with plan A virtual visit [...] Plan Note - Yamileth Wagner CNP - 08/26/2020 1:33 PM EST Associated Problem(s): Anxiety and depression PHQ Depression Screening Score 09/22/2019 11/10/2019 08/25/2020 [...] F/u 3 weeks Pt agreed with plan documented in this encounter Plan of Treatment Upcoming Encounters Date Type Department Care Team (Late st Contact Info) Description 12/15/2024 9:00 AM EDT Telemedicine [facility] [address] [employer] [place] [address] Yamileth Wagner CNP [address], [place] [address] [email or web address] 06/11/2025 1:40 PM EDT [facility] [address] [place] [address] Yamileth Wagner CNP [address] [facility], [place] [address] [email or web address] documented as of this encounter Visit Diagnoses Diagnosis Depressed mood documented in this encounter Additional Health Concerns Assessment Noted Time PHQ-9 Depression Total Score: 15 021 12:00 PM EST PHQ-2 Depression Total Score: 0 11/10/19 20 1:37 PM EDT documented as of this encounter Care Teams Magisterial District Judge Relationship Specialty Start Date End Date Yamileth Wagner CNP [address] [place] [address] [email or web address] PCP - General Family Medicine 06/28/17 documented as of this encounter Additional Source Comments The information contained in this document represents components of the legal health record. It is not the complete legal health record.[facility]
--- OUTSIDE RECORDS SUMMARY | 2024-08-23 23:21 | XMS_ITS | Encounter Summary ---
Author Organization [facility] Address [phone] [facility] [place] [address] Care Team Providers Care Direct Care Staffer Name Role Phone Yamileth Wagner CNP Primary Care Provider Reason for Visit * Reason Comments Annual Exam Encounter Details Date Type Department Care Team (Late st Contact Info) Description 04/13/2022 2:50 PM EDT Office Visit [facility] [address] [place] [address] Yamileth Wagner, PALLIATIVE CARE NURSE PRACTITIONER [address] [place] [address] [email or web address] Acne vulgaris; Unimmunized; Dysmenorrhea; Pain in joint of right shoulder; Depressed mood; New daily persistent headache Social History Tobacco [...] Sign Reading Time Taken Comments Blood Pressure 128/64 04/13/2022 2:53 PM EDT Pulse 90 04/13/2022 2:53 PM EDT Temperature 36.9 ??C (98.4 ??F) 04/13/2022 2:53 PM ED T Respiratory Rate - - Oxygen Saturation 99% 04/13/2022 2:53 PM EDT Inhaled Oxygen Concentration - - Weight 74.8 kg (165 lb) 04/13/2022 2:53 PM EDT Height 165.1 cm (5' 5) 04/13/2022 2:53 PM EDT Body Mass Index 27.46 04/13/2022 2:53 PM EDT documented in this encounter Progress Notes * Bernard Yamilethmelquiades Harrison, PALLIATIVE CARE NURSE PRACTITIONER - 04/13/2022 2:50 PM EDT Patient presents for annual physical Discussed patients current lifestyle including alcohol intake, smoking, drug use, sleep, stress, diet and exercise. PHQ-9 and AUDIT alcohol misuse screenings completed and reviewed today for a total time spent minimum of 8 minutes each Score PHQ2 Flowsheet Row Office Visit from 04/13/2022 in [facility] PHQ-2 Score 2 PHQ Depression Screening Score 09/29/2021 04/13/2022 04/13/2022 [...] - PHQ-9 Total Score 10 - 5 Alcohol Use Disorders Identification Test 02/11/2021 04/13/2022 Audit-C Score 0 2 Brief intervention done on chamorro areas of potential improvements to maximize residential health and daily wellness. Health Maintenance reviewed, updated as necessary and counseled on what is due: Health Maintenance Topic Date Due ??? HEPATITIS B VACCINES (1 of 3 - 3-dose series) Never done ??? HPV VACCINES (1 - 2-dose series) Never done ??? COMBINED DTaP,Tdap,Td (2 - Td or Tdap) 06/18/2019 ??? CHLAMYDIA SCREENING 09/01/2020 ??? HEPATITIS C SCREENING Never done ??? HIV ONE-TIME SCREENING (18-65 YEARS) Never done ??? REPEAT PHQ 10/27/2021 ??? DEVELOPMENTAL/BEHAVIORAL SCREENING (PHQ, PSC, or SWYC) 09/29/2022 ??? BMI ASSESSMENT 09/29/2022 ??? DEPRESSION SCREENING 09/29/2022 ??? SMOKING Hx and SMOKELESS TOBACCO SCREENING 09/29/2022 ??? COVID-19 VACCINE Completed ??? ADOLESCENT UNIVERSAL LIPID SCREENING Completed ??? [...] Narrative Mom Ren and dad Roldan. Education: [employer] Eating: Healthy, a lot of salads, stopped dairy, seeing nutrition Activities: Photography, art, swimming this summer, Home workouts, rock climbing Drugs: No tobacco use, 1-2x/weekalcohol use, no other drug use Sexuality: 2 partners total condom use each time, utd STI screening Sleep: Good Past medical history reviewed: Past Medical History: Diagnosis Date ??? Anxiety No past surgical history on file. Family history reviewed: Family History Problem Relation Age of Onset ??? Hypertension Father ??? No Known Problems Mother Visit Vitals: Vitals: 04/13/22 1453 BP: 128/64 Pulse: 90 Temp: 36.9 ??C (98.4 ??F) SpO2: 99% Chronic problems and new concerns addressed below. Problem List Items Addressed This Visit Acne vulgaris Overview OCPs and benzoin helped significantly, much improved Current Assessment & Plan Skin doing well using Doxy and topicals [...] Much better Current Assessment & Plan More BTB and cramping last 6 months Was working well before Takes every day within 20 min No N/V No LOYD No calf or chest pain Inc estrogen strength Reviewed instructions how to take, warnings, side effects, precautions of prescribed medications Pt expressed understanding F/u 4 mos as planned Pain in joint of right shoulder Overview Tore both rotator cuffs a few years ago, was having trouble with the R + accupuncture Not 100% Current Assessment & Plan Cont to monitor Depressed mood Overview Prozac 60 Failed Zoloft a lot of s/e No therapy currently Current Assessment & Plan Taking 40mg Prozac No s/e Summer was a little high anxiety as she had a stressfuljob and there were difficult dynamics excited to be headed back to school Supports - family at home, friends at school are awesome NO self harm NO therapist currently - cannot find one that will work in [employer] and [place] Has been exercising more - works at [employer] and has been working out after very [...] offered She is safe F/u 4 mos Possible mild concussion More likely related to cervical spasm from injury Normal neuro exam, reassuring Cervical/trapezius/scapular muscle spasm rec wet heat Gentle stretch - handout given Red flags reviewed Pt to return to office or call if sx worsen or do not improve Pt agreed with plan Other Visit Diagnoses New daily persistent headache Review of Systems Constitutional: Negative for activity change, appetite change, chills, diaphoresis, fatigue, fever and unexpected weight change. HENT: Negative. Negative for congestion, dental problem, ear pain, hearing loss, mouth sores, postnasal drip, sinus pressure, sore throat, trouble swallowing and voice change. Eyes: Negative for photophobia, pain, discharge, redness, itching and visual disturbance. Respiratory: Negative for apnea, cough, choking, chest tightness, shortness of breath, wheezing andstridor. Cardiovascular: Negative for chest pain, palpitations and leg swelling. Gastrointestinal: Negative for abdominal distention, abdominal pain, anal bleeding, blood in stool,constipation, diarrhea, heartburn, nausea, rectal pain and vomiting. Endocrine: Negative. Negative for cold intolerance, heat intolerance, polydipsia, polyphagia and polyuria. Genitourinary: Negative for bladder incontinence, decreased urine volume, difficulty urinating, dyspareunia, dysuria, enuresis, flank pain, frequency, genital sores, hematuria, menstrual problem, nocturia, pelvic pain, urgency, vaginal bleeding, vaginal discharge and vaginal pain. Musculoskeletal: Negative for arthralgias, back pain, gait problem, joint swelling, myalgias and neck pain. Skin: Negative. Negative for color change, pallor, rash and wound. Allergic/Immunologic: Negative. Negative for environmental allergies, food allergies and immunocompromised state. Neurological: Negative for dizziness, tremors, seizures, syncope, facial asymmetry, speech difficulty, weakness, light-headedness, numbness and headaches. Hematological: Negative. Negative for adenopathy. Does not bruise/bleed easily. Psychiatric/Behavioral: Negative. Negative for agitation, behavioral problems, confusion, decreasedconcentration, dysphoric mood, hallucinations, self-injury, sleep disturbance and suicidal ideas. The patient is not nervous/anxious and is not hyperactive. All other systems reviewed and are negative. Physical Exam Vitals reviewed. Constitutional: Appearance: She [...] Plan Note - Yamileth Wagner CNP - 04/13/2022 8:05 AM EDT Associated Problem(s): New daily persistent [...] Plan Note - Yamileth Wagner CNP - 04/13/2022 8:05 AM EDT Associated Problem(s): Anxiety and depression Taking 40mg Prozac No s/e Summer was a little high anxiety as she had a stressfuljob and there were difficult dynamics excited to be headed back to school Supports - family at home, friends at school are awesome NO self harm NO therapist currently - [place] find [place] that will work in [place] and [place] Has been exercising more - works at [employer] and has been working out after very [...] offered She is safe F/u 4 mos * Assessment & Plan Note - Yamileth Wagner CNP - 04/13/2022 8:05 AM EDT Associated Problem(s): Pain in joint of right shoulder (Resolved 04/25/2023) Cont to monitor * Assessment & Plan Note - Yamileth Wagner CNP - 04/13/2022 8:04 AM EDT Associated Problem(s): Dysmenorrhea More BTB and cramping last 6 months Was working well before Takes every day within 20 min No N/V No LOYD No calf or chest pain Inc estrogen strength Reviewed instructions how to take, warnings, side effects, precautions of prescribed medications Pt expressed understanding F/u 4 mos as planned * Assessment & Plan Note - Yamileth Wagner CNP - 04/13/2022 8:04 AM EDT Associated Problem(s): Unimmunized Currently underimmunized Reviewed plan for immunization, importance of immunization and the risks of not immunizing, including communicable disease that can cause severe injury or Recommend: Gardasil, DTaP She is refusing today but has agreed to do at 6 month mood f/u * Assessment & Plan Note - Yamileth Wagner CNP - 04/13/2022 8:04 AM EDT Associated Problem(s): Acne vulgaris Skin doing well using Doxy and topicals Continue current management Pt will let me know if there is any change with this condition documented in this encounter Plan of Treatment Upcoming Encounters Date Type Department Care Team (Late st Contact Info) Description 12/15/2024 9:00 AM EDT [facility] [address] [place] [address] Yamileth Wagner CNP [address] [facility] [place] [address] [email or web address] 06/11/2025 1:40 PM EDT [facility] [address] [place] [address] Yamileth Wagner CNP [address] [place] [address] [email or web address] documented as of this encounter Visit Diagnoses Diagnosis Acne vulgaris Other acne Unimmunized Dysmenorrhea Pain in joint of right shoulder Depressed mood New daily persistent headache documented in this encounter Additional Health Concerns Assessment Noted Time PHQ-9 Depression Total Score: 5 04/13/20 22 1:59 PM EDT PHQ-2 Depression Total Score: 2 04/13/20 22 1:59 PM EDT documented as of this encounter Care Teams Direct Care Staffer Relationship Specialty Start Date End Date Yamileth Wagner, BETTE [address] [facility] [place] [address] [email or web address] PCP - General Family Medicine 06/28/17 documented as of this encounter Additional Source Comments The information contained in this document represents components of the legal health record. It is not the complete legal health record.[facility]
--- OUTSIDE RECORDS SUMMARY | 2024-08-23 23:21 | XMS_ITS | Encounter Summary ---
Author Organization [facility] Address [phone] [facility] [place] [address] Care Team Providers Care Senior Clinical Data Analyst Name Role Phone Yamileth Wagner OFFICE CLINICIAN Primary Care Provider Reason for Visit * Reason Comments Medication Refill Encounter Details Date Type Department Care Team (Late st Contact Info) Description 11/03/2019 Refill [facility] [address] [place] [address] Yamileth Wagner, OFFICE CLINICIAN [address] [place] [address] Medication Refill Social History Tobacco Use Types [...] encounter Progress Notes * Marisa Kramer - 11/03/2019 10:06 AM EDT req [id number] to [facility] Last OV 09/22/2019 Next OV 11/10/2019 * Alfreda Knox - 11/03/2019 10:06 AM EDT Medication added historically into chart on 06/04/2019. [id number]-LB-[id number] 0.18/0.215/0.25 mg-25 mcg Tab [[id number]] ?? Order Details Dose: 1 tablet Route: Oral Frequency: Daily Dispense Quantity: -- Refills: 2 Fills remaining: -- ?? Sig: Take 1 tablet by mouth daily. Last ov 09/22/2019 Next ov 11/10/2019 documented in this encounter Plan of Treatment Upcoming Encounters Date Type Department Care Team (Late st Contact Info) Description 12/15/2024 9:00 AM EDT Telemedicine [facility]ole Harry [address] [facility] [place] [address] Yamileth Wagner CNP [address] [facility], [place] [address] [email or web address] 06/11/2025 1:40 PM EDT Office Visit [facility] Nikole Harry [address] [facility] [place] [address] Yamileth Wagner CNP [address] [place] [address] [email or web address] documented as of this encounter Visit Diagnoses Not on filedocumented in this encounter Additional Health Concerns Assessment Noted Time PHQ-9 Depression Total Score: 14 020 12:00 PM EST documented as of this encounter Care Teams Senior Clinical Data Analyst Relationship Specialty Start Date End Date Yamileth Wagner CNP [address] [place] [address] PCP - General Family Medicine 06/28/17 documented as of this encounter Additional Source Comments The information contained in this document represents components of the legal health record. It is not the complete legal health record.[facility]
--- OUTSIDE RECORDS SUMMARY | 2024-08-23 23:21 | XMS_ITS | Encounter Summary ---
Author Organization [facility] Address [phone] [facility] [place] [address] Care Team Providers Care Bottom Buffer Name Role Phone Yamileth Wagner WASHER BLANKET Primary Care Provider Reason for Visit * Reason Comments Well Child Encounter Details Date Type Department Care Team ([facility] st Contact Info) Description 11/10/2019 2:00 PM EDT Telemedicine [facility] [address] [place] [address] Yamileth Wagner, WASHER BLANKET [address] [place] [address] [email or web address] Annual physical exam (Primary Dx); Acne vulgaris; Depressed mood; Dysmenorrhea; Pain in joint of right shoulder; Unimmunized; Routine general medical examination at a health care facility Social History Tobacco Use Types Packs/Day Years [...] Comments Blood Pressure - - Pulse 68 11/10/2019 1:28 PM EDT Temperature 36.9 ??C (98.5 ??F) 11/10/2019 1:28 PM ED T Respiratory Rate - - Oxygen Saturation - - Inhaled Oxygen Concentration - - Weight 59.4 kg (131 lb) 11/10/2019 1:28 PM EDT Height 165.1 cm (5' 5) 11/10/2019 1:28 PM EDT Body Mass Index 21.8 11/10/2019 1:28 PM EDT Body Mass Index Percentile 62.01% 11/10/2019 1:2 8 PM EDT Growth Chart: [facility] [place] 2[place] (Girls, 2- 20 Years) documented in this encounter Progress Notes * Yamileht Wagner, WASHER BLANKET - 11/10/2019 2:00 PM EDT Patient presents for a Virtual Visit Via Telephone. This is being used during the COVID-[address] an in-person exam HPI: Patient presents for annual physical Discussed patients current lifestyle including alcohol intake, smoking, drug use, sleep, stress, diet and exercise. PHQ-9 and AUDIT alcohol misuse screenings completed and reviewed today for a total time spent minimum of 8 minutes each Score PHQ Depression Screening Score 02/17/2019 09/22/2019 11/10/2019 [...] yourself or your family down Notat all Nearly every day Not at all [...] usual More than half the days Not atall Not at all Thoughts that you would [...] 11/10/2019 SHE-7 Total Score 17 17 2 Brief intervention done on chamorro areas of potential improvements to maximize superintendent terminal health and daily wellness. Health Maintenance reviewed, updated as necessary and counseled on what is due: Health Maintenance Topic Date Due ??? HEPATITIS B VACCINES (1 of 3 - 3-dose primary series) 2003 ??? IPV VACCINES (1 of 3 - 4-dose series) 2003 ??? HEPATITIS A VACCINES (1 of 2 - 2-dose series) 02/07/2004 ??? HPV VACCINES (1 - Female 2-dose series) 2014 ??? PEDIATRIC MCV4 (1 - 2-dose series) 2019 ??? INFLUENZA VACCINE (1) 03/20/2019 ??? COMBINED DTaP,Tdap,Td (2 - Td) 06/18/2019 ??? VARICELLA VACCINES (1 of 2 - 2-dose childhood series) 10/20/2019 ??? BMI ASSESSMENT 11/09/2020 ??? SMOKING Hx and SMOKELESS TOBACCO SCREENING 11/09/2020 ??? MMR VACCINES Completed ??? PNEUMOCOCCAL VACCINES (0-64 years) Aged Out ??? HIB VACCINES Aged Out Immunization History Administered Date(s) Administered ??? MMR 01/23/2019, 09/22/2019 ??? Tdap 05/21/2019 Social History reviewed: Social History Social History Narrative Mom Ren and dad Roldan. Education: Is currently a [employer] Eating: Healthy, a lot of salads Activities: Photography, art, spring crew cancelled, doing runs and yoga Minimal Netflix Drugs: No tobacco use, no alcohol use, no other drug use Sexuality: 1 lifetime partner, used a condom Sleep: She has some trouble sleeping, mostly falling asleep. Past medical history reviewed: Past Medical History: Diagnosis Date ??? Anxiety No past surgical history on file. Family history reviewed: Family History Problem Relation Age of Onset ??? Hypertension Father ROS No Fatigue, No Wt. change No Fevers, chills, night sweats No CP, SOB, palpitations No Breast masses, T=tenderness, Discharge No chronic Constipation or Diarrhea No GERD, Blood in stool No new skin lesions/rashes No Mood changes No HAs, dizziness, vision changes, hearing loss No Urinary incontinence, Nocturia, Hesitancy, Urgency No Genital Symptoms No Arthralgias, Myalgias, Back Pain No violence at home Physical Exam: Vitals: Vitals: 11/10/19 1328 Pulse: 68 Temp: 36.9 ??C (98.5 ??F) Wt Readings from Last 3 Encounters: 11/10/19 59.4 kg (131 lb) (68 %, Z= 0.46)* 09/22/19 59.8 kg (131 lb 12.8 oz) (69 %, Z= 0.50)* 09/05/19 60.7 kg (133 lb 12.8 oz) (72 %, Z= 0.58)* * Growth percentiles are based on CDC (Girls, 2-20 Years) data. Gen: NAD HEENT: Voice strong and appropriate Neck: Patient denies swollen or tender lymph nodes on self-exam Chest: Respiratory rate is regular via audio, no cough noted Cardiac: Patient reports radial pulse is regular Abd: No tenderness on self-exam : Not indicated Extremities: No cyanosis, clubbing, edema per patient self exam Neuro: A&O, normal speech Psych: Behavior appropriate, normal mood and affect Assessment and Plan: Acne vulgaris Skin doing well Continue with both OCPs and benzoin. Depressed mood Taaking meds daily - tolerating well Prozac [...] yourself or your family down Notat all Nearly every day Not at all [...] usual More than half the days Not atall Not at all Thoughts that you would [...] S/p neuropsych - felt SHE and ADHD Garfield treat SHE first and then ADHD if sx not controlled Strongly rec immediate neuropsych evaluation Discussed with mom and patient why this would be helpful to drive treatment options Names given for neuropsych - can also call insurance Also strongly rec therapy Names given - can also call insurance Pt certainly safe, no red flags Good supports and good relationships [place] back if no improvement Mom and patient agree with this plan Dysmenorrhea Continue on APRI Pain in joint of right shoulder Had been doing PT but with COVID quarantine Now home PT Still hurts Unimmunized Currently underimmunized Reviewed plan for immunization, importance of immunization and the risks of not immunizing, including communicable disease that can cause severe injury or Recommend: Menactra, Gardasil before 16th bday (January) - will book TDAP, IPV - Summer 2019 Patient and family will discuss this plan and call for scheduling as desired. I spent a total of 30 minutes during this real-time, interactive virtual clinical encounter, which was conducted virtually using TELEPHONE ONLY technology. Greater than 50% of the time spent was devoted to counseling and coordinating care including review of records, pertinent lab data and studies,as well as discussing diagnostic evaluation and work up, planned therapeutic interventions and future disposition of care. This includes any additional research needed to obtain further information in formulating the plan of care of this patient. This includes counseling the patient about her disease and diagnosis, specifically: well child check documented in this encounter Miscellaneous Notes * Assessment & Plan Note - Yamileth Wagner CNP - 11/09/2019 5:05 PM EDT Associated Problem(s): Unimmunized Currently underimmunized Reviewed plan for immunization, importance of immunization and the risks of not immunizing, including communicable disease that can cause severe injury or Recommend: Menactra, Gardasil before 16th bday (January) - will book TDAP, IPV - Summer 2019 Patient and family will discuss this plan and call for scheduling as desired. * Assessment & Plan Note - Yamileth Wagner CNP - 11/09/2019 5:05 PM EDT Associated Problem(s): Pain in joint of right shoulder (Resolved 04/25/2023) Had been doing PT but with COVID quarantine Now home PT Still hurts * Assessment & Plan Note - Yamileth Wagner CNP - 11/09/2019 5:04 PM EDT Associated Problem(s): Dysmenorrhea Continue on APRI * Assessment & Plan Note - Yamileth Wagner CNP - 11/09/2019 5:04 PM EDT Associated Problem(s): Anxiety and depression Taaking meds daily - tolerating well Prozac [...] yourself or your family down Notat all Nearly every day Not at all [...] usual More than half the days Not atall Not at all Thoughts that you would [...] S/p neuropsych - felt SHE and ADHD Garfield treat SHE first and then ADHD if sx not controlled Strongly rec immediate neuropsych evaluation Discussed with mom and patient why this would be helpful to drive treatment options Names given for neuropsych - can also call insurance Also strongly rec therapy Names given - can also call insurance Pt certainly safe, no red flags Good supports and good relationships [place] back if no improvement Mom and patient agree with this plan * Assessment & Plan Note - Yamileth Wagner CNP - 11/09/2019 5:04 PM EDT Associated Problem(s): Acne vulgaris Skin doing well Continue with both OCPs and benzoin. documented in this encounter Plan of Treatment Upcoming Encounters Date Type Department Care Team (Late st Contact Info) Description 12/15/2024 9:[address] [facility] [address] [place] [address] Yamileth Wagner CNP [address] [facility] [address] 06/11/2025 1:40 PM EDT [facility] [address] [place] [address] Yamileth Wagner, BETTE [address] [place] [address] documented as of this encounter Visit Diagnoses Diagnosis Annual physical exam- Primary Routine general medical examination at a health care facility Acne vulgaris Other acne Depressed mood Dysmenorrhea Pain in joint of right shoulder Unimmunized Routine general medical examination at a health care facility documented in this encounter Additional Health Concerns Assessment Noted Time PHQ-9 Depression Total Score: 3 11/10/19 20 1:37 PM EDT PHQ-2 Depression Total Score: 0 11/10/19 20 1:37 PM EDT documented as of this encounter Care Teams Bottom Buffer Relationship Specialty Start Date End Date Yam[place] [address] PCP - General Family Medicine 06/28/17 documented as of this encounter Additional Source Comments The information contained in this document represents components of the legal health record. It is not the complete legal health record.[facility]
--- OUTSIDE RECORDS SUMMARY | 2024-08-23 23:21 | XMS_ITS | Encounter Summary ---
Author Organization [facility] Address [phone] [facility] [place] [address] Care Team Providers Care Online Trader Name Role Phone Yamileth Wagner CNP Primary Care Provider Reason for Visit * Reason Comments Follow-up Encounter Details Date Type Department Care Team (Late st Contact Info) Description 09/21/2022 11:20 AM EST Telemedicine [facility] [address] [place] [address] Yamileth Wagner CNP [address] [place] [address] [email or web address] Anxiety and depression Social History Tobacco Use [...] Taken Comments Blood Pressure - - Pulse 80 09/20/2022 6:21 PM EST Temperature - - Respiratory Rate - - Oxygen Saturation - - Inhaled Oxygen Concentration - - Weight 63.5 kg (140 lb) 09/20/2022 6:21 PM EST Height - - Body Mass Index 23.3 08/23/2022 11:28 AM EST documented in this encounter Progress Notes * Yamileth Wagner CNP - 09/21/2022 11:20 AM EST Patient presents for a Virtual Video Visit: This is being used during the COVID- [address] of an in-person exam HPI: Has COVID and the flu Tested at [facility], body aches, fevers, congestion She is not sure how high the temp is Eating and drinking ok Urinating ok Mom brought her soup - able to eat that Sleeping ok Medications - Tamiflu Ibu as needed and DayQuil and Nyquil 400 mg Q4-6 H Mood Switched to Lexapro Feels like it is helping her a lot more Some nausea and vomited a few times Mostly nausea Taking with water and before bed ROS No Fatigue, No Wt. change No [...] violence at home Physical Exam: Vitals: Vitals: 09/20/22 1821 Pulse: 80 Gen: NAD, Well-kempt HEENT: NCAT, EOMI, OP clear via video Neck: Patient denies swollen or tender lymph nodes on exam Chest: Respiratory rate is regular, no retractions, no cough noted Cardiac: Patient reports radial pulse is regular Abd: No tenderness on self-exam : Not indicated Extremities: No cyanosis, clubbing, edema Neuro: A&O, rod filler 2-12 grossly intact Psych: Behavior appropriate, normal mood and affect Skin: No lesions noted by patient or video Assessment and Plan: Problem List Items Addressed This Visit Anxiety and depression Overview Prozac 60 Failed Zoloft a lot of s/e Ativan prn added at [facility] 07/11 Started Buproprion 07/11 Therapy @ [facility] Switched to Lexapro 09/11 Current Assessment & [...] and medication titration, call sooner if problems. Viral URI reviewed usual course of illness and supportive care recommended rest, fluids can use over the counter decongestants, cough expectorants, lozenges, pain relievers medication doses, precautions and side-effects reviewed reviewed hand hygiene and infection precautions follow up if clinically worsens or not improved in the next few days ? Virtual Visit Attestation Modality: video Provider Location: practice location Patient Location: home Patient State: [place] documented in this encounter Miscellaneous Notes * Assessment & Plan Note - Yamileth Wagner CNP - 09/21/2022 11:48 AM EST Associated Problem(s): Anxiety and depression Feels better on the Lexapro Still some [...] and medication titration, call sooner if problems. documented in this encounter Plan of Treatment Upcoming Encounters Date Type Department Care Team (Late st Contact Info) Description 12/15/2024 9:00 AM EDT Telemedicine [facility] Kamryn PElvin [address] [facility] [place] [address] Yamileth Wagner CNP [address] [facility] [place] [address] [email or web address] 06/11/2025 1:40 PM EDT Office Visit [facility] Nikole Harry [address] [facility] [place] [address] Yamileth Wagner CNP [address] [facility], [place] [address] [email or web address] documented as of this encounter Visit Diagnoses Diagnosis Anxiety and depression documented in this encounter Additional Health Concerns Assessment Noted Time PHQ-9 Depression Total Score: 13 023 11:53 AM EST PHQ-2 Depression Total Score: 09/21/19 23 11:53 AM EST documented as of this encounter Care Teams Online Trader Relationship Specialty Start Date End Date Yamileth Wagner CNP [address] [facility], [place] [address] [email or web address] PCP - General Family Medicine 06/28/17 documented as of this encounter Additional Source Comments The information contained in this document represents components of the legal health record. It is not the complete legal health record.[facility]
--- OUTSIDE RECORDS SUMMARY | 2024-08-23 23:21 | XMS_ITS | Encounter Summary ---
Author Organization [facility] Address [phone] [facility] [address] [place] [address] Care Team Providers Care Store Protection Specialist Name Role Phone Yamileth Wagner Hunter AMOS Primary Care Provider Reason for Visit * Reason Onset Date Comments Medication Refill 06/20/2022 Encounter Details Date Type Department Care Team (Late st Contact Info) Description 06/20/2022 [facility] [address] [place] [address] Marisa Kramer MA [email or web address] Medication Refill Social History Tobacco Use Types [...] encounter Progress Notes * Marisa Kramer - 06/20/2022 8:44 AM EDT req adapalene gel and doxycyline to [facility] [place] [place] Last OV 04/13/2022 Next OV 04/25/2023 documented in this encounter Plan of Treatment Upcoming Encounters Date Type Department Care Team (Late st Contact Info) Description 12/15/2024 9:00 AM EDT Telemedicine [facility] [address] [facility] [address] Yamileth Wagner CNP [address] [place] [address] [email or web address] 06/11/2025 1:40 PM EDT [facility] [address] [facility] [place] [address] Yamileth Wagner CNP [address] [place] [address] [email or web address] documented as of this encounter Visit Diagnoses Not on filedocumented in this encounter Additional Health Concerns Assessment Noted Time PHQ-9 Depression Total Score: 5 04/13/20 22 1:59 PM EDT PHQ-2 Depression Total Score: 2 04/13/20 22 1:59 PM EDT documented as of this encounter Care Teams Store Protection Specialist Relationship Specialty Start Date End Date Yamileth Wagner CNP [address] [place] [address] [email or web address] PCP - General Family Medicine 06/28/17 documented as of this encounter Additional Source Comments The information contained in this document represents components of the legal health record. It is not the complete legal health record.[facility]
--- OUTSIDE RECORDS SUMMARY | 2024-08-23 23:21 | XMS_ITS | Encounter Summary ---
Author Organization [facility] Address [phone] [facility] [place] [address] Care Team Providers Care Crematorium Operator Name Role Phone Yamileth Wagner RANGE EXAMINER Primary Care Provider Reason for Visit * Reason Comments Follow-up Encounter Details Date Type Department Care Team (Late st Contact Info) Description 08/23/2022 11:30 AM EST Telemedicine [facility] [address] [place] [address] Yamileth Wagner, RANGE EXAMINER [address] [place] [address] [email or web address] Anxiety and depression Social History Tobacco Use [...] Taken Comments Blood Pressure - - Pulse 88 08/23/2022 11:28 AM EST Temperature - - Respiratory Rate - - Oxygen Saturation - - Inhaled Oxygen Concentration - - Weight 68 kg (150 lb) 08/23/2022 11:28 AM EST Height 165.1 cm (5' 5) 08/23/2022 11:28 AM EST Body Mass Index 24.96 08/23/2022 11:28 AM EST documented in this encounter Progress Notes * Yamileth Wagner, RANGE EXAMINER - 08/23/2022 11:30 AM EST Patient presents for a Virtual [...] violence at home Physical Exam: Vitals: Vitals: 08/23/22 1128 Pulse: 88 Gen: NAD, Well-kempt HEENT: NCAT, EOMI, OP clear via video Neck: Patient denies swollen or tender lymph nodes on exam Chest: Respiratory rate is regular, no retractions, no cough noted Cardiac: Patient reports radial pulse is regular Abd: No tenderness on self-exam : Not indicated Extremities: No cyanosis, clubbing, edema Neuro: A&O, information systems security manager 2-12 grossly intact Psych: Behavior appropriate, normal mood and affect Very teary Skin: No lesions noted by patient or video Assessment and Plan: Problem List Items Addressed This Visit Anxiety and depression Overview Prozac 60 Failed Zoloft a lot of s/e [place] [facility] Started Buproprion 07/11 Therapy @ [facility] Current Assessment & Plan Feels a lot worse No change in [...] NO self harm Has a therapist at [facility] but that keeps getting rescheduled Has [...] were discussed, including risk of : nausea, wtgain or loss, rare suicidal thoughts, increased risk of bleeding, insomnia or sedation, possible drug interactions, anxiety, agitation, discontinuation. pt expressed understanding and wishes to proceed w/ tx. For short term will use a benzodiazepine for acute anxiety and panic. Discussed risks/benefits/habit forming/sedating nature of that. F/u in 3 weeks for check in and medication titration, call sooner if problems. Relevant Medications LORazepam (ATIVAN) 0.5 MG tablet escitalopram oxalate (LEXAPRO) 20 MG tablet Virtual Visit Attestation Modality: Video Provider Location: Practice location Patient State: [place] personally spent a total of 30 minutes on care for this patient on the date of the encounter. This includes [id number] time during the visit as well as non [id number] time spent on chart review, documentation, and care coordination. documented in this encounter Miscellaneous Notes * Assessment & Plan Note - Yamileth Wagner CNP - 08/22/2022 3:38 PM EST Associated Problem(s): Anxiety and depression Feels a lot worse No change in [...] NO self harm Has a therapist at [facility] but that keeps getting rescheduled Has [...] were discussed, including risk of : nausea, wtgain or loss, rare suicidal thoughts, increased risk [...] Info) Description 12/15/2024 9:00 AM EDT [facility] [address] [place] [address] Yamileth Wagner CNP [address], [place] [address] 06/11/2025 1:40 PM EDT [facility] [address] [place] [address] Yamileth Wagner CNP [address], [place] [address] documented as of this encounter Visit Diagnoses Diagnosis Anxiety and depression documented in this encounter Additional Health Concerns Assessment Noted Time PHQ-9 Depression Total Score: 24 023 10:58 AM EST PHQ-2 Depression Total Score: 6 08/23/19 23 10:58 AM EST documented as of this encounter Care Teams Crematorium Operator Relationship Specialty Start Date End Date Yamileth Wagner CNP [address] [place] [address] [email or web address] PCP - General Family Medicine 06/28/17 documented as of this encounter Additional Source Comments The information contained in this document represents components of the legal health record. It is not the complete legal health record.[facility]
--- OUTSIDE RECORDS SUMMARY | 2024-08-23 23:21 | XMS_ITS | Encounter Summary ---
Author Organization [facility] Address [phone] [facility] [place] [address] Care Team Providers Care Tanker Service Attendant Name Role Phone Yamileth Wagner Hunter AMOS Primary Care Provider Encounter Details Date Type Department Care Team (Late st Contact Info) Description 08/04/2020 2:15 PM EST Office Visit [facility] [address] [phone] Johana Lanza MD, MD [address] [address] [email or web address] Acne vulgaris (Primary Dx) Social History Tobacco [...] Notes * Johana Lanza MD, MD - 08/04/2020 2:15 PM EST Images from the original note were not included. ?? ?MD Johana Silva MD Pamela K. Weinfeld, MD Deon Wolpowitz, MD, PhD ?10 [facility] [address] [place] [address] ? FAX [phone] [email or web address] ? ?Date of last visit: 05/29/18 Consult requested by: Yamileth Wagner CNP DERM HISTORY: Chief complaint: spots HPI: 15 y.o. female presents with pink bumps around mouth present x weeks. Tender She reports there is alot of redness to the area and different levels of bumps [...] occasionally pink bumps too She saw an body mechanic apprentice who said she had clogged pores She is wondering if it is acne or a rash She is using duac gel QHS, it is not too drying She uses a face wash from [employer], she has many different ones but are not medicated with acne treatments She uses an oil moisturizer from [employer] She notes it has improved but never [...] or XRT (radiation) treatments?? 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 FLUoxetine (PROZAC) 20 MG capsule TAKE 2 CAPSULES BY MOUTH EVERY DAY 180 capsule 3 Unknown (outside pharmacy) ??? XRB-UO-SAAOEB 0.18/0.215/0.25 mg-25 mcg Tab TAKE 1 TABLET BY MOUTH EVERY DAY 84 tablet 2 Unknown (outside pharmacy) Allergies Allergen Reactions ??? Milk Containing Products ?Review Of Systems: ?_x__ All negative on 08/04/2020 except ones checked: ?Constitutional: _x__Feels well overall __Fevers,chills Gastrointestinal: ___ Stomach pains [...] no apparent distress. Exam conducted with dermoscopy -Focused examination of the following areas was [...] family and social history, medications, and allergies IDaisy B.S. am scribing for, and in the presence of, Dr. Johana Lanza on 08/04/20, for Raine Taylor. ? I, Dr. Johana Lanza M.D., am present during the time this encounter is recorded, and I have reviewed the data, verrified the accuracy, and also entered any additional information necessary for this patient encounter. I have also reviewed additional information on the patient's past medical history, family and social history, medications, and allergies in the patient's record. Billing information such as billable diagnoses and level of service/procedure codes are maintained separately in our billing records. -Johana Lanza M.D. ? ?Abbreviation list: ACD-allergic contact dermatitis, AK- actinic [...] Info) Description 12/15/2024 9:00 AM EDT Telemedicine [facility] Nikole Harry [address] [place] [address] Yamileth Wagner, DISPLAY MAKER [address] [place] [address] 06/11/2025 1:40 PM EDT Office Visit [facility] Nikole Harry [address] [facility] [place] [address] Yamileth Wagner CNP [address] [facility], [place] [address] [email or web address] documented as of this encounter Visit Diagnoses Diagnosis Acne vulgaris- Primary Other acne documented in this encounter Additional Health Concerns Assessment Noted Time PHQ-9 Depression Total Score: 3 11/10/19 1:37 PM EDT PHQ-2 Depression Total Score: 0 11/10/19 1:37 PM EDT documented as of this encounter Care Teams Tanker Service Attendant Relationship Specialty Start Date End Date Yamileth Wagner CNP [address] [facility], [place] [address] [email or web address] PCP - General Family Medicine 06/28/17 documented as of this encounter Additional Source Comments The information contained in this document represents components of the legal health record. It is not the complete legal health record.[facility]
--- OUTSIDE RECORDS SUMMARY | 2024-08-23 23:21 | XMS_ITS | Encounter Summary ---
Author Organization [facility] Address [phone] Formerly [facility], [facility] [place] [address] Care Team Providers Care Charting Clerk Name Role Phone Yamileth Wagner CNP Primary Care Provider Encounter Details Date Type Department Care Team (Latest Contact Info) Description 09/22/2019 8:02 PM EST - 09/22/2019 11:59 PM [facility] Hospital Encounter [facility] [address] [place] [address] Yamileth Wagner, HELICOPTER ENGINEER [address] [place] [address] [phone] [email or web address] Discharge Disposition: Home or Self Care Social [...] gel Apply a pea sized amount to face at night. Start every third night and increase to nightly as tolerated. 60 g 11 02/12/2019 08/26/2020 albuterol 90 mcg/actuation inhaler INHALE 1 PUFF INTO THE LUNGS EVERY 6 (SIX) HOURS NEEDED FOR WHEEZING. 8.5 Inhaler 1 04/28/2019 04/13/2021 clindamycin-benzoyl peroxide ER (DUAC) gel Apply to face QAM 45 g 3 05/29/2018 10/28/2020 desogestrel-ethinyl estradiol (APRI) 0.15-0.03 mg per tablet Take 1 tablet by mouth daily. 12 packet 02/17/2019 11/10/2019 FLUoxetine (PROZAC) 20 MG capsule Take 2 capsules (40 mg total) by mouth daily. 30 capsule 1 09/22/2019 10/27/2019 KMO-YT-[id number] 0.18/0.215/0.25 mg-25 mcg Tab Take 1 tablet by mouth daily. 2 06/04/2019 11/03/2019 documented as of this encounter Plan of Treatment Upcoming Encounters Date Type Department Care Team (Late st Contact Info) Description 12/15/2024 9:00 AM EDT Telemedicine [facility] Nikole Harry [address] [place] [address] Yamileth Wagner, HELICOPTER ENGINEER [address] [place] [address] [email or web address] 06/11/2025 1:40 PM EDT Office Visit [facility] Nikole Harry [address] [place] [address] Yamileth Wagner, HELICOPTER ENGINEER [address] [place] [address] [email or web address] documented as of this encounter Procedures Procedure Name Priority Date/Time Associated Diagnosis Comments URINALYSIS W/REFLEX URINE CULTURE Routine 09/22/2019 11:57 AM EST Dysuria documented in this encounter Results * (ABNORMAL) Urinalysis w/reflex Urine Culture (09/22/2019 11:57 AM EST) COLOR Yellow Yellow [facility] CLARITY SLIGHTLY CLOUDY(A) Clear [facility] SPECIFIC GRAVITY 1.019 1.001 - 1.030 [facility] BLOOD Negative Negative [facility] BILI Negative Negative [facility] KETONES Negative Negative [facility] GLUCOSE Negative Negative [facility] URINE PROTEIN Negative Negative [facility] PH 5.0 5 - 8 [facility] Leukocyte esterase, ur 2+(A) Negative [facility] NITRITE Negative Negative [facility] UROBILINOGEN Negative Negative [facility] RBC 1 0 - 3 /hpf [facility] WBC 4 0 - 9 /hpf [facility] BACTERIA Few(A) NONE SEEN /hpf [facility] SQUAMOUS CELLS 9(H) 0 - 4 /hpf [facility] Urine 09/22/2019 11:5 7 AM EST 09/22/2019 8:52 PM EST Yamileth Wagner CNP URINE ORDERABL ES [facility] [address] [place] [address] documented in this encounter Visit Diagnoses Diagnosis Dysuria documented in this encounter Additional Health Concerns Assessment Noted Time PHQ-9 Depression Total Score: 14 020 12:00 PM EST documented as of this encounter Care Teams Charting Clerk Relationship Specialty Start Date End Date Yamileth Wganer CNP [address] [place] [id number] [email or web address] PCP - General Family Medicine 06/28/17 documented as of this encounter Additional Source Comments The information contained in this document represents components of the legal health record. It is not the complete legal health record.[facility]
--- OUTSIDE RECORDS SUMMARY | 2024-08-23 23:21 | XMS_ITS | Encounter Summary ---
Author Organization [facility] Address [phone] [facility] [place] [address] Care Team Providers Care Goring Cutter Name Role Phone Yamileth Wagner CNP Primary Care Provider Yamileth Wagner CNP Unavailable + [phone] Reason for Visit * Reason Comments Follow-up Encounter Details Date Type Department Care Team ([facility] st Contact Info) Description 10/28/2020 3:20 PM EST Telemedicine [facility] [address] [place] [address] Yamileth Wagner CNP [address] [place] [address] [email or web address] Depressed mood Social History Tobacco Use Types [...] Comments Blood Pressure - - Pulse 68 10/27/2020 1:27 PM EST Temperature - - Respiratory Rate - - Oxygen Saturation - - Inhaled Oxygen Concentration - - Weight 61.2 kg (135 lb) 10/27/2020 1:27 PM EST Height - - Body Mass Index - - documented in this encounter Progress Notes * Yamileth Wagner CNP - 10/28/2020 3:20 PM EST Patient presents for a Virtual [...] violence at home Physical Exam: Vitals: Vitals: 10/27/20 1327 Pulse: 68 Gen: NAD, Well-kempt HEENT: NCAT, EOMI, OP clear via video Neck: Patient denies swollen or tender lymph nodes on exam Chest: Respiratory rate is regular, no retractions, no cough noted Cardiac: Patient reports radial pulse is regular Abd: No tenderness on self-exam : Not indicated Extremities: No cyanosis, clubbing, edema Neuro: A&O, electrical equipment assembler 2-12 grossly intact Psych: Behavior appropriate, normal mood and affect Skin: No lesions noted by patient or video Assessment and Plan: Problem List Items Addressed This Visit Depressed mood Overview Prozac 60 Failed Zoloft a lot of s/e No therapy currently Current Assessment & Plan PHQ Depression Screening Score 08/25/2020 09/16/2020 10/01/2020 [...] the future - planning to go the [facility] Trying to get out a little Dog is helping with anxiety and negative thoughts a lot A/p Improved on 60mg Prozac Will hold on this dose for now F/u 4 mos CPX She will ekwok back if worse A virtual visit was used during the [...] Plan Note - Yamileth Wagner CNP - 10/28/2020 3:26 PM EST Associated Problem(s): Anxiety and depression PHQ Depression Screening Score 08/25/2020 09/16/2020 10/01/2020 [...] the future - planning to go the [facility] Trying to get out a little Dog is helping with anxiety and negative thoughts a lot A/p Improved on 60mg Prozac Will hold on this dose for now F/u 4 mos CPX She will ekwok back if worse documented in this encounter Plan of Treatment Upcoming Encounters Date Type Department Care Team (Late st Contact Info) Description 12/15/2024 9:00 AM EDT Telemedicine [facility] Nikole Colmenares [address] [place] [address] Yamileth Wagner CNP [address] [place] [address] 06/11/2025 1:40 PM EDT Office Visit [facility] [place] [address] Yamileth Wagner CNP [address], [place] [address] [email or web address] documented as of this encounter Visit Diagnoses Diagnosis Depressed mood documented in this encounter Additional Health Concerns Assessment Noted Time PHQ-9 Depression Total Score: 7 10/01/19 8:00 AM EST PHQ-2 Depression Total Score: 2 10/01/19 8:00 AM EST documented as of this encounter Care Teams Goring Cutter Relationship Specialty Start Date End Date Yamileth Wagner CNP [address] [facility] [address] [email or web address] PCP - General Family Medicine 06/28/17 Yamileth Wagner CNP [address], [place] [address] [email or web address] Insurance Assigned Provider 09/25/20 08/05/21 documented as of this encounter Additional Source Comments The information contained in this document represents components of the legal health record. It is not the complete legal health record.[facility]
--- OUTSIDE RECORDS SUMMARY | 2024-08-23 23:21 | XMS_ITS | Encounter Summary ---
Author Organization [facility] Address [phone] [facility] [place] [employer] [place] [address] Care Team Providers Care Cake Press Operator Helper Name Role Phone BernardYamileth yan Hunter AMOS Primary Care Provider Reason for Referral * Consultation (Within 2 weeks) - Closed Specialty Diagnoses / Procedures Referred By Kan [email or web address] Referred To Contact Otolaryngology Margarita Ponce NP [address] [place] [address] Email: ZEE Parent [address] [place] [address] Referral ID Status Reason Start Date Expiration Date Visits Re quested Visits Authorized [id number] Closed 01/11/2023 01/11/2024 1 1 Reason for Visit * Reason Comments Follow Up Visit In September had bila teral ear inf, also flu/covid at the same time. Saw school provider and was tx for flu/covid, no tx for ear inf. Since then pt c/o hearing difficulty. No pain, c/o ringing - comes and goes (when in complete silence hears faint ringing noise). 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 Social History Tobacco Use Types Packs/Day Years [...] Sign Reading Time Taken Comments Blood Pressure 120/64 01/11/2023 2:20 PM EDT Pulse 76 01/11/2023 2:20 PM EDT Temperature - - Respiratory Rate 16 01/11/2023 2:20 PM EDT Oxygen Saturation 99% 01/11/2023 2:20 PM EDT Inhaled Oxygen Concentration - - Weight - - Height - - Body Mass Index - - documented in this encounter Patient Instructions * Patient Instructions* Margarita Ponce NP - 01/11/2023 2:20 PM EDT ENT Providers Practice Address Phone Bull Montanez MD (pedi) Stephany Quintero MD (pedi) [facility] [address] [place] [address] [phone] documented in this encounter Progress Notes * Margarita Ponce NP - 01/11/2023 2:20 PM EDT Margarita Ponce NP PATIENT IDENTIFICATION: Raine Taylor is a 17 y.o. female who is here today for evaluation of hearing loss x months. Interval history: She presents today with complaints of diminished hearing in her right ear. Dx with right ear infection, covid and the flu while at school [facility] in September. She was seen at the health center. She was not treated with any medication. She felt better in terms of covid and fluand ears were popping. One day her right ear popped without pain and her hearing was more muffled and blocked on that side. She was busy with school and didn't think much of it. She kept waiting for it to return. She is no done with school and home for summer but has noticed that the right ear is not hearing as well. She had an ear bud in her left ear and her mother was talking to her and she didn't hear her. She is also struggling in a group setting she can't hear individual voices. If people turn their back or walk away and talk to her she can't hear them. She needs to be looking at people to hear. She denies pain or pressure in the right ear. It might feel more full at times and when it is very quiet she sometimes has ringing. She is not off balance. No vertigo. No new med changes. REVIEW OF SYSTEMS: Review of Systems Constitutional: Negative for activity change, appetite change, chills, fatigue and fever. HENT: Negative for congestion, ear discharge, ear pain, postnasal drip, rhinorrhea, sinus pressure,sinus pain, sore throat, trouble swallowing and voice change. Eyes: Negative for pain and discharge. Respiratory: Negative for cough, chest tightness and shortness of breath. Cardiovascular: Negative for chest pain, palpitations and leg swelling. Gastrointestinal: Negative for abdominal pain, nausea and vomiting. Musculoskeletal: Negative for arthralgias. Allergic/Immunologic: Negative for immunocompromised state. Neurological: Negative for dizziness, syncope, speech difficulty, weakness, light-headedness and headaches. Hematological: Negative for adenopathy. Psychiatric/Behavioral: Negative for sleep disturbance. Immunization History Administered Date(s) Administered ??? COVID-19 Pfizer Vaccine, mRNA, PF 11/29/2020, 12/27/2020, 08/17/2021 ??? MMR 01/23/2019, 09/22/2019 ??? Meningococcal MCV4P 11/02/2020 ??? Tdap 05/21/2019 ??? Varicella 02/11/2021, 06/28/2021 Allergies Allergen Reactions ??? Milk Containing Products (Dairy) Current Medications Medication Sig adapalene (DIFFERIN) 0.3 % gel Apply a pea sized amount to face. Start every third night and increase to nightly as tolerated albuterol 90 mcg/actuation inhaler 1 puff, Inhalation, Every 6 hours PRN clindamycin (CLEOCIN T) 1 % lotion Apply TWICE DAILY to face after washing with benzoyl peroxide wash doxycycline monohydrate (MONODOX) 100 MG capsule Take one pill by mouth twice daily with full beverage and food. Avoid laying down for 30 minutes after taking. Avoid taking with dairy. Use sun protection. EPINEPHrine 0.3 mg/0.3 mL auto-injector 0.3 mg, Intramuscular, As needed escitalopram oxalate (LEXAPRO) 20 MG tablet 20 mg, Oral, Daily LORazepam (ATIVAN) 0.5 MG tablet 0.5 mg, Oral, 2 times daily norgestimate-ethinyl estradioL (ORTHO-CYCLEN) 0.25-0.035 mg per tablet 1 tablet, Oral, Daily PHYSICAL EXAM: Weight: 63.5 kg (140 lb) Height: 165.1 cm (5' 5) Temperature: (!) 24.4 ??C (76 ??F) Heart Rate: 76 BP: 120/64 Respiratory Rate: 16 SpO2: 99 % Wt Readings from Last 3 Encounters: 09/20/22 63.5 kg (140 lb) (70 %, Z= 0.51)* 08/23/22 68 kg (150 lb) (81 %, Z= 0.86)* 08/09/22 68 kg (150 lb) (81 %, Z= 0.87)* * Growth percentiles are based on CDC (Girls, 2-20 Years) data. Physical Exam Vitals reviewed. Constitutional: General: She is not in acute distress. Appearance: Normal appearance. She is not ill-appearing. HENT: Right Ear: Tympanic membrane, ear canal and external ear normal. Left Ear: Tympanic membrane, ear canal and external ear normal. Nose: No congestion. Mouth/Throat: Mouth: Mucous membranes are moist. Cardiovascular: Rate and Rhythm: Normal rate and regular rhythm. Pulses: Normal pulses. Heart sounds: Normal heart sounds. Pulmonary: Effort: Pulmonary effort is normal. Breath sounds: Normal breath sounds. Musculoskeletal: Cervical back: Neck supple. No tenderness. Right lower leg: No edema. Left lower leg: No edema. Lymphadenopathy: Cervical: No cervical adenopathy. Skin: General: Skin is warm. Neurological: Mental Status: She is alert and oriented to person, place, and time. Psychiatric: Mood and Affect: Mood normal. Behavior: Behavior normal. Thought Content: Thought content normal. Judgment: Judgment normal. ASSESSMENT AND PLAN: Raine Taylor is a 17 y.o. female with hearing loss x 3 months here for evaluation. Mixed conductive and sensorineural hearing loss of right ear Exam is benign. There is no wax, fluid, infection or evidence of eustacian tube dysfunction on exam. Sx presents x 3 months and therefore she is out of the window for high dose steroid treatment. Hearing test shows high frequency loss. She was referred to ENT/audiology for further assessment and rationale for this was discussed. Orders Placed This Encounter Procedures ??? Ambulatory referral to [facility] Otolaryngology - Max Schmid Referral Priority: Within 2 weeks Referral Type: Consultation Referral Location: [facility] Parent Requested Specialty: Otolaryngology Number of Visits Requested: 1 Expiration Date: 01/11/2024 Pt verbally understood plan; we discussed SE, risks, benefits, of all pertinent medications.? Pt will call for any questions, concerns, changes. Pt to call office with any concerning sx. ?Pt to call office if they have not received results within 3 weeks. Pt verbally understood all of the above. ??Seen by Loren Ponce NP. >50% of this 25 minute visit spent counseling on above health concerns, chart review, follow up plan. Margarita Ponce, RADHA, ELECTRIC MELT OPERATOR ORDER PICKER-C documented in this encounter Miscellaneous Notes * Assessment & Plan Note - Margarita Ponce NP - 01/11/2023 2:47 PM EDT Associated Problem(s): Mixed conductive and sensorineural hearing loss of right ear (Deleted) Exam is benign. There is no wax, fluid, infection or evidence of eustacian tube dysfunction on exam. Sx presents x 3 months and therefore she is out of the window for high dose steroid treatment. Hearing test shows high frequency loss. She was referred to ENT/audiology for further assessment and rationale for this was discussed. documented in this encounter Plan of Treatment Upcoming Encounters Date Type Department Care Team (Late st Contact Info) Description 12/15/2024 9:00 AM EDT Telemedicine [facility] Nikole Colmenares [address] [place] [address] Yamileth Wagner CNP [address] [facility], [facility] [place] [address] [email or web address] 06/11/2025 1:40 PM EDT [facility] Nikole Colmenares [address] 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 It is not the complete legal health record.[facility]
--- OUTSIDE RECORDS SUMMARY | 2024-08-23 23:21 | XMS_ITS | Encounter Summary ---
Author Organization [facility] Address [phone] [facility] [place] [address] Care Team Providers Care Automotive Product Specialist Name Role Phone Yamileth Wagner BASE FILLER Primary Care Provider Reason for Visit * Reason Comments Medication Refill Encounter Details Date Type Department Care Team (Late st Contact Info) Description 08/22/2020 Refill [facility] [address] [place] [address] Yamileth Wagner, BASE FILLER [address] [place] [address] [email or web address] Medication Refill Social History Tobacco Use Types [...] encounter Progress Notes * Yoselyn Jean - 08/23/2020 3:22 PM EST FLUoxetine (PROZAC) 20 MG capsule [[id number]] ?? Order Details Dose, Route, Frequency: As Directed Dispense Quantity: 180 capsule Refills: 3 Fills remaining: -- ?? Sig: TAKE 2 CAPSULES BY MOUTH EVERY DAY ?? Written Date: 10/27/19 Expiration Date: 10/26/20 Start Date: 10/27/19 End Date: -- ?? Ordering Provider: Yamileth Wagner CNP Last telemedicine 11.10.2019 Last ov 09/22/2019 Future Appointments Date Time Provider Department Center 09/22/2020 4:00 PM Johana Lanza MD, NWCDERMAS None documented in this encounter Plan of Treatment Upcoming Encounters Date Type Department Care Team (Late st Contact Info) Description 12/15/2024 9:00 AM EDT Telemedicine [facility] [address] [place] [address] Yamileth Wagner CNP [address] [facility], [place] [address] [email or web address] 06/11/2025 1:40 PM EDT Office Visit [facility], PTedCTed [address] [place] [address] Yamileth Wagner CNP [address], [place] [address] documented as of this encounter Visit Diagnoses Not on filedocumented in this encounter Additional Health Concerns Assessment Noted Time PHQ-9 Depression Total Score: 3 11/10/19 20 1:37 PM EDT PHQ-2 Depression Total Score: 0 11/10/19 20 1:37 PM EDT documented as of this encounter Care Teams Automotive Product Specialist Relationship Specialty Start Date End Date Yamileth Wagner CNP [address] [place] [address] [email or web address] PCP - General Family Medicine 06/28/17 documented as of this encounter Additional Source Comments The information contained in this document represents components of the legal health record. It is not the complete legal health record.[facility]
--- OUTSIDE RECORDS SUMMARY | 2024-08-23 23:21 | XMS_ITS | Encounter Summary ---
Author Organization [facility] Address [phone] [facility] [place] [address] Care Team Providers Care Breaker Machine Tender Name Role Phone Yamileth Wagner CNP Primary Care Provider Yamileth Wagner CNP Unavailable + [phone] Reason for Visit * Reason Comments Follow-up Encounter Details Date Type Department Care Team ([facility] st Contact Info) Description 10/01/2020 3:40 PM EST Telemedicine [facility] [address] [place] [address] Yamileth Wagner CNP [address] [place] [address] [email or web address] Depressed mood; Unimmunized Social History Tobacco Use Types Packs/Day Years [...] Taken Comments Blood Pressure - - Pulse 72 10/01/2020 8:49 AM EST Temperature - - Respiratory Rate - - Oxygen Saturation - - Inhaled Oxygen Concentration - - Weight 59 kg (130 lb) 10/01/2020 8:49 AM EST Height - - Body Mass Index - - documented in this encounter Progress Notes * Yamileth Wagner CNP - 10/01/2020 3:40 PM EST Patient presents for a Virtual [...] violence at home Physical Exam: Vitals: Vitals: 10/01/20 0849 Pulse: 72 Gen: NAD, Well-kempt HEENT: NCAT, EOMI, OP clear via video Neck: Patient denies swollen or tender lymph nodes on exam Chest: Respiratory rate is regular, no retractions, no cough noted Cardiac: Patient reports radial pulse is regular Extremities: No cyanosis, clubbing, edema Neuro: A&O, shoer 2-12 grossly intact Psych: Behavior appropriate, normal [...] now F/u 4 mos CPX She will moapa back if worse Unimmunized Current Assessment & Plan Currently underimmunized Reviewed plan for immunization, importance of immunization and the risks of not immunizing, including communicable disease that can cause severe injury or Recommend: Menactra, Gardasil, Varicella - Menactra and Varicella will likely be required for college She will discuss with parents and book NV to start series A virtual visit was used during the [...] Plan Note - Yamileth Wagner CNP - 10/01/2020 4:59 PM EST Associated Problem(s): Unimmunized Currently underimmunized Reviewed plan for immunization, importance of immunization and the risks of not immunizing, including communicable disease that can cause severe injury or Recommend: Menactra, Gardasil, Varicella - Menactra and Varicella will likely be required for college She will discuss with parents and book NV to start series * Assessment & Plan Note - Yamileth Wagner CNP - 10/01/2020 4:09 PM EST Associated Problem(s): Anxiety and depression [...] now F/u 4 mos CPX She will moapa back if worse documented in this encounter Plan of Treatment Upcoming Encounters Date Type Department Care Team (Late st Contact Info) Description 12/15/2024 9:00 AM EDT Telemedicine [facility] Nikole Colmenares [address] [place] [address] Yamileth Wagner CNP [address] [place] [address] 06/11/2025 1:40 PM EDT [facility] Harry [address] [place] [address] Yamileth Wagner CNP [address] [place] [address] documented as of this encounter Visit Diagnoses Diagnosis Depressed mood Unimmunized documented in this encounter Additional Health Concerns Assessment Noted Time PHQ-9 Depression Total Score: 7 10/01/19 8:00 AM EST PHQ-2 Depression Total Score: 2 10/01/19 8:00 AM EST documented as of this encounter Care Teams Breaker Machine Tender Relationship Specialty Start Date End Date Yamileth Wagner CNP [address], [place] [address] PCP - General Family Medicine 06/28/17 Yamileth Wagner CNP [address] [place] [address] Insurance Assigned Provider 09/25/20 08/05/21 documented as of this encounter Additional Source Comments The information contained in this document represents components of the legal health record. It is not the complete legal health record.[facility]
--- OUTSIDE RECORDS SUMMARY | 2024-08-23 23:21 | XMS_ITS | Encounter Summary ---
Author Organization [facility] Address [phone] [facility], [facility] [employer] [address] Care Team Providers Care Medical Referral Coordinator Name Role Phone Yamileth Wagner CNP Primary Care Provider Reason for Visit * Reason Comments Follow-up Encounter Details Date Type Department Care Team ([facility] st Contact Info) Description 08/09/2022 11:20 AM EST Telemedicine [facility] [address] [place] [address] Yamileth Wagner, THERMAL ENGINEER [address] [place] [address] [email or web address] Anxiety and depression Social History [...] Taken Comments Blood Pressure - - Pulse - - Temperature 24.4 ??C (76 ??F) 08/09/2022 10:48 AM EST Respiratory Rate - - Oxygen Saturation - - Inhaled Oxygen Concentration - - Weight 68 kg (150 lb) 08/09/2022 10:48 AM EST Height - - Body Mass Index 24.96 04/13/2022 2:53 PM EDT documented in this encounter Progress Notes * Yamileth Wagner, THERMAL ENGINEER - 08/09/2022 11:20 AM EST Patient presents for a [...] violence at home Physical Exam: Vitals: Vitals: 08/09/22 1048 Temp: (!) 24.4 ??C (76 ??F) Gen: NAD, Well-kempt HEENT: NCAT, EOMI, OP clear via video Neck: Patient denies swollen or tender lymph nodes on exam Chest: Respiratory rate is regular, no retractions, no cough noted Cardiac: Patient reports radial pulse is regular Abd: No tenderness on self-exam : Not indicated Extremities: No cyanosis, clubbing, edema Neuro: A&O, reimbursement manager 2-12 grossly intact Psych: Behavior appropriate, normal mood and affect Skin: No lesions noted by patient or video Assessment and Plan: Problem List Items Addressed This Visit Anxiety and depression Overview Prozac 60 Failed Zoloft a lot of s/e Ativan prn added at [facility] 07/11 Started Buproprion 07/11 Therapy @ [facility] Current Assessment & Plan 60mg Prozac No s/e But has not [...] NO self harm Has a therapist at [facility] but that keeps getting rescheduled Has been [...] Notat all More than half the days Nearly [...] issues Support offered Pt agreed with plan Relevant Medications busPIRone (BUSPAR) 5 MG tablet Virtual Visit Attestation Modality: Video Provider Location: Practice location Patient State: [place] documented in this encounter Miscellaneous Notes * Assessment & Plan Note - Yamileth Wagner CNP - 08/09/2022 11:24 AM EST Associated Problem(s): Anxiety and depression 60mg Prozac No s/e But has not [...] NO self harm Has a therapist at [facility] but that keeps getting rescheduled Has been [...] Notat all More than half the days Nearly [...] issues Support offered Pt agreed with plan documented in this encounter Plan of Treatment Upcoming Encounters Date Type Department Care Team (Late st Contact Info) Description 12/15/2024 9:00 AM EDT Telemedicine [facility] P.CTed [address] [place] [address] Yamileth Wagner CNP [address], [place] [address] 06/11/2025 1:40 PM EDT [facility] [address] [place] [address] Yamileth Wagner CNP [address], [place] [address] documented as of this encounter Visit Diagnoses Diagnosis Anxiety and depression documented in this encounter Additional Health Concerns Assessment Noted Time PHQ-9 Depression Total Score: 23 022 11:02 AM EST PHQ-2 Depression Total Score: 5 08/09/20 22 11:02 AM EST documented as of this encounter Care Teams Medical Referral Coordinator Relationship Specialty Start Date End Date Yamileth Wagner [place] [address] PCP - General Family Medicine 06/28/17 documented as of this encounter Additional Source Comments The information contained in this document represents components of the legal health record. It is not the complete legal health record.[facility]
--- OUTSIDE RECORDS SUMMARY | 2024-08-23 23:21 | XMS_ITS | Encounter Summary ---
Author Organization [facility] Address [phone] [facility] [place] [address] Care Team Providers Care Forming Operator Name Role Phone Yamileth Wagner ELECTROTYPE MOLDER Primary Care Provider Reason for Visit * Reason Comments Medication Refill Encounter Details Date Type Department Care Team (Late st Contact Info) Description 10/25/2019 Refill [facility] [address] [place] [address] Yamileth Wagner, ELECTROTYPE MOLDER [address] [place] [address] [email or web address] Medication Refill Social History Tobacco Use Types [...] encounter Progress Notes * Marisa Kramer - 10/27/2019 9:53 AM EDT req prozac to [facility] Last OV 09/22/2019 Next OV 11/10/19 documented in this encounter Plan of Treatment Upcoming Encounters Date Type Department Care Team (Late st Contact Info) Description 12/15/2024 9:00 AM EDT [facility] [address] [facility] [place] [address] Yamileth Wagner CNP [address], [place] [address] [email or web address] 06/11/2025 1:40 PM EDT Office Visit [facility] Nikole Harry [address] [place] [address] Yamileth Wagner CNP [address] [place] [address] [email or web address] documented as of this encounter Visit Diagnoses Not on filedocumented in this encounter Additional Health Concerns Assessment Noted Time PHQ-9 Depression Total Score: 14 020 12:00 PM EST documented as of this encounter Care Teams Forming Operator Relationship Specialty Start Date End Date Yamileth [place] [address] [email or web address] PCP - General Family Medicine 06/28/17 documented as of this encounter Additional Source Comments The information contained in this document represents components of the legal health record. It is not the complete legal health record.[facility]
--- OUTSIDE RECORDS SUMMARY | 2024-08-23 23:21 | XMS_ITS | Encounter Summary ---
Author Organization [facility] Address [phone] [facility] [place] [address] Care Team Providers Care Relay Associate Name Role Phone Yamileth Wagner DIRECTOR QUALITY SYSTEMS Primary Care Provider Yamileth Wagner DIRECTOR QUALITY SYSTEMS Unavailable + [phone] Reason for Visit * Reason Comments Medication Refill Encounter Details Date Type Department Care Team (Late st Contact Info) Description 11/22/2020 Refill [facility] [address] [place] [address] Yamileth Wagner, DIRECTOR QUALITY SYSTEMS [address] [place] [address] [email or web address] [...] encounter Progress Notes * Marisa Kramer - 11/22/2020 3:05 PM EDT req prozac to [facility] Last OV 10/28/2020 Next OV 01/19/2021 documented in this encounter Plan of Treatment Upcoming Encounters Date Type Department Care Team (Late st Contact Info) Description 12/15/2024 9:00 AM EDT Telemedicine [facility] Nikole Harry [address], [place] [address] Yamileth Wagner CNP [address] [place] [address] 06/11/2025 1:40 PM EDT [facility] Nikole Harry [address] [place] [address] Yamileth Wagner CNP [address] [place] [address] documented as of this encounter Visit Diagnoses Not on filedocumented in this encounter Additional Health Concerns Assessment Noted Time PHQ-9 Depression Total Score: 7 10/01/19 8:00 AM EST PHQ-2 Depression Total Score: 2 10/01/19 8:00 AM EST documented as of this encounter Care Teams Relay Associate Relationship Specialty Start Date End Date Yamileth Wagner CNP [address] [place] [address] PCP - General Family Medicine 06/28/17 Yamileth Wagner CNP [address] [place] [address] Insurance Assigned Provider 09/25/20 08/05/21 documented as of this encounter Additional Source Comments The information contained in this document represents components of the legal health record. It is not the complete legal health record.[facility]
--- OUTSIDE RECORDS SUMMARY | 2024-08-23 23:21 | XMS_ITS | Encounter Summary ---
Author Organization [facility] Address [phone] [place] [address] Care Team Providers Care Offc Spec Name Role Phone Yamileth Wagner CNP Primary Care Provider Encounter Details Date Type Department Care Team (Late st Contact Info) Description 09/23/2019 Telephone [facility] P[facility] [address] [place] [address] Yamileth Wagner CNP 145 [facility] [place] [address] [email or web address] Social History Tobacco Use Types Packs/Day Years [...] Progress Notes * Yamileth Wagner CNP - 09/23/2019 3:39 PM EST TC with mom No urinary tract infection Mom expressed understanding with our plan Will f/u as needed documented in this encounter Plan of Treatment Upcoming Encounters Date Type Department Care Team (Late st Contact Info) Description 12/15/2024 9:00 AM EDT [facility] Harry [address] [place] [address] Yamileth Wagner CNP [address] [place] [address] [email or web address] 06/11/2025 1:40 PM EDT Office Visit [facility] Nikole Harry [address] [place] [address] Yamileth Wagner CNP [address] [place] [address] documented as of this encounter Visit Diagnoses Not on filedocumented in this encounter Additional Health Concerns Assessment Noted Time PHQ-9 Depression Total Score: 14 020 12:00 PM EST documented as of this encounter Care Teams Offc Spec Relationship Specialty Start Date End Date Yamileth Wagner [place] [address] [email or web address] PCP - General Family Medicine 06/28/17 documented as of this encounter Additional Source Comments The information contained in this document represents components of the legal health record. It is not the complete legal health record.[facility]
--- OUTSIDE RECORDS SUMMARY | 2024-08-23 23:22 | XMS_ITS | Encounter Summary ---
Author Organization [facility] Address [phone] [facility] [place] [address] Care Team Providers Care Editorial Project Manager Name Role Phone Yamileth Wagner CNP Primary Care Provider Yamileth Wagner SENIOR MAINFRAME PROGRAMMER ANALYST Unavailable [phone] Yamileth Wagner SENIOR MAINFRAME PROGRAMMER ANALYST Unavailable + [phone] Janette Jules MD Unavailable [phone] Yamileth Wagner SENIOR MAINFRAME PROGRAMMER ANALYST Unavailable + [phone] Janette Jules MD Unavailable [phone] Encounter Details Date Type Department Care Team (Latest Contact Info) Description 09/05/2019 Transcribe Orders [facility] [address] [place], [place] [id number] Yamileth Wagner, SENIOR MAINFRAME PROGRAMMER ANALYST [address] [place] [address] [email or web address] Acute pyelonephritis (Primary Dx) Social History Tobacco Use Types [...] Info) Description 12/15/2024 9:00 AM EDT Telemedicine [facility] P.CTed [address] [place] [address] Yamileth Wagner CNP [facility] [place] [address] 06/11/2025 1:40 PM EDT [facility] [address] [place] [address] Yamileth Wagner CNP [address] [place] [address] [email or web address] documented as of this encounter Results * (ABNORMAL) Urine culture (09/05/2019 3:00 PM EST) Special Requests No Special Requests 09/05/2019 8:18 PM EST [facility] Urine Culture <10,000 colony forming units per mL MIXED GRAM POSITIVE ORGANISMS(A) 09/07/2019 10:55 AM EST [facility] Urine 09/05/2019 3:00 PM EST 09/05/2019 8:34 PM EST Comment:URINE Yamileth Wagner CNP MICROBIOLOGY - GENERAL ORDERABLES Performing Organization Address City/State/[facility] Co de Phone Number [facility] [address] [place] [address] documented in this encounter Visit Diagnoses Diagnosis Acute pyelonephritis- Primary 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 documented in this encounter Additional Health Concerns Assessment Noted Time PHQ-9 Depression Total Score: 4 02/18/20 19 12:00 PM EDT documented as of this encounter Care Teams Editorial Project Manager Relationship Specialty Start Date End Date Yam[place] [address] [email or web address] PCP - General Family Medicine 06/28/17 Yamileth Wagner CNP [address] [place] [address] [email or web address] Insurance Assigned Provider 12/24/19 02/22/20 Yamileth WagnerBETTE [address] [place] [address] [email or web address] Insurance Assigned Provider 09/25/20 08/05/21 Janette Jules MD [address] [facility] [place] [address] Insurance Assigned Provider 11/24/23 02/23/24 BernardYamileth BETTE Harrison [address] [place] [address] [email or web address] Insurance Assigned Provider 02/23/24 07/30/24 Janette Jules MD 55 [facility] [address] [place] [address] Insurance Assigned Provider 07/30/24 documented as of this encounter Additional Source Comments The information contained in this document represents components of the legal health record. It is not the complete legal health record.[facility]
--- OUTSIDE RECORDS SUMMARY | 2024-08-23 23:22 | XMS_ITS | Encounter Summary ---
Author Organization [facility] Address [phone] [facility] [place] [address] Care Team Providers Care Microscopist Name Role Phone Yamileth Wagner MAILER APPRENTICE Primary Care Provider Reason for Visit * Reason Comments Flank Pain Encounter Details Date Type Department Care Team (Late st Contact Info) Description 09/22/2019 11:40 AM EST Office Visit [facility] [address] [place] [address] Yamileth Wagner, MAILER APPRENTICE [address] [place] [address] [email or web address] Dysuria (Primary Dx) Social History Tobacco Use Types [...] Sign Reading Time Taken Comments Blood Pressure 102/60 09/22/2019 11:43 AM EST Pulse 72 09/22/2019 11:43 AM EST Temperature 37.3 ??C (99.1 ??F) 09/22/2019 1 1:43 AM EST Respiratory Rate - - Oxygen Saturation 99% 09/22/2019 11: 43 AM EST Inhaled Oxygen Concentration - - Weight 59.8 kg (131 lb 12.8 oz) 020 11:43 AM EST Height - - Body Mass Index - - documented in this encounter Patient Instructions * Patient Instructions* Yamileth Wagner, BETTE - 09/22/2019 11:40 AM EST Images from the original note were not included. Motrin/ibuprofen/advil 400-600mg every 6-8 hours Wet heat Stretches - see below Low Back Pain: Exercises Introduction Here are some examples of exercises for you to try. The exercises may be suggested for a condition or for rehabilitation. Start each exercise slowly. Ease off the exercises if you start to have pain. You will be told when to start these exercises and which ones will work best for you. How to do the exercises Press-up 1. Lie on your stomach, supporting your body with your forearms. 2. Press your elbows down into the floor to raise your upper back. As you do this, relax your stomach muscles and allow your back to arch without using your back muscles. As your press up, do not letyour hips or pelvis come off the floor. 3. Hold for 15 to 30 seconds, then relax. 4. Repeat 2 to 4 times. Alternate arm and leg (bird dog) exercise 1. Start on the floor, on your hands and knees. 2. Tighten your belly muscles. 3. Raise one leg off the floor, and hold it straight out behind you. Be careful not to let your hipdrop down, because that will twist your trunk. 4. Hold for about 6 seconds, then lower your leg and switch to the other leg. 5. Repeat 8 to 12 times on each leg. 6. Over time, work up to holding for 10 to 30 seconds each time. 7. If you feel stable and secure with your leg raised, try raising the opposite arm straight out infront of you at the same time. Nvtc-lc-obnsf exercise 1. Lie on your back with your knees bent and your feet flat on the floor. 2. Bring one knee to your chest, keeping the other foot flat on the floor (or keeping the other legstraight, whichever feels better on your lower back). 3. Keep your lower back pressed to the floor. Hold for at least 15 to 30 seconds. 4. Relax, and lower the knee to the starting position. 5. Repeat with the other leg. Repeat 2 to 4 times with each leg. 6. To get more stretch, put your other leg flat on the floor while pulling your knee to your chest. Curl-ups 1. Lie on the floor on your back with your knees bent at a 90-degree angle. Your feet should be flat on the floor, about 12 inches from your buttocks. 2. Cross your arms over your chest. If this bothers your neck, try putting your hands behind your neck (not your head), with your elbows spread apart. 3. Slowly tighten your belly muscles and raise your shoulder blades off the floor. 4. Keep your head in line with your body, and do not press your chin to your chest. 5. Hold this position for 1 or 2 seconds, then slowly lower yourself back down to the floor. 6. Repeat 8 to 12 times. Pelvic tilt exercise 1. Lie on your back with your knees bent. 2. Brace your stomach. This means to tighten your muscles by pulling in and imagining your belly button moving toward your spine. You should feel like your back is pressing to the floor and your hips and pelvis are rocking back. 3. Hold for about 6 seconds while you breathe smoothly. 4. Repeat 8 to 12 times. Heel dig bridging 1. Lie on your back with both knees bent and your ankles bent so that only your heels are digging into the floor. Your knees should be bent about 90 degrees. 2. Then push your heels into the floor, squeeze your buttocks, and lift your hips off the floor until your shoulders, hips, and knees are all in a straight line. 3. Hold for about 6 seconds as you continue to breathe normally, and then slowly lower your hips back down to the floor and rest for up to 10 seconds. 4. Do 8 to 12 repetitions. Hamstring stretch in doorway 1. Lie on your back in a doorway, with one leg through the open door. 2. Slide your leg up the wall to straighten your knee. You should feel a gentle stretch down the back of your leg. 3. Hold the stretch for at least 15 to 30 seconds. Do not arch your back, point your toes, or bend either knee. Keep one heel touching the floor and the other heel touching the wall. 4. Repeat with your other leg. 5. Do 2 to 4 times for each leg. Hip flexor stretch 1. Kneel on the floor with one knee bent and one leg behind you. Place your forward knee over your foot. Keep your other knee touching the floor. 2. Slowly push your hips forward until you feel a stretch in the upper thigh of your rear leg. 3. Hold the stretch for at least 15 to 30 seconds. Repeat with your other leg. 4. Do 2 to 4 times on each side. Wall sit 1. Stand with your back 10 to 12 inches away from a wall. 2. Lean into the wall until your back is flat against it. 3. Slowly slide down until your knees are slightly bent, pressing your lower back into the wall. 4. Hold for about 6 seconds, then slide back up the wall. 5. Repeat 8 to 12 times. Follow-up care is a chamorro part of your treatment and safety. Be sure to make and go to all appointments, and call your doctor if you are having problems. It's also a good idea to know your test resultsand keep a list of the medicines you take. Where can you learn more? Please login or enroll in??[facility] [place]: [email or web address] Select the Resources icon from the Header & then select??Search [email or web address] Library Enter Z938 in the search box to learn more about 'Low Back Pain: Exercises.' Current as of: February 12, 2019 Content Version: 12.3 ?? [id number] [employer]. Care instructions adapted under license by your healthcare professional. If you have questions about a medical condition or this instruction, always ask your healthcare professional. [employer] disclaims any warranty or liability for your use of this information. documented in this encounter Progress Notes * Yamileth Wagner CNP - 09/22/2019 11:40 AM EST Patient presents for acute visit with a chief complaint of Chief Complaint Patient presents with ??? Flank Pain HPI Treated for acute pylo 3 weeks ago Sx completely resolved after 2 courses of antibiotic treatment Negative/inconclusive urine culture Feels like kidney is hurting again Lower right side Worse with activity - practice, gym at high intensity A lot of inc stress over the last few weeks School, friends, driving, working more than usual Not sleeping well - very tired No pain with urination NO frequency but does feel like has to pee more than usual No blood in urine No fevers No abdominal pain or pelvic pain No recent sexual activity None since treatment for pylo On the OCP and uses condom ? Vitals: 09/22/19 1143 BP: 102/60 Pulse: 72 Temp: 37.3 ??C (99.1 ??F) SpO2: 99% Patient Active Problem List Diagnosis Date Noted ??? Depressed mood 11/05/2018 ??? Pain in joint of right shoulder 01/18/2018 ??? Acne vulgaris 06/28/2016 ??? Unimmunized 06/28/2016 ??? Dysmenorrhea 06/28/2016 Current Outpatient Medications: ??? adapalene (DIFFERIN) 0.3 % gel, Apply a pea sized amount to face at night. Start every third night and increase to nightly as tolerated., Disp: 60 g, Rfl: 11, Last Dispense: Unknown (outside pharmacy) ??? albuterol 90 mcg/actuation inhaler, INHALE 1 PUFF INTO THE LUNGS EVERY 6 (SIX) HOURS NEEDED FOR WHEEZING., Disp: 8.5 Inhaler, Rfl: 1, Last Dispense: Unknown (outside pharmacy) ??? clindamycin-benzoyl peroxide ER (DUAC) gel, Apply to face QAM, Disp: 45 g, Rfl: 3, Last Dispense: Unknown (outside pharmacy) ??? desogestrel-ethinyl estradiol (APRI) 0.15-0.03 mg per tablet, Take 1 tablet by mouth daily., Disp: 12 packet, Rfl: 0, Last Dispense: Unknown (outside pharmacy) ??? FLUoxetine (PROZAC) 10 MG capsule, Take by mouth daily., Disp: , Rfl: 0, Last Dispense: Unknown(patient-reported) ??? FLUoxetine (PROZAC) 20 MG capsule, Take by mouth daily., Disp: , Rfl: 0, Last Dispense: Unknown(patient-reported) ??? DBQ-QN-AGQRQX 0.18/0.215/0.25 mg-25 mcg Tab, Take 1 tablet by mouth daily., Disp: , Rfl: 2, Last Dispense: Unknown (patient-reported) PE Well appearing, well dressed/groomed, pleasant, cooperative NAD. Makes good eye contact. Speech is normal in tone and is non -pressured, non-tangential and easily followed. Affect is full. Insight is good. There is no suicidal or homicidal intentions. Thought process appears clear and non-delusional. ? PERRLA, EOMI Neck - supple, no LAD, no thyromegaly Heart - RRR, no murmurs/rubs/gallops Lungs - CTA bilaterally, no wheezes/rhales/rhonchi Abd: NABS, soft, NT, ND, no HSM, no rebound tenderness, [place] negative, no guarding NO CVA tenderness Back exam ROM flex: finger tips to ankles Extenstion wnl no spine tenderness no sacroiliac joint tenderness no sciatic notch tenderness +++ Lower Left paraspinal spasm/tenderness elicited negative SLR nl and symm LE/EHL strength nl and symm DTRs at knee and ankle nl gross sensation in feet. Extremities - WWP, no edema, calves equal and symmetric Generalized Anxiety Disorder Scale 02/17/2019 09/22/2019 SHE-7 Total Score 17 17 PHQ Depression Screening Score 02/17/2019 09/22/2019 Little interest or pleasure in doing things Not at all Several days Feeling down, depressed, or hopeless Not at all More than half the days Trouble falling or staying asleep, or sleeping too much Not at all Nearly every day Feeling tired or having little energy Several days Nearly every day Poor appetite or overeating Not at all Not at all Feeling bad about yourself - or that you are a failure or have let yourself or your family down Notat all Nearly every day Trouble concentrating on things, such as reading the newspaper or watching television Several days More than half the days Moving or speaking so slowly that other people could have noticed. Or the opposite - being so fidgety or restless that you have been moving around a lot more than usual More than half the days Not atall Thoughts that you would be better off , or of hurting yourself in some way Not at all Not at all PHQ-9 Total Score 4 14 A/P Pt presents with dad for acute visit with multiple c/o Back pain Pain that pt is attributing to kidney pain appears to be more consistent with low back pain/spasm Had normal abd u/s Rec stretch, wet heat and activity restriction Mood More anxious/not sleeping Safe Good supports Elevated depression scores - stable but high anxiety score Cont with therapy Inc Prozac to 40mg F/u 4-6 weeks - already booked Urinary frequency Dip inconclusive Will send urine red flags reviewed, pt expressed understanding and agrees pt knows when to RTO/call documented in this encounter Plan of Treatment Upcoming Encounters Date Type Department Care Team (Late st Contact Info) Description 12/15/2024 9:00 AM EDT [facility] [address] [facility] [place] [address] Yamileth Wagner CNP [address] [place] [address] 06/11/2025 1:40 PM EDT Office Visit [facility] Nikole Harry [address] [facility] [place] [address] Yamileth Wagner CNP [address] [place] [address] [email or web address] documented as of this encounter Procedures Procedure Name Priority Date/Time Associated Diagnosis Comments POCT URINE DIPSTICK AUTOMATED Routine 09/22/2019 1:05 PM EST Dysuria documented in this encounter Results * (ABNORMAL) POCT Urine Dipstick, Automated (09/22/2019 1:05 PM EST) Glucose, urine Negative Negative Bilirubin Negative Negative Ketones, urine Negative Negative Specific [place], urine 1.025 1.005 - 1.030 Blood, urine Negative Negative pH, urine 6.0 5.0 - 7.0 Protein, urine Negative Negative Urobilinogen 0.2-1 Negative Nitrite, urine Negative Negative Leukocyte Esterase, urine 1+(A) Negative Other 09/22/2019 1:05 PM EST Yamileth Wagner CNP POINT OF CARE TEST ORDERABLES * (ABNORMAL) Urinalysis w/reflex Urine Culture (09/22/2019 11:57 AM EST) COLOR Yellow Yellow [facility] CLARITY SLIGHTLY CLOUDY(A) Clear [facility] SPECIFIC GRAVITY 1.019 1.001 - 1.030 [facility] BLOOD Negative Negative [facility] BILI Negative Negative [facility] KETONES Negative Negative [facility] GLUCOSE Negative Negative [facility] URINE PROTEIN Negative Negative [facility] PH 5.0 5 - 8 [facility] Leukocyte esterase, ur 2+(A) Negative [facility] NITRITE Negative Negative [facility] UROBILINOGEN Negative Negative [facility] RBC 1 0 - 3 /hpf [facility] WBC 4 0 - 9 /hpf [facility] BACTERIA Few(A) NONE SEEN /hpf [facility] SQUAMOUS CELLS 9(H) 0 - 4 /hpf [facility] Urine 09/22/2019 11:5 7 AM EST 09/22/2019 8:52 PM EST Yamileth Wagner CNP URINE ORDERABL ES [facility] [address] [place] [address] documented in this encounter Visit Diagnoses Diagnosis Dysuria- Primary documented in this encounter Additional Health Concerns Assessment Noted Time PHQ-9 Depression Total Score: 14 020 12:00 PM EST documented as of this encounter Care Teams Microscopist Relationship Specialty Start Date End Date Yamileth Wagner CNP [address] [place] [address] [email or web address] PCP - General Family Medicine 06/28/17 documented as of this encounter Additional Source Comments The information contained in this document represents components of the legal health record. It is not the complete legal health record.[facility]
--- OUTSIDE RECORDS SUMMARY | 2024-08-23 23:22 | XMS_ITS | Encounter Summary ---
Author Organization [facility] Address [phone] [facility] [place] [address] Care Team Providers Care Leadership Program Associate Name Role Phone Yamileth Wagner CNP Primary Care Provider Encounter Details Date Type Department Care Team (Latest Contact Info) Description 09/05/2019 8:18 PM EST - 09/05/2019 11:59 PM [facility] LAB SPECIMEN [address] [place] [address] Yamileth Wagner, METALLURGICAL ENGINEERING TECHNICIAN [address] [place] [address] [email or web address] Discharge Disposition: Home or Self Care Social [...] Sig Dispensed Refills Start Date End Date cefpodoxime (VANTIN) 200 MG tablet Take 1 tablet (200 mg total) by mouth 2 (two) times a day for 10 days. 20 tablet 09/01/2019 09/11/2019 sulfamethoxazole-tri methoprim (BACTRIM DS) 800-160 mg per tablet Take 1 tablet (160 mg of trimethoprim total) by mouth 2 (two) times a day for 7 days. 14 tablet 09/05/2019 09/12/2019 adapalene (DIFFERIN) 0.3 % gel Apply a [...] daily. 12 packet 02/17/2019 11/10/2019 FLUoxetine (PROZAC) 10 MG capsule Take by mouth daily. 0 07/02/20192019 FLUoxetine (PROZAC) 20 MG capsule Take by mouth daily. 0 07/02/20192019 [id number] 0.18/0.215/0.25 mg-25 mcg Tab Take 1 tablet by mouth daily. 2 06/04/2019 11/03/2019 documented as of this encounter Plan of Treatment Upcoming Encounters Date Type Department Care Team (Late st Contact Info) Description 12/15/2024 9:00 AM EDT Telemedicine [facility] Nikole Harry [address] [place] [address] Yamileth Wagner, METALLURGICAL ENGINEERING TECHNICIAN [address] [place] [address] [email or web address] 06/11/2025 1:40 PM EDT [facility] [address] [facility] [place] [address] Yamileth Wagner, BETTE [address] [place] [address] documented as of this encounter Procedures Procedure Name Priority Date/Time Associated Diagnosis Comments URINE CULTURE Routine 09/05/2019 3:00 PM EST Acute pyelonephritis documented in this encounter Results * (ABNORMAL) Urine culture (09/05/2019 3:00 PM EST) Special Requests No Special Requests 09/05/2019 8:18 PM EST [facility] Urine Culture <10,000 colony forming units per mL MIXED GRAM POSITIVE ORGANISMS(A) 09/07/2019 10:55 AM EST [facility] Urine 09/05/2019 3:00 PM EST 09/05/2019 8:34 PM EST Comment:URINE Yamileth Wagner CNP MICROBIOLOGY - GENERAL ORDERABLES Performing Organization Address City/State/[facility] Co de Phone Number [facility] [address] [place] [address] documented in this encounter Visit Diagnoses Diagnosis Acute pyelonephritis 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 It is not the complete legal health record.[facility]
--- OUTSIDE RECORDS SUMMARY | 2024-08-23 23:22 | XMS_ITS | Encounter Summary ---
Author Organization [facility] Address [phone] [facility] [employer] [place] [address] Care Team Providers Care Real Estate Sales Manager Name Role Phone Yamileth Wagner CNP Primary Care Provider Encounter Details Date Type Department Care Team ([facility] st Contact Info) Description 09/05/2019 Telephone [facility] [address] [place] [address] Yamileth Wagner CNP [address] [place] [address] Social History Tobacco Use Types Packs/Day Years [...] Progress Notes * Yamileth Wagner CNP - 09/05/2019 5:08 PM EST TC with mom abd u/s shows no abscess or obstruction Very reassuring Labs not in yet but ok to proceed with plan discussed with ID today Switch abx to Bactrim DS (or Levoquin if not tolrating) Will complete 7 day course twice daily Reviewed red flags for ER presentation Mom agreed with plan Will call with any abnormality in the labs documented in this encounter Plan of Treatment Upcoming Encounters Date Type Department Care Team (Late st Contact Info) Description 12/15/2024 9:00 AM EDT Telemedicine [facility] Nikole Harry [address] [facility] [place] [address] Yamileth Wagner CNP [address] [facility] [place] [address] 06/11/2025 1:40 PM EDT Office Visit [facility] Nikole Harry [address] [place] [address] Yamileth Wagner CNP [address] [facility] [place] [address] documented as of this encounter Visit Diagnoses Not on filedocumented in this encounter Additional Health Concerns Assessment Noted Time PHQ-9 Depression Total Score: 4 02/18/20 19 12:00 PM EDT documented as of this encounter Care Teams Real Estate Sales Manager Relationship Specialty Start Date End Date Yamileth Wagner C[place] [address] PCP - General Family Medicine 06/28/17 documented as of this encounter Additional Source Comments The information contained in this document represents components of the legal health record. It is not the complete legal health record.[facility]
--- OUTSIDE RECORDS SUMMARY | 2024-08-23 23:22 | XMS_ITS | Encounter Summary ---
Author Organization [facility] Address [phone] [facility] [place] [address] Care Team Providers Care Interventional Radiology Rn Name Role Phone Yamileth Wagner CNP Primary Care Provider Encounter Details Date Type Department Care Team (Late st Contact Info) Description 09/05/2019 Orders Only [facility] Harry, P.CTed [address] [place] [address] Yamileth Wagner CNP [address], [facility] [place] [address] [email or web address] Social History Tobacco Use Types Packs/Day Years [...] Description 12/15/2024 9:00 AM EDT Telemedicine [facility] Omero Harry, P.CTed [address] [facility] [place] [address] Yamileth Wagner CNP [address], [facility] [place] [address] 06/11/2025 1:40 PM EDT Office Visit [facility] PTedCTed [address] [place] [address] Yamileth Wagner CNP [address] [place] [address] [email or web address] documented as of this encounter Visit Diagnoses Not on filedocumented in this encounter Additional Health Concerns Assessment Noted Time PHQ-9 Depression Total Score: 4 02/18/20 19 12:00 PM EDT documented as of this encounter Care Teams Interventional Radiology Rn Relationship Specialty Start Date End Date Yamileth Wagner CNP [address] [place] [address] [email or web address] PCP - General Family Medicine 06/28/17 documented as of this encounter Additional Source Comments The information contained in this document represents components of the legal health record. It is not the complete legal health record.[facility]
--- OUTSIDE RECORDS SUMMARY | 2024-08-23 23:23 | XMS_ITS | Encounter Summary ---
Author Organization [facility] Address [phone] [facility]ly [facility] [place] [address] Care Team Providers Care Barn Hand Name Role Phone Yamileth Wagner Hunter AMOS Primary Care Provider Reason for Visit * Reason Comments Laceration Encounter Details Date Type Department Care Team ([facility] Contact Info) Description 05/21/2019 7:13 PM EDT - 05/21/2019 9:51 PM EDT Emergency [facility] [address] [place] [address] Rakel Willis MD [address] [place] [phone] [email or web address] Discharge Disposition: Home [...] Sign Reading Time Taken Comments Blood Pressure 132/84 05/21/2019 6:38 PM EDT Pulse 89 05/21/2019 6:38 PM EDT Temperature - - Respiratory Rate 20 05/21/2019 6:38 PM EDT Oxygen Saturation 98% 05/21/2019 6:38 PM EDT Inhaled Oxygen Concentration - - Weight 58.1 kg (128 lb) 05/21/2019 6:38 PM EDT Height - - Body Mass Index - - documented in this encounter Discharge Instructions * Discharge Instructions* Carolyne Demarco PA-C - 05/21/2019 9:43 PM EDT Raine's scrapes were cleaned and dressed Her tetanus was updated Keep area clean and dry for the next 24-48 hours then remove dressing and continue applying bacitracin 2-3 times a day No swimming until fully healed After 48 hours she can bathe and shower She bruised both knees and elbow so ice and elevate Ibuprofen every 6-8 hours WITH FOOD and/or acetaminophen every 4-6 hours as needed for pain control Follow up with orthopedic doctor with any worsening knee or elbow pain Otherwise follow up with your pcp Return sooner with any worsening or concerning symptoms such as fever, worsening swelling/redness, red line going up the leg or arm, etc documented in this encounter Medications at Time [...] by mouth daily. 12 packet 02/17/2019 11/10/2019 documented as of this encounter ED Notes * Senait Arnett RN - 05/21/2019 9:49 PM EDT ED Discharge Nursing Note Pt a/ox3 @ time of discharge. Wound dressings clean/dry/intact. D/c instructions provided to pt andparents. Questions answered. Pt ambulatory with strong/steady gait to WR with parents * Rakel Willis MD - 05/21/2019 8:06 PM EDT ED Course Attestation: I have personally seen and examined the patient and reviewed the PA's findings and plan. As necessary, I have appended the note with my suggestions, comments or clarification to their findings and plan in the note above. This is a shared visit with the PA. The initial history and physical exam information was obtained by Carolyne Demarco Pa-C , who also made a record of this visit. I independently examined and evaluated this patient and made all diagnostic, treatment and disposition decisions. ED nursing notes and pertinent previous records reviewed. ??Pmh, problem list, allergies and home medication list reviewed with pt/family. 14 yr old F here for eval of abrasions.Pt was running outside and fell on pavement. No head injury or LOC. Denies headache, neck pain, dizziness, blurry vision, numbness, tingling or inability to walk. Pt has anxiety, is tearful and anxious upon arrival. She is UTD on imms. Arrives alert, nontoxic. BP (!) 132/84 Pulse 89 Resp 20 Wt 58.1 kg (128 lb) LMP 05/13/2019 SpO2 98% Vital signs reviewed. General appearance - Alert, well appearing, and in no distress. anxious Head - Atraumatic, normocephalic. Eyes - No periorbital redness, tenderness or swelling. EOMI. PERRL. No conjunctival injection or discharge Ears - Ext ear normal. Ear canals normal. Tms normal w/o redness, effusion; +normal landmarks. No hemotympanum Nose - Normal and patent, no erythema, no discharge. Oropharynx - Mucous membranes moist, pharynx normal without lesions. No trismus. Uvula midline, normal. Dental hygiene good, tongue normal and TMJ exam normal, no tenderness. Neck - Supple, normal ROM, nontender. Trachea midline. No significant adenopathy. . Resp/Chest - Clear to auscultation. No wheezes, rales or rhonchi. +symmetric air entry. No tachypnea, retractions or cyanosis. No chest wall tenderness or deformity. Heart - RRR. Heart sounds normal. Cap refill < 2s. Central/distal pulses normal. Abdomen - Soft, nontender, nondistended Back - Normal inspection. Full rom w/o pain. No tenderness. Upper ext - RUE- clavicle, shoulder, upper arm nontender. Abrasion to right posterior elbow w/ mildtenderness, no bony tenderness, FROM. Forearm, wrist nontender, normal ice seller strength, distal NV intact. Lower ext - B/l knees w/ abrasions noted anteriorly w/ mild tenderness, FROM, no joint laxity. Hipsnontender, FROM, ankles nontender, FROM. Distal NV intact. Neuro - Alert, oriented, normal speech, no focal findings noted. Skin - Warm, dry. Normal in color. No rashes. Lymphatic - No significant adenopathy. Psych - Alert and oriented. Anxious affect ED course: 14 yr old w/ elbow and knee abrasions, no head injury. LET applied, ativan for anxiety. Wound care as per procedure note. Wound care instructions given, f/u pcp and return if worse. ED Medication from 05/21/2019 1814 to 05/22/2019 0218 Date/Time Order Dose Route Action Action by Comments 05/21/20192008 qgmlvxeqc-VQICXMLjdgx-kaydtntejw topical solution 1 application Topical Given Senait Arnett RN 05/21/20192007 poweylhqf-BDZZVAVunej-tekbryqfbu topical solution 1 application Topical Given Senait Arnett RN 05/21/20192105 tetanus toxoid-reduced diphth toxoid-acell pertussis (BOOSTRIX,Tdap) IM injection 0.5 mL 0.5 mL Intramuscular Given Senait Arnett RN 05/21/20192105 LORazepam (ATIVAN) tablet 0.5 mg 0.5 mg Oral Given Senait Arnett RN Clinical Impression Final diagnoses: Abrasion of right knee, initial encounter Abrasion of left knee, initial encounter Abrasion of right elbow, initial encounter Pt seen and examined by me with Carolyne Demarco PA-C. Rakel Willis MD 05/22/19218 * Carolyne Demarco PA-C - 05/21/2019 7:58 PM EDT Chief Complaint Patient presents with ??? Laceration HPI: Raine Taylor is a 14 y.o. female presents to the ED today with bilateral knee and R elbow abrasions. Pt tripped and fell. No LOC. No LOYD, neck pain, back pain, CP, N/V/D. Ambulating well withno bony pain. Parents reports tetanus is NOT up to date. Past Medical History: No past medical history on file. Medications: No current facility-administered medications for this encounter. Current Outpatient Medications Medication Sig Dispense Refill Last Dispense ??? adapalene (DIFFERIN) 0.3 % gel Apply a pea sized amount to face at night. Start every third night and increase to nightly as tolerated. 60 g 11 Unknown (outside pharmacy) ??? albuterol 90 mcg/actuation inhaler INHALE 1 PUFF INTO THE LUNGS EVERY 6 (SIX) HOURS NEEDED FOR WHEEZING. 8.5 Inhaler 1 Unknown (outside pharmacy) ??? clindamycin-benzoyl peroxide ER (DUAC) gel Apply to face QAM 45 g 3 Unknown (outside pharmacy) ??? desogestrel-ethinyl estradiol (APRI) 0.15-0.03 mg per tablet Take 1 tablet by mouth daily. 12 packet 0 Unknown (outside pharmacy) Allergies: Allergies Allergen Reactions ??? Milk Containing Products Social History: lives at home with parents Family History: non contributory Surgical History: No past surgical history on file. ROS: Constitional: Negative for lethargy Ophthalmic: Negative for visual changes Gastrointestinal: Negative for nausea, vomiting Musculoskeletal: Negative for neck pain, back pain Neurological: Negative for headache, mental status change, numbness, tingling Skin: Positive for bilateral knee and R elbow abrasions. Negative for rash, pruritis, lesions All other systems reviewed are negative except as noted above BP (!) 132/84 Pulse 89 Resp 20 Wt 58.1 kg (128 lb) LMP 05/13/2019 SpO2 98% Physical Exam: GENERAL: Well-developed, alert & oriented x 3, no distress HEAD: normocephalic, atraumatic EYES: PERRL, EOMI, normal sclera and conjunctiva ENT: Bilateral TM's and external canals normal appearing. Nares patent without bleeding. Oropharynxnormal appearing. Moist Mucous membranes NECK: No tenderness to palpation, FROM BACK: No tenderness, FROM EXTREMITIES: abrasions to bilateral knees overlying patella with TTP, mild edema, and light ecchymosis but pt denies bony tenderness. Strong distal pedal pulse with brisk cap refill. Decrease in kneeflexion due to pain. R elbow with 2 circular abrasions and surrounding edema and light ecchymosis with TTP. FROM of elbow, strong distal ice seller with strong radial and ulnar pulses with brisk cap refill. NEUROLOGIC: GCS 15, speech and gait normal, no focal deficits SKIN: Warm & Dry, no rashes, no bruising I have reviewed the ED nursing notes and prior records. ED Course: 14 yo F p/w knee and elbow abrasions s/p fall. Afebrile, mildly hypertensive with otherwise stable VS and non toxic appearing. abrasions to bilateral knees overlying patella with TTP, mildedema, and light ecchymosis but pt denies bony tenderness. Strong distal pedal pulse with brisk caprefill. Decrease in knee flexion due to pain. R elbow with 2 circular abrasions and surrounding edema and light ecchymosis with TTP. FROM of elbow, strong distal ice seller with strong radial and ulnar pulses with brisk cap refill. LET applied. Abrasions thoroughly irrigated and cleaned. Bacitracin applied. DC home to f/u with pcp and return sooner if worse. Diagnosis: knee abrasions, elbow abrasions Disposition: DC home Condition: Improved Carolyne Demarco PA-C 05/22/19 0137 * Alexi Abarca RN - 05/21/2019 6:37 PM EDT Pt tripped and fell onto pavement abrasions and laceration to right knee. Abrasions noted to right elbow. Pt Td not UTD. documented in this encounter Plan of Treatment Upcoming Encounters Date Type Department Care Team (Late st Contact Info) Description 12/15/2024 9:00 AM EDT Telemedicine [facility] [address] [place] [address] Yamileth Wagner, STABLE HAND [address] [facility], [place] [address] [email or web address] 06/11/2025 1:40 PM EDT Office Visit [facility] Nikole Harry [address] [place] [address] Bernard Yamilethluh Harrison, STABLE HAND [address] [place] [address] [email or web address] documented as of this encounter Visit Diagnoses Diagnosis Abrasion of right knee, initial encounter- Primary Abrasion of left knee, initial encounter Abrasion of right elbow, initial encounter documented in this encounter Administered Medications Inactive Administered Medications - up to 3 most recent administrations Medication Order MAR Action Action Date Dose Rate Site oeuasepfd-ZCQPKRRjjvn-sotda shiv topical solution Topical, Once, On Sun05/21/19 at 1999, For 1 dose, Apply to lac For TOPICAL Use Only Given 05/21/2019 8:09 PM EDT 1 application. erjyxckjf-UASXFWLmmmn-cvsax shiv topical solution Topical, Once, On Sun05/21/19 at 1999, For 1 dose, Apply to lac For TOPICAL Use Only Given 05/21/2019 8:08 PM EDT 1 application. LORazepam (ATIVAN) tablet 0.5 mg 0.5 mg, Oral, Once, On Sun05/21/19 at 2100, For 1 dose Given 05/21/2019 9:06 PM EDT 0.5 mg documented in this encounter Active and Recently Administered Medications Times are shown in EDT. Scheduled Medication Order 05/19/2019 05/20/2019 05/21/2019 pmxnzngbw-FSWRTDRvosm-vqrcgjqbon topical solution (COMPLETED) Topical, Once, On Sun05/21/19 at 1999, For 1 dose, Apply to lac For TOPICAL Use Only 2008 (Given - Provid er: Senait Arnett RN) vjphcaxad-QFGRQMMbjgh-bpkmbylvhw topical solution (COMPLETED) Topical, Once, On Sun05/21/19 at 1999, For 1 dose, Apply to lac For TOPICAL Use Only 2007 (Given - Provid er: Senait Arnett RN) LORazepam (ATIVAN) tablet 0.5 mg (COMPLETED) 0.5 mg, Oral, Once, On Sun05/21/19 at 2100, For 1 dose 6 (Given - Provid er: Senait Arnett RN) documented in this encounter Additional Health Concerns Assessment Noted Time PHQ-9 Depression Total Score: 4 02/18/20 19 12:00 PM EDT documented as of this encounter Care Teams Barn Hand Relationship Specialty Start Date End Date Yamileth Wagner, STABLE HAND [address] [place] [id number] [email or web address] PCP - General Family Medicine 06/28/17 documented as of this encounter Additional Source Comments The information contained in this document represents components of the legal health record. It is not the complete legal health record.[facility]
--- OUTSIDE RECORDS SUMMARY | 2024-08-23 23:23 | XMS_ITS | Encounter Summary ---
Author Organization [facility] Address [phone] [facility] [place] [place] [address] Care Team Providers Care Case Operator Name Role Phone Yamileth Wagner CNP Primary Care Provider Reason for Visit * Reason Comments Follow-up Encounter Details Date Type Department Care Team ([facility] st Contact Info) Description 02/17/2019 10:40 AM EDT Office Visit [facility] [address] [place] [address] Yamileth Wagner, SHOER [address] [place] [address] [email or web address] Depressed mood (Primary Dx); Dysmenorrhea Social History Tobacco Use Types Packs/Day [...] Reading Time Taken Comments Blood Pressure 110/60 02/17/2019 10:36 AM EDT Pulse 77 02/17/2019 10:36 AM EDT Temperature - - Respiratory Rate - - Oxygen Saturation 98% 02/17/2019 10:36 AM EDT Inhaled Oxygen Concentration - - Weight 62.1 kg (137 lb) 02/17/2019 10:36 AM EDT Height - - Body Mass Index - - documented in this encounter Progress Notes * Yamileth Wagner, SHOER - 02/17/2019 10:40 AM EDT Pt presents for acute visit with mom to discuss recent neuropsych eval and OCPs for period regulation More than half of this 25 min visit was spent counseling HPI Saw neuropsych Sent me the overview which states they think this is more anxiety than ADHD They are hoping that the ADHD will resolve once the anxiety is treated Discussed the anxiety with patient and mom and obtained the following hx: How affecting life - Daily, 50% of waking hours, feel anxious - Anxious, worrying about everything, breathing irregular, hot, starts shaking, leave and walk awayor break down - Happens easily anxiety attacks - Can start with something small, feels really overwhelmed - Smaller anxiety attacks almost daily Tried - Therapy - Working with therapist on CBT - Journalling - Coping mechanism - Helps but in the moment hard to step out of that - Breathing methods Sleeps well Good appetite No self harm, no suicidal thoughts No hospitalizations No drugs, alcohol or sexual activity Relationships with peers -was having some trouble, switched peer groups a few times - feels this is in a better place now - excited to go to camp - no bullying Relationships at home - A little anxious around mom bc of mom's anxiety but does feel close to her - Gets along well with dad School performance: good mostly B's Menstruation issues Resolved completely on OCP which was started for this and for acne On 0.03 E2 Mom concerned about mood changes on this dose and wanted to lower it I called this in but they have not filled it yet Vitals: 02/17/19 1036 BP: 110/60 Pulse: 77 SpO2: 98% Current Outpatient Medications: ??? adapalene (DIFFERIN) 0.3 % gel, Apply a pea sized amount to face at night. Start every third night and increase to nightly as tolerated., Disp: 60 g, Rfl: 11, Last Dispense: Unknown (outside pharmacy) ??? albuterol (VENTOLIN HFA) 90 mcg/actuation inhaler, Inhale 1 puff into the lungs every 6 (six) hours as needed for wheezing., Disp: 18 Inhaler, Rfl: 1, Last Dispense: Unknown (outside pharmacy) ??? APRI 0.15-0.03 mg per tablet, TAKE 1 TABLET BY MOUTH EVERY DAY, Disp: 84 tablet, Rfl: 3, Last Dispense: Unknown (outside pharmacy) ??? clindamycin-benzoyl peroxide ER (DUAC) gel, Apply to face QAM, Disp: 45 g, Rfl: 3, Last Dispense: Unknown (outside pharmacy) ??? norgestimate-ethinyl estradiol (ORTHO TRI-CYCLEN LO) 0.18/0.215/0.25 mg-25 mcg Tab, Take 1 tablet by mouth daily., Disp: 3 packet, Rfl: 2, Last Dispense: Unknown (outside pharmacy) Patient Active Problem List Diagnosis ??? Acne vulgaris ??? Unimmunized ??? Dysmenorrhea ??? Pain in joint of right shoulder ??? Depressed mood PE Well appearing, well dressed/groomed, pleasant, cooperative NAD. Makes good eye contact. Speech is normal in tone and is non -pressured, non-tangential and easily followed. Affect is full. Insight is good. There is no suicidal or homicidal intentions. Thought process appears clear and non-delusional. ? Generalized Anxiety Disorder Scale 02/17/2019 SHE-7 Total Score 17 PHQ Depression Screening Score 02/17/2019 PHQ-9 Total Score 4 A/p Anxiety/ADD Strongly positive SHE score Long discussion This is clearly affecting her QOL pretty significantly Doing VERY well with therapy and working on building resiliency tools Would probably also benefit from meds considering the significant impact on her life Leaving for camp in 6 days Reasonable to start something at home now at low dose Would consider inc when parents viist at 3 weeks juan Reviewed choices Rec start with Sertraline 25mg Can go up to 50mg at 3 weeks -risks/benefits/side effects of SSRI medication class were discused including risk of : nausea, wt gain or loss, rare suicidal thoughts, increased risk of bleeding, insomnia or sedation, possible drug interactions, anxiety, agitation, discontinuation. pt expressed understanding and wishes to proceed w/ tx. Dysmenorrhea rec holding on dose switch until anxiety better controlled with medication given the effectiveness of this dose on period regulation and skin F/u here in 6 weeks for further titration Red flags reviewed Pt to return to office or call if sx worsen or do not improve Pt agreed with plan documented in this encounter Plan of Treatment Upcoming Encounters Date Type Department Care Team (Late st Contact Info) Description 12/15/2024 9:00 AM EDT Telemedicine [facility] Nikole Harry [address] [place] [address] Yamileth Wagner, BETTE [address] [facility], [place] [address] 06/11/2025 1:40 PM EDT Office Visit [facility] Nikole Harry [address] [place] [place] [address] Yamileth Wagner CNP [address] [place] [address] documented as of this encounter Visit Diagnoses Diagnosis Depressed mood- Primary Dysmenorrhea documented in this encounter Additional Health Concerns Assessment Noted Time PHQ-9 Depression Total Score: 4 02/18/20 19 12:00 PM EDT documented as of this encounter Care Teams Case Operator Relationship Specialty Start Date End Date Yamileth Wagner [place] [address] PCP - General Family Medicine 06/28/17 documented as of this encounter Additional Source Comments The information contained in this document represents components of the legal health record. It is not the complete legal health record.[facility]
--- OUTSIDE RECORDS SUMMARY | 2024-08-23 23:23 | XMS_ITS | Encounter Summary ---
Author Organization [facility] Address [phone] [facility] [place] [address] Care Team Providers Care Solar Photovoltaic Systems Engineer Name Role Phone Yamileth Wagner WEIGHT CONTROL LECTURER Primary Care Provider Armando Elkins Unavailable [email or web address] Reason for Visit * Reason Comments Medication Refill Encounter Details Date Type Department Care Team (Late st Contact Info) Description 04/28/2019 Refill [facility] [address] [place] [address] Yamileth Wagner, WEIGHT CONTROL LECTURER [address] [place] [address] [email or web address] Medication Refill Social History Tobacco Use Types [...] encounter Progress Notes * Marisa Kramer - 04/28/2019 9:01 AM EDT Requesting albuterol to [facility] Last OV 02/17/2019 Next OV 11/10/2019 SS documented in this encounter Plan of Treatment Upcoming Encounters Date Type Department Care Team (Late st Contact Info) Description 12/15/2024 9:00 AM EDT Telemedicine [facility] Nikole Harry [address] [facility] [place] [address] Yamileth Wagner, BETTE [address] [place] [address] [email or web address] 06/11/2025 1:40 PM EDT [facility] Nikole Harry [address] [facility] [place] [address] Yamileth Wagner, BETTE [address] [place] [address] [email or web address] documented as of this encounter Visit Diagnoses Not on filedocumented in this encounter Additional Health Concerns Assessment Noted Time PHQ-9 Depression Total Score: 4 02/18/20 19 12:00 PM EDT documented as of this encounter Care Teams Solar Photovoltaic Systems Engineer Relationship Specialty Start Date End Date Yamileth Wagner CNP [address] [place] [address] [email or web address] PCP - General Family Medicine 06/28/17 Armando Elkins [address] [facility], [place] [address] [email or web address] 04/22/19 05/08/19 documented as of this encounter Additional Source Comments The information contained in this document represents components of the legal health record. It is not the complete legal health record.[facility]
--- OUTSIDE RECORDS SUMMARY | 2024-08-23 23:23 | XMS_ITS | Encounter Summary ---
Author Organization [facility] Address [phone] [facility] [place] [address] [place] [address] Care Team Providers Care Die Developer Name Role Phone Yamileth Wagner CNP Primary Care Provider Encounter Details Date Type Department Care Team (Late st Contact Info) Description 07/11/2019 Orders Only Orthopedics [address] [address] Jose L Joaquin MD [address] [place] [address] [email or web address] Shoulder pain (Primary Dx); Right shoulder pain Social History Tobacco Use Types Packs/Day [...] Info) Description 12/15/2024 9:00 AM EDT Telemedicine [facility] [address] [place] [address] Yamileth Wagner CNP [address] [place] [address] 06/11/2025 1:40 PM EDT Office Visit [facility] [address] [place] [address] Yamileth Wagner, BETTE [address] [place] [address] [email or web address] documented as of this encounter Visit Diagnoses Diagnosis Shoulder pain- Primary Pain in joint, shoulder region Right shoulder pain Pain in joint, shoulder region documented in this encounter Additional Health Concerns Assessment Noted Time PHQ-9 Depression Total Score: 4 02/18/20 19 12:00 PM EDT documented as of this encounter Care Teams Die Developer Relationship Specialty Start Date End Date Yamileth Wagner, BETTE [address] [place] [address] [email or web address] PCP - General Family Medicine 06/28/17 documented as of this encounter Additional Source Comments The information contained in this document represents components of the legal health record. It is not the complete legal health record.[facility]
--- OUTSIDE RECORDS SUMMARY | 2024-08-23 23:23 | XMS_ITS | Encounter Summary ---
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 Operator Name Role Phone Yamileth Wagner CNP Primary Care Provider Reason for Visit * Reason Comments Shoulder Pain bilateral * Consultation (Routine) - Closed Specialty Diagnoses / Procedures Referred By Kan montejo Referred To Contact Sports Medicine / Orthopaedic Surgery Diagnoses rt shoulder XRAY 1st km injured swimming has had PT [facility] SHOULD BE IN EFFECT 07/11/19 WILL CALL IN WITH ID NUMBER km Procedures NEW PATIENT Yamileth Wagner, GUN REPAIR CLERK [address] [place] [address] Email: [email or web address] Jose L Joaquin MD [address] [place] [address] Email: [email or web address] Referral ID Status Reason Start Date Expiration Date Visits Re quested Visits Authorized [id number] Closed 07/24/2019 07/20/2020 6 6 Encounter Details Date Type Department Care Team (Late st Contact Info) Description 07/24/2019 3:30 PM EST Office Visit Orthopedics [address] [address] Jose L Joaquin MD [address] [place] [address] [email or web address] Instability of both shoulder joints (Primary Dx) Social History Tobacco Use Types [...] Sign Reading Time Taken Comments Blood Pressure 114/78 07/24/2019 3:38 PM EST Pulse 128 07/24/2019 3:38 PM EST Temperature - - Respiratory Rate - - Oxygen Saturation - - Inhaled Oxygen Concentration - - Weight 59 kg (130 lb) 07/24/2019 3:38 PM EST Height 165.1 cm (5' 5) 07/24/2019 3:38 PM EST Body Mass Index 21.63 07/24/2019 3:38 PM EST Body Mass Index Percentile 61.66% 07/24/2019 3:3 8 PM EST Growth Chart: [facility] (Girls, 2- 20 Years) documented in this encounter Progress Notes * Jose L Joaquin MD - 07/24/2019 3:30 PM EST History: The patient is a 14 y.o. female presenting with bilateral shoulder pain, right greater than left. She is accompanied by her mother. The patient reports bilateral shoulder pain for approximately three years. She was a swimmer but had to stop due to shoulder pain. 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 The patient reports sharp, aching, dull, and burning shoulder pain that radiates to her upper arm andelbow. She reports tingling in her upper arm and elbow. The patient reports pain at a 3-4/10 in herright shoulder and 2/10 in her left shoulder. She reports increased pain with reaching overhead, infront, behind her back, and across her body. She reports loss of motion, weakness, and feeling of looseness. She reports difficulty sleeping. The patient states that she has decreased ability to participate in activities, including swimming, rowing, and working out. Past medical history, review of systems and health assessment was reviewed today with the patient. ? Physical Examination: Bilateral shoulder: There is no AC or SC joint tenderness. There is forward flexion to 160 degrees, abduction to 160 degrees, external rotation of 40 degrees and internal rotation to L1. There is tenderness along the bicipital groove. There is no greater tuberosity tenderness.Supraspinatus strength is intact. Subscapularis strength is intact. External rotation strength is intact. There is a positive Speed and positive Enid test. There is no glenohumeral crepitus. Thereis no pain with neck motion. There is normal sensation to light touch. There are normal pulses. Positive posterior apprehension and subluxing shoulder posteriorly. Positive sulcus bilaterally. ? Imaging: The x-ray taken today at [facility] with 6 views of the bilateral shoulder demonstrates normal bony alignment with no evidence of soft tissue or osseous lesions, no evidence of fracture, no evidence of osteoarthritis. ? Impression: Bilateral multi-directional shoulder instability ? Plan: The clinical findings were discussed with the patient, which demonstrate bilateral multi-directional shoulder instability. The radiographic images were discussed, which demonstrate normal bony alignment with no evidence of soft tissue or osseous lesions, no evidence of fracture, no evidence of osteoarthritis. We discussed treatment options including obtaining an MR arthrogram to evaluate for capsular laxity and labral tearing as well as returning to physical therapy for a strengthening program. I recommend she begin physical therapy, and the patient was given a prescription for physicaltherapy during today's visit. If her symptoms fail to improve, an MR arthrogram would be indicated and patient will call the office. All of the patient's and her mother's questions were answered. ? Jose L Joaquin MD ? ?By signing my name, I, Immanuel Eduardo, attest that this documentation has been prepared under the direction and in the presence of Jose L Joaquin MD. ? Cc: Yamileth Wagner CNP documented in this encounter Plan of Treatment Upcoming Encounters Date Type Department Care Team (Late st Contact Info) Description 12/15/2024 9:00 AM EDT Telemedicine [facility] [address] [place] [address] Yamileth Wagner CNP [address] [place] [address] 06/11/2025 1:40 PM EDT [facility] [address] [place] [address] Yamileth Wagner CNP [address], [place] [address] [email or web address] documented as of this encounter Visit Diagnoses Diagnosis Instability of both shoulder joints- Primary documented in this encounter Additional Health Concerns Assessment Noted Time PHQ-9 Depression Total Score: 4 02/18/20 19 12:00 PM EDT documented as of this encounter Care Teams Stripping And Booking Machine Operator Relationship Specialty Start Date End Date Yamileth Wagner CNP [address] [place] [address] [email or web address] PCP - General Family Medicine 06/28/17 documented as of this encounter Additional Source Comments The information contained in this document represents components of the legal health record. It is not the complete legal health record.[facility]
--- OUTSIDE RECORDS SUMMARY | 2024-08-23 23:23 | XMS_ITS | Encounter Summary ---
Author Organization [facility] Address [phone] [facility] [place] [address] Care Team Providers Care Puller Over Name Role Phone BernardYamileth yan Hunter AMOS Primary Care Provider Reason for Visit * Reason Comments Flank Pain Encounter Details Date Type Department Care Team ([facility] Contact Info) Description 09/01/2019 11:23 AM EST - 09/01/2019 2:34 PM EST Emergency [facility] EM[facility] [address] [place] [address] Janet Abdi MD [address] [place] [address] [email or web address] Discharge Disposition: Home or Self Care Social [...] Sign Reading Time Taken Comments Blood Pressure 104/59 09/01/2019 2:04 PM EST Pulse 67 09/01/2019 2:04 PM EST Temperature 37.1 ??C (98.7 ??F) 09/01/2019 2:04 PM ES T Respiratory Rate 18 09/01/2019 2:04 PM EST Oxygen Saturation 100% 09/01/2019 2:04 PM EST Inhaled Oxygen Concentration - - Weight - - Height - - Body Mass Index - - documented in this encounter Discharge Instructions * Discharge Instructions* aJnet Abdi MD - 09/01/2019 1:59 PM EST Raine was seen in the emergency department for pain with urination and back pain. She does have a urinary tract infection. The labs were reassuring. The ultrasound was reassuring She received a dose of IV antibiotics (ceftriaxone) that lasts for 24 hours. Please start antibiotics tomorrow and take for 10 days. Please encourage fluids. Please seek further care for fever, not drinking, blood in urine, abdominal pain, other concerns. Us Kidneys And Bladder Result Date: 09/01/2019 US KIDNEYS AND BLADDER TECHNIQUE: Ultrasound evaluation of the KIDNEYS AND BLADDER. Volumetric sweeps were obtained and reviewed. FINDINGS: RIGHT KIDNEY: The right kidney measures 11.5 cm. Parenchymais within normal limits. No urinary tract dilation. LEFT KIDNEY: The left kidney measures 10.7 cm. Parenchyma is within normal limits. No urinary tract dilation. BLADDER: Unremarkable. Normal examination. Results for orders placed or performed during the hospital encounter of 09/01/19 HCG, urine Result Value Ref Range URINE TEST Negative Negative Urinalysis w/reflex Urine Culture Result Value Ref Range COLOR Yellow Yellow CLARITY SLIGHTLY CLOUDY (*) Clear SPECIFIC GRAVITY 1.012 1.001 - 1.030 BLOOD 1+ (*) Negative BILI Negative Negative KETONES Trace (*) Negative GLUCOSE Negative Negative URINE PROTEIN 1+ (*) Negative PH 5.0 5 - 8 Leukocyte esterase, ur 2+ (*) Negative NITRITE Negative Negative UROBILINOGEN Negative Negative RBC 32 (H) 0 - 3 /hpf WBC 73 (H) 0 - 9 /hpf BACTERIA Few (*) NONE SEEN /hpf SQUAMOUS CELLS 2 0 - 4 /hpf CBC and differential Result Value Ref Range WBC 8.63 4.5 - 13.5 K/uL RBC 4.41 4.1 - 5.1 M/uL HGB 12.7 12.0 - 16.0 g/dL HCT 39.0 36 - 46 % PLT 278 135 - 400 K/uL MCV 88.4 78 - 102 fL MCH 28.8 27 - 34 pg MCHC 32.6 31.5 - 36.5 g/dL RDW 13.5 11.9 - 14.8 % MPV 9.6 9.6 - 12 fl NRBC 0.00 0 /100 WBCs DIFF METHOD Auto NEUTS 74.9 % LYMPHS 19.7 % MONOS 4.8 % EOS 0.3 % BASOS 0.1 % Granulocytes, immature (%) 0.2 % ABSOLUTE NEUTS 6.46 1.8 - 8 K/uL ABSOLUTE LYMPHS 1.70 1.5 - 6.5 K/uL ABSOLUTE MONOS 0.41 0.1 - 0.9 K/uL ABSOLUTE EOS 0.03 0 - 0.4 K/uL ABSOLUTE BASOS 0.01 0 - 0.2 K/uL Granulocytes, immature 0.02 0 - 0.03 K/uL Basic metabolic panel Result Value Ref Range SODIUM 143 136 - 145 mmol/L CHLORIDE 106 95 - 106 mmol/L POTASSIUM 3.8 3.5 - 5.2 mmol/L CO2 25 20 - 31 mmol/L BUN 6 (L) 9 - 23 mg/dL CREATININE 0.64 0.50 - 1.30 mg/dL GLUCOSE 118 (H) 74 - 106 mg/dL CALCIUM 9.3 8.7 - 10.4 mg/dL EGFR >60 mL/min/1.73m2 Estimated GFR not calculated for patients <18 years old. ANION GAP 12 3 - 17 mmol/L * Attachments The following attachments cannot be sent through Care Everywhere. * Pyelonephritis: Pediatric ([place]) documented in this encounter Medications at Time [...] 11/10/2019 FLUoxetine (PROZAC) 20 MG capsule Take by mouth daily. 0 07/02/2019 09/22/2019 cefpodoxime (VANTIN) 200 MG tablet Take 1 tablet (200 mg total) by mouth 2 (two) times a day for 10 days. 20 tablet 09/01/2019 09/11/2019 FLUoxetine (PROZAC) 10 MG capsule Take by mouth daily. 0 07/02/2019 09/22/2019 UHC-WV-[id number] 0.18/0.215/0.25 mg-25 mcg Tab Take 1 tablet by mouth daily. 2 06/04/2019 11/03/2019 documented as of this encounter ED Notes * Olivia Tirado RN - 09/01/2019 2:31 PM EST Discharged home with Father. Verbal and written instructions given. All questions answered. Discharged with prescription for antibiotics. Instructions to take medication as ordered. Treat pain/mild fever w/ tylenol/motrin. Follow with PCP. To return to ED for worsening pain/dysuria/hematuria or any other concerns. Pt and parent are able to verbalize understanding of discharge instructions. * Janet Abdi MD - 09/01/2019 11:46 AM EST I have reviewed the ED nursing notes and prior records. I have reviewed the patient's past medical history/problem list, allergies, social history and medication list. HPI: Raine Taylor is an otherwise healthy vaccinated 14 y.o. female sent from urgent care with pain with urination and right flank pain. She developed pain with urination 5 days ago and then mild right sided back pain three days ago. The pain in the back has been persistent and had a temperature of 99 so went to urgent care for evaluation. Her urine dip was positive at urgent care, referred to theED for more evaluation. Denies blood in urine, vomiting, abdominal pain. She is sexually active with one partner, no vaginal pain or discharge. ROS: Pertinent positives were reviewed as per the HPI above. All other systems were reviewed and are negative. Past Medical History/Problem List: Reviewed in chart and discussed with parents Immunizations up to date and reviewed with family Past Medical History: Diagnosis Date ??? Anxiety Patient Active Problem List Diagnosis ??? Acne vulgaris ??? Unimmunized ??? Dysmenorrhea ??? Pain in joint of right shoulder ??? Depressed mood Medications: Current Facility-Administered Medications Medication Dose Route Frequency Provider Last Rate Last Dose ??? cefTRIAXone (ROCEPHIN) 1 g in sodium chloride 0.9% 100 mL IVPB-MBP 1 g Intravenous Once Janet Abdi MD ??? sodium chloride (NS) 0.9 % syringe flush 3 mL 3 mL Intravenous PRN Janet Abdi MD ??? sodium chloride 0.9% bolus 500 mL 500 mL Intravenous Once Janet Abdi MD Current Outpatient Medications Medication Sig Dispense [...] daily. 12 packet 0 Unknown (outside pharmacy) ??? FLUoxetine (PROZAC) 20 MG capsule Take by mouth daily. 0 Unknown (patient-reported) ??? FLUoxetine (PROZAC) 10 MG capsule Take by mouth daily. 0 Unknown (patient-reported) ??? [id number] 0.18/0.215/0.25 mg-25 mcg Tab Take 1 tablet by mouth daily. 2 Unknown (patient-reported) Social History: Lives with family Family History: No relevant family history pertinent to this presentation Allergies: Allergies Allergen Reactions ??? Milk Containing Products Physical Exam: BP 100/59 Pulse 74 Temp 36.8 ??C (98.3 ??F) (Oral) Resp 18 LMP 08/08/2019 SpO2 96% GENERAL: Well-appearing, no distress. SKIN: Warm & Dry, no rash, no bruising. HEAD: Normocephalic, MMM, no oral lesions, full EOM. TM's pearly earl with normal landmarks. NECK: Supple, full ROM. LUNGS: Clear to auscultation bilaterally without rales, rhonchi or wheezing. HEART: RRR, no murmurs, cap refill < 2sec, radial pulses 2+. ABDOMEN: Soft, flat, without distension or masses. Nontender to palpation. No hepatospleenomegaly MUSCULOSKELETAL: Well-perfused extremities. No cyanosis or edema. GENITOURINARY: Does have right CVA tenderness, no left CVA tenderness. Normal external female genitalia. NEUROLOGIC: Normal speech. Alert, face symmetric. Gait normal. Motor function 5/5 bilaterally. Sensation to touch intact throughout. ED Course and Medical Decision-making: The patient is a 14 y.o. female with dysuria and right CVA tenderness consistent with pyelonephritis. Plan for labs including CBC, kidney function, ultrasound and dose of IV antibiotics. Labs with normal electrolytes, WBC 8.6, HCT 39, platelets 278, normal differential, HCG negative, UA with 73 WBC/32RBC, urine culture pending. Labs consistent with UTI. Ultrasound with normal kidneys. Patient given dose of ceftriaxone with plan for 10 day course of cefpodoxime. Repeat vitals with no fever, HR 67, BP 104/59, RR 18, saturation 100% in RA. Patient well appearing, eating/drinking. Discharged home after discussing when to seek further care. Results for orders placed or performed during the hospital encounter of 09/01/19 HCG, urine Result Value Ref Range URINE TEST Negative Negative Urinalysis w/reflex Urine Culture Result Value Ref Range COLOR Yellow Yellow CLARITY SLIGHTLY CLOUDY (*) Clear SPECIFIC GRAVITY 1.012 1.001 - 1.030 BLOOD 1+ (*) Negative BILI Negative Negative KETONES Trace (*) Negative GLUCOSE Negative Negative URINE PROTEIN 1+ (*) Negative PH 5.0 5 - 8 Leukocyte esterase, ur 2+ (*) Negative NITRITE Negative Negative UROBILINOGEN Negative Negative RBC 32 (H) 0 - 3 /hpf WBC 73 (H) 0 - 9 /hpf BACTERIA Few (*) NONE SEEN /hpf SQUAMOUS CELLS 2 0 - 4 /hpf CBC and differential Result Value Ref Range WBC 8.63 4.5 - 13.5 K/uL RBC 4.41 4.1 - 5.1 M/uL HGB 12.7 12.0 - 16.0 g/dL HCT 39.0 36 - 46 % PLT 278 135 - 400 K/uL MCV 88.4 78 - 102 fL MCH 28.8 27 - 34 pg MCHC 32.6 31.5 - 36.5 g/dL RDW 13.5 11.9 - 14.8 % MPV 9.6 9.6 - 12 fl NRBC 0.00 0 /100 WBCs DIFF METHOD Auto NEUTS 74.9 % LYMPHS 19.7 % MONOS 4.8 % EOS 0.3 % BASOS 0.1 % Granulocytes, immature (%) 0.2 % ABSOLUTE NEUTS 6.46 1.8 - 8 K/uL ABSOLUTE LYMPHS 1.70 1.5 - 6.5 K/uL ABSOLUTE MONOS 0.41 0.1 - 0.9 K/uL ABSOLUTE EOS 0.03 0 - 0.4 K/uL ABSOLUTE BASOS 0.01 0 - 0.2 K/uL Granulocytes, immature 0.02 0 - 0.03 K/uL Basic metabolic panel Result Value Ref Range SODIUM 143 136 - 145 mmol/L CHLORIDE 106 95 - 106 mmol/L POTASSIUM 3.8 3.5 - 5.2 mmol/L CO2 25 20 - 31 mmol/L BUN 6 (L) 9 - 23 mg/dL CREATININE 0.64 0.50 - 1.30 mg/dL GLUCOSE 118 (H) 74 - 106 mg/dL CALCIUM 9.3 8.7 - 10.4 mg/dL EGFR >60 mL/min/1.73m2 Estimated GFR not calculated for patients <18 years old. ANION GAP 12 3 - 17 mmol/L Us Kidneys And Bladder Result Date: 09/01/2019 US KIDNEYS AND BLADDER TECHNIQUE: Ultrasound evaluation of the KIDNEYS AND BLADDER. Volumetric sweeps were obtained and reviewed. FINDINGS: RIGHT KIDNEY: The right kidney measures 11.5 cm. Parenchymais within normal limits. No urinary tract dilation. LEFT KIDNEY: The left kidney measures 10.7 cm. Parenchyma is within normal limits. No urinary tract dilation. BLADDER: Unremarkable. Normal examination. Reasons to return to the ED were reviewed in detail. The patient agrees with this plan and disposition. Disposition: Home Condition on Discharge: Stable Diagnosis/Diagnoses: 1. Pyelonephritis MD Janet Salazar MD 09/01/19 1419 * Elsie Vazquez, RN - 09/01/2019 11:15 AM EST Pt sent here from [facility] for eval of rt flank pain x couple of days and uti sx., No fever, or hematuria documented in this encounter Plan of Treatment Upcoming Encounters Date Type Department Care Team (Late st Contact Info) Description 12/15/2024 9:00 AM EDT [facility] [address] [place] [place] [address] Yamileth Wagner, COMPUTING ARCHITECT [address] [place] [address] 06/11/2025 1:40 PM EDT Office Visit [facility] [address] [facility] [address] Yamileth Wagner, COMPUTING ARCHITECT [address] [place] [address] [email or web address] documented as of this encounter Procedures Procedure Name Priority Date/Time Associated Diagnosis Comments CHLAMYDIA TRACHOMATIS AND NEISSERIA GONORRHOEAE NUCLEIC ACID DETECTION STAT 09/01/2019 2:20 PM EST US KIDNEYS AND BLADDER Routine 09/01/2019 1:36 PM EST CBC AND DIFFERENTIAL STAT 09/01/2019 12:14 PM EST BASIC METABOLIC PANEL STAT 09/01/2019 12:14 PM EST URINALYSIS W/REFLEX URINE CULTURE STAT 09/01/2019 11:30 AM EST URINE CULTURE STAT 09/01/2019 11:30 AM EST URINE HCG STAT 09/01/2019 11:30 AM EST documented in this encounter Results * Chlamydia Trachomatis and Neisseria Gonorrhoeae Nucleic Acid Detection (09/01/2019 2:20 PM EST) Specimen Type URINE [facility] C.TRACHOMATIS, AMP Negative Negative [facility] N.Gonorrhoeae, AMP Negative Negative [facility] Urine (Urine) 09/01/2019 2:2 0 PM EST 09/01/2019 2:33 PM EST Janet Abdi MD NON CULTURE [place] CROBIOLOGY Performing Organization Address City/State/[facility] Co de Phone Number [place] [phone] * US Kidneys and Bladder (09/01/2019 1:36 PM EST) Anatomical Region Laterality Modality Abdomen, Kidney Ultrasound 09/01/2019 1:50 PM EST Impressions 09/01/2019 1:50 PM EST Normal examination. Narrative 09/01/2019 1:50 PM EST US KIDNEYS AND BLADDER TECHNIQUE: Ultrasound evaluation of the KIDNEYS AND BLADDER. Volumetric sweeps were obtained and reviewed. FINDINGS: RIGHT KIDNEY: ??The right kidney measures 11.5 cm. ??Parenchyma is within normal limits. ??No urinary tract dilation. LEFT KIDNEY: ??The left kidney measures 10.7 cm. ??Parenchyma is within normal limits. ??No urinary tract dilation. BLADDER: ??Unremarkable. Procedure Note Diane Howard MD - 09/01/2019 US KIDNEYS AND BLADDER TECHNIQUE: Ultrasound evaluation of the KIDNEYS AND BLADDER. Volumetric sweeps were obtained and reviewed. FINDINGS: RIGHT KIDNEY: The right kidney measures 11.5 cm. Parenchyma is withinnormal limits. No urinary tract dilation. LEFT KIDNEY: The left kidney measures 10.7 cm. Parenchyma is withinnormal limits. No urinary tract dilation. BLADDER: Unremarkable. IMPRESSION: Normal examination. Janet Abdi MD IM US RENAL * (ABNORMAL) Basic metabolic panel (09/01/2019 12:14 PM EST) SODIUM 143 136 - 145 mmol/L [facility] CHLORIDE 106 95 - 106 mmol/L [facility] POTASSIUM 3.8 3.5 - 5.2 mmol/L [facility] CO2 25 20 - 31 mmol/L [facility] BUN 6(L) 9 - 23 mg/dL [facility] CREATININE 0.64 0.50 - 1.30 mg/dL [facility] GLUCOSE 118(H) 74 - 106 mg/dL [facility] CALCIUM 9.3 8.7 - 10.4 mg/dL [facility] EGFR Estimated GFR not calculated for patients <18 years old. >60 mL/min/1. 73m2 [facility] ANION GAP 12 3 - 17 mmol/L [facility] Blood 09/01/2019 12:1 4 PM EST 09/01/2019 12:27 PM EST Janet Abdi MD [facility] Organization Address City/State/ZIP Co de Phone Number [address] [address] * CBC and differential (09/01/2019 12:14 PM EST) WBC 8.63 4.5 - 13.5 K/uL [facility] RBC 4.41 4.1 - 5.1 M/uL [facility] HGB 12.7 12.0 - 16.0 g/dL [facility] HCT 39.0 36 - 46 % [facility] PLT 278 135 - 400 K/uL [facility] MCV 88.4 78 - 102 fL [facility] MCH 28.8 27 - 34 pg [facility] MCHC 32.6 31.5 - 36.5 g/dL [facility] RDW 13.5 11.9 - 14.8 % [facility] MPV 9.6 9.6 - 12 fl [facility] NRBC 0.00 0 /100 WBCs [facility] DIFF METHOD Auto [facility] NEUTS 74.9 % [facility] LYMPHS 19.7 % [facility] MONOS 4.8 % [facility] EOS 0.3 % [facility] BASOS 0.1 % [facility] Granulocytes, immature (%) 0.2 % [facility] ABSOLUTE NEUTS 6.46 1.8 - 8 K/uL [facility] ABSOLUTE LYMPHS 1.70 1.5 - 6.5 K/uL [facility] ABSOLUTE MONOS 0.41 0.1 - 0.9 K/uL [facility] ABSOLUTE EOS 0.03 0 - 0.4 K/uL [facility] ABSOLUTE BASOS 0.01 0 - 0.2 K/uL [facility] Granulocytes, immature 0.02 0 - 0.03 K/uL [facility] Blood 09/01/2019 12:1 4 PM EST 09/01/2019 12:27 PM EST Janet Abdi MD LAB BLOOD ORDE [facility] Performing Organization Address City/[facility] Co de Phone Number [place] [phone] * (ABNORMAL) Urine culture (09/01/2019 11:30 AM EST) Special Requests No Special Requests Reflexed from [id number] 09/01/2019 11:51 AM EST [facility] Urine Culture >100,000 colony forming units per mL MIXED GRAM POSITIVE ORGANISMS(A) 09/03/2019 12:37 PM EST [facility] Urine Culture MIXED ORGANISMS RESEMBLING UROGENITAL BRENT(A) 09/03/2019 12:37 PM EST [facility] Urine 09/01/2019 11:3 0 AM EST 09/01/2019 11:42 AM EST Janet Abdi MD MICROBIOLOGY - GENERAL ORDERABLES Performing Organization Address City/State/[facility] de Phone Number [facility] [address] [place] [address] * (ABNORMAL) Urinalysis w/reflex Urine Culture (09/01/2019 11:30 AM EST) COLOR Yellow Yellow [facility] CLARITY SLIGHTLY CLOUDY(A) Clear [facility] SPECIFIC GRAVITY 1.012 1.001 - 1.030 [facility] BLOOD 1+(A) Negative [facility] BILI Negative Negative [facility] KETONES Trace(A) Negative [facility] GLUCOSE Negative Negative [facility] URINE PROTEIN 1+(A) Negative [facility] PH 5.0 5 - 8 [facility] Leukocyte esterase, ur 2+(A) Negative [facility] NITRITE Negative Negative [facility] UROBILINOGEN Negative Negative [facility] RBC 32(H) 0 - 3 /hpf [facility] WBC 73(H) 0 - 9 /hpf [facility] BACTERIA Few(A) NONE SEEN /hpf [facility] SQUAMOUS CELLS 2 0 - 4 /hpf [facility] Urine (Urine) 09/01/2019 11: 30 AM EST 09/01/2019 11:42 AM EST Janet Abdi MD URINE ORDERABL ES Performing Organization Address [facility] de Phone Number [facility] [address] [place] [address] * HCG, urine (09/01/2019 11:30 AM EST) URINE TEST Negative Negative [facility] Comment:Caution should be us ed when interpreting a negative result from any qualitative b-HCG testing device, correlate clinically. Urine (Urine) 09/01/2019 11: 30 AM EST 09/01/2019 11:42 AM EST Janet Abdi MD URINE ORDERABL ES Performing Organization Address [facility] de Phone Number [facility] [address] [place] [address] documented in this encounter Visit Diagnoses Diagnosis Pyelonephritis- Primary Unspecified pyelonephritis documented in this encounter Administered Medications Inactive Administered Medications - up to 3 most recent administrations Medication Order MAR Action Action Date Dose Rate Site cefTRIAXone (ROCEPHIN) 1 g in sodium chloride 0.9% 100 mL IVPB-MBP 1 g, Intravenous, Once, On Sun09/01/19 at 1200, For 1 dose, This is a Minibag Plus preparation., Indication: Definitive (documented infection), Infection Source: Urinary Tract Infection / Pyelonephritis New Bag 09/01/2019 12:25 PM EST 1 g sodium chloride (NS) 0.9 % syringe flush 3 mL 3 mL, Intravenous, As needed, line care, Starting on Sun09/01/19 at 1145, Per Institutional IV Line Care Policy. sodium chloride 0.9% bolus 500 mL 500 mL, Intravenous, Administer over 30 Minutes, at 1,000 mL/hr, Once, On Sun09/01/19 at 1200, For 1 dose New Bag 09/01/2019 12:17 PM EST 500 mL 1000 mL/hr documented in this encounter Active and Recently Administered Medications Times are shown in EST. Scheduled Medication Order 08/30/2019 08/31/2019 09/01/2019 cefTRIAXone (ROCEPHIN) 1 g in sodium chloride 0.9% 100 mL IVPB-MBP (COMPLETED) 1 g, Intravenous, Once, On Sun09/01/19 at 1200, For 1 dose, This is a Minibag Plus preparation., Indication: Definitive (documented infection), Infection Source: Urinary Tract Infection / Pyelonephritis 1225 (New Bag - Prov ider: Kathi Chan RN)1255 (Stopped - Provider: Kathi Chan RN) sodium chloride 0.9% bolus 500 mL (COMPLETED) 500 mL, Intravenous, Administer over 30 Minutes, at 1,000 mL/hr, Once, On Sun09/01/19 at 1200, For 1 dose 1217 (New Bag - Prov ider: Kathi Chan RN)1405 (Stopped - Provider: Kezia Judge RN) PRN Medication Order 08/30/2019 08/31/2019 09/01/2019 sodium chloride (NS) 0.9 % syringe flush 3 mL 3 mL, Intravenous, As needed, line care, Starting on Sun09/01/19 at 1145, Per Institutional IV Line Care Policy. documented in this encounter Additional Health Concerns Assessment Noted Time PHQ-9 Depression Total Score: 4 02/18/20 19 12:00 PM EDT documented as of this encounter Care Teams Puller Over Relationship Specialty Start Date End Date Yamileth Wagner, COMPUTING ARCHITECT [address] [facility] [place] [address] [email or web address] PCP - General Family Medicine 06/28/17 documented as of this encounter Additional Source Comments The information contained in this document represents components of the legal health record. It is not the complete legal health record.[facility]
--- OUTSIDE RECORDS SUMMARY | 2024-08-23 23:23 | XMS_ITS | Encounter Summary ---
Author Organization [facility] Address [phone] [facility] [employer] [place] [address] Care Team Providers Care Kitman Name Role Phone Yamileth Wagner Hunter AMOS Primary Care Provider Reason for Visit * Reason Onset Date Comments Collaborative Care 05/09/2019 Resource Foll ow Up Encounter Details Date Type Department Care Team (Latest Contact Info) Description 05/09/2019 Patient Outreach [facility] [address] [place] [id number] [email or web address] Collaborative Care (Resource Follow Up) Social History Tobacco Use Types Packs/Day Years Used Date Smoking Tobacco: Never Smokeless Tobacco: Never Alcohol Use Standard Drinks/Week Comments Never 0 (1 standard drink = 0.6 oz pur e alcohol) Sex and Gender Information Value Date Recorded Sex Assigned at Not on file Gender Identity Not on file Sexual Orientation Not on file documented as of this encounter Progress Notes * Armando Elkins - 05/09/2019 1:04 PM EDT Collaborative Care: Resource Follow Up Outreach pt to follow up regarding resources for psychiatry shared on 04/22/2019. Spoke w/ pts motherwho confirmed that pt was able to connect with a colleague of Chinmay Barkley (contact info in note 04/22/2019). This sign writer letterer or painter informed pt that they may contact their PCP's office or this sign writer letterer or painter if any additional information is needed. Armando Elkins M.A., [facility]al Health Wildlife Control Agent Juan [facility] [phone] documented in this encounter Plan of Treatment Upcoming Encounters Date Type Department Care Team (Late st Contact Info) Description 12/15/2024 9:00 AM EDT Telemedicine [facility] Nikole Harry [address] [facility] [place] [address] Yamileth Wagner CNP [address] [facility], [place] [address] 06/11/2025 1:40 PM EDT Office Visit [facility] Nikole Harry [address] [facility] [place] [address] Yamileth Wagner CNP [address] [facility], [place] [address] documented as of this encounter Visit Diagnoses Not on filedocumented in this encounter Additional Health Concerns Assessment Noted Time PHQ-9 Depression Total Score: 4 02/18/20 19 12:00 PM EDT documented as of this encounter Care Teams Kitman Relationship Specialty Start Date End Date Yamileth Wagner [place] [address] PCP - General Family Medicine 06/28/17 documented as of this encounter Additional Source Comments The information contained in this document represents components of the legal health record. It is not the complete legal health record.[facility]
--- OUTSIDE RECORDS SUMMARY | 2024-08-23 23:23 | XMS_ITS | Encounter Summary ---
Author Organization [facility] Address [phone] [facility] [employer] [place] [address] Care Team Providers Care Manual Lathe Machinist Name Role Phone Yamileth Wagner AUTOMATION TESTER Primary Care Provider Reason for Visit * Reason Comments Pyelonephritis Encounter Details Date Type Department Care Team (Late st Contact Info) Description 09/05/2019 2:10 PM EST Office Visit [facility] [address] [place] [address] Yamileth Wagner, AUTOMATION TESTER [address] [place] [address] [email or web address] Acute pyelonephritis (Primary Dx) Social History Tobacco [...] Reading Time Taken Comments Blood Pressure 100/60 09/05/2019 2:11 PM EST Pulse 71 09/05/2019 2:11 PM EST Temperature 36.8 ??C (98.2 ??F) 09/05/2019 2:11 PM ES T Respiratory Rate - - Oxygen Saturation 98% 09/05/2019 2:11 PM EST Inhaled Oxygen Concentration - - Weight 60.7 kg (133 lb 12.8 oz) 09/05/2019 2:11 PM EST Height - - Body Mass Index - - documented in this encounter Progress Notes * Ladarius Kramer - 09/05/2019 2:10 PM ESTAddended by: LADARIUS KRAMER on: 09/05/2019 03:50 PM Modules accepted: Orders * Yamileth Wagner CNP - 09/05/2019 2:10 PM EST Pt presents for acute visit HPI Diagnosed with pyelo 4 days ago Went to [facility] ER Had had 2 days of severe R flank pain with pain with urination (that had been happening for a week or so) Got IV abx and home PO meds Cefpodoxime 200mg tablets BID 10 days Compliant with these Since d/c from ER: Urination improved No fevers since d/c Still having flank pain on the R side though Definitely improved but still there Has not been able to go to school all week due to pain Eating and drinking ok No vaginal or pelvic pain No nausea or vomiting No diarrhea No night sweats or chills Sexually active one partner 8 months, on OCP, condom use always PE WA NAD, smiling and interactive ++ R sided CVA tenderness Abd: NABS, soft, URQ tender to palpation with guarding, ND, no HSM, no rebound tenderness Extremities warm, well perfused A/p Acute pyelo without complete resolution after 5 days abx and IV Non toxic appearing and afebrile But still with significant CVA tenderness Reviewed u/a with seds showed ++WBCs and RBCs However no sensitivity run on sample at lab due to multiple gram+ pathogens identified ? Possible abx mild resistance, will repeat u/a and culture May need gram+ cocci coverage, may need IV abx Rec abd u/s to rule out abscess or obstruction given exam Labs CBC diff, CMP, lipase and amylase Mom and pt agreed with plan Appointment made for u/s They know the red flags and what to watch for They may need to return to ER for IV abx documented in this encounter Plan of Treatment Upcoming Encounters Date Type Department Care Team (Late st Contact Info) Description 12/15/2024 9:00 AM EDT [facility] [address] [place] [address] Yamileth Wagner, AUTOMATION TESTER [address], [place] [facility] [address] [email or web address] 06/11/2025 1:40 PM EDT [facility] [address] [place] [address] Yamileth Wagner, BETTE [address], [place] [address] [email or web address] Scheduled Orders Name Type Priority Associated Diagnoses Orde r Schedule Lab Add On: culture on urine sample - no sensitivity done Lab Routine Acute pyelonephritis Ordered: 09/05/2019 documented as of this encounter Procedures Procedure Name Priority Date/Time Associated Diagnosis Comments POCT URINE DIPSTICK AUTOMATED Routine 09/05/2019 3:50 PM EST Acute pyelonephritis documented in this encounter Results * Amylase (09/05/2019 5:01 PM EST) AMYLASE 78 30 - 118 U/L [facility] Blood 09/05/2019 5:01 PM EST 09/05/2019 5:25 PM EST Yamileth Wagner [facility] LAB BLOOD ORDE RABJUAN R [facility] [address] [place] [address] * Lipase (09/05/2019 5:01 PM EST) LIPASE 34 6 - 51 U/L [facility] Blood 09/05/2019 5:01 PM EST 09/05/2019 5:25 PM EST Yamileth Wagner [facility] LAB BLOOD ORDE RABLES [facility] [address] [place] [address] * Comprehensive metabolic panel (09/05/2019 5:01 PM EST) SODIUM 140 136 - 145 mmol/L [facility] POTASSIUM 3.8 3.5 - 5.2 mmol/L [facility] CHLORIDE 102 95 - 106 mmol/L [facility] CO2 27 20 - 31 mmol/L [facility] BUN 10 9 - 23 mg/dL [facility] CREATININE 0.64 0.50 - 1.30 mg/dL [facility] GLUCOSE 77 74 - 106 mg/dL [facility] ALBUMIN 4.1 3.5 - 4.8 g/dL [facility] TOTAL PROTEIN 7.6 5.7 - 8.2 g/dL [facility] CALCIUM 9.4 8.7 - 10.4 mg/dL [facility] ALKALINE PHOSPHATASE 68 27 - 129 U/L [facility] TOTAL BILIRUBIN <0.2 0.0 - 1.0 mg/dL [facility] AST 16 6 - 40 U/L [facility] ALT 10 10 - 49 U/L [facility] GLOBULIN 3.5 1.9 - 4.1 g/dL [facility] EGFR Estimated GFR not calculated for patients <18 years old. >60 mL/min/1. 73m2 [facility] ANION GAP 11 3 - 17 mmol/L [facility] Blood 09/05/2019 5:01 PM EST 09/05/2019 5:25 PM EST Yamilethluh [facility] LAB BLOOD ORDE SARAH [facility] [address] [place] [address] * CBC and differential (09/05/2019 5:01 PM EST) WBC 6.72 4.5 - 13.5 K/uL [facility] RBC 4.45 4.1 - 5.1 M/uL [facility] HGB 13.0 12.0 - 16.0 g/dL [facility] HCT 38.8 36 - 46 % [facility] PLT 333 135 - 400 K/uL [facility] MCV 87.2 78 - 102 fL [facility] MCH 29.2 27 - 34 pg [facility] MCHC 33.5 31.5 - 36.5 g/dL [facility] RDW 13.6 11.9 - 14.8 % [facility] MPV 10.1 9.6 - 12 fl [facility] NRBC 0.00 0 /100 WBCs [facility] DIFF METHOD Auto [facility] NEUTS 45.7 % [facility] LYMPHS 46.4 % [facility] MONOS 5.5 % [facility] EOS 1.8 % [facility] BASOS 0.3 % [facility] Granulocytes, immature (%) 0.3 % [facility] ABSOLUTE NEUTS 3.07 1.8 - 8 K/uL [facility] ABSOLUTE LYMPHS 3.12 1.5 - 6.5 K/uL [facility] ABSOLUTE MONOS 0.37 0.1 - 0.9 K/uL [facility] ABSOLUTE EOS 0.12 0 - 0.4 K/uL [facility] ABSOLUTE BASOS 0.02 0 - 0.2 K/uL [facility] Granulocytes, immature 0.02 0 - 0.03 K/uL [facility] Blood 09/05/2019 5:01 PM EST 09/05/2019 5:31 PM EST Yamileth Wagner AUTOMATION TESTER LAB BLOOD CANDIDO SMITH [facility] [address] [place] [address] * (ABNORMAL) Urine culture (09/05/2019 5:01 PM EST) Special Requests No Special Requests 09/05/2019 4:54 PM EST [facility] Urine Culture >100,000 colony forming units per mL MIXED GRAM POSITIVE ORGANISMS(A) 09/07/2019 9:30 AM EST [facility] Urine Culture MIXED ORGANISMS RESEMBLING UROGENITAL BRENT(A) 09/07/2019 9:30 AM EST [facility] Urine (Urine) 09/05/2019 5:0 1 PM EST 09/05/2019 5:45 PM EST Comment:LAST CULTURE DID NOT HAVE SENSITIVITY DONE~URINE ACUTE PYELONEPHRITIS Yamileth Wagner AUTOMATION TESTER MICROBIOLOGY - GENERAL ORDERABLES Performing Organization Address City/State/[facility] Co de Phone Number [address] [address] * US Abdomen Complete (09/05/2019 4:40 PM EST) Anatomical Region Laterality Modality Abdomen Ultrasound 09/05/2019 4:47 PM EST Impressions 09/05/2019 4:59 PM EST Normal abdominal ultrasound, unchanged from prior study, with no evidence for pyelonephritis or other renal abnormality demonstrated. Narrative 09/05/2019 4:59 PM EST US ABDOMEN COMPLETE Ultrasound examination of the abdomen was performed. COMPARISON: 09/01/2019 FINDINGS: The liver appears normal. There is no evidence of intrahepatic or extrahepatic biliary ductal dilatation or gallbladder abnormality. Common bile duct is 5 mm in diameter. The pancreas appears normal. 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 This appearance is likely due to an ultrasound artifact (ref. Manoj R et al, J Ultrason 2017;17:36-40). IVC appears normal. There is no evidence of ascites. The spleen is of normal size and appearance. Spleen is 9.8 cm in length. The kidneys are of normal size and appearance measuring 11.5 cm on the right and 10.4 cm on the left. The bladder appears normal without wall thickening. Procedure Note Adolfo Shen MD - 09/05/2019 US ABDOMEN COMPLETE Ultrasound examination of the abdomen was performed. COMPARISON: 09/01/2019 FINDINGS: The liver appears normal. There is no evidence of intrahepaticor extrahepatic biliary ductal dilatation or gallbladder abnormality. Commonbile duct is 5 mm in diameter. The pancreas appears normal. Incidentally noted a duplicated appearance ofthe upper abdominal aorta. The left-sided aorta appears to give rise to theceliac axis and superior mesenteric artery, whereas the right-sided apparentaorta does not. This appearance is likely due to an ultrasound artifact (ref. Noemi et al, J Ultrason 2017;17:36-40). IVC appears normal. There is no evidenceof ascites. The spleen is of normal size and appearance. Spleen is 9.8 cmin length. The kidneys are of normal size and appearance measuring 11.5 cm on theright and 10.4 cm on the left. The bladder appears normal without wall thickening. IMPRESSION: Normal abdominal ultrasound, unchanged from prior study, with no evidencefor pyelonephritis or other renal abnormality demonstrated. Yamileth Wagner CNP IMG US ABDOMEN * POCT Urine Dipstick, Automated (09/05/2019 3:50 PM EST) Glucose, urine Negative Negative Bilirubin Negative Negative Ketones, urine Negative Negative Specific [place], urine 1.030 1.005 - 1.030 Blood, urine Negative Negative pH, urine 6.0 5.0 - 7.0 Protein, urine Negative Negative Urobilinogen Nitrite, urine Negative Negative Leukocyte Esterase, urine Negative Negative Other 09/05/2019 3:50 PM EST Yamileth Wagner CNP POINT OF CARE TEST ORDERABLES documented in this encounter Visit Diagnoses Diagnosis Acute pyelonephritis- Primary 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 Acute pyelonephritis 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 documented in this encounter Additional Health Concerns Assessment Noted Time PHQ-9 Depression Total Score: 4 02/18/20 19 12:00 PM EDT documented as of this encounter Care Teams Manual Lathe Machinist Relationship Specialty Start Date End Date Yamileth Wagner CNP [address] [place] [address], [facility] [place] [address] PCP - General Family Medicine 06/28/17 documented as of this encounter Additional Source Comments The information contained in this document represents components of the legal health record. It is not the complete legal health record.[facility]
--- OUTSIDE RECORDS SUMMARY | 2024-08-23 23:23 | XMS_ITS | Encounter Summary ---
Author Organization [facility] Address [phone] [facility] [address] Care Team Providers Care Hyperbaric Nurse Name Role Phone Yamileth Wagner CNP Primary Care Provider Encounter Details Date Type Department Care Team (Latest Contact Info) Description 09/05/2019 3:18 PM EST - 09/05/2019 4:53 PM EST Hospital Encounter [facility] Imaging - Ultrasound, Main [place] [address] [place] [address] Yamileth Wagner, EVALUATION ASSISTANT [address] [place] [address] [email or web address] Discharge Disposition: Home or Self Care Social [...] for 10 days. 20 tablet 09/01/2019 09/11/2019 adapalene (DIFFERIN) 0.3 % gel Apply a [...] Take by mouth daily. 0 07/02/2019 09/22/2019 FLUoxetine (PROZAC) 20 MG capsule Take by mouth daily. 0 07/02/2019 09/22/2019 [id number] 0.18/0.215/0.25 mg-25 mcg Tab Take 1 tablet by mouth daily. 2 06/04/2019 11/03/2019 documented as of this encounter Plan of Treatment Upcoming Encounters Date Type Department Care Team (Late st Contact Info) Description 12/15/2024 9:00 AM EDT [facility] [address] [place] [address] Yamileth Wagner CNP [address] [place] [address] [email or web address] 06/11/2025 1:40 PM EDT [facility] [address] [facility] [place] [address] Yamileth Wagner, BETTE [address] [place] [address] [email or web address] documented as of this encounter Procedures Procedure Name Priority Date/Time Associated Diagnosis Comments US ABDOMEN COMPLETE Routine 09/05/2019 4:40 PM EST Acute pyelonephritis documented in this encounter Results * US Abdomen Complete (09/05/2019 4:40 PM [...] due to an ultrasound artifact (ref. Manoj Phelan et al, J Ultrason 2017;17:36-40). IVC appears [...] or other renal abnormality demonstrated. Yamileth Wagner EVALUATION ASSISTANT IMG US ABDOMEN documented in this encounter Visit Diagnoses Diagnosis Acute pyelonephritis 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 documented in this encounter Additional Health Concerns Assessment Noted Time PHQ-9 Depression Total Score: 4 02/18/20 19 12:00 PM EDT documented as of this encounter Care Teams Hyperbaric Nurse Relationship Specialty Start Date End Date Yamileth Wagner CNP [address] [facility] [place] [address] [email or web address] PCP - General Family Medicine 06/28/17 documented as of this encounter Additional Source Comments The information contained in this document represents components of the legal health record. It is not the complete legal health record.[facility]
--- OUTSIDE RECORDS SUMMARY | 2024-08-23 23:23 | XMS_ITS | Encounter Summary ---
Author Organization [facility] Address [phone] [facility] [employer] [place] [address] Care Team Providers Care Fresh Foods Cake Decorator Name Role Phone Yamileth Wagner Hunter AMOS Primary Care Provider Armando Elkins Unavailable [email or web address] Reason for Visit * Reason Onset Date Comments Collaborative Care 04/22/2019 Referral Rece ived and Resources Shared Encounter Details Date Type Department Care Team (Latest Contact Info) Description 04/22/2019 Patient Outreach [facility] [address] [place] [address] [email or web address] Collaborative Care (Referral Received and Resources Shared) Social History Tobacco Use Types Packs/Day Years [...] encounter Progress Notes * Armando Elkins - 04/22/2019 9:50 AM EDT Collaborative Care: Referral Received and Resources Provided This pt was referred to Consults for outpatient resources (psychiatry). Behavioral Health Rotary Helper has identified appropriate resources and outreached to pt with resources listed below. Pt's mother reached. Informed that the list of resources was sent over Patient [place]. Resources have been sent. Follow up: Will contact pt in 2 weeks (05/06/2019) to check in about resources provided unless pt reaches out before then. Armando Elkins M.A., [facility] Candidate Behavioral Health Rotary Helper [facility] [phone] Resources: Chinmay Barkley [facility]- [address] [phone] Patient should advise that they were referred by [facility] [address], [address] [place], [place] [address] [facility] [address] [facility], [facility] [address] [phone] documented in this encounter Plan of Treatment Upcoming Encounters Date Type Department Care Team (Late st Contact Info) Description 12/15/2024 9:00 AM EDT Telemedicine [facility] Nikole Harry [address] [place] [address] Yamileth Wagner, BETTE [address] [place] [address] [email or web address] 06/11/2025 1:40 PM EDT Office Visit [facility] Nikole Harry [address] [place] [address] Yamileth Wagner CNP [address] [place] [address] documented as of this encounter Visit Diagnoses Not on filedocumented in this encounter Additional Health Concerns Assessment Noted Time PHQ-9 Depression Total Score: 4 02/18/20 19 12:00 PM EDT documented as of this encounter Care Teams Fresh Foods Cake Decorator Relationship Specialty Start Date End Date Yamileth Wagner CNP [address] [place] [address] PCP - General Family Medicine 06/28/17 Armando Elkins [address] [place] [address] [email or web address] Collaborative Care Craft Superintendent Behavioral Health 04/22/19 05/08/19 documented as of this encounter Additional Source Comments The information contained in this document represents components of the legal health record. It is not the complete legal health record.[facility]
--- OUTSIDE RECORDS SUMMARY | 2024-08-23 23:23 | XMS_ITS | Encounter Summary ---
Author Organization [facility] Address [phone] [facility] [place] [address] Care Team Providers Care Deckhand Clam Dredge Name Role Phone Yamileth Wagner CNP Primary Care Provider Encounter Details Date Type Department Care Team (Late st Contact Info) Description 07/16/2019 Orders Only Orthopedics [address] [address] Jose L Joaquin MD [address] [place] [address] [email or web address] Social History Tobacco Use Types Packs/Day Years [...] Description 12/15/2024 9:00 AM EDT Telemedicine [facility] Nikole Colmenares [address] [place] [address] Yamileth Wagner CNP [address] [place] [address] 06/11/2025 1:40 PM EDT Office Visit [facility] [address] [facility] [place] [address] Yamileth Wagner CNP [address] [place] [address] [email or web address] documented as of this encounter Visit Diagnoses Not on filedocumented in this encounter Additional Health Concerns Assessment Noted Time PHQ-9 Depression Total Score: 4 02/18/20 19 12:00 PM EDT documented as of this encounter Care Teams Deckhand Clam Dredge Relationship Specialty Start Date End Date Yamileth Wagner CNP [address] [place] [address] [email or web address] PCP - General Family Medicine 06/28/17 documented as of this encounter Additional Source Comments The information contained in this document represents components of the legal health record. It is not the complete legal health record.[facility]
--- OUTSIDE RECORDS SUMMARY | 2024-08-23 23:24 | XMS_ITS | Encounter Summary ---
Author Organization [facility] Address [phone] [facility] [place] [address] Care Team Providers Care Bank Appraiser Name Role Phone Yamileth Wagner Hunter AMOS Primary Care Provider Encounter Details Date Type Department Care Team (Late st Contact Info) Description 01/17/2018 Telephone [facility] [address] [place], [place] [id number] Marisa Kramer MA [email or web address] Social History Tobacco Use Types Packs/Day Years Used Date Smoking Tobacco: Never Smokeless Tobacco: Never Sex and Gender Information Value Date Recorded Sex Assigned at Not on file Gender Identity Not on file Sexual Orientation Not on file documented as of this encounter Progress Notes * Marisa Kramer - 01/17/2018 12:37 PM EDT Patients mom called: For years she's had bad periods, discussed w/ JRS at OV Eased up but still gets period more than half the time Symptoms: cramps, weak legs and vomits Had hot flashes today On day 1 consistently and only day 1, day 2 usually better Schedule OV for ocp options 3 advils not working, sometimes throws them back up Fwd call to FD to discuss options going forward SS documented in this encounter Plan of Treatment Upcoming Encounters Date Type Department Care Team (Late st Contact Info) Description 12/15/2024 9:00 AM EDT [facility] [address] [place] [address] Yamileth Wagner CNP [address] [place] [address] [email or web address] 06/11/2025 1:40 PM EDT Office Visit [facility] Nikole Harry [address] [place] [address] Yamileth Wagner CNP [address] [place] [address] [email or web address] documented as of this encounter Visit Diagnoses Not on filedocumented in this encounter Care Teams Bank Appraiser Relationship Specialty Start Date End Date Yamileth Wagner [place] [address] [email or web address] PCP - General Family Medicine 06/28/17 documented as of this encounter Additional Source Comments The information contained in this document represents components of the legal health record. It is not the complete legal health record.[facility]
--- OUTSIDE RECORDS SUMMARY | 2024-08-23 23:24 | XMS_ITS | Encounter Summary ---
Author Organization [facility] Address [phone] [facility] [place] [address] Care Team Providers Care Merchandising Manager Name Role Phone Yamileth Wagner TELESALES CONSULTANT Primary Care Provider Reason for Visit * Reason Comments Medication Refill Encounter Details Date Type Department Care Team (Late st Contact Info) Description 03/26/2017 [facility] [address] [place] [address] Yamileth Wagner, TELESALES CONSULTANT [address] [place] [address] [email or web address] Medication Refill Social History Tobacco Use Types Packs/Day Years Used Date Smoking Tobacco: Never Sex and Gender Information Value Date Recorded Sex Assigned at Not on file Gender Identity Not on file Sexual Orientation Not on file documented as of this encounter Progress Notes * Marisa Kramer - 03/26/2017 2:37 PM EDT [facility] Requesting ventolin Last OV: 06/28/16 Next OV: 06/28/17 SS documented in this encounter Plan of Treatment Upcoming Encounters Date Type Department Care Team (Late st Contact Info) Description 12/15/2024 9:00 AM EDT Telemedicine [facility] [address] [place] [address] Yamileth Wagner CNP [address] [place] [address] [email or web address] 06/11/2025 1:40 PM EDT [facility] [address] [place] [address] Yamileth Wagner CNP [address] [place] [address] [email or web address] documented as of this encounter Visit Diagnoses Not on filedocumented in this encounter Care Teams Merchandising Manager Relationship Specialty Start Date End Date Yamileth Wagner CNP [address] [place] [address] [email or web address] PCP - General Family Medicine 06/14/16 06/27/17 documented as of this encounter Additional Source Comments The information contained in this document represents components of the legal health record. It is not the complete legal health record.[facility]
--- OUTSIDE RECORDS SUMMARY | 2024-08-23 23:24 | XMS_ITS | Clinical Summary ---
Author Organization [facility] Address [address] [place] [address] Phone Care Team Providers Care Rip And Groove Machine Operator Name Role Phone Unavailable Primary Care Provider Unavailabl e Social History Tobacco Use Types Packs/Day Years Used Date Smoking Tobacco: Never Assessed Comments Unknown Sex and Gender Information Value Date Recorded Sex Assigned at Not on file Legal Sex Female 6:20 PM EST Gender Identity Not on file Sexual Orientation Not on file Plan of Treatment Health Maintenance Due Date Last Done Comments MMR Vaccines (1 of 1 - Stand marcellus series) 02/07/2004 Varicella Vaccines (1 of 2 - 13+ 2-dose series) 02/07/2016 HPV Vaccines (1 - 3-dose series) 2018 Consider Men B Vaccine (1 of 2 - Bexsero 2-dose series) 2019 Men B Vaccine (1 of 2 - Standard) 2019 DTaP,Tdap,and Td Vaccines (1 - Tdap) 2021 Hepatitis B Vaccines (1 of 3 - 19+ 3-dose series) 2022 Influenza Vaccines (#1) 2024 COVID-19 Vaccine ( - 2023-2 5 season) 2024 HIB Vaccines Aged Out No longer eligi ble based on patient's age to complete this topic Hepatitis A Vaccines Aged Out No long er eligible based on patient's age to complete this topic IPV Vaccines Aged Out No longer eligi ble based on patient's age to complete this topic Meningococcal Vaccine Aged Out No debbi jackie eligible based on patient's age to complete this topic Pneumococcal Vaccine Aged Out No long er eligible based on patient's age to complete this topic
--- OUTSIDE RECORDS SUMMARY | 2024-08-23 23:24 | XMS_ITS | Encounter Summary ---
Author Organization [facility] Address [phone] [facility] [place] [address] Care Team Providers Care County Administrator Name Role Phone Yamileth Wagner CNP Primary Care Provider Reason for Referral * Physical Therapy (Within 2 weeks) - Closed Specialty Diagnoses / Procedures Referred By Kan montejo Referred To Contact Diagnoses Pain in joint of right shoulder Yamileth Wagner CNP [address] [place] [address] Email: [email or web address] Referral ID Status Reason Start Date Expiration Date Visits Re quested Visits Authorized [id number] Closed 01/18/2018 01/18/2019 1 1 Reason for Visit * Reason Comments Menstrual Problem Encounter Details Date Type Department Care Team (Late st Contact Info) Description 01/18/2018 3:10 PM EDT Office Visit [facility] [address] [place] [address] Yamileth Wagner CNP [address] [place] [address] [email or web address] Dysmenorrhea (Primary Dx); Pain in joint of right shoulder; Unimmunized; Plantar wart of left foot Social History Tobacco Use Types Packs/Day Years Used Date Smoking Tobacco: Never Smokeless Tobacco: Never Sex and Gender Information Value Date Recorded Sex Assigned at Not on file Gender Identity Not on file Sexual Orientation Not on file documented as of this encounter Last Filed Vital Signs Vital Sign Reading Time Taken Comments Blood Pressure 100/60 01/18/2018 3:12 PM EDT Pulse 64 01/18/2018 3:12 PM EDT Temperature - - Respiratory Rate - - Oxygen Saturation - - Inhaled Oxygen Concentration - - Weight 57.6 kg (127 lb) 01/18/2018 3:12 PM EDT Height - - Body Mass Index - - documented in this encounter Progress Notes * Yamileth Wagner, ASSISTANT BASEBALL COACH - 01/18/2018 3:10 PM EDT Pt presents for acute visit HPI Day 1 of period Flow normal 1 regular size tampon 1-3 hrs Severe cramping Joints cramp up Vomiting Headaches the day before Gets sensory overload on day of cramps Sometimes the day before taping sounds or bright lights Tingling in legs with cramps Hot flashes Abdominal pain and diarrhea Took advil the night before Sometimes throws up the advil [employer] works a little better Days 2-5 fine Fine at camp 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 clindamycin-benzoyl peroxide ER (DUAC) gel, APPLY TOPICALLY 2 (TWO) TIMES A DAY., Disp: 45 g, Rfl: 1, Last Dispense: Unknown (outside pharmacy) ??? VENTOLIN HFA 90 mcg/actuation inhaler, INHALE 1-2 PUFFS EVERY 4-6 HOURS NEEDED FOR WHEEZING.DISPENSE SPACER NEEDED., Disp: 18 Inhaler, Rfl: 1, Last Dispense: Unknown (outside pharmacy) Patient Active Problem List Diagnosis ??? Acne vulgaris ??? Unimmunized ??? Dysmenorrhea PE Well appearing, NAD PERRLA, EOMI Neck - supple, no LAD, no thyromegaly Heart - RRR, no murmurs/rubs/gallops Lungs - CTA bilaterally, no wheezes/rhales/rhonchi R Shoulder no obvious bony deformities noted or tenderness to palpation subacromial bursa non tender Biceps tendon heads non tender Full ROM flexion, extension, internal and external rotation full strength flexion, extension, internal and external rotation Neers impingement neg Hawkin's test neg Drop arm test neg Belly press test pos Lift off test pos Samantha/soda can test pos O'Briens test neg Abd: NABS, soft, NT, ND, no HSM, no rebound tenderness, [place]on negative, no guarding Pelvic exam: External genitalia: skin clean, dry, intact; no lesions or masses Bimanual: uterus smooth, round and without masses, no ovarian masses, no CMT Extremities - WWP, no edema, calves equal and symmetric L 2nd toe: raised fleshy papule lateral to nailbed A/p Dysmenorrhea, one day per menses severe with nausea, vomiting, headache, cramping Normal flow Stress-related per patient Primary dysmenorrhea vs migraine vs secondary Unlikely secondary given some normal cycles and no sx outside of cycles Long discussion about potential options with patient and mom rec stress management, go back to chiro, that was helpful, inc activity Reviewed OCP option, pt and mom would like to wait for now Labs: CBC, TSH, BMP R shoulder Rotator cuff tendinitis rec another course of PT Home exercises as well Ice, rest Pt and mom agreed with plan R foot plantar wart Options for treatment discussed including cryotherapy, medical removal, surgical and other options Mom and Pt would like to try Aldara treatment Reviewed insuctions how to take, warnings, side effects, precautions of prescribed medications Pt expressed understanding Discussed the theory behind immunizations, the potential benefits and the potential harm/risks of not being immunized. Discussed the commonplace nature of some of these infections and the risk of kitty them, which could lead to , mom and dad both expressed understanding Red flags reviewed Pt to return to office or call if sx worsen or do not improve Pt agreed with plan documented in this encounter Plan of Treatment Upcoming Encounters Date Type Department Care Team (Late st Contact Info) Description 12/15/2024 9:00 AM EDT Telemedicine [facility] Nikole Harry [address] [place] [address] Yamileth Wagner, BETTE [address], [place] [address] [email or web address] 06/11/2025 1:40 PM EDT Office Visit [facility] Nikole Harry [address] [place] [address] Yamileth Wagner, BETTE [address], [place] [address] [email or web address] Scheduled Referrals Name Type Priority Associated Diagnoses Order Schedule Ambulatory referral to External Physical Therapy Outpatient Referral Routine Pain in joint of right shoulder Ordered: 01/18/2018 documented as of this encounter Results * CBC (01/23/2019 4:06 PM EDT) WBC 7.07 4.5 - 13.5 K/uL [facility] RBC 4.57 4.1 - 5.1 M/uL [facility] HGB 13.1 12.0 - 16.0 g/dL [facility] HCT 40.0 36 - 46 % [facility] PLT 285 135 - 400 K/uL [facility] MCV 87.5 78 - 102 fL [facility] MCH 28.7 27 - 34 pg [facility] MCHC 32.8 31.5 - 36.5 g/dL [facility] RDW 12.9 11.9 - 14.8 % [facility] MPV 10.5 9.6 - 12 fl [facility] NRBC 0.00 0 /100 WBCs [facility] 01/23/2019 4:06 PM EDT 01/23/2019 8:32 PM EDT Yamileth Longoriaider [facility] LAB BLOOD ORDE RABJUAN R Performing Organization Address [facility] Co de Phone Number [facility] [address] [place] [address] * TSH (01/23/2019 4:06 PM EDT) TSH 0.77 0.55 - 4.78 uIU/mL [facility] 01/23/2019 4:06 PM EDT 01/23/2019 8:31 PM EDT [facility] RABJUAN R Performing Organization Address [facility] de Phone Number [facility] [address] [place] [address] * Basic metabolic panel (01/23/2019 4:06 PM EDT) SODIUM 142 136 - 145 mmol/L [facility] CHLORIDE 105 95 - 106 mmol/L [facility] POTASSIUM 4.1 3.5 - 5.2 mmol/L [facility] CO2 26 20 - 31 mmol/L [facility] BUN 15 9 - 23 mg/dL [facility] CREATININE 0.70 0.50 - 1.30 mg/dL [facility] GLUCOSE 86 74 - 106 mg/dL [facility] CALCIUM 9.3 8.7 - 10.4 mg/dL [facility] EGFR Estimated GFR not calculated for patients <18 years old. >60 mL/min/1. 73m2 [facility] ANION GAP 11 3 - 17 mmol/L [facility] 01/23/2019 4:06 PM EDT 01/23/2019 8:31 PM EDT [facility]DE SARAH Performing Organization Address [facility] Co de Phone Number [facility] [address] [place] [address] documented in this encounter Visit Diagnoses Diagnosis Dysmenorrhea- Primary Pain in joint of right shoulder Unimmunized Plantar wart of left foot Plantar wart documented in this encounter Care Teams County Administrator Relationship Specialty Start Date End Date Yamileth Wagner, ASSISTANT BASEBALL COACH [address] [facility], [place] [address] PCP - General Family Medicine 06/28/17 documented as of this encounter Additional Source Comments The information contained in this document represents components of the legal health record. It is not the complete legal health record.[facility]
--- OUTSIDE RECORDS SUMMARY | 2024-08-23 23:24 | XMS_ITS | Encounter Summary ---
Author Organization [facility] Address [address] [place] [address] Phone Care Team Providers Care Account Executive Healthcare Name Role Phone Kimberlee Green MD Primary Care Provider [phone] Encounter Details Date Type Department Care Team (Late st Contact Info) Description 05/05/[address] [facility] [address] [place] [address] Kimberlee Green MD [address] [place] [address] Social History Tobacco Use Types Packs/Day Years Used Date Smoking Tobacco: Never Assessed Comments Unknown Sex and Gender Information Value Date Recorded Sex Assigned at Not on file Legal Sex Female 6:20 PM EST Gender Identity Not on file Sexual Orientation Not on file documented as of this encounter Plan of Treatment Not on file documented as of this encounter Visit Diagnoses Not on filedocumented in this encounter Care Teams Account Executive Healthcare Relationship Specialty Start Date End Date Kimberlee Green MD [address] [place] [address] PCP - General 10/10/16 02/13/19 documented as of this encounter
--- OUTSIDE RECORDS SUMMARY | 2024-08-23 23:24 | XMS_ITS | Encounter Summary ---
Author Organization [facility] Address [phone] [facility] [employer] [place] [address] Care Team Providers Care Horse Stud Manager Name Role Phone Yamileth Wagner CNP Primary Care Provider Encounter Details Date Type Department Care Team ([facility] st Contact Info) Description 05/03/2017 Telephone [facility] [address] [place] [address] Yamileth Wagner CNP [address] [facility] [place] [place] [address] [email or web address] Social History Tobacco Use Types Packs/Day Years Used Date Smoking Tobacco: Never Sex and Gender Information Value Date Recorded Sex Assigned at Not on file Gender Identity Not on file Sexual Orientation Not on file documented as of this encounter Progress Notes * Yamileth Wagner CNP - 05/03/2017 11:59 AM EDT Discussion with mom Ren Very difficult periods Heavy bleeding and cramping Vomited last night although period has not started yet starting to get sx On a lot of supplements provided by chiropractor No improvement Trial ibu 200mg at a time, takes too late per mom Missing a lot of school Rec: Wash out of supplements Start 600mg ibu day before first day of period Take 600mg Q8H throughout first days of period Take WITH food Stop with abd pain, change in stool If no improvement RTO to discuss additional options Mom expressed understanding and agreed * Hazel Sims - 05/03/2017 11:07 AM EDT Mom would like to speak to you with regards to the PMS issues Pls call documented in this encounter Plan of Treatment Upcoming Encounters Date Type Department Care Team (Late st Contact Info) Description 12/15/2024 9:00 AM EDT Telemedicine [facility] [address] [place] [address] Yamileth Wagner CNP [address] [place] [address] 06/11/2025 1:40 PM EDT Office Visit [facility] P.[facility]ed [address] [place] [address] Yamileth Wagner CNP [address] [place] [address] documented as of this encounter Visit Diagnoses Not on filedocumented in this encounter Care Teams Horse Stud Manager Relationship Specialty Start Date End Date Yamileth Wagner CNP [address] [place] [address] PCP - General Family Medicine 06/14/16 06/27/17 documented as of this encounter Additional Source Comments The information contained in this document represents components of the legal health record. It is not the complete legal health record.[facility]
--- OUTSIDE RECORDS SUMMARY | 2024-08-23 23:24 | XMS_ITS | Encounter Summary ---
Author Organization [facility] Address [phone] [facility] [place] [address] Care Team Providers Care Entry Level Name Role Phone Yamileth Wagner BEHAVIOR SPECIALIST Primary Care Provider Armando Elkins Unavailable [email or web address] Yamileth Wagner CNP Unavailable [phone] Yamileth Wagner CNP Unavailable [phone] Reason for Visit * Reason Onset Date Comments MMR 01/23/2019 Encounter Details Date Type Department Care Team (Late st Contact Info) Description 01/23/2019 Telephone [facility] [address] [place] [address] Yamileth Wagner BEHAVIOR SPECIALIST [address] [place] [address] [email or web address] MMR Social History Tobacco Use Types Packs/Day Years Used Date Smoking Tobacco: Never Smokeless Tobacco: Never Alcohol Use Standard Drinks/Week Comments Never 0 (1 standard drink = 0.6 oz pur e alcohol) Sex and Gender Information Value Date Recorded Sex Assigned at Not on file Gender Identity Not on file Sexual Orientation Not on file documented as of this encounter Progress Notes * Madhu Rhea - 02/05/2019 5:05 PM EDT Called patients mom to follow up Patient did come in and get the MMR. Per JRS, patient is also due for HPV. Patients mom will call back at a later time to schedule a nurse visit. * Madhu Philippesharonleila - 01/23/2019 10:43 AM EDT TC with Patients Mom Patients mom called the office requesting for the patient to come in today for MMR. I advised her that we typically book them a week in advance and mom states she is coming in today to get tests done at the lab. Is this ok, please advise? documented in this encounter Plan of Treatment Upcoming Encounters Date Type Department Care Team (Late st Contact Info) Description 12/15/2024 9:00 AM EDT [facility] Nikole Harry [address] [facility] [place] [address] Yamileth Wagner CNP [address] [facility] [place] [address] 06/11/2025 1:40 PM EDT Office Visit [facility] Nikole Harry [address] [facility] [place] [address] Yamileth Wagner CNP [address] [facility] [place] [address] documented as of this encounter Visit Diagnoses Not on filedocumented in this encounter Care Teams Entry Level Relationship Specialty Start Date End Date Yamileth Wagner CNP [address] [facility] [address] PCP - General Family Medicine 06/28/17 Armando Elkins [address] [place] [address] Collaborative Care BH Bean Picker Machine Operator Behavioral Health 04/22/19 05/08/19 Yamileth Wagner CNP [address] [facility], [place] [address] [email or web address] Insurance Assigned Provider 12/24/19 02/22/20 Yamileth Wagner CNP [address] [facility], [place] [address] [email or web address] Insurance Assigned Provider 09/25/20 08/05/21 documented as of this encounter Additional Source Comments The information contained in this document represents components of the legal health record. It is not the complete legal health record.[facility]
--- OUTSIDE RECORDS SUMMARY | 2024-08-23 23:24 | XMS_ITS | Encounter Summary ---
Author Organization [facility] Address [phone] [facility] [place] [address] Care Team Providers Care Dental Specialist Name Role Phone Yamileth Wagner CNP Primary Care Provider Reason for Referral * Physical Therapy (Within 2 weeks) - Closed Specialty Diagnoses / Procedures Referred By Kan [email or web address] Referred To Contact Physical Therapy Diagnoses Rotator cuff impingement syndrome of right shoulder Yamileth Wagner CNP [address] [place] [address] Email: [email or web address] Referral ID Status Reason Start Date Expiration Date Visits Re quested Visits Authorized [id number] Closed 07/26/2017 07/26/2018 1 1 Reason for Visit * Reason Comments Follow-up Encounter Details Date Type Department Care Team (Late st Contact Info) Description 07/26/2017 9:00 AM EST Office Visit [facility] [address] [place] [address] Yamileth Wagner CNP [address] [place] [address] [email or web address] Rotator cuff impingement syndrome of right shoulder (Primary Dx) Social History Tobacco Use Types Packs/Day Years Used Date Smoking Tobacco: Never Smokeless Tobacco: Never Sex and Gender Information Value Date Recorded Sex Assigned at Not on file Gender Identity Not on file Sexual Orientation Not on file documented as of this encounter Last Filed Vital Signs Vital Sign Reading Time Taken Comments Blood Pressure 104/62 07/26/2017 9:20 AM EST Pulse 61 07/26/2017 9:20 AM EST Temperature - - Respiratory Rate - - Oxygen Saturation 98% 07/26/2017 9:20 AM EST Inhaled Oxygen Concentration - - Weight 56.7 kg (125 lb) 07/26/2017 9:20 AM EST Height - - Body Mass Index - - documented in this encounter Patient Instructions * Patient Instructions* Yamileth Wagner, [employer] - 07/26/2017 9:00 AM EST Images from the original note were not included. Rotator Cuff: Exercises Your Care Instructions Here are some examples of typical rehabilitation exercises for your condition. Start each exercise slowly. Ease off the exercise if you start to have pain. Your doctor or physical therapist will tell you when you can start these exercises and which ones will work best for you. How to do the exercises Pendulum swing If you have pain in your back, do not do this exercise. 1. Hold on to a table or the back of a chair with your good arm. Then bend forward a little and letyour sore arm hang straight down. This exercise does not use the arm muscles. Rather, use your legsand your hips to create movement that makes your arm swing freely. 2. Use the movement from your hips and legs to guide the slightly swinging arm back and forth like a pendulum (or elephant trunk). Then guide it in circles that start small (about the size of a dinner plate). Make the circles a bit larger each day, as your pain allows. 3. Do this exercise for 5 minutes, 5 to 7 times each day. 4. As you have less pain, try bending over a little farther to do this exercise. This will increasethe amount of movement at your shoulder. Posterior stretching exercise 1. Hold the elbow of your injured arm with your other hand. 2. Use your hand to pull your injured arm gently up and across your body. You will feel a gentle stretch across the back of your injured shoulder. 3. Hold for at least 15 to 30 seconds. Then slowly lower your arm. 4. Repeat 2 to 4 times. Up-the-back stretch Your doctor or physical therapist may want you to wait to do this stretch until you have regained most of your range of motion and strength. You can do this stretch in different ways. Hold any of these stretches for at least 15 to 30 seconds. Repeat them 2 to 4 times. 1. Put your hand in your back pocket. Let it rest there to stretch your shoulder. 2. With your other hand, hold your injured arm (palm outward) behind your back by the wrist. Pull your arm up gently to stretch your shoulder. 3. Next, put a towel over your other shoulder. Put the hand of your injured arm behind your back. Now hold the back end of the towel. With the other hand, hold the front end of the towel in front of your body. Pull gently on the front end of the towel. This will bring your hand farther up your backto stretch your shoulder. Overhead stretch 1. Standing about an arm's length away, grasp onto a solid surface. You could use a countertop, a doorknob, or the back of a sturdy chair. 2. With your knees slightly bent, bend forward with your arms straight. Lower your upper body, and let your shoulders stretch. 3. As your shoulders are able to stretch farther, you may need to take a step or two backward. 4. Hold for at least 15 to 30 seconds. Then stand up and relax. If you had stepped back during yourstretch, step forward so you can keep your hands on the solid surface. 5. Repeat 2 to 4 times. Shoulder flexion (lying down) To make a wand for this exercise, use a piece of PVC pipe or a broom handle with the broom removed.Make the wand about a foot wider than your shoulders. 1. Lie on your back, holding a wand with both hands. Your palms should face down as you hold the wand. 2. Keeping your elbows straight, slowly raise your arms over your head. Raise them until you feel astretch in your shoulders, upper back, and chest. 3. Hold for 15 to 30 seconds. 4. Repeat 2 to 4 times. Shoulder rotation (lying down) To make a wand for this exercise, use a piece of PVC pipe or a broom handle with the broom removed.Make the wand about a foot wider than your shoulders. 1. Lie on your back. Hold a wand with both hands with your elbows bent and palms up. 2. Keep your elbows close to your body, and move the wand across your body toward the sore arm. 3. Hold for 8 to 12 seconds. 4. Repeat 2 to 4 times. Wall climbing (to the side) Avoid any movement that is straight to your side, and be careful not to arch your back. Your arm should stay about 30 degrees to the front of your side. 1. Stand with your side to a wall so that your fingers can just touch it at an angle about 30 degrees toward the front of your body. 2. Walk the fingers of your injured arm up the wall as high as pain permits. Try not to shrug your shoulder up toward your ear as you move your arm up. 3. Hold that position for a count of at least 15 to 20. 4. Walk your fingers back down to the starting position. 5. Repeat at least 2 to 4 times. Try to reach higher each time. Wall climbing (to the front) During this stretching exercise, be careful not to arch your back. 1. Face a wall, and stand so your fingers can just touch it. 2. Keeping your shoulder down, walk the fingers of your injured arm up the wall as high as pain permits. (Don't shrug your shoulder up toward your ear.) 3. Hold your arm in that position for at least 15 to 30 seconds. 4. Slowly walk your fingers back down to where you started. 5. Repeat at least 2 to 4 times. Try to reach higher each time. Shoulder blade squeeze 1. Stand with your arms at your sides, and squeeze your shoulder blades together. Do not raise yourshoulders up as you squeeze. 2. Hold 6 seconds. 3. Repeat 8 to 12 times. Scapular exercise: Arm reach 1. Lie flat on your back. This exercise is a very slight motion that starts with your arms raised (elbows straight, arms straight). 2. From this position, reach higher toward the naima or ceiling. Keep your elbows straight. All motion should be from your shoulder blade only. 3. Relax your arms back to where you started. 4. Repeat 8 to 12 times. Arm raise to the side During this strengthening exercise, your arm should stay about 30 degrees to the front of your side. 1. Slowly raise your injured arm to the side, with your thumb facing up. Raise your arm 60 degrees at the most (shoulder level is 90 degrees). 2. Hold the position for 3 to 5 seconds. Then lower your arm back to your side. If you need to, bring your good arm across your body and place it under the elbow as you lower your injured arm. Use your good arm to keep your injured arm from dropping down too fast. 3. Repeat 8 to 12 times. 4. When you first start out, don't hold any extra weight in your hand. As you get stronger, you mayuse a 1-pound to 2-pound dumbbell or a small can of food. Shoulder flexor and extensor exercise These are isometric exercises. That means you contract your muscles without actually moving. 1. Push forward (flex): Stand facing a wall or doorjamb, about 6 inches or less back. Hold your injured arm against your body. Make a closed fist with your thumb on top. Then gently push your hand forward into the wall with about 25% to 50% of your strength. Don't let your body move backward as youpush. Hold for about 6 seconds. Relax for a few seconds. Repeat 8 to 12 times. 2. Push backward (extend): Stand with your back flat against a wall. Your upper arm should be against the wall, with your elbow bent 90 degrees (your hand straight ahead). Push your elbow gently backagainst the wall with about 25% to 50% of your strength. Don't let your body move forward as you push. Hold for about 6 seconds. Relax for a few seconds. Repeat 8 to 12 times. Scapular exercise: Wall push-ups This exercise is best done with your fingers somewhat turned out, rather than straight up and down. 1. Stand facing a wall, about 12 inches to [address] your hands on the wall at shoulder height. 3. Slowly bend your elbows and bring your face to the wall. Keep your back and hips straight. 4. Push back to where you started. 5. Repeat 8 to 12 times. 6. When you can do this exercise against a wall comfortably, you can try it against a counter. You can then slowly progress to the end of a couch, then to a sturdy chair, and finally to the floor. Scapular exercise: Retraction For this exercise, you will need elastic exercise material, such as surgical tubing or Thera-Band. 1. Put the band around a solid object at about waist level. (A bedpost will work well.) Each hand should hold an end of the band. 2. With your elbows at your sides and bent to 90 degrees, pull the band back. Your shoulder blades should move toward each other. Then move your arms back where you started. 3. Repeat 8 to 12 times. 4. If you have good range of motion in your shoulders, try this exercise with your arms lifted out to the sides. Keep your elbows at a 90-degree angle. Raise the elastic band up to about shoulder level. Pull the band back to move your shoulder blades toward each other. Then move your arms back where you started. Internal rotator strengthening exercise 1. Start by tying a piece of elastic exercise material to a doorknob. You can use surgical tubing or Thera-Band. 2. Stand or sit with your shoulder relaxed and your elbow bent 90 degrees. Your upper arm should rest comfortably against your side. Squeeze a rolled towel between your elbow and your body for comfort. This will help keep your arm at your side. 3. Hold one end of the elastic band in the hand of the painful arm. 4. Slowly rotate your forearm toward your body until it touches your belly. Slowly move it back to where you started. 5. Keep your elbow and upper arm firmly tucked against the towel roll or at your side. 6. Repeat 8 to 12 times. External rotator strengthening exercise 1. Start by tying a piece of elastic exercise material to a doorknob. You can use surgical tubing or Thera-Band. (You may also hold one end of the band in each hand.) 2. Stand or sit with your shoulder relaxed and your elbow bent 90 degrees. Your upper arm should rest comfortably against your side. Squeeze a rolled towel between your elbow and your body for comfort. This will help keep your arm at your side. 3. Hold one end of the elastic band with the hand of the painful arm. 4. Start with your forearm across your belly. Slowly rotate the forearm out away from your body. Keep your elbow and upper arm tucked against the towel roll or the side of your body until you begin to feel tightness in your shoulder. Slowly move your arm back to where you started. 5. Repeat 8 to 12 times. Follow-up care is a chamorro part of your treatment and safety. Be sure to make and go to all appointments, and call your doctor if you are having problems. It's also a good idea to know your test resultsand keep a list of the medicines you take. Where can you learn more? Go to https://patientgateway.[employer].org/public. Enter J005 in the search box to learn more about Rotator Cuff: Exercises. Current as of: November 07, 2016 Content Version: 11.4 ?? 6109-0443 [employer]. Care instructions adapted under license by your healthcare professional. If you have questions about a medical condition or this instruction, always ask your healthcare professional. [employer] disclaims any warranty or liability for your use of this information. 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 clindamycin-benzoyl peroxide ER (DUAC) gel, Apply topically 2 (two) times a day., Disp: 45 g, Rfl: 1, Last Dispense: Unknown (outside pharmacy) ??? VENTOLIN HFA 90 mcg/actuation inhaler, INHALE 1-2 PUFFS EVERY 4-6 HOURS NEEDED FOR WHEEZING.DISPENSE SPACER NEEDED., Disp: 18 Inhaler, Rfl: 1, Last Dispense: Unknown (outside pharmacy) Patient Active Problem List Diagnosis ??? Acne vulgaris ??? Unimmunized ??? 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 Improved with motrin and stretching - reassuring Exam more consistent with impingement but rotator cuff possible as patient was having a lot of diffuse pain likely reducing the sensitivity of the test Will start home PT and give PT rx Wet heat, NSAIDs Rest as possible Reviewed unlikely to improve if continued daily swimming Pt and mom understood this information and agreed with this plan Red flags reviewed Pt to return to office or call if sx worsen or do not improve Pt agreed with plan documented in this encounter Plan of Treatment Upcoming Encounters Date Type Department Care Team (Late st Contact Info) Description 12/15/2024 9:00 AM EDT Telemedicine [facility] Nikole Harry [address] [place] [address] Yamileth Wagner CNP [address] [place] [address] [email or web address] 06/11/2025 1:40 PM EDT Office Visit [facility] Nikole Harry [address] [place] [address] Yamileth Wagner CNP [address] [place] [address] Scheduled Referrals Name Type Priority Associated Diagnoses Orde r Schedule Ambulatory referral to External Physical Therapy Outpatient Referral Routine Rotator cuff impingement syndrome of right shoulder Ordered: 07/26/2017 documented as of this encounter Visit Diagnoses Diagnosis Rotator cuff impingement syndrome of right shoulder- Primary documented in this encounter Care Teams Dental Specialist Relationship Specialty Start Date End Date Yamileth Wagner CNP [address] [place] [address] [email or web address] PCP - General Family Medicine 06/28/17 documented as of this encounter Additional Source Comments The information contained in this document represents components of the legal health record. It is not the complete legal health record.[facility]
--- OUTSIDE RECORDS SUMMARY | 2024-08-23 23:24 | XMS_ITS | Encounter Summary ---
Author Organization [facility] Address [address] [place] [phone] Phone Care Team Providers Care Power Press Tender Name Role Phone Kimberlee Green MD Primary Care Provider [phone] Encounter Details Date Type Department Care Team (Late st Contact Info) Description 12/15/[address] [facility] [address] [place] [address] Social History Tobacco Use Types Packs/Day Years [...] on filedocumented in this encounter Care Teams Power Press Tender Relationship Specialty Start Date End Date Kimberlee Green MD [address] [place] [address] PCP - General 10/10/16 02/13/19 documented as of this encounter
--- OUTSIDE RECORDS SUMMARY | 2024-08-23 23:24 | XMS_ITS | Clinical Summary ---
Author Organization [facility] Address [address] [place] [address] Phone Care Team Providers Care Livestock Haulier Name Role Phone Myesha HERNANDEZ, Joaquina Escalante [phone] Conditions or Problems Problem Name Problem Code Onset Date Status Entry Date Provider Comment Standard Description Annotate ALLERGIC RHINITIS NOS 01745428 (SNOMED CT) 11/13 Resolved 11/13 Joaquina Brunner MD Allergic rhinitis CERUMEN IMPACTION 85635234 (SNOMED CT) 01/18 Resolved 01/19 Joaquina Brunner MD Impacted cerumen RASH, NONSPECIFIC SKIN ERUPTION R21 (ICD-10-CM ) 01/18 Resolved 01/19 Joaquina Brunner MD Rash and other nonspecific skin eruption RASH, NONSPECIFIC SKIN ERUPTION R21 (ICD-10-CM ) 01/18 Removed 01/19 Mary Ann Dorantes NP Rash and other nonspecific skin eruption CERUMEN IMPACTION 15599436 (SNOMED CT) 01/18 Removed 01/19 Mary Ann Dorantes NP Impacted cerumen SHORTNESS OF BREATH 973983929 (SNOMED CT) Inactive Alexi Gardner NP Dyspnea INJURY NOS, FINGER 17830041 (SNOMED CT) 04/22 Inactive 04/23 Alexi Gardner WATER TAXI CAPTAIN Injury of finger ALLERGIC RHINITIS NOS 45934210 (SNOMED CT) 11/13 Removed 11/13 Joaquina Brunner MD Allergic rhinitis WRIST INJURY, RIGHT 231786627 (SNOMED CT) 12/23 Inactive 12/24 Joaquina Brunner MD Injury of wrist UMBILICUS INFLAMMATIO N 99407634 (SNOMED CT) 11/12 Inactive 11/12 Mary Ann Dorantes NP 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 (ICD-10-CM ) 05/14 Active 05/14 Joaquina Brnuner MD Obesity, unspecified Family History of BEE STING (WITH ANAPHYLAXIS ) 989.5 (ICD-9-CM) 01/10 Active 02/09 Joaquina Brunner MD Toxic effect of venom BEE STING 530239694 (SNOMED CT) 01/10 Inactive 02/09 Joaquina Brunner MD Bee sting CHALAZION RLL H00.19 (ICD-10-CM ) Resolved 02/17 Joaquina Brunner MD Chalazion unspecified eye, unspecified eyelid BLEPHARITIS 94092285 (SNOMED CT) Resolved 02/17 Joaquina Brunner MD Blepharitis INJURY, FINGER 14384616 (SNOMED CT) 03/29 Inactive 03/29 Joaquina Brunner MD Injury of finger BLEPHARITIS 31079262 (SNOMED CT) Removed 02/17 Candice Mcfadden MD Blepharitis CHALAZION RLL H00.19 (ICD-10-CM ) Removed 02/17 Candice Mcfadden MD Chalazion unspecified eye, unspecified eyelid ANISOMETROP IA 3676571 (SNOMED CT) Active 02/17 Candice Mcfadden MD Anisometropia MYOPIA 75877916 (SNOMED CT) 02/08 Ruled out 02/08 Candice Mcfadden MD Myopia MYOPIA 93052276 (SNOMED CT) 02/08 Removed 02/08 Joaquina Brunner MD Myopia PHARYNGITIS , ACUTE NOS J02.9 (ICD-10-CM ) 01/04 Inactive 01/04 Joaquina Brunner MD Acute pharyngitis, unspecified INJURY, FINGER 26936358 (SNOMED CT) 01/04 Inactive 01/04 Joaquina Brunner MD Injury of finger INSECT BITE 608845701 (SNOMED CT) 01/04 Inactive 01/04 Joaquina Brunner MD Insect bite - wound CELLULITIS/ ABSCESS, UNSPECIFIED SITE 682.9 (ICD-9-CM) 12/13 Inactive 12/13 Joaquina Brunner MD Cellulitis and abscess of unspecified sites INSECT BITE 217674408 (SNOMED CT) 12/13 Inactive 12/13 Joaquina Brunner MD Insect bite - wound STYE 3738519 (SNOMED CT) Inactive Joaquina Brunner MD External hordeolum CONJUNCTIVI TIS, MILD, RIGHT 5259057 (SNOMED CT) 04/21 Inactive 04/21 Eber Costello MD Conjunctivitis CONJUNCTIVI TIS NOS H10.33 (ICD-10-CM ) 10/02 Resolved 10/17 Joaquina Brunner MD Unspecified acute conjunctivitis, bilateral HIVES NOS L50.9 (ICD-10-CM ) 10/14 Resolved 10/14 Joaquina Brunner MD Urticaria, unspecified ALLERGIC REACTION (MEDICATION OR FOOD) 995.2 (ICD-9-CM) 10/14 Resolved 10/14 Joaquina Brunner MD Other and unspecified adverse effect of drug, medicinal and biological substance IMMUNIZATIO N DELAY 323104794 (SNOMED CT) Active 04/12 Joaquina Brunner MD Immunization status CONJUNCTIVI TIS NOS H10.33 (ICD-10-CM ) 10/02 Removed 10/17 Eber Costello MD Unspecified acute conjunctivitis, bilateral CONJUNCTIVI TIS NOS H10.33 (ICD-10-CM ) 10/02 Inactive 10/02 Eber Costello MD Unspecified acute conjunctivitis, bilateral SKIN RASH 231732011 (SNOMED CT) 10/30 Inactive 11/05 Joaquina Brunner MD Eruption PHARYNGITIS 588981735 (SNOMED CT) 10/30 Inactive 10/30 Joaquina Brunner MD Pharyngitis ALLERGIC REACTION (MEDICATION OR FOOD) 995.2 (ICD-9-CM) 10/14 Removed 10/14 Mary Ann Dorantes NP Other and unspecified adverse effect of drug, medicinal and biological substance HIVES NOS L50.9 (ICD-10-CM ) 10/14 Removed 10/14 Mary Ann Dorantes NP Urticaria, unspecified *WELL CHILD EXAMINATION Z00.129 (ICD-10-CM ) Active 02/08 Joaquina Brunner MD Encounter for routine child health examination without abnormal findings Medications Medication Instructions Start Date Stop Date Generic Name NDC Provider PERSONAL BEST FULL RANGE MARANDA Use as directed PEAK FLOW METER 61922471234 Joaquina Brunner MD BACTROBAN 2 % EXTERNAL CREAM apply to affected area tid until sx resolved plus 1-2 days MUPIROCIN CALCIUM 45409695048 Joaquina Brunner MD PERSONAL BEST FULL RANGE MARANDA Use as directed PEAK FLOW METER 20580716205 Alexi Kendra VU BACTROBAN 2 % EXTERNAL CREAM apply to affected area tid until sx resolved plus 1-2 days MUPIROCIN CALCIUM 90951058072 Mary Ann Dorantes NP TOBRADEX 0.3-0.1 % OINT I/4 inch to inner surface of right lower eyelid(s) at bedtime. TOBRAMYCIN-DEXA METHASONE 54412983213 Candice Mcfadden MD OPCON-A SOLN NAPHAZOLINE-PHE NIRAMINE SOLN 19172725475 Candice Mcfadden MD TOBRADEX 0.3-0.1 % OINT I/4 inch to inner surface of right lower eyelid(s) at bedtime. TOBRAMYCIN-DEXA METHASONE 69448706529 Candice Mcfadden MD OPCON-A SOLN NAPHAZOLINE- PHE NIRAMINE SOLN 37410174825 Candice Mcfadden MD CEPHALEXIN 250 MG/5ML SUSR 1.5 tsp bid x7 days CEPHALEXIN 61351548107 Mary Ann Dorantes NP ERYTHROMYCIN 5 MG/GM OINT apply to eye(s) as directed tid for 7 days ERYTHROMYCIN 08830666794 Joaquina Brunner MD POLYTRIM 04457-7.1 UNIT/ML-% SOLN 1-2 gtts in affected eye four times a day x 7d POLYMYXIN B-TRIMETHOPRIM 20789889153 Alexi Gardner NP Medications Administered No information available. Allergies, Adverse Reactions, Alerts Observed no known allergies at Results Date Name Value Unit Range Flag Description Clinical Summary: Preload fr om Paper Record LEAD, BLOOD <2 ug/dL Lead [Mas s/volume] in Blood Office Visit: pharyngitis (r sa neg), skin rash a.b. THROAT CULTR sent to lab thro at culture RAPID STREP negative Streptoc occus pyogenes DNA [Presence] in Throat by VARINDER with probe detection Lab Report: BETA STREP SCREE N CULTURE STREP SCREEN NEGATIVE FOR BETA-HEMOLYTIC STREPTOCOCCUS Streptococcus pyogenes [Presence] in Throat by Organism specific culture Office Visit: 3 year old [facility] (ua) WBC DIPSTK U neg Leukocyt e esterase [Presence] in Urine by Test strip BILIRUBIN UR neg Bilirubi n.total [Presence] in Urine by Test strip NITRITE URN neg Nitrite [ Presence] in Urine by Test strip UROBILINOGEN 0.2 Urobilin ogen [Presence] in Urine by Test strip HGB URINE neg hemoglobin, urine, by dipstick KETONES URN neg Ketones [Mass/volume] in Urine by Test strip GLUCOSE, URN neg Glucose [Mass/volume] in Urine by Test strip PH URINE 8.0 pH of Urine by Test strip SPEC GR URIN 1.015 Specific gravity of Urine by Test strip PROTEIN, URN trace Albumin [Presence] in Urine APPEARANCE U clear Appearan ce of Urine UA COLOR yellow Color of Uri ne Plan of Care Type Date Detail Pending order XR Right Fingers (min 2V) Pending order RAST Testing Pending order XR - Right Wrist (3 V) Pending order Wound Culture an d Sensitivity Pending order RAST Testing Pending order Beta Strep Scree n (Group A Strep) Procedures Code Procedure Name Date Entry Date CPT-43730 Cerumen removal 30439 [id number] Peak Flow A4570 Splint, finger FIN/R XR Right Fingers (min 2V) 20 03 RAST RAST Testing WR/R XR - Right Wrist (3 V) 12/23 [facility] Wound Culture and Sensitivity RAST RAST Testing CPT-52425 Developmental Testing - Pediatric CPT-13034 Urine Dip CPT-19579 Strep Screen (rapid strep) 2 BSS Beta Strep Screen (Group A Strep) CPT-65168 Venipuncture >= 3 yrs age (by provider) 2 CPT-53864 Developmental Testing - Pediatric Vital Signs Date Name Value Unit Description BMI (Body Mass Index) 23.59 kg/m2 Bod y Mass Index (Ratio) BP Diastolic 60 mm[Hg] blood pressu re, diastolic BP Systolic 104 mm[Hg] blood pressur e, systolic BSA (Body Surface Area) 1.67 b kate surface area Height 162.6 cm height in cent imeters E&M Height 64 [in_us] height E&M Weight Measured 137.000 [lb_av] weight E& M Weight Measured 62.27 kg weight in kilograms E&M Immunizations No information available. Advance Directives No information available.
--- OUTSIDE RECORDS SUMMARY | 2024-08-23 23:24 | XMS_ITS | Encounter Summary ---
Author Organization [facility] Address [phone] [facility] [place] [address] Care Team Providers Care Factory Engineer Name Role Phone Hermelindo Lozano CNP Primary Care Provider Reason for Visit * Reason Comments Medication Refill Encounter Details Date Type Department Care Team ([facility] st Contact Info) Description 08/16/2018 Refill [facility] [address] [place] [address] Hermelindo Lozano, INDIRECT FIRE INFANTRYMAN [address] [place] [address] [email or web address] Medication Refill Social History Tobacco Use Types Packs/Day Years Used Date Smoking Tobacco: Never Smokeless Tobacco: Never Sex and Gender Information Value Date Recorded Sex Assigned at Not on file Gender Identity Not on file Sexual Orientation Not on file documented as of this encounter Progress Notes * Alysa Salazar - 08/17/2018 10:46 AM EST Last filled 06/14/18 desogestrel-ethinyl estradiol (APRI) 0.15-0.03 mg per tablet [[id number]] Order Details Dose: 1 tablet Route: Oral Frequency: Daily Dispense Quantity: 3 packet Refills: 0 Fills remaining: -- ?? Sig: Take 1 tablet by mouth daily. Last ov 06/25/18 Date Time Visit Type Department Provider 09/23/18 2:45 PM QUICK FOLLOW UP [facility] DERM SKINCRE [facility] ROSELYN RASHID V 11/05/18 10:20 AM WELL CHILD [facility] WLS FAM [facility] HERMELINDO LOZANO documented in this encounter Plan of Treatment Upcoming Encounters Date Type Department Care Team (Late st Contact Info) Description 12/15/2024 9:00 AM EDT Telemedicine [facility] Abhinav HarryCTed [address] [place] [address] Hermelindo Lozano, BETTE [address] [place] [address] 06/11/2025 1:40 PM EDT Office Visit [facility] Nikole Harry [address] [facility] [place] [address] Hermelindo Lozano CNP [address] [place] [address] documented as of this encounter Visit Diagnoses Not on filedocumented in this encounter Care Teams Factory Engineer Relationship Specialty Start Date End Date Hermelindo Lozano CNP [address], [place] [address] PCP - General Family Medicine 06/28/17 documented as of this encounter Additional Source Comments The information contained in this document represents components of the legal health record. It is not the complete legal health record.[facility]
--- OUTSIDE RECORDS SUMMARY | 2024-08-23 23:24 | XMS_ITS | Encounter Summary ---
Author Organization [facility] Address [phone] [facility] [place] [address] Care Team Providers Care Electromechanical Engineer Name Role Phone Yamileth Wagner CNP Primary Care Provider Reason for Visit * Reason Comments Abdominal Cramping menstrual, abd, x 1 day Nausea Hot Flashes Encounter Details Date Type Department Care Team (Late st Contact Info) Description 06/14/2018 3:20 PM EDT Office Visit [facility] [address] [place] [address] Yamileth Wagner, BINDERY MACHINE TENDER [address] [place] [address] [email or web address] Dysmenorrhea (Primary Dx) Social History Tobacco Use Types Packs/Day Years Used Date Smoking Tobacco: Never Smokeless Tobacco: Never Sex and Gender Information Value Date Recorded Sex Assigned at Not on file Gender Identity Not on file Sexual Orientation Not on file documented as of this encounter Last Filed Vital Signs Vital Sign Reading Time Taken Comments Blood Pressure 110/71 06/14/2018 3:27 PM EDT Pulse 55 06/14/2018 3:27 PM EDT Temperature - - Respiratory Rate - - Oxygen Saturation 99% 06/14/2018 3:27 PM EDT Inhaled Oxygen Concentration - - Weight 65.4 kg (144 lb 3.2 oz) 06/14/2018 3:27 P M EDT Height - - Body Mass Index - - documented in this encounter Patient Instructions * Patient Instructions* Yamileth Wagner Zhane, BINDERY MACHINE TENDER - 06/14/2018 3:20 PM EDT Images from the original note were not included. Combination Control Pills: Care Instructions Your Care Instructions Combination control pills are used to prevent . They give you a regular dose of the hormones estrogen and progestin. You take a hormone pill every day to prevent . control pills come in packs. The most common type has 3 weeks of hormone pills. Some packs have sugar pills (they do not contain any hormones) for the fourth week. During that fourth no-hormoneweek, you have your period. After the fourth week (28 days), you start a new pack. Some control pills are packaged in different ways. For example, some have hormone pills for the fourth week instead of sugar pills. Taking hormones for the entire month causes you to not have periods or to have fewer periods. Others are packaged so that you have a period every 3 months. Your doctor will tell you what type of pills you have. Follow-up care is a chamorro part of your treatment and safety. Be sure to make and go to all appointments, and call your doctor if you are having problems. It's also a good idea to know your test resultsand keep a list of the medicines you take. How can you care for yourself at home? How do you take the pill? ?? Follow your doctor's instructions about when to start taking your pills. Use backup control, such as a condom, or don't have intercourse for 7 days after you start your pills. ?? Take your pills every day, at about the same time of day. To help yourself do this, try to take them when you do something else every day, such as brushing your teeth. What if you forget to take a pill? Always read the label for specific instructions, or call your doctor. Here are some basic guidelines: ?? If you miss 1 hormone pill, take it as soon as you remember. Ask your doctor if you may need to use a backup control method, such as a condom, or not have intercourse. ?? If you miss 2 or more hormone pills, take one as soon as you remember you forgot them. Then readthe pill label or call your doctor about instructions on how to take your missed pills. Use a backup method of control or don't have intercourse for 7 days. is more likely if you missmore than 1 pill. ?? If you had intercourse, you can use emergency contraception, such as the morning-after pill (Plan B). You can use emergency contraception for up to 5 days after having had intercourse, but it works best if you take it right away. What else do you need to know? ?? The pill has side effects. ? You may have very light or skipped periods. ? You may have bleeding between periods (spotting). This usually decreases after 3 to 4 months. ? You may have mood changes, less interest in sex, or weight gain. ?? The pill may reduce acne, heavy bleeding and cramping, and symptoms of premenstrual syndrome. ?? Check with your doctor before you use any other medicines, including alph-szf-agejxbl medicines,vitamins, herbal products, and supplements. control hormones may not work as well to prevent when combined with other medicines. ?? The pill doesn't protect against sexually transmitted infection (STIs), such as herpes or HIV/AIDS. If you're not sure whether your sex partner might have an STI, use a condom to protect against disease. When should you call for help? Call your doctor now or seek immediate medical care if: ? You have severe belly pain. ? You have signs of a blood clot, such as: ? Pain in your calf, back of the knee, thigh, or groin. ? Redness and swelling in your leg or groin. ? You have blurred vision or other problems seeing. ? You have a severe headache. ? You have severe trouble breathing. ??Watch closely for changes in your health, and be sure to contact your doctor if: ? You think you might be . ? You think you may be depressed. ? You think you may have been exposed to or have a sexually transmitted infection. Where can you learn more? Go to https://patientgateway.[facility].org/public. Enter Z218 in the search box to learn more about Combination Control Pills: Care Instructions. Current as of: July 10, 2017 Content Version: 11.8 ?? [id number] [employer]. Care instructions adapted under license by your healthcare professional. If you have questions about a medical condition or this instruction, always ask your healthcare professional. [employer] disclaims any warranty or liability for your use of this information. documented in this encounter Progress Notes * Yamileth Wagner CNP - 06/14/2018 3:20 PM EDT Pt presents for acute visit HPI Dysmenorrhea Longstanding problem Now interested in pursuing OCPs Hx from previous note: HPI Day 1 of period Flow normal 1 regular size tampon 1-3 hrs Severe cramping Joints cramp up Vomiting Headaches the day before Gets sensory overload on day of cramps Sometimes the day before taping sounds or bright lights Tingling in legs with cramps Hot flashes Abdominal pain and diarrhea Took advil the night before Sometimes throws up the advil Midol works a little better Days 2-5 fine Fine at camp Didn't happen at crew Not currently swimming - re-starting in a few weeks Cant stay at school No sx not during menses Sometimes in middle of cycle slight cramps Periods regular 25-29 days Length 5-7 days Not sexually active No discharge or pain Still not sexually active although does have a BF Feels safe Non-smoker No etoh, drug use Mom aware of desire to start OCPs Vitals: 06/14/18 1527 BP: 110/71 Pulse: (!) 55 SpO2: 99% Current Outpatient Medications: ??? adapalene (DIFFERIN) 0.3 [...] by mouth daily., Disp: 3 packet, Rfl: 0, Last Dispense: Unknown (outside pharmacy) Patient Active Problem List Diagnosis ??? Acne vulgaris ??? Unimmunized ??? Dysmenorrhea ??? Pain in joint of right shoulder PE Well appearing, well dressed/groomed, pleasant, cooperative NAD. Makes good eye contact. Speech is normal in tone and is non -pressured, non-tangential and easily followed. Affect is full. Insight is good. There is no suicidal or homicidal intentions. Thought process appears clear and non-delusional. ? A/p Longstanding dysmenorrhea Discussion of options interested in starting ocps side effects reviewed ACHES reviewed, risks of blood clots, cva red flags discussed- pt still agreable to start and will refrain from smoking sunday start reviewed Support abstinence and safe sex reviewed f/up 3 months- sooner if clincal concern documented in this encounter Plan of Treatment Upcoming Encounters Date Type Department Care Team (Late st Contact Info) Description 12/15/2024 9:00 AM EDT Telemedicine [facility] Nikole Harry [address] [place] [address] Yamileth Wagner CNP [address] [place] [address] [email or web address] 06/11/2025 1:40 PM EDT Office Visit [facility] Nikole Harry [address] [place] [address] Yamileth Wagner CNP [address] [place] [address] [email or web address] documented as of this encounter Visit Diagnoses Diagnosis Dysmenorrhea- Primary documented in this encounter Care Teams Electromechanical Engineer Relationship Specialty Start Date End Date Yamileth Wagner CNP [address] [facility] [place] [address] [email or web address] PCP - General Family Medicine 06/28/17 documented as of this encounter Additional Source Comments The information contained in this document represents components of the legal health record. It is not the complete legal health record.[facility]
--- OUTSIDE RECORDS SUMMARY | 2024-08-23 23:24 | XMS_ITS | Encounter Summary ---
Author Organization [facility] Address [phone] [place] [address] Care Team Providers Care Corporate Claims Examiner Name Role Phone Yamileth Wagner [employer] Primary Care Provider Armando Elkins Unavailable [email or web address] Yamileth Wagner CNP Unavailable + [phone] Yamileth Wagner CNP Unavailable + [phone] Reason for Visit * Reason Onset Date Comments call back 01/17/2018 Encounter Details Date Type Department Care Team (Late st Contact Info) Description 01/17/2018 Telephone [facility] [address] [place] [address] Yamileth Wagner CNP [address] [place] [address] [email or web address] Social History Tobacco Use Types Packs/Day Years Used Date Smoking Tobacco: Never Smokeless Tobacco: Never Sex and Gender Information Value Date Recorded Sex Assigned at Not on file Gender Identity Not on file Sexual Orientation Not on file documented as of this encounter Progress Notes * Hazel Courtney - 01/17/2018 12:00 PM EDT Mom Raine méndez's periods still severe For a couple of months they were ok Would like to discuss options being dismissed from school today documented in this encounter Plan of Treatment Upcoming Encounters Date Type Department Care Team (Late st Contact Info) Description 12/15/2024 9:00 AM EDT Telemedicine [facility] Nikole Colmenares [address] [place] [address] Yamileth Wagner CNP [address] [place] [address] 06/11/2025 1:40 PM EDT Office Visit [facility] Nikole Colmenares [address] [facility] [place] [address] Yamileth Wagner CNP [address] [place] [address] documented as of this encounter Visit Diagnoses Not on filedocumented in this encounter Care Teams Corporate Claims Examiner Relationship Specialty Start Date End Date Yamileth Wagner CNP [address] [place] [address] PCP - General Family Medicine 06/28/17 Armando Elkins [address] [place] [address] Collaborative Care [facility] Farm Equipment Assembler [facility] 04/22/19 05/08/19 Yamileth Wagner CNP [address] [place] [address] Insurance Assigned Provider 12/24/19 02/22/20 Yamileth Wagner CNP [address] [place] [address] Insurance Assigned Provider 09/25/20 08/05/21 documented as of this encounter Additional Source Comments The information contained in this document represents components of the legal health record. It is not the complete legal health record.[facility]
--- OUTSIDE RECORDS SUMMARY | 2024-08-23 23:24 | XMS_ITS | Encounter Summary ---
Author Organization [facility] Address [phone] [facility] [place] [address] Care Team Providers Care Paper Hanger Name Role Phone Yamileth Wagner Hunter AMOS Primary Care Provider Encounter Details Date Type Department Care Team (Late st Contact Info) Description 05/29/2018 2:45 PM EDT Office Visit [facility] [address] [phone] Johana Lanza MD, MD [address] [phone] [email or web address] Acne vulgaris (Primary Dx) Social History Tobacco Use Types Packs/Day Years Used Date Smoking Tobacco: Never Smokeless Tobacco: Never Sex and Gender Information Value Date Recorded Sex Assigned at Not on file Gender Identity Not on file Sexual Orientation Not on file documented as of this encounter Progress Notes * Johana Lanza MD, MD - 05/29/2018 2:45 PM EDT Images from the original note were not included. ?? ?MD Johana Silva MD Pamela K. Weinfeld, MD Deon Wolpowitz, MD, PhD ?[address] [facility] [address] [place] [address] ? FAX [phone] [email or web address] ? ? Date of last visit: new patient Consult requested by: Yamileth Wagner CNP DERM HISTORY: Chief complaint: spots HPI: 13 y.o. female presents with bumps on the face present x months She notes mostly skin colored bumps, occasionally pink bumps too She saw an herd tester who said she had clogged pores She is wondering if it is acne or a rash She is using duac gel QHS, it is not too drying She uses a face wash from [employer], she has many different ones but are not medicated with acne treatments She uses an oil moisturizer from [employer] She notes it has improved but never fully clears She denies new products She gets regular periods, every 24-27 days She notes it gets worse around her period, more pink bumps around period versus clogged pores Today is a good day No issues with hair loss or excess hair ???Patient seen today with mom SOCIAL HISTORY: Who lives with you at home: mom, dad Occupation: student Active Smoker_x_no __yes Previous Smoker_x_no __yes History of sundamage and sun protection _no__Multiple sunburns _no__Blistering sunburns _no__ Used a tanning amaral Approx number of times: _sometimes__ Wears sunblock: ? Additional risk factors: (relevant family and social history)? ?_no__h/o UV (light) or XRT (radiation) treatments?? 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 Family history of skin cancer _x_no __yes Multiple dysplastic nevi _x_no __yes psoriasis _x_no __yes Relevant Past Medical History (see encounter for additional info) ___ h/o malignancy: ___ h/o cardiovascular, renal, or hepatic disease: ___ h/o diabetes, autoimmune disease: Other: ? Past Medical History/Medications/allergies: as listed and reviewed in the Epic encounter Outpatient Prescriptions Marked as Taking for the 05/29/18 encounter (Office Visit) with Johana Lanza MD, MD Medication Sig Dispense Refill Last Dispense ??? albuterol (VENTOLIN HFA) 90 mcg/actuation inhaler Inhale 1 puff into the lungs every 6 (six) hours as needed for wheezing. 18 Inhaler 1 Unknown (outside pharmacy) ??? clindamycin-benzoyl peroxide ER (DUAC) gel Apply to face QAM 45 g 3 Unknown (outside pharmacy) ??? [DISCONTINUED] clindamycin-benzoyl peroxide ER (DUAC) gel APPLY TOPICALLY 2 (TWO) TIMES A DAY. 45 g 1 Unknown (outside pharmacy) Allergies Allergen Reactions ??? Milk Containing Products ?Review Of Systems: ?_x__ All negative on 05/29/2018 except ones checked: ?Constitutional: _x__Feels well overall [...] significant findings below: ?Diagnosis: Acne vulgaris ?Exam: [place] on forehead, chin, nose, cheeks, upper trunk [place] papules on cheeks, chin Assessment/Plan:? ?Discussed etiology, pathogenesis, and treatment [...] dietary triggers. She notes she avoids dairy Continue: Duac gel - BP + Clindamycin qam as tolerated Proper use and potential side effects reviewed including but not limited to irritation or allergy. Discontinue if any issue or irritation and contact office. _x_Use Facial moisturizer with SPF >/=30 every am and reapply as directed. _x_Wash face with gentle cleanser at night ??_x_Retinoid: Start: ?Differin 0.1% gel Apply pea-sized amount, start every third night and increase to nightly as tolerated. Discussed changing strength to Differin 0.3% once lower strength is tolerated well Proper use and potential side effects of [...] the patient's questions were answered and she is agreeable to the treatment plan. Return:? _2 mo f/u____ Return promptly with any new, symptomatic, or changing lesions or worsening issues. - Johana Lanza M.D. ? See full encounter for additional information reviewed and documented on chief complaint/reason(s) for visit, past medical history including family and social history, medications, and allergies IKriss am scribing for, and in the presence of, Dr. Johana Lanza on _05/29/2018___,for __Raine Taylor___. ? I, Dr. Johana Lanza M.D., am [...] Info) Description 12/15/2024 9:00 AM EDT [facility] [address] [place] [address] Yamileth Wagner, SLABBER [address] [place] [address] 06/11/2025 1:40 PM EDT [facility] [address] [place] [address] Yamileth Wagner, SLABBER [address] [place] [address] documented as of this encounter Visit Diagnoses Diagnosis Acne vulgaris- Primary Other acne documented in this encounter Care Teams Paper Hanger Relationship Specialty Start Date End Date Yamileth Wagner, SLABBER [address] [facility], [place] [address] [email or web address] PCP - General Family Medicine 06/28/17 documented as of this encounter Additional Source Comments The information contained in this document represents components of the legal health record. It is not the complete legal health record.[facility]
--- OUTSIDE RECORDS SUMMARY | 2024-08-23 23:24 | XMS_ITS | Encounter Summary ---
Author Organization [facility] Address [phone] [facility] [place] [address] Care Team Providers Care Hydrogenation Still Operator Name Role Phone Yamileth Wagner CNP Primary Care Provider Reason for Visit * Reason Comments Other Encounter Details Date Type Department Care Team (Late st Contact Info) Description 01/08/2017 Refill [facility] [address] [place] [address] Yamileth Wagner CNP [address] [facility], [facility] [place] [address] [email or web address] Other Social History Tobacco Use Types Packs/Day Years Used Date Smoking Tobacco: Never Sex and Gender Information Value Date Recorded Sex Assigned at Not on file Gender Identity Not on file Sexual Orientation Not on file documented as of this encounter Progress Notes * George Mancilla - 01/08/2017 12:07 PM EDT Clindamycin Last ov 06/28/16 Future Appointments Date Time Provider Department Center 06/28/2017 9:30 AM Yamileth Wagner CNP [email or web address] None documented in this encounter Plan of Treatment Upcoming Encounters Date Type Department Care Team (Late st Contact Info) Description 12/15/2024 9:00 AM EDT Telemedicine [facility] [address] [facility] [place] [address] Yamileth Wagner CNP [address] [place] [address] 06/11/2025 1:40 PM EDT Office Visit [facility] [address] [facility] [place] [address] Yamileth Wagner CNP [address] [place] [address] [email or web address] documented as of this encounter Visit Diagnoses Not on filedocumented in this encounter Care Teams Hydrogenation Still Operator Relationship Specialty Start Date End Date Yamileth Wagner CNP [address] [place] [address] [email or web address] PCP - General Family Medicine 06/14/16 06/27/17 documented as of this encounter Additional Source Comments The information contained in this document represents components of the legal health record. It is not the complete legal health record.[facility]
--- OUTSIDE RECORDS SUMMARY | 2024-08-23 23:24 | XMS_ITS | Encounter Summary ---
Author Organization [facility] Address [phone] [facility] [place] [address] Care Team Providers Care Half Section Ironer Name Role Phone Yamileth Wagner Hunter AMOS Primary Care Provider Reason for Visit * Reason Onset Date Comments lab work reminder 01/16/2019 Encounter Details Date Type Department Care Team (Late st Contact Info) Description 01/16/2019 Telephone [facility] [address] [place] [address] Marisa Kramer [place] [email or web address] lab work reminder Social History Tobacco Use Types Packs/Day Years [...] encounter Progress Notes * Marisa Kramer - 01/16/2019 9:18 AM EDT Spoke w/ patients mom Ren Reminded her that patient needs to return to lab for blood work. Lab hours given SS documented in this encounter Plan of Treatment Upcoming Encounters Date Type Department Care Team (Late st Contact Info) Description 12/15/2024 9:00 AM EDT Telemedicine [facility] [address] [place] [address] Yamileth Wagner, BETTE 145 [facility], [place] [address] [email or web address] 06/11/2025 1:40 PM EDT [facility] [address] [place] [address] Yamileth Wagner, BETTE [address] [facility], [place] [address] [email or web address] documented as of this encounter Visit Diagnoses Not on filedocumented in this encounter Care Teams Half Section Ironer Relationship Specialty Start Date End Date Yamileth Wagner CNP [address] [facility], [place] [address] [email or web address] PCP - General Family Medicine 06/28/17 documented as of this encounter Additional Source Comments The information contained in this document represents components of the legal health record. It is not the complete legal health record.[facility]
--- OUTSIDE RECORDS SUMMARY | 2024-08-23 23:24 | XMS_ITS | Encounter Summary ---
Author Organization [facility] Address [phone] [facility] [place] [address] Care Team Providers Care Automobile Radio Repairer Name Role Phone Yamileth Wagner CNP Primary Care Provider Reason for Visit * Reason Comments Medication Refill Encounter Details Date Type Department Care Team (Late st Contact Info) Description 01/09/2018 Refill [facility] [address] [place] [address] Yamileth Wagner, LUMBER SORTER MACHINE [address] [place] [address] [email or web address] Medication Refill Social History Tobacco Use Types Packs/Day Years Used Date Smoking Tobacco: Never Smokeless Tobacco: Never Sex and Gender Information Value Date Recorded Sex Assigned at Not on file Gender Identity Not on file Sexual Orientation Not on file documented as of this encounter Progress Notes * Marisa Kramer - 01/10/2018 1:40 PM EDT Requesting clindamycin to [facility] Last OV 07/26/17 Next OV 07/01/18 SS documented in this encounter Plan of Treatment Upcoming Encounters Date Type Department Care Team (Late st Contact Info) Description 12/15/2024 9:00 AM EDT Telemedicine [facility] [address] [place] [address] Yamileth Wagner CNP [address] [place] [address] [email or web address] 06/11/2025 1:40 PM EDT [facility] [address] [place] [address] Yamileth Wagner CNP [address] [place] [address] [email or web address] documented as of this encounter Visit Diagnoses Not on filedocumented in this encounter Care Teams Automobile Radio Repairer Relationship Specialty Start Date End Date Yamileth Wagner CNP [address] [place] [address] [email or web address] PCP - General Family Medicine 06/28/17 documented as of this encounter Additional Source Comments The information contained in this document represents components of the legal health record. It is not the complete legal health record.[facility]
--- OUTSIDE RECORDS SUMMARY | 2024-08-23 23:24 | XMS_ITS | Encounter Summary ---
Author Organization [facility] Address [phone] [facility] [place] [address] Care Team Providers Care Vice President Medical Affairs Name Role Phone Yamileth Wagner Hunter AMOS Primary Care Provider Reason for Visit * Reason Comments Medication Refill Encounter Details Date Type Department Care Team (Late st Contact Info) Description 11/09/2018 Refill [facility] [address] [place] [address] Xiomara Childress MD [address] [place] [address] [email or web address] Medication Refill [...] encounter Progress Notes * Marisa Kramer - 11/11/2018 10:13 AM EDT Requesting apri to [facility] Last OV 11/05/18 Next OV 01/18/19 SS documented in this encounter Plan of Treatment Upcoming Encounters Date Type Department Care Team (Late st Contact Info) Description 12/15/2024 9:00 AM EDT [facility] [address] [facility] [place] [address] Yamileth Wagner CNP [address] [place] [address] [email or web address] 06/11/2025 1:40 PM EDT Office Visit [facility] Harry [address] [facility] [place] [address] Yamileth Wagner CNP [address] [place] [address] documented as of this encounter Visit Diagnoses Not on filedocumented in this encounter Care Teams Vice President Medical Affairs Relationship Specialty Start Date End Date Yamileth Wagner [place] [address] [email or web address] PCP - General Family Medicine 06/28/17 documented as of this encounter Additional Source Comments The information contained in this document represents components of the legal health record. It is not the complete legal health record.[facility]
--- OUTSIDE RECORDS SUMMARY | 2024-08-23 23:24 | XMS_ITS | Encounter Summary ---
Author Organization [facility] Address [phone] [facility] [place] [address] Care Team Providers Care Industrial Furnace Fabricator Name Role Phone Yamileth Wagner CNP Primary Care Provider Reason for Visit * Reason Comments Immunizations Encounter Details Date Type Department Care Team (Late st Contact Info) Description 01/23/2019 4:10 PM EDT Nurse Only [facility] [address] [place] [address] Need for vkompdp-pmzgb-nudabml (MMR) vaccine (Primary Dx) Social History Tobacco Use Types [...] encounter Progress Notes * Marisa Kramer - 01/23/2019 4:10 PM EDT Patient presented for MMR Vaccine Patient tolerated well without any complications. SS documented in this encounter Plan of Treatment Upcoming Encounters Date Type Department Care Team (Late st Contact Info) Description 12/15/2024 9:00 AM EDT Telemedicine [facility] [address] [place] [address] Yamileth Wagner CNP [address] [facility] [place] [address] 06/11/2025 1:40 PM EDT [facility] [address] [place] [address] Yamileth Wagner CNP [address], [place] [address] [email or web address] documented as of this encounter Visit Diagnoses Diagnosis Need for riegsvm-zccnl-ksqlvjc (MMR) vaccine- Primary Need for prophylactic vaccination with mbcbggu-ovxoj-mrvqskf (MMR) vaccine documented in this encounter Care Teams Industrial Furnace Fabricator Relationship Specialty Start Date End Date Yamileth Wagner CNP [address], [place] [address] [email or web address] PCP - General Family Medicine 06/28/17 documented as of this encounter Additional Source Comments The information contained in this document represents components of the legal health record. It is not the complete legal health record.[facility]
--- OUTSIDE RECORDS SUMMARY | 2024-08-23 23:24 | XMS_ITS | Encounter Summary ---
Author Organization [facility] Address [phone] [facility] [place] [address] [place] [address] Care Team Providers Care Fruit Or Nut Farm Worker Name Role Phone Yamileth Wagner Hunter AMOS Primary Care Provider Reason for Visit * Reason Onset Date Comments mcpap 11/14/2018 Encounter Details Date Type Department Care Team (Late st Contact Info) Description 11/14/2018 Telephone [facility] [address] [place] [address] Marisa Kramer MA [email or web address] mcpap Social History Tobacco Use Types Packs/Day Years [...] encounter Progress Notes * Marisa Kramer - 11/14/2018 10:35 AM EDT mcpap called Per J[facility] needs resources Gave background of pt mcpap rep will find resources for pt and send Does not need to be called back documented in this encounter Plan of Treatment Upcoming Encounters Date Type Department Care Team (Late st Contact Info) Description 12/15/2024 9:00 AM EDT Telemedicine [facility] [address] [place] [address] Yamileth Wagner CNP [address] [facility], [place] [address] [email or web address] 06/11/2025 1:40 PM EDT [facility] [address] [place] [address] Yamileth Wagner CNP [address] [facility], [place] [address] documented as of this encounter Visit Diagnoses Not on filedocumented in this encounter Care Teams Fruit Or Nut Farm Worker Relationship Specialty Start Date End Date Yamileth Wagner CNP [address] [facility], [place] [address] [email or web address] PCP - General Family Medicine 06/28/17 documented as of this encounter Additional Source Comments The information contained in this document represents components of the legal health record. It is not the complete legal health record.[facility]
--- OUTSIDE RECORDS SUMMARY | 2024-08-23 23:24 | XMS_ITS | Encounter Summary ---
Author Organization [facility] Address [phone] [facility]ly [facility] [place] [address] Care Team Providers Care Credit Collections Rep Name Role Phone Joaquina Brunner MD Unavailable [email or web address] Yamileth Wagner COMPUTER SCIENCE TEACHER Primary Care Provider Reason for Visit * Reason Comments Well Child Encounter Details Date Type Department Care Team (Late st Contact Info) Description 06/28/2016 9:20 AM EST Office Visit [facility] [address] [place] [address] Yamileth Wagner, COMPUTER SCIENCE TEACHER [address] [place] [address] [email or web address] Acne vulgaris; Immunization not carried out for unspecified reason; Dysmenorrhea Social History Tobacco Use Types Packs/Day Years Used Date Smoking Tobacco: Never Sex and Gender Information Value Date Recorded Sex Assigned at Not on file Gender Identity Not on file Sexual Orientation Not on file documented as of this encounter Last Filed Vital Signs Vital Sign Reading Time Taken Comments Blood Pressure 100/60 06/28/2016 9:30 AM EST Pulse 81 06/28/2016 9:30 AM EST Temperature - - Respiratory Rate - - Oxygen Saturation 99% 06/28/2016 9:30 AM EST Inhaled Oxygen Concentration - - Weight 61 kg (134 lb 6.4 oz) 06/28/2016 9:30 AM EST Height 165.1 cm (5' 5) 06/28/2016 9:30 AM EST Body Mass Index 22.37 06/28/2016 9:30 AM EST Body Mass Index Percentile 82.55% 06/28/2016 9:3 0 AM EST Growth Chart: CDC (Girls, 2- 20 Years) documented in this encounter Progress Notes * Bernard Yamileth Zhane, BETTE - 06/28/2016 9:20 AM EST Subjective: Patient ID: Raine Taylor is a 11 y.o. female. 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 MENSES: Menarche: 8 LMP: 2 weeks Interval: 28-30 days Length: 5-6 days Cramping: severe Amount: moderate ACNE: Yes Using vivactiv not really helping On face and a small amount on chest and back RISKS: Tobacco: none Sex: none, heterosexual, dates boys Drugs: none EtOH: none TEETH: No braces ELIMINATION: normal New concerns: see problem list AG: safety--helmets, seat belt, minimize screen time, home safety (guns, fire alarms, smokers), sunscreen Dismissed from manager primary care for under-immunization Review of Systems Constitutional: Negative for activity change, appetite change, chills, diaphoresis, fatigue, fever and unexpected weight change. HENT: Negative. Eyes: Negative for photophobia, pain, discharge, redness, [...] for arthralgias, back pain, gait problem, joint swelling and myalgias. Skin: Positive for rash. acne Allergic/Immunologic: Negative. Neurological: Negative. Negative for dizziness, syncope and headaches. Hematological: Negative. Psychiatric/Behavioral: The patient is nervous/anxious. Objective: Physical Exam Constitutional: She is oriented to person, place, and time. She appears well- developed and well-nourished. HENT: Head: Normocephalic and atraumatic. Right Ear: External ear normal. Left Ear: External ear normal. Nose: Nose normal. Mouth/Throat: Oropharynx is clear and moist. No oropharyngeal exudate. Eyes: Conjunctivae and EOM are normal. Pupils are equal, round, and reactive to light. Right eye exhibits no discharge. Left eye exhibits no discharge. No scleral icterus. Neck: Normal range of motion. Neck supple. No thyromegaly present. Cardiovascular: Normal rate, regular rhythm and intact distal pulses. Exam reveals no gallop and nofriction rub. No murmur heard. Pulmonary/Chest: Effort normal and breath sounds normal. No respiratory distress. She has no wheezes. She has no rales. She exhibits no tenderness. Abdominal: Soft. Bowel sounds are normal. She exhibits no distension and no mass. There is no hepatosplenomegaly. There is no tenderness. There is no rebound, no guarding and no CVA tenderness. Genitourinary: Genitourinary Comments: Mahendra 5 Musculoskeletal: Normal range of motion. She exhibits no edema or tenderness. Neurological: She is alert and oriented to person, place, and time. She has normal reflexes. Skin: Skin is warm and dry. No rash noted. No erythema. No pallor. Scattered erythematous papules with comodones throughout face, upper chest and back. NO nodules or cysts, No discharge, some scattered scaly patches throughout Psychiatric: She has a normal mood and affect. Her behavior is normal. Judgment and thought contentnormal. Vitals reviewed. Assessment/Plan: Problem List Items Addressed This Visit Acne vulgaris See HPI A/p Acne vulgaris present throughout [...] the future Mom and pt expressed understanding Immunization not carried out for unspecified reason Mom unclear on reasons behind lack of immunizations Doesn't feel good about either decision Feels like decision should be made by pt Feels like the safety is an issue but less so now that patient is 11 and not a baby Definitely concerned about so many vaccinations especially when she was a baby Pt has had no immunizations Released from last manager primary care due to refusal to immunize A/p ellicited concerns and answered questions Strongly encouraged starting an immunization schedule, saran for MMR, Gardisil Mom and pt to consider Information given to take home Dysmenorrhea Heavy periods since started 3 yrs ago Started on a supplement that has helped a lot got through chiropractor Chiropractor very involved in treatment Takes advil menstrual during most severe cramping Heat, rest A/p Cont treatments that are effective Consider start advil 1 day prior to onset of period Consider OCPs at some point if continuing to be difficult Pt and mom agreed documented in this encounter Miscellaneous Notes * Assessment & Plan Note - Yamileth Wagner CNP - 06/28/2016 2:18 PM EST Associated Problem(s): Dysmenorrhea Heavy periods since started 3 yrs ago Started on a supplement that has helped a lot got through chiropractor Chiropractor very involved in treatment Takes advil menstrual during most severe cramping Heat, rest A/p Cont treatments that are effective Consider start advil 1 day prior to onset of period Consider OCPs at some point if continuing to be difficult Pt and mom agreed * Assessment & Plan Note - Yamileth Wagner CNP - 06/28/2016 2:14 PM EST Associated Problem(s): Unimmunized Mom unclear on reasons behind lack of immunizations Doesn't feel good about either decision Feels like decision should be made by pt Feels like the safety is an issue but less so now that patient is 11 and not a baby Definitely concerned about so many vaccinations especially when she was a baby Pt has had no immunizations Released from last manager primary care due to refusal to immunize A/p ellicited concerns and answered questions Strongly encouraged starting an immunization schedule, saran for MMR, Gardisil Mom and pt to consider Information given to take home * Assessment & Plan Note - Yamileth Wagner CNP - 06/28/2016 2:12 PM EST Associated Problem(s): Acne vulgaris See HPI A/p Acne vulgaris present throughout [...] the future Mom and pt expressed understanding documented in this encounter Plan of Treatment Upcoming Encounters Date Type Department Care Team (Late st Contact Info) Description 12/15/2024 9:00 AM EDT Tele[facility] Nikole Harry [address] [place] [address] Yamileth Wagner CNP [address] [place] [address] [email or web address] 06/11/2025 1:40 PM EDT Office Visit [facility] Nikole Harry [address] [place] [address] Yamileth Wagner CNP [address] [place] [address] documented as of this encounter Visit Diagnoses Diagnosis Acne vulgaris Other acne Immunization not carried out for unspecified reason Dysmenorrhea documented in this encounter Care Teams Credit Collections Rep Relationship Specialty Start Date End Date Yamileth Wagner CNP [address] [place] [address] PCP - General Family Medicine 06/14/16 06/27/17 Joaquina Brunner MD [email or web address] Assigned Provider 05/22/15 07/22/16 documented as of this encounter Additional Source Comments The information contained in this document represents components of the legal health record. It is not the complete legal health record.[facility]
--- OUTSIDE RECORDS SUMMARY | 2024-08-23 23:24 | XMS_ITS | Encounter Summary ---
Author Organization [facility] Address [phone] [place] [address] Care Team Providers Care Computer Typesetter Keyliner Name Role Phone Yamileth Wagner CNP Primary Care Provider Encounter Details Date Type Department Care Team (Latest Contact Info) Description 01/23/2019 4:06 PM EDT - 01/23/2019 11:59 PM EDT Hospital Encounter [facility] [address] [place] [address] Yamileth Wagner, TELETYPE OPERATOR [address] [facility] [address] [place], [place] [id number] [email or web address] Discharge Disposition: Home or Self Care Social [...] to nightly as tolerated. 60 g 11 05/29/2018 02/12/2019 albuterol (VENTOLIN HFA) 90 mcg/actuation inhaler Inhale 1 puff into the lungs every 6 (six) hours as needed for wheezing. 18 Inhaler 1 04/30/2018 04/28/2019 APRI 0.15-0.03 mg per tablet TAKE 1 TABLET BY MOUTH EVERY DAY 84 tablet 3 11/11/2018 02/17/2019 clindamycin-benzoyl peroxide ER (DUAC) gel Apply to face QAM 45 g 3 05/29/2018 10/28/2020 norgestimate-ethinyl estradiol (ORTHO TRI-CYCLEN LO) 0.18/0.215/0.25 mg-25 mcg Tab Take 1 tablet by mouth daily. 3 packet 2 12/16/2018 02/17/2019 documented as of this encounter Plan of Treatment Upcoming Encounters Date Type Department Care Team (Late st Contact Info) Description 12/15/2024 9:00 AM EDT Telemedicine [facility] Nikole Harry [address] [address] Yamileth Wagner, TELETYPE OPERATOR [address] [facility], [place] [address] [email or web address] 06/11/2025 1:40 PM EDT Office Visit [facility] Nikole Harry [address] [facility] [place] [address] Yamileth Wagner, TELETYPE OPERATOR [address] [facility], [place] [address] documented as of this encounter Procedures Procedure Name Priority Date/Time Associated Diagnosis Comments CBC Routine 01/23/2019 4:06 PM EDT Dysmenorrhea TSH Routine 01/23/2019 4:06 PM EDT Dysmenorrhea BASIC METABOLIC PANEL Routine 01/23/2019 4:06 PM EDT Dysmenorrhea documented in this encounter Results * CBC (01/23/2019 4:06 PM EDT) WBC 7.07 4.5 - 13.5 K/uL [facility] RBC 4.57 4.1 - 5.1 M/uL [facility] HGB 13.1 12.0 - 16.0 g/dL [facility] HCT 40.0 36 - 46 % [facility] PLT 285 135 - 400 K/uL [facility] MCV 87.5 78 - 102 fL [facility] MCH 28.7 27 - 34 pg [facility] MCHC 32.8 31.5 - 36.5 g/dL [facility] RDW 12.9 11.9 - 14.8 % [facility] MPV 10.5 9.6 - 12 fl [facility] NRBC 0.00 0 /100 WBCs [facility] 01/23/2019 4:06 PM EDT 01/23/2019 8:32 PM EDT Yamileth Hunter [facility] BLOOD [facility] Performing Organization Address [facility] Co de Phone Number [facility] [address] [place] [address] * TSH (01/23/2019 4:06 PM EDT) TSH 0.77 0.55 - 4.78 uIU/mL [facility] 01/23/2019 4:06 PM EDT 01/23/2019 8:31 PM EDT Yamileth Hunter [facility] BLOOD [facility] Performing Organization Address [facility] Co de Phone Number [facility] [address] [place] [address] * Basic metabolic panel (01/23/2019 4:06 PM EDT) SODIUM 142 136 - 145 mmol/L [facility] CHLORIDE 105 95 - 106 mmol/L [facility] POTASSIUM 4.1 3.5 - 5.2 mmol/L [facility] CO2 26 20 - 31 mmol/L [facility] BUN 15 9 - 23 mg/dL [facility] CREATININE 0.70 0.50 - 1.30 mg/dL [facility] GLUCOSE 86 74 - 106 mg/dL [facility] CALCIUM 9.3 8.7 - 10.4 mg/dL [facility] EGFR Estimated GFR not calculated for patients <18 years old. >60 mL/min/1. 73m2 [facility] ANION GAP 11 3 - 17 mmol/L [facility] 01/23/2019 4:06 PM EDT 01/23/2019 8:31 PM EDT Yamileth Wagner CNP LAB BLOOD [facility] Performing Organization Address City/State/[facility] Co de Phone Number [facility] [address] [place] [address] documented in this encounter Visit Diagnoses Diagnosis Dysmenorrhea documented in this encounter Care Teams Computer Typesetter Keyliner Relationship Specialty Start Date End Date Yamileth Wagner CNP [address] [facility], [place] [address] [email or web address] PCP - General Family Medicine 06/28/17 documented as of this encounter Additional Source Comments The information contained in this document represents components of the legal health record. It is not the complete legal health record.[facility]
--- OUTSIDE RECORDS SUMMARY | 2024-08-23 23:24 | XMS_ITS | Encounter Summary ---
Author Organization [facility] Address [phone] [facility] [place] [address] Care Team Providers Care Auto Service Representative Name Role Phone Hermelindo Lozano CNP Primary Care Provider Reason for Visit * Reason Comments Medication Refill Encounter Details Date Type Department Care Team (Late st Contact Info) Description 04/29/2018 Refill [facility] [address] [place] [address] Hermelindo Lozano, CORE STACKER [address] [place] [address] [email or web address] Medication Refill Social History Tobacco Use Types Packs/Day Years Used Date Smoking Tobacco: Never Smokeless Tobacco: Never Sex and Gender Information Value Date Recorded Sex Assigned at Not on file Gender Identity Not on file Sexual Orientation Not on file documented as of this encounter Progress Notes * Alysa Salazar - 04/30/2018 12:04 PM EDT Last filled 03/26/17 VENTOLIN HFA 90 mcg/actuation inhaler [[id number]] Order Details Dose, Route, Frequency: As Directed Dispense Quantity: 18 Inhaler Refills: 1 Fills Remaining: -- ?? Sig: INHALE 1-2 PUFFS EVERY 4-6 HOURS NEEDED FOR WHEEZING. DISPENSE SPACER NEEDED. ?? Last ov 01/18/18 07/01/18 9:30 AM WELL CHILD TEEN [facility] HERMELINDO LOZANO documented in this encounter Plan of Treatment Upcoming Encounters Date Type Department Care Team (Late st Contact Info) Description 12/15/2024 9:00 AM EDT Telemedicine [facility] P.CT[facility] [address] [place] [address] Hermelindo Lozano CNP [address], [place] [address] 06/11/2025 1:40 PM EDT Office Visit [facility] [address] [place] [address] Hermelindo Lozano CNP [address], [place] [address] documented as of this encounter Visit Diagnoses Not on filedocumented in this encounter Care Teams Auto Service Representative Relationship Specialty Start Date End Date Hermelindo Lozano CNP [address] [place] [address] PCP - General Family Medicine 06/28/17 documented as of this encounter Additional Source Comments The information contained in this document represents components of the legal health record. It is not the complete legal health record.[facility]
--- OUTSIDE RECORDS SUMMARY | 2024-08-23 23:24 | XMS_ITS | Encounter Summary ---
Author Organization [facility] Address [phone] [facility] [place] [address] Care Team Providers Care Fur Repair Inspector Name Role Phone Yamileth Wagner OYSTER FARMER Primary Care Provider Reason for Visit * Reason Comments Well Child Encounter Details Date Type Department Care Team ([facility] st Contact Info) Description 11/05/2018 10:20 AM EDT Office Visit [facility] [address] [place] [address] Yamileth Wagner, OYSTER FARMER [address] [place] [address] [email or web address] Pain in joint of right shoulder; Dysmenorrhea; Acne vulgaris; Unimmunized; Depressed mood Social History Tobacco Use Types [...] Sign Reading Time Taken Comments Blood Pressure 100/64 11/05/2018 10:16 AM EDT Pulse 69 11/05/2018 10:16 AM EDT Temperature - - Respiratory Rate - - Oxygen Saturation 99% 11/05/2018 10:16 AM EDT Inhaled Oxygen Concentration - - Weight 65.3 kg (144 lb) 11/05/2018 10:16 AM EDT Height 166.4 cm (5' 5.5) 11/05/2018 10:16 AM ED T Body Mass Index 23.6 11/05/2018 10:16 AM EDT Body Mass Index Percentile 80.59% 11/05/2018 10: 16 AM EDT Growth Chart: [facility] (Girls, 2- 20 Years) documented in this encounter Progress Notes * Yamileth Wagner, OYSTER FARMER - 11/05/2018 10:20 AM EDT Medical Student Note This is a 13 year old woman with a PMH of dysmenorrhea and acne presenting for her annual well child check. See problem list below. Social History Social History Narrative Mom Ren and dad Roldan. 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 She has no concerns about her weight. 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 Sexuality: never been sexually active, has a thing with a dorie but they aren't dating. Sleep: She has some trouble sleeping, mostly falling asleep. BP 100/64 Pulse 69 Ht 166.4 cm (5' 5.5) Wt 65.3 kg (144 lb) SpO2 99% BMI 23.60 kg/m?? General Appearance: Alert, cooperative, no distress, appears stated age Head: Normocephalic, without obvious abnormality, atraumatic Eyes: PERRL, conjunctiva/corneas clear, EOM's intact, fundi benign, both eyes Ears: Normal TM's and external ear canals, both ears Nose: Nares normal, septum midline, mucosa normal, no drainage or sinus tenderness Throat: Lips, mucosa, and tongue normal; teeth and gums normal Neck: Supple, symmetrical, trachea midline, no adenopathy; thyroid: no enlargement/tenderness/nodules; no carotid bruit or JVD Back: Symmetric, no curvature, ROM normal, no CVA tenderness Lungs: Clear to auscultation bilaterally, respirations unlabored Chest Wall: No tenderness or deformity Heart: Regular rate and rhythm, S1 and S2 normal, no murmur, rub or gallop Breast Exam: No tenderness, masses, or nipple abnormality Abdomen: Soft, non-tender, bowel sounds active all four quadrants, no masses, no organomegaly Genitalia: Normal female without lesion, discharge or tenderness Extremities: Extremities normal, atraumatic, no cyanosis or edema Pulses: 2+ and symmetric all extremities Skin: Skin color, texture, turgor normal, no rashes or lesions Lymph nodes: Cervical, supraclavicular, and axillary nodes normal Neurologic: CNII-XII intact, normal strength, sensation and reflexes throughout A/P: This is a 13 year old woman presenting today for an annual well child check in her usual state of health. Problems addressed below Problem List Items Addressed This Visit Acne vulgaris Overview OCPs and benzoin helped significantly, much improved Current Assessment & Plan Continue with both OCPs and benzoin. Depressed mood Overview No therapy/meds Current Assessment & Plan Some inc anxiety related to social issues (had to change friend groups, new friends libertarian and this makes her left out) and [...] has been helpful Those kids do not libertarian, which makes her more comfortable But those [...] red flags Good supports and good relationships [place] back if no improvement Mom and patient agree with this plan Dysmenorrhea Overview On APRI OCPs, significantly improved, regular periods, no cramps, no overly heavy. Current Assessment & Plan Continue on APRI Pain in joint of right shoulder Overview Tore both rotator cuffs a few years ago, was having trouble with the R, but has since resolved. Current Assessment & Plan Now has full rotation back in both shoulders Unimmunized Current Assessment & Plan Currently unimmunized Long discussion again today Mom Would Like to discuss with dad Reviewed plan for immunization, importance of immunization and the risks of not immunizing, including communicable disease that can cause severe injury or Recommend: MMR and guardasil before 16 bday (January) Menactra and TDaP over the summer 2018 IPV, MMR2 next year Patient and family will discuss this plan and call for scheduling as desired. Diane Singh, MS3 IKiarra CNP, saw and evaluated the patient. I agree with the modified history, findings, assessment and plan documented by medical student. documented in this encounter Miscellaneous Notes * Assessment & Plan Note - Diane Singhsanti - 11/05/2018 11:37 AM EDT Associated Problem(s): Anxiety and depression Some inc anxiety related to social issues (had to change friend groups, new friends libertarian and this makes her left out) and [...] has been helpful Those kids do not libertarian, which makes her more comfortable But those [...] red flags Good supports and good relationships [place] back if no improvement Mom and patient agree with this plan * Assessment & Plan Note - Diane Singh - 11/05/2018 11:34 AM EDT Associated Problem(s): Unimmunized Currently unimmunized Long discussion again today Mom Would Like to discuss with dad Reviewed plan for immunization, importance of immunization and the risks of not immunizing, including communicable disease that can cause severe injury or Recommend: MMR and guardasil before 16 bd (January) Menactra and TDaP over the summer 2018 IPV, MMR2 next year Patient and family will discuss this plan and call for scheduling as desired. * Assessment & Plan Note - Diane Singh - 11/05/2018 10:38 AM EDT Associated Problem(s): Acne vulgaris Continue with both OCPs and benzoin. * Assessment & Plan Note - Diane Singh - 11/05/2018 10:37 AM EDT Associated Problem(s): Dysmenorrhea Continue on APRI * Assessment & Plan Note - Diane Singh - 11/05/2018 10:24 AM EDT Associated Problem(s): Pain in joint of right shoulder (Resolved 04/25/2023) Now has full rotation back in both shoulders documented in this encounter Plan of Treatment Upcoming Encounters Date Type Department Care Team (Late st Contact Info) Description 12/15/2024 9:00 AM EDT Telemedicine [facility] Nikole Harry [address] [facility] [place] [address] Yamileth Wagner, BETTE [address] [place] [address] 06/11/2025 1:40 PM EDT Office Visit [facility] Nikole Colmenares [address] [facility] [place] [address] Yamileth Wagner CNP [address] [place] [address] [email or web address] documented as of this encounter Visit Diagnoses Diagnosis Pain in joint of right shoulder Dysmenorrhea Acne vulgaris Other acne Unimmunized Depressed mood documented in this encounter Care Teams Fur Repair Inspector Relationship Specialty Start Date End Date Yamileth Wagner CNP [address] [place] [address] PCP - General Family Medicine 06/28/17 documented as of this encounter Additional Source Comments The information contained in this document represents components of the legal health record. It is not the complete legal health record.[facility]
--- OUTSIDE RECORDS SUMMARY | 2024-08-23 23:24 | XMS_ITS | Encounter Summary ---
Author Organization [facility] Address [phone] [facility] [place] [address] Care Team Providers Care Patient Service Coordinator Name Role Phone Yamileth Wagner Hunter AMOS Primary Care Provider Reason for Visit * Reason Onset Date Comments Medication Refill 02/12/2019 Encounter Details Date Type Department Care Team (Late st Contact Info) Description 02/12/2019 [facility]ill [facility] [address] [address] Zakiya Ayala Medication Refill Social History Tobacco Use Types [...] as of this encounter Progress Notes * Zakiya Ayala - 02/12/2019 4:47 PM EDT Last visit: 05/29/18 Next visit: not sched MD requested f/u in: 2 mo Medication: adapalene 0.3% gel Using for: acne 02/12/19 Refill of differin 0.3%. ?? Mom says her daugher is very happy with acne and feel it is well controled with current regiment. She uses the differin almost nightly. documented in this encounter Plan of Treatment Upcoming Encounters Date Type Department Care Team (Late st Contact Info) Description 12/15/2024 9:00 AM EDT [facility] [address] [place] [place] [address] Yamileth Wagner CNP [address] [facility] [place] [address] [email or web address] 06/11/2025 1:40 PM EDT [facility] [address] [place] [address] Yamileth Wagner CNP [address] [place] [address] [email or web address] documented as of this encounter Visit Diagnoses Not on filedocumented in this encounter Care Teams Patient Service Coordinator Relationship Specialty Start Date End Date Yamileth Wagner CNP [place] [address] [email or web address] PCP - General Family Medicine 06/28/17 documented as of this encounter Additional Source Comments The information contained in this document represents components of the legal health record. It is not the complete legal health record.[facility]
--- OUTSIDE RECORDS SUMMARY | 2024-08-23 23:24 | XMS_ITS | Encounter Summary ---
Author Organization [facility] Address [address] [facility] [address] [place] [address] Care Team Providers Care Diamond Setter Apprentice Name Role Phone Unavailable Primary Care Provider Unavailabl e Encounter Details Date Type Department Care Team (Late st Contact Info) Description 10/13/2020 Abstract [facility] - [address] [phone] Dalila Porter COT [address], [address] [address] Social History Tobacco Use Types Packs/Day Years Used Date Smoking Tobacco: Never Assessed Sex and Gender Information Value Date Recorded Sex Assigned at Not on file Gender Identity Not on file Sexual Orientation Not on file Job Start Date Occupation Industry Not on file Not on file Not on file documented as of this encounter Progress Notes * RAY Gary - 10/13/2020 11:59 PM EST Glaucoma suspect high risk (SL)- Stable.; Both Eyes (H40.023) referred by dr. venancio rea for glaucoma eval; tmax: 13 ou; cct: 532/516 thin ou; No FH - glaucoma; mother with glaucoma suspect; dad's c:d; 0.7 ou; very large ON head size; large c:d ou; intact NRR 360 degrees; normal iop ou; normal OCT OPTIC NERVE CIRRUS (OU); 10/2015; -normal iop; open gonio ou; no apd ou; baseline OCT OU with thick NFL ou; 02/29/16 -stable IOP/Normal; OCT/HVF OU; baseline ON photos taken; mom and dad have large cups per family; low risk currently; 03/2017 -large inc c:d ratio OU; stable ON appearance clinically OU; large size ON head ou; intact rims ou;stable IOP/OCT OU; 06/2018 -IOP on target ou at 15/14; stable OCT/HVF OU; stable large ON appearance clinically OU; stable ON appearance in photos OU; 09/201910/13/20: pt going to [employer] for [employer] design next year -stable VA OU; large c:d ou; intact rims ou; IOP on target at 11 OU; stable, normal OCT/HVF OU; stable ON appearance clinically OU; -OBSERVE, will cont careful monitoring. -Findings discussed with patient. Importance of regular follow-up to help detect early disease and prevent vision loss discussed with patient who expresses understanding. -f/u 6-12 months DFE/OCT/HVF/ON photo (OU) 09/2021 documented in this encounter Plan of Treatment Not on file documented as of this encounter Visit Diagnoses Not on filedocumented in this encounter
--- OUTSIDE RECORDS SUMMARY | 2024-08-23 23:24 | XMS_ITS | Clinical Summary ---
Author Organization [facility] Address [address] [facility] [address] [place] [address] Care Team Providers Care Postage Machine Operator Name Role Phone Unavailable Primary Care Provider Unavailabl e Social History Tobacco Use Types Packs/Day Years Used Date Smoking Tobacco: Never Assessed Sex and Gender Information Value Date Recorded Sex Assigned at Not on file Gender Identity Not on file Sexual Orientation Not on file Job Start Date Occupation Industry Not on file Not on file Not on file Plan of Treatment Health Maintenance Due Date Last Done Comments Chlamydia Screening 2003 HPV Vaccines (1 - 3-dose series) 2018 Meningococcal B Vaccine (1 o f 2 - Standard) 2019 Hepatitis B Vaccines (1 of 3 - 19+ 3-dose series) 2022 Pap Smear 02/07/2024 COVID-19 Vaccine (4 - 2023-2 5 season) 2024 08/17/2021, 12/27/2020, 11/29/2020 Influenza Vaccine (#1) 2024 Depression Screening 08/20/2024 DTaP/Tdap/Td Vaccines (2 - T d or Tdap) 05/21/2029 05/21/2019 MMR Vaccines Completed 09/22/2019, 01/23/2019 Meningococcal Vaccine Completed 11/02/2020 Varicella Vaccines Completed 06/28/2021, 02/11/2021 HIB Vaccines Aged Out No longer eligi ble based on patient's age to complete this topic Hepatitis A Vaccines Aged Out No long er eligible based on patient's age to complete this topic IPV Vaccines Aged Out No longer eligi ble based on patient's age to complete this topic Pneumococcal Vaccine: Pediatrics (0 to 5 Years) and At-Risk Patients (6 to 49 Years) Aged Out No longer eligible b ased on patient's age to complete this topic Rotavirus Vaccines Aged Out No longer eligible based on patient's age to complete this topic
--- OUTSIDE RECORDS SUMMARY | 2024-08-23 23:24 | XMS_ITS | Encounter Summary ---
Author Organization [facility] Address [phone] [facility] [employer] [place] [address] Care Team Providers Care Solar Thermal Installer Name Role Phone Yamileth Wagner COUPLER Primary Care Provider SeveroArmando hill Unavailable [email or web address] Yamileth Wagner COUPLER Unavailable + [phone] Yamileth Wagner COUPLER Unavailable + [phone] Reason for Visit * Reason Comments Medication Refill Encounter Details Date Type Department Care Team (Late st Contact Info) Description 11/05/2018 Refill [facility] [address] [place] [id number] Johana Lanza MD, [address] [facility] [address] [place] [address] [email or web address] Medication Refill Social History Tobacco Use Types [...] Info) Description 12/15/2024 9:00 AM EDT Telemedicine [facility] [address] [place] [address] Yamileth Wagner, BETTE [address] [place] [address] 06/11/2025 1:40 PM EDT [facility] [address] [place] [address] Yamileth Wagner, BETTE [address] [place] [address] documented as of this encounter Visit Diagnoses Not on filedocumented in this encounter Care Teams Solar Thermal Installer Relationship Specialty Start Date End Date Yamileth Wagner CNP [address] [place] [address] PCP - General Family Medicine 06/28/17 Armando Elkins [address] [place] [address] Collaborative Care [facility] Knitted Cloth Examiner Behavioral Health 04/22/19 05/08/19 Yamileth Wagner CNP [address] [place] [address] Insurance Assigned Provider 12/24/19 02/22/20 Yamileth Wagner CNP [address] [place] [address] Insurance Assigned Provider 09/25/20 08/05/21 documented as of this encounter Additional Source Comments The information contained in this document represents components of the legal health record. It is not the complete legal health record.[facility]
--- OUTSIDE RECORDS SUMMARY | 2024-08-23 23:24 | XMS_ITS | Encounter Summary ---
Author Organization [facility] Address [phone] [facility] [place] [address] Care Team Providers Care Electron Microprobe Operator Name Role Phone Yamileth Wagner UI ARCHITECT Primary Care Provider Reason for Visit * Reason Comments Well Child Encounter Details Date Type Department Care Team ([facility] st Contact Info) Description 06/28/2017 9:30 AM EST Office Visit [facility] [address] [place] [address] Yamileth Wagner, UI ARCHITECT [address] [place] [address] [email or web address] Acne vulgaris; Dysmenorrhea; Unimmunized Social History Tobacco Use Types Packs/Day Years Used Date Smoking Tobacco: Never Smokeless Tobacco: Never Sex and Gender Information Value Date Recorded Sex Assigned at Not on file Gender Identity Not on file Sexual Orientation Not on file documented as of this encounter Last Filed Vital Signs Vital Sign Reading Time Taken Comments Blood Pressure 96/60 06/28/2017 9:46 AM EST Pulse 68 06/28/2017 9:46 AM EST Temperature - - Respiratory Rate - - Oxygen Saturation 100% 06/28/2017 9:46 AM EST Inhaled Oxygen Concentration - - Weight 56.7 kg (125 lb) 06/28/2017 9:46 AM EST Height 166.4 cm (5' 5.5) 06/28/2017 9:46 AM EST Body Mass Index 20.48 06/28/2017 9:46 AM EST Body Mass Index Percentile 61.44% 06/28/2017 9:4 6 AM EST Growth Chart: CDC (Girls, 2- 20 Years) documented in this encounter Progress Notes * Yamileth Wagner, UI ARCHITECT - 06/28/2017 9:30 AM EST Subjective: Patient ID: Raine Taylor is a 12 y.o. female. HPI Comments: HOME: EDUCATION: Grade: 9th grade Doing well in school Loves it Much happier than middle school A Lot of new friends Socializing with friends more School: [employer] SLEEP: 11pm- 6:30am DIET:breakfast daily lenore Ania bar or muffine Proteins: chicken, turkey and fish, no red meat Fruits: yes Veggies: yes Milk/Dairy: no dairy ACTIVITIES: Swimming on two team, school and club team All year [employer] club Impact training TEETH: brushes 2/day Dentist yes ELIMINATION: normal MENSES: Menarche: 8 LMP: 06/22/17 Interval: regular every 28 days Length: 4-6 days Cramping: not as bad Amount: moderate ACNE: Duac topical working well RISKS: Tobacco: no Sex: no has boyfriend 5 mos, feels safe, no sexual contact as of yet Drugs: no EtOH no Friend group not experimenting with above AG: Sex, drugs, tobacco, alcohol, Screen time, regular exercise, communication with parents, importance of sleep and regular breakfast.---all reviewed New concerns: None Wt Readings from Last 3 Encounters: 06/28/17 : 56.7 kg (125 lb) (72 %, Z= 0.58)* 06/28/16 : 61 kg (134 lb 6.4 oz) (88 %, Z= 1.16)* * Growth percentiles are based on CDC 2-20 Years data. Ht Readings from Last 3 Encounters: 06/28/17 : 1.664 m (5' 5.5) (79 %, Z= 0.81)* 06/28/16 : 1.651 m (5' 5) (83 %, Z= 0.95)* * Growth percentiles are based on CDC 2-20 Years data. Body mass index is 20.48 kg/(m^2). 61 %ile (Z= 0.29) based on CDC 2-20 Years BMI-for-age data using vitals from 06/28/2017. Review of Systems Constitutional: Negative for activity [...] All other systems reviewed and are negative. Objective: Physical Exam Constitutional: She is oriented [...] no guarding and no CVA tenderness. Musculoskeletal: Normal range of motion. She exhibits [...] List Items Addressed This Visit Acne vulgaris Resolved on duac and dietary changes Cont to monitor Dysmenorrhea Resolved with dietary changes Doing well with this Cont to monitor Unimmunized Mom unclear on reasons behind lack of immunizations Doesn't feel good about either decision Feels like decision should be made by pt Feels like the safety is an issue but less so now that patient is 11 and not a baby Definitely concerned about so many vaccinations especially when she was a baby Pt has had no immunizations Released from last clearing distribution clerk due to refusal to immunize A/p ellicited concerns and answered questions Strongly encouraged starting an immunization schedule, saran for MMR, Gardisil, tdap, menacta, flu Handouts given on all immunizations Mom and pt to consider and will call for nurse visits Information given to take home documented in this encounter Miscellaneous Notes * Assessment & Plan Note - Yamileth Wagner CNP - 06/28/2017 1:08 PM EST Associated Problem(s): Unimmunized Mom unclear [...] has had no immunizations Released from last clearing distribution clerk due to refusal to immunize A/p ellicited concerns and answered questions Strongly encouraged starting an immunization schedule, saran for MMR, Gardisil, tdap, menacta, flu Handouts given on all immunizations Mom and pt to consider and will call for nurse visits Information given to take home * Assessment & Plan Note - Yamileth Wagner CNP - 06/28/2017 1:08 PM EST Associated Problem(s): Dysmenorrhea Resolved with dietary changes Doing well with this Cont to monitor * Assessment & Plan Note - Yamileth Wagner CNP - 06/28/2017 1:08 PM EST Associated Problem(s): Acne vulgaris Resolved on duac and dietary changes Cont to monitor documented in this encounter Plan of Treatment Upcoming Encounters Date Type Department Care Team (Late st Contact Info) Description 12/15/2024 9:00 AM EDT Telemedicine [facility] [address] [place] [address] Yamileth Wagner CNP [address] [place] [address] [email or web address] 06/11/2025 1:40 PM EDT Office Visit [facility] PT[facility]ed [address] [place] [address] Yamileth Wagner CNP [address] [place] [address] [email or web address] documented as of this encounter Visit Diagnoses Diagnosis Acne vulgaris Other acne Dysmenorrhea Unimmunized documented in this encounter Care Teams Electron Microprobe Operator Relationship Specialty Start Date End Date Yamileth Wagner CNP [address] [place] [address] [email or web address] PCP - General Family Medicine 06/28/17 documented as of this encounter Additional Source Comments The information contained in this document represents components of the legal health record. It is not the complete legal health record.[facility]
--- OUTSIDE RECORDS SUMMARY | 2024-08-23 23:24 | XMS_ITS | Encounter Summary ---
Author Organization [facility] Address [phone] [facility] [place] [address] Care Team Providers Care Numerical Analysis Group Manager Name Role Phone Yamileth Wagner Hunter AMOS Primary Care Provider Reason for Visit * Reason Comments Knee Pain Right Knee, unsure i f she injured it. Started hurting about a week ago Encounter Details Date Type Department Care Team (Late st Contact Info) Description 06/25/2018 1:00 PM EST Office Visit [facility] [address] [place] [address] Edward Cervantes MD [address] [place] [address] Acute pain of right knee (Primary Dx) Social History Tobacco Use Types Packs/Day Years Used Date Smoking Tobacco: Never Smokeless Tobacco: Never Sex and Gender Information Value Date Recorded Sex Assigned at Not on file Gender Identity Not on file Sexual Orientation Not on file documented as of this encounter Last Filed Vital Signs Vital Sign Reading Time Taken Comments Blood Pressure - - Pulse 56 06/25/2018 1:05 PM EST Temperature 36.8 ??C (98.3 ??F) 06/25/2018 1:05 PM ES T Respiratory Rate - - Oxygen Saturation 99% 06/25/2018 1:05 PM EST Inhaled Oxygen Concentration - - Weight 63.9 kg (140 lb 12.8 oz) 06/25/2018 1:05 PM EST Height - - Body Mass Index - - documented in this encounter Progress Notes * Edward Cervantes MD - 06/25/2018 1:00 PM EST 06/25/2018 Patient: Raine Taylor is a 13 y.o. female CC: R knee pain HPI 2 weeks R knee pain ? Swollen No injury More while rowing Rowing 6 days a week No prior injury Hurts on stairs, standing Anterior pain Review of Systems Neg sys/skin/cvs Medications: Current Outpatient Medications on File Prior to Visit Medication Sig Dispense Refill Last Dispense ??? adapalene (DIFFERIN) 0.3 % gel Apply a pea sized amount to face at night. Start every third night and increase to nightly as tolerated. 60 g 11 Unknown (outside pharmacy) ??? albuterol (VENTOLIN HFA) 90 mcg/actuation inhaler Inhale 1 puff into the lungs every 6 (six) hours as needed for wheezing. 18 Inhaler 1 Unknown (outside pharmacy) ??? clindamycin-benzoyl peroxide ER (DUAC) gel Apply to face QAM 45 g 3 Unknown (outside pharmacy) ??? desogestrel-ethinyl estradiol (APRI) 0.15-0.03 mg per tablet Take 1 tablet by mouth daily. 3 packet 0 Unknown (outside pharmacy) No current facility-administered medications on file prior to visit. Objective: Pulse (!) 56, temperature 36.8 ??C (98.3 ??F), temperature source Temporal, weight 63.9 kg (140 lb 12.8 oz), last menstrual period 06/13/2018, SpO2 99 %, not currently . Physical Exam R knee No effus FROM Tender khalif-patellar, at distal quads tendon at superior patellar pole, and at mid patellar tendon Assessment/Plan R PFPS, quads tendonitis, patellar tendonitis RICE nsaids PT documented in this encounter Plan of Treatment Upcoming Encounters Date Type Department Care Team (Late st Contact Info) Description 12/15/2024 9:00 AM EDT Telemedicine [facility] [address] [place] [address] Yamileth Wagner, BETTE [address] [facility], [place] [address] 06/11/2025 1:40 PM EDT [facility] [address] [place] [address] Yamileth Wagner CNP [address] [facility], [place] [address] [email or web address] documented as of this encounter Visit Diagnoses Diagnosis Acute pain of right knee- Primary documented in this encounter Care Teams Numerical Analysis Group Manager Relationship Specialty Start Date End Date Yamileth Wagner CNP [address] [facility], [place] [address] PCP - General Family Medicine 06/28/17 documented as of this encounter Additional Source Comments The information contained in this document represents components of the legal health record. It is not the complete legal health record.[facility]
--- OUTSIDE RECORDS SUMMARY | 2024-08-23 23:24 | XMS_ITS | Encounter Summary ---
Author Organization [facility] Address [phone] [facility] [place] [address] Care Team Providers Care Testing And Regulating Technician Name Role Phone Yamileth Wagner CNP Primary Care Provider Reason for Visit * Reason Comments Medication Refill Encounter Details Date Type Department Care Team (Late st Contact Info) Description 08/01/2017 Refill [facility] [address] [place] [address] Yamileth Wagner CNP [address] [place] [address] [email or web address] Medication Refill Social History Tobacco Use Types Packs/Day Years Used Date Smoking Tobacco: Never Smokeless Tobacco: Never Sex and Gender Information Value Date Recorded Sex Assigned at Not on file Gender Identity Not on file Sexual Orientation Not on file documented as of this encounter Progress Notes * Alfreda Mancilla - 08/01/2017 6:21 PM EST [facility] Clindamycin/Benzoyl Lst OV: 07/26/2017 Lst Fill: 01/08/2017 #45g and 1 Future Appointments Date Time Provider Department Center 07/01/2018 9:30 AM Yamileth Wagner CNP [email or web address] None documented in this encounter Plan of Treatment Upcoming Encounters Date Type Department Care Team (Late st Contact Info) Description 12/15/2024 9:00 AM EDT [facility] [address] [facility] [place] [address] Yamileth Wagner CNP [address] [place] [address] 06/11/2025 1:40 PM EDT Office Visit [facility]ole Harry [address] [facility] [place] [address] Yamileth Wagner CNP [address] [place] [address] documented as of this encounter Visit Diagnoses Not on filedocumented in this encounter Care Teams Testing And Regulating Technician Relationship Specialty Start Date End Date Yamileth Wagner C[place] [address] [email or web address] PCP - General Family Medicine 06/28/17 documented as of this encounter Additional Source Comments The information contained in this document represents components of the legal health record. It is not the complete legal health record.[facility]
[2024-08-24] MEDS: EPINEPHrine 0.3 MG KIT IM
[2024-08-24] MEDS: Normal Saline Flush 10 ML SYR IVP (00:01)
[2024-08-24 00:05] VITALS: BP 120/64; PULSE 71; RESP 16; TEMP 36.7; O2SAT 99
== END 2024-08-24 00:19 | disposition home or self-care (01) ==
PROVIDERS: Emergency Provider Emergency Medicine
DX: T78.40XA Allergy, unspecified, initial encounter (principal)
CPT/HCPCS: 96372; 96374; 96375; 99284; 99283; J0171; J2919